=== PATIENT | male | born 1970 | race Caucasian/White ===

== ENCOUNTER 2017-05-20 07:39 | Emergency (ER) | payer BC, OTHER ==
[2017-05-20 07:45] VITALS: TEMP 36.9
[2017-05-20] MEDS ORDERED: MoRPHine SULFATE 4 MG/ML 1 ML CARP\\VIAL IV STA (07:59)
--- NOTE | 2017-05-20 08:05 | EMERGENCY ROOM VISIT NOTE ---
ED Visit Note First contact with patient: 07:51 CHIEF COMPLAINT: Leg injury HISTORY OF PRESENT ILLNESS: This is a 46-year-old male with past medical history significant for cerebral palsy who presents to the emergency department with complaining of left foot and lower leg pain, redness, swelling. Patient states that 2 days ago he was in his electric wheelchair trying to go through a door and his left ankle/foot was slammed against a brick wall. There is a small abrasion on the lateral ankle from the injury. He has noticed increased pain, bruising and swelling to the foot and ankle since the injury. He has not taken any medications for the pain. He denies any other injuries. He denies any fevers or chills, drainage from the abrasion, or any other injuries. Patient is wheelchair-bound. REVIEW OF SYSTEMS: A complete 6 point review of systems was reviewed with the patient with pertinent positives and negatives as per history of present illness. All else were negative. PMH: Cerebral palsy. Not on any medications. SOCIAL HISTORY: Patient lives at home. Wheelchair-bound. PHYSICAL EXAM: Vital Signs: Reviewed Nurse's notes. MENTAL STATUS: Alert and cooperative, minimally verbal which is his baseline per caregiver. Involuntary movements and spasms of extremities. The lower extremities are contracted and cachectic. The left lower calf lash ankle/foot noted to have ecchymosis to the lateral aspect with dependent ecchymosis of the ankle and foot. Slight abrasion to the lateral left calf appears well healed, no erythema, warmth, drainage noted. The skin is otherwise intact. There is no deformity or fracture crepitus. EMERGENCY DEPARTMENT COURSE: I examined the patient. Differential diagnosis includes contusion, abrasion, fracture, limbs cellulitis. Basic labs performed , no acute abnormalities noted. X-ray of the tibia/fibula and foot does not show any fractures. The patient was treated with IV the morphine and IV Toradol , with great improvement in his pain. Given the lack of fevers, leukocytosis, and no apparent warmth or erythema of the leg, I doubt cellulitis at this time and suspect this more likely a contusion/ecchymosis of the lower extremity. Cuate wrap was applied for comfort. Patient was instructed to follow up with his PCP, he verbalized understanding. Patient was discharged home in stable condition. Problem List Cerebral palsy Current/Historical Medications No Active Prescriptions or Reported Meds Allergies Coded Allergies: No Known Allergies (Unverified , 05/20/17) Vital Signs Date Time Temp Pulse Resp B/P (MAP) Pulse Ox O2 Delivery O2 Flow Rate FiO2 05/20/17 11:48 94 105/63 94 05/20/17 10:10 90 105/63 97 Room Air 05/20/17 07:45 36.9 90 20 110/72 96 Room Air Laboratory Results 05/20/17 08:10 Red Blood Count 4.57, Mean Corpuscular Volume 80.7, Mean Corpuscular Hemoglobin 26.9, Mean Corpuscular Hemoglobin Concent 33.3, Mean Platelet Volume 10.9, Neutrophils (%) (Auto) 80.8, Lymphocytes (%) (Auto) 11.1, Monocytes (%) (Auto) 7.3, Eosinophils (%) (Auto) 0.3, Basophils (%) (Auto) 0.3, Neutrophils # (Auto) 4.74, Lymphocytes # (Auto) 0.65, Monocytes # (Auto) 0.43, Eosinophils # (Auto) 0.02, Basophils # (Auto) 0.02 05/20/17 08:10 Test 05/20/17 08:10 White Blood Count 5.87 K/uL (4.8-10.8) Red Blood Count 4.57 M/uL (4.7-6.1) Hemoglobin 12.3 g/dL (14.0-18.0) Hematocrit 36.9 % (42-52) Mean Corpuscular Volume 80.7 fL (80-100) Mean Corpuscular Hemoglobin 26.9 pg (25-34) Mean Corpuscular Hemoglobin Concent 33.3 g/dl (32-36) Platelet Count 227 K/uL (130-400) Mean Platelet Volume 10.9 fL (7.4-10.4) Neutrophils (%) (Auto) 80.8 % Lymphocytes (%) (Auto) 11.1 % Monocytes (%) (Auto) 7.3 % Eosinophils (%) (Auto) 0.3 % Basophils (%) (Auto) 0.3 % Neutrophils # (Auto) 4.74 K/uL (1.4-6.5) Lymphocytes # (Auto) 0.65 K/uL (1.2-3.4) Monocytes # (Auto) 0.43 K/uL (0.11-0.59) Eosinophils # (Auto) 0.02 K/uL (0-0.5) Basophils # (Auto) 0.02 K/uL (0-0.2) RDW Standard Deviation 47.4 fL (36.4-46.3) RDW Coefficient of Variation 16.2 % (11.5-14.5) Immature Granulocyte % (Auto) 0.2 % Immature Granulocyte # (Auto) 0.01 K/uL (0.00-0.02) Anion Gap 9.0 mmol/L (3-11) Estimated GFR () 125.0 Estimated GFR (Non- 107.9 BUN/Creatinine Ratio 17.1 (10-20) Calcium Level 9.1 mg/dl (8.5-10.1) Medications Administered Medications (Trade) Dose Ordered Sig/Ina Route Start Time Stop Time Status Last Admin Dose Admin Morphine Sulfate (MoRPHine SULFATE INJ) 4 mg NOW STAT IV 05/20/17 07:59 05/20/17 08:06 DC 05/20/17 08:15 4 MG Ketorolac Tromethamine (Toradol Inj) 30 mg STK-MED ONCE .ROUTE 05/20/17 09:47 05/20/17 09:48 DC 05/20/17 09:47 15 MG Departure Information Impression Primary Impression: Contusion of lower extremity Dispostion Home / Self-Care Condition GOOD Prescriptions No Active Prescriptions or Reported Meds Referrals No Doctor, Assigned (PCP) Patient Instructions ED Contusion Lower Ext, [facility] Additional Instructions Ibuprofen 400 mg every 4-6 hours as needed for pain. Ice and elevation to the leg for the next 24 hours. Wear the Cuate wrap to the foot and leg for the next few days for comfort. Stay off the leg as much as possible and see your physician in 3-4 days if you are not improving. Please return to the emergency department for any worsening symptoms including increased pain, swelling, redness, streaking up the leg, fever/chills, or any other concerns. Problem Qualifiers Primary Impression: Contusion of lower extremity Encounter type: initial encounter Laterality: left Qualified Codes: S80.12XA - Contusion of left lower leg, initial encounter
[2017-05-20 08:35] LABS: BASO % 0.3 %; BASO ABS # 0.02 K/uL (0-0.2); COMPLETE YES; EOS % 0.3 %; HEMATOCRIT 36.9 % (42-52); IG% 0.2 %; LYMPH % 11.1 %; LYMPH ABS # 0.65 K/uL (1.2-3.4); MEAN CELL VOLUME 80.7 fL (80-100); MEAN CORPUSCULAR HEMOGLOBIN 26.9 pg (25-34); MEAN CORPUSCULAR HGB CONC 33.3 g/dl (32-36); MEAN PLATELET VOLUME 10.9 fL (7.4-10.4); MONO % 7.3 %; NEUT % 80.8 %; PLATELET COUNT 227 K/uL (130-400); RED BLOOD COUNT 4.57 M/uL (4.7-6.1); WHITE BLOOD COUNT 5.87 K/uL (4.8-10.8)
[2017-05-20 08:42] LABS: BLOOD UREA NITROGEN 13 mg/dl (7-18); BUN/CREATININE RATIO 17.1 (10-20); CALCIUM 9.1 mg/dl (8.5-10.1); CARBON DIOXIDE 24 mmol/L (21-32); CHLORIDE 104 mmol/L (98-107); CREATININE 0.76 mg/dl (0.60-1.40); GLUCOSE 97 mg/dl (70-99); POTASSIUM 4.3 mmol/L (3.5-5.1); SODIUM 137 mmol/L (136-145)
--- NOTE | 2017-05-20 08:56 | DIAGNOSTIC IMAGING REPORT ---
L FOOT 2 VIEWS CLINICAL HISTORY: 46 years-old Male presenting with BLACK/BLUE, SWOLLEN, RED LEFT FOOT, left foot injury, ran into wall with wheelchair. TECHNIQUE: Frontal and lateral views of the left foot were obtained. COMPARISON: None. FINDINGS: The left foot appears chronically deformed likely due to contraction. No acute fracture or malalignment. No radiographic evidence of soft tissue swelling. Small ossicle or chronic avulsion fracture noted inferior to the medial malleolus. IMPRESSION: No acute osseous injury of the left foot. Chronic contraction deformity. Electronically signed by: Huy Hanna M.D. 05/20/2017 8:55 AM Dictated Date/Time: 05/20/2017 8:54 AM
--- NOTE | 2017-05-20 08:57 | DIAGNOSTIC IMAGING REPORT ---
LEFT TIBIA AND FIBULA 2 VIEWS CLINICAL HISTORY: Left leg injury. FINDINGS: AP and lateral views of the left tibia and fibula are obtained. No prior studies are available for comparison at the time of dictation. The examination is degraded by suboptimal positioning. The skeletal structures are osteopenic. There is no radiographic evidence of left tibial or fibular fracture. The knee and ankle joints are grossly maintained. Mild pretibial soft tissue swelling is suggested. IMPRESSION: There is no radiographic evidence of left tibial or fibular fracture. Electronically signed by: Orlin Prasad M.D. 05/20/2017 8:56 AM Dictated Date/Time: 05/20/2017 8:53 AM
[2017-05-20] MEDS: KETOROLAC TROMETHAMINE 30 MG/ML VIAL ONE ×2 (09:47→09:49)
[2017-05-20] MEDS ORDERED: KETOROLAC TROMETHAMINE 15 MG/ML VIAL IV. ONE (10:00)
[2017-05-20 11:48] VITALS: BP 105/63; PULSE 94; O2SAT 94
== END 2017-05-20 11:50 | disposition home or self-care (01) ==
LOC: C.EDB 07:41 → C.EDA 11:50
DX: S80.12XA Contusion of left lower leg, initial encounter (principal); S90.512A Abrasion, left ankle, initial encounter; W22.09XA Striking against other stationary object, initial encounter; G80.9 Cerebral palsy, unspecified; Z99.3 Dependence on wheelchair

== ENCOUNTER 2017-06-12 10:55 | Emergency (ER) | payer OTHER ==
[~2017-06-12] VITALS: Ht 162.6 cm; Wt 50.0 kg
[2017-06-12 11:07] VITALS: TEMP 37.2; Ht 162.6 cm; Wt 50.0 kg
[2017-06-12] MEDS ORDERED: BACL10TA PO (11:36)
[2017-06-12] MEDS ORDERED: SODIUM CHLORIDE 0.9% 1000ML 1,000 ML IV STA ×2 (12:03→14:23)
[2017-06-12] MEDS ORDERED: ONDANSETRON INJ 2 MG/ML 2 ML VIAL IV STA (12:03)
[2017-06-12] MEDS ORDERED: MoRPHine SULFATE 4 MG/ML 1 ML CARP\\VIAL IV STA (12:03)
[2017-06-12] MEDS ORDERED: LORAZEPAM 2 MG/ML 1 ML VIAL IV STA (12:06)
--- NOTE | 2017-06-12 12:10 | EMERGENCY ROOM VISIT NOTE ---
History Report prepared by Hectoribe: Sri Bertrand Under the Supervision of: Dr. James Parkinson M.D. First contact with patient: 11:57 Chief Complaint: NAUSEA Stated Complaint: N, HOT, COUGH History of Present Illness The patient is a 46 year old male who presents to the Emergency Room with complaints of hot/cold flashes beginning today. Per patient's caregiver, the patient has been having nausea, vomiting, decreased appetite, headache and abdominal pain. He denies any recent falls or urinary symptoms. The patient has cerebral palsy . Per the patient's caregiver, the patient does not usually have spasms like he is having unless he is in pain or sick. 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 The patient is on Baclofen but denies missing or taking any extra dosages. Source of History: patient, caregiver Onset: this morning Position: other (generalized) Quality: other (hot/cold flashes) Associated Symptoms: + headache, + nausea, + vomiting, + abdominal pain, No urinary symptoms Review of Systems See HPI for pertinent positives & negatives. A total of 10 systems reviewed and were otherwise negative. Past Medical & Surgical Medical Problems: (1) Cerebral palsy Old medical records were reviewed. Nurse's notes were reviewed and I agree with. Family History FH: heart attack Social History Smoking Status: Never Smoker Drug Use: none Occupation Status: employed Current/Historical Medications Scheduled Baclofen (Lioresal), 5 MG PO BID Scheduled PRN Lorazepam (Ativan), 1 MG PO Q8 PRN for Muscle Spasms Allergies Coded Allergies: No Known Allergies (Unverified , 05/20/17) Physical Exam Vital Signs Date Time Temp Pulse Resp B/P (MAP) Pulse Ox O2 Delivery O2 Flow Rate FiO2 06/12/17 17:00 61 18 114/68 97 Room Air 06/12/17 15:00 64 20 112/71 96 Room Air 06/12/17 13:00 67 15 100/67 93 Room Air 06/12/17 12:37 78 06/12/17 11:07 37.2 73 20 151/82 98 Room Air Physical Exam General: Non-ill appearing middle-aged male writhing in bed. HEENT: Normal cephalic atraumatic. Pupils are equal round and reactive to light. Extraocular movements are intact. Oropharynx is pink with moist mucous membranes. No swelling of the mouth lips or tongue. Neck: Supple with a midline trachea. No meningeal signs or stiffness, no JVD or bruits. No Stridor. Chest: Clear to auscultation bilaterally. No wheezes or rhonchi. No increased work of breathing. Heart: regular rate and rhythm. Abdomen: Soft nontender, nondistended without rebound guarding or rigidity. Extremities: Spasms on extremities, difficult to exam writhing in bed. Spine/Back. Non tender to palpation. No CVA tenderness :no evidence of hernia or torsion Skin: Good turgor without rashes. Neurologic exam: Cranial nerves two through 12 are intact. Motor and sensation are intact and symmetrical throughout. Medical Decision & Procedures ER Provider Diagnostic Interpretation: Radiology results as stated below per my review and radiologist interpretation: CHEST ONE VIEW PORTABLE FINDINGS: The bones soft tissues and hemidiaphragms are normal. The cardiomediastinal silhouette is normal. The lungs are clear. The pulmonary vasculature is normal. IMPRESSION: Negative chest. The above report was generated using voice recognition software. It may contain grammatical, syntax or spelling errors. Electronically signed by: Cayden Lux M.D. CT ABD/PELVIS IV CONTRAST ONLY FINDINGS: Lower chest: The heart is normal in size and configuration, without pericardial effusion. The lung bases and pleural spaces are clear. There is a prominent hiatal hernia Liver: The contrast-enhanced liver is normal in size, contour, and attenuation. There is no intrahepatic biliary ductal dilatation. The hepatic veins and portal veins are patent. Gallbladder: Unremarkable. Spleen: Normal in size and attenuation. Pancreas: Unremarkable. Adrenal glands: Unremarkable. Kidneys: There is symmetric renal cortical enhancement. The kidneys are normal in size without hydronephrosis. There are suspected bilateral nonobstructing renal calculi. Bowel: There are no transition zones to indicate bowel obstruction. The examination is moderately compromised due to motion artifact. Bowel evaluation is limited due to the lack of orally administered contrast. There are no findings to indicate acute diverticulitis. The appendix is felt to be normal. Peritoneum: There is no intraperitoneal free air or abdominal ascites. Vasculature: The abdominal aorta is normal in course and caliber. Adenopathy: None. Pelvic viscera: There is mild prominence of the prostate and seminal vesicles. Skeletal structures: No destructive osseous lesions are seen. IMPRESSION: 1. Significantly limited study from a technical standpoint secondary to patient motion 2. Moderate hiatal hernia 3. No evidence of bowel obstruction. No evidence of free air 4. No evidence of acute appendicitis. No evidence of acute diverticulitis 5. Nonspecific prominence of the prostate and seminal vesicles 6. Probable nephrolithiasis. Electronically signed by: Raza Leblanc M.D. Laboratory Results 06/12/17 11:25 Red Blood Count 4.61, Mean Corpuscular Volume 81.3, Mean Corpuscular Hemoglobin 26.2, Mean Corpuscular Hemoglobin Concent 32.3, Mean Platelet Volume 10.5, Neutrophils (%) (Auto) 83.8, Lymphocytes (%) (Auto) 9.7, Monocytes (%) (Auto) 6.0, Eosinophils (%) (Auto) 0.1, Basophils (%) (Auto) 0.3, Neutrophils # (Auto) 6.30, Lymphocytes # (Auto) 0.73, Monocytes # (Auto) 0.45, Eosinophils # (Auto) 0.01, Basophils # (Auto) 0.02 06/12/17 11:25 Test 06/12/17 11:25 06/12/17 12:14 06/12/17 15:50 White Blood Count 7.52 K/uL (4.8-10.8) Red Blood Count 4.61 M/uL (4.7-6.1) Hemoglobin 12.1 g/dL (14.0-18.0) Hematocrit 37.5 % (42-52) Mean Corpuscular Volume 81.3 fL (80-100) Mean Corpuscular Hemoglobin 26.2 pg (25-34) Mean Corpuscular Hemoglobin Concent 32.3 g/dl (32-36) Platelet Count 300 K/uL (130-400) Mean Platelet Volume 10.5 fL (7.4-10.4) Neutrophils (%) (Auto) 83.8 % Lymphocytes (%) (Auto) 9.7 % Monocytes (%) (Auto) 6.0 % Eosinophils (%) (Auto) 0.1 % Basophils (%) (Auto) 0.3 % Neutrophils # (Auto) 6.30 K/uL (1.4-6.5) Lymphocytes # (Auto) 0.73 K/uL (1.2-3.4) Monocytes # (Auto) 0.45 K/uL (0.11-0.59) Eosinophils # (Auto) 0.01 K/uL (0-0.5) Basophils # (Auto) 0.02 K/uL (0-0.2) RDW Standard Deviation 48.9 fL (36.4-46.3) RDW Coefficient of Variation 16.4 % (11.5-14.5) Immature Granulocyte % (Auto) 0.1 % Immature Granulocyte # (Auto) 0.01 K/uL (0.00-0.02) Anion Gap 7.0 mmol/L (3-11) Est Creatinine Clear Calc Drug Dose 90.0 ml/min Estimated GFR () 128.6 Estimated GFR (Non- 111.0 BUN/Creatinine Ratio 13.3 (10-20) Calcium Level 8.6 mg/dl (8.5-10.1) Total Bilirubin 0.3 mg/dl (0.2-1) Direct Bilirubin < 0.1 mg/dl (0-0.2) Aspartate Amino Transf (AST/SGOT) 26 U/L (15-37) Alanine Aminotransferase (ALT/SGPT) 20 U/L (12-78) Alkaline Phosphatase 70 U/L (45-117) Total Protein 7.6 gm/dl (6.4-8.2) Albumin 3.7 gm/dl (3.4-5.0) Lipase 157 U/L (73-393) Bedside Troponin I < 0.030 ng/ml (0-0.045) Urine Color YELLOW Urine Appearance CLEAR (CLEAR) Urine pH >= 9.0 (4.5-7.5) Urine Specific [place] > 1.045 (1.000-1.030) Urine Protein NEG (NEG) Urine Glucose (UA) NEG (NEG) Urine Ketones NEG (NEG) Urine Occult Blood NEG (NEG) Urine Nitrite NEG (NEG) Urine Bilirubin NEG (NEG) Urine Urobilinogen NEG (NEG) Urine Leukocyte Esterase NEG (NEG) Urine WBC (Auto) 5-10 /hpf (0-5) Urine RBC (Auto) 0-4 /hpf (0-4) Urine Hyaline Casts (Auto) 1-5 /lpf (0-5) Urine Epithelial Cells (Auto) >30 /lpf (0-5) Urine Bacteria (Auto) NEG (NEG) Urine Renal Epithelial Cells /lpf (0-5) Urine Sperm (Auto) PRESENT (NOT PRESENT) Laboratory studies as stated above per my review. Medications Administered Medications (Trade) Dose Ordered Sig/Ina Route Start Time Stop Time Status Last Admin Dose Admin Ondansetron HCl (Zofran Inj) 4 mg NOW STAT IV 06/12/17 12:03 06/12/17 12:05 DC 06/12/17 12:16 4 MG Sodium Chloride 1,000 ml @ 999 mls/hr Q1H1M STAT IV 06/12/17 12:03 06/12/17 13:03 DC 06/12/17 12:03 999 MLS/HR Lorazepam (Ativan Inj) 1 mg NOW STAT IV 06/12/17 12:06 06/12/17 12:07 DC 06/12/17 12:16 1 MG Sodium Chloride 1,000 ml @ 999 mls/hr Q1H1M STAT IV 06/12/17 14:23 06/12/17 15:23 DC 06/12/17 14:23 999 MLS/HR ED Course 1200: Past medical records reviewed. The patient was evaluated in room C12B, and a complete history and physical examination were performed. 1203: Sodium Chloride 1000 ml @ 999 mls/hr IV, Zofran Inj 4 mg IV, Morphine Sulfate 4 mg IV. 1206: Lorazepam 1 mg IV. 1300: The patient is now resting comfortably and is no longer having spasms. 1315: Ioversol 100 ml IV. 1358: I reassessed the patient and he is feeling better. He denies any chest pain, shortness of breath, groin pain or numbness or weakness in his leg. He feels ready to go home. 1423:Sodium Chloride 1000 ml @ 999 mls/hr IV. 1613: Upon reevaluation, the patient is resting. I discussed the results and treatment plan with the patient. He verbalized agreement of the treatment plan. The patient was discharged home. Medical Decision Differential diagnoses include: :dehydration, infection, bowel obstruction, electrolyte metabolic abnormality. This patient comes in as described above. He is complaining of abdominal pain he seems of spasm in his extremities. He does have CP and his caregiver says that's what happens when he is in pain. His abdomen does not appear to be distended . It's hard to localize. given his underlying medical issues. He was given Ativan 1 mg IV after IV access was established as well as Zofran and was doing much better his abdomen remains benign. He has nothing to suggest hernia or testicular torsion. Multiple blood testing was obtained. He has no white count or fever to suggest infection. He has no acute electrolyte or metabolic abnormalities. His urinalysis does not suggest a UTI with a culture pending. He has nothing to suggest liver or gallbladder or pancreas disease. I did do a CAT scan with IV contrast. There are no acute abnormality seen on the CAT scan. The patient appears comfortable. The Ativan really seemed to help I don't know if this is some spasticity related to his underlying muscle/ CP. His caregiver says he does get like this when he feels bad. He is taking baclofen and says that he has been taking it. I will give him a short prescription for lorazepam that he can use, 1 mg every 8 hours as needed. He was warned that it could make him drowsy and do not take before drinking, driving, working be careful up and down. The patient was happy with the plan and will be discharged to home. [place] Drug Monitoring Program Search Results: patient reviewed within database, no issues identified Medication Reconcilliation Current Medication List: was personally reviewed by me Blood Pressure Screening Patient's blood pressure: Normal blood pressure Impression Primary Impression: Nausea Additional Impressions: Abdominal pain Muscle spasm Scribe Attestation The scribe's documentation has been prepared under my direction and personally reviewed by me in its entirety. I confirm that the note above accurately reflects all work, treatment, procedures, and medical decision making performed by me. Departure Information Dispostion Home / Self-Care Prescriptions Lorazepam (ATIVAN) 1 Mg Tab 1 MG PO Q8 Y for Muscle Spasms, #6 TAB Prov: James Parkinson M.D. 06/12/17 Referrals No Doctor, Assigned (PCP) Forms HOME CARE DOCUMENTATION FORM, IMPORTANT VISIT INFORMATION Patient Instructions My [facility] Additional Instructions Rest. Drink plenty of fluids. May use Ativan 1 mg every 8 hours if needed for spasm The very careful as Ativan may make you drowsy and do not take with any other medications that are sedating Do not take Ativan if you drive or work. Be very careful getting up and down Return if: Worsening of symptoms, increasing pain, fever or chills, any new problems or concerns. Follow-up with your doctor tomorrow for recheck Problem Qualifiers
--- NOTE | 2017-06-12 12:27 | DIAGNOSTIC IMAGING REPORT ---
CHEST ONE VIEW PORTABLE CLINICAL HISTORY: CHEST PAIN pain COMPARISON STUDY: No previous studies for comparison. FINDINGS: The bones soft tissues and hemidiaphragms are normal. The cardiomediastinal silhouette is normal. The lungs are clear. The pulmonary vasculature is normal. IMPRESSION: Negative chest. The above report was generated using voice recognition software. It may contain grammatical, syntax or spelling errors. Electronically signed by: Cayden Lux M.D. 06/12/2017 12:26 PM Dictated Date/Time: 06/12/2017 12:25 PM
[2017-06-12 12:29] LABS: BASO % 0.3 %; BASO ABS # 0.02 K/uL (0-0.2); COMPLETE YES; EOS % 0.1 %; HEMATOCRIT 37.5 % (42-52); IG% 0.1 %; LYMPH % 9.7 %; LYMPH ABS # 0.73 K/uL (1.2-3.4); MEAN CELL VOLUME 81.3 fL (80-100); MEAN CORPUSCULAR HEMOGLOBIN 26.2 pg (25-34); MEAN CORPUSCULAR HGB CONC 32.3 g/dl (32-36); MEAN PLATELET VOLUME 10.5 fL (7.4-10.4); NEUT % 83.8 %; PLATELET COUNT 300 K/uL (130-400); RED BLOOD COUNT 4.61 M/uL (4.7-6.1); WHITE BLOOD COUNT 7.52 K/uL (4.8-10.8)
[2017-06-12 12:35] LABS: CHLORIDE 103 mmol/L (98-107); POTASSIUM 4.3 mmol/L (3.5-5.1); SODIUM 141 mmol/L (136-145)
[2017-06-12 12:41] LABS: BLOOD UREA NITROGEN 9 mg/dl (7-18); BUN/CREATININE RATIO 13.3 (10-20); CALCIUM 8.6 mg/dl (8.5-10.1); CARBON DIOXIDE 31 mmol/L (21-32); CREATININE 0.71 mg/dl (0.60-1.40); GLUCOSE 90 mg/dl (70-99)
[2017-06-12 12:42] LABS: ALT/SGPT 20 U/L (12-78)
[2017-06-12 12:45] LABS: ALKALINE PHOSPHATASE 70 U/L (45-117); AST/SGOT 26 U/L (15-37)
[2017-06-12] MEDS ORDERED: OPTIRAY 320 IV PRN (13:15)
--- NOTE | 2017-06-12 13:36 | DIAGNOSTIC IMAGING REPORT ---
CT ABD/PELVIS IV CONTRAST ONLY CLINICAL HISTORY: Diffuse abdominal pain COMPARISON STUDY: None. TECHNIQUE: Following the IV administration of 93 mL of Optiray-320, CT scan of the abdomen and pelvis was performed from the lung bases to the proximal femurs. Images are reviewed in the axial, sagittal, and coronal planes. IV contrast was administered without complication. A dose lowering technique was utilized adhering to the principles of ALARA. CT DOSE: 413.43 mGy.cm FINDINGS: Lower chest: The heart is normal in size and configuration, without pericardial effusion. The lung bases and pleural spaces are clear. There is a prominent hiatal hernia Liver: The contrast-enhanced liver is normal in size, contour, and attenuation. There is no intrahepatic biliary ductal dilatation. The hepatic veins and portal veins are patent. Gallbladder: Unremarkable. Spleen: Normal in size and attenuation. Pancreas: Unremarkable. Adrenal glands: Unremarkable. Kidneys: There is symmetric renal cortical enhancement. The kidneys are normal in size without hydronephrosis. There are suspected bilateral nonobstructing renal calculi. Bowel: There are no transition zones to indicate bowel obstruction. The examination is moderately compromised due to motion artifact. Bowel evaluation is limited due to the lack of orally administered contrast. There are no findings to indicate acute diverticulitis. The appendix is felt to be normal. Peritoneum: There is no intraperitoneal free air or abdominal ascites. Vasculature: The abdominal aorta is normal in course and caliber. Adenopathy: None. Pelvic viscera: There is mild prominence of the prostate and seminal vesicles. Skeletal structures: No destructive osseous lesions are seen. IMPRESSION: 1. Significantly limited study from a technical standpoint secondary to patient motion 2. Moderate hiatal hernia 3. No evidence of bowel obstruction. No evidence of free air 4. No evidence of acute appendicitis. No evidence of acute diverticulitis 5. Nonspecific prominence of the prostate and seminal vesicles 6. Probable nephrolithiasis. Electronically signed by: Raza Leblanc M.D. 06/12/2017 1:35 PM Dictated Date/Time: 06/12/2017 1:30 PM
[2017-06-12] MEDS ORDERED: ATV/1 PO (16:02)
[2017-06-12 16:05] LABS: URINE APPEARANCE CLEAR (CLEAR); URINE BILIRUBIN NEG (NEG); URINE COLOR YELLOW; URINE EPITHELIAL CELL AUTO >30 /lpf (0-5); URINE NITRITE NEG (NEG); URINE PH >= 9.0 (4.5-7.5); URINE SPECIFIC GRAVITY > 1.045 (1.000-1.030); UROBILINOGEN NEG (NEG)
[2017-06-12 16:16] LABS: MANUAL MICROSCOPIC REQUIRED? NO; REVIEW REQ? YES
[2017-06-12 16:20] LABS: SULFASALICYLIC ACID NEG (NEG)
[2017-06-12 18:20] VITALS: BP 109/68; PULSE 93; O2SAT 97
== END 2017-06-12 18:50 | disposition home or self-care (01) ==
LOC: C.EDB 10:56 → C.EDC 18:50
DX: R11.0 Nausea (principal); R10.9 Unspecified abdominal pain; M62.838 Other muscle spasm; G80.9 Cerebral palsy, unspecified

== ENCOUNTER 2017-07-06 19:31 | Emergency (ER) | payer OTHER ==
[~2017-07-06] VITALS: Ht 149.9 cm; Wt 48.2 kg
[~2017-07-06 19:31] MED LIST: BACL10TA PO
[2017-07-06 19:44] VITALS: TEMP 37.5; Ht 149.9 cm; Wt 48.2 kg
[2017-07-06] MEDS ORDERED: BACLOFEN 10 MG TAB PO STA (19:46)
[2017-07-06 20:16] LABS: BASO % 0.5 %; BASO ABS # 0.04 K/uL (0-0.2); COMPLETE YES; EOS % 0.1 %; HEMATOCRIT 35.7 % (42-52); IG% 0.2 %; LYMPH % 11.9 %; LYMPH ABS # 0.98 K/uL (1.2-3.4); MEAN CELL VOLUME 80.4 fL (80-100); MEAN CORPUSCULAR HEMOGLOBIN 25.9 pg (25-34); MEAN CORPUSCULAR HGB CONC 32.2 g/dl (32-36); MEAN PLATELET VOLUME 9.8 fL (7.4-10.4); MONO % 7.3 %; PLATELET COUNT 224 K/uL (130-400); RED BLOOD COUNT 4.44 M/uL (4.7-6.1); WHITE BLOOD COUNT 8.22 K/uL (4.8-10.8)
[2017-07-06 20:48] LABS: BUN/CREATININE RATIO 16.9 (10-20); CALCIUM 8.2 mg/dl (8.5-10.1); CREATININE 0.7 mg/dl (0.60-1.40)
--- NOTE | 2017-07-06 20:49 | DIAGNOSTIC IMAGING REPORT ---
CT HEAD WITHOUT CONTRAST (CT) CLINICAL HISTORY: Seizure. Head trauma. COMPARISON STUDY: No previous studies for comparison. TECHNIQUE: Axial CT of the brain is performed from the vertex to the skull base. IV contrast was not administered for this examination. A dose lowering technique was utilized adhering to the principles of ALARA. CT DOSE: 1944.53 mGy.cm FINDINGS: No intra or extra-axial mass lesions are visualized. There is no CT evidence of acute cortical infarction. There is no evidence of midline shift. There is no acute hemorrhage. No calvarial fractures are visualized. There are subtle white matter hypodensities likely on a small vessel basis. There is no evidence of pathologic ventricular dilatation. There is a small sphenoid sinus air-fluid level. IMPRESSION: 1. No acute intracranial findings 2. Small sphenoid sinus air-fluid level. Electronically signed by: Raza Leblanc M.D. 07/06/2017 8:47 PM Dictated Date/Time: 07/06/2017 8:46 PM
--- NOTE | 2017-07-06 20:52 | DIAGNOSTIC IMAGING REPORT ---
CT OF THE CERVICAL SPINE CLINICAL HISTORY: Neck pain status post trauma SEIZURE COMPARISON STUDY: No previous studies for comparison. CT DOSE: TECHNIQUE: CT scan of the cervical spine was performed from the skull base to the thoracic inlet. Images are reviewed in the axial, sagittal, and coronal planes. IV contrast was not administered for this examination. A dose lowering technique was utilized adhering to the principles of ALARA. FINDINGS: The visualized portions of the lung apices reveal no evidence of pneumothorax. The prevertebral soft tissues are normal. No fractures or subluxations are visualized. There are advanced multilevel degenerative changes IMPRESSION: No evidence of acute fracture or traumatic subluxation. Electronically signed by: Raza Leblanc M.D. 07/06/2017 8:51 PM Dictated Date/Time: 07/06/2017 8:48 PM
[2017-07-06 20:53] LABS: POTASSIUM 4.1 mmol/L (3.5-5.1)
[2017-07-06 21:27] VITALS: BP 100/73; PULSE 102; O2SAT 94
--- NOTE | 2017-07-06 23:57 | EMERGENCY ROOM VISIT NOTE ---
History Report prepared by Maninder: Jammie Segura Under the Supervision of: Dr. Carrillo Wells M.D. First contact with patient: 19:35 Chief Complaint: SEIZURE Stated Complaint: SEIZURE History of Present Illness The patient is a 46 year old male who presents to the Emergency Room with complaints of worsening shaking starting today. The patient denies having a seizure ever in his life or having Parkinson's disease. He states that he has cerebral palsy and normally shakes, but not this much. He states that he takes Ativan to help with his shaking and denies taking it today. He notes that he fell today trying to get into his wheel chair. He denies a headache, neck pain, and back pain. He states that he did not hit his head when he fell. He notes he is having leg pain in both legs from moving them so much today. The patient denies a fever, chest pain, vomiting, and abdominal pain. Source of History: patient Onset: today Position: other (global) Quality: other (shaking) Timing: worsening Modifying Factors (Relieving): other (Ativan) Associated Symptoms: No fevers, No headache, No neck pain, No vomiting, No abdominal pain, No back pain Note: The patient complains of bilateral leg pain. Review of Systems See HPI for pertinent positives & negatives. A total of 10 systems reviewed and were otherwise negative. Past Medical & Surgical Medical Problems: (1) Cerebral palsy Family History FH: heart attack Social History Smoking Status: Never Smoker Drug Use: none Marital Status: single Housing Status: assisted living Occupation Status: employed Current/Historical Medications Unable to Obtain Active Prescriptions or Reported Meds Allergies Coded Allergies: No Known Allergies (Unverified , 05/20/17) Physical Exam Vital Signs Date Time Temp Pulse Resp B/P (MAP) Pulse Ox O2 Delivery O2 Flow Rate FiO2 07/06/17 21:27 102 20 100/73 94 07/06/17 19:44 37.5 101 20 126/71 97 Room Air Physical Exam Constitutional: Vital signs reviewed. Eyes: Pupils are equal round reactive to light. Conjunctiva are noninjected. ENT: Pharynx is clear without erythema or exudate. Mucous membranes are moist. Neck supple without meningeal signs. Respiratory: Clear to auscultation bilaterally. Breath sounds are equal bilaterally. Cardiovascular: Regular rate and rhythm. No rubs or gallops. GI: Soft, nondistended and nontender. Bowel sounds are present. Musculoskeletal: No peripheral edema. Contractures. Integumentary: No cyanosis. Neurological: The patient is awake and alert. Involuntary movements of the arms and legs. Psychiatric: Normal affect. Medical Decision & Procedures ER Provider Diagnostic Interpretation: Radiology results as stated below per my review and the radiologist's interpretation: CT HEAD WITHOUT CONTRAST (CT) CLINICAL HISTORY: Seizure. Head trauma. COMPARISON STUDY: No previous studies for comparison. TECHNIQUE: Axial CT of the brain is performed from the vertex to the skull base. IV contrast was not administered for this examination. A dose lowering technique was utilized adhering to the principles of ALARA. CT DOSE: 1944.53 mGy.cm FINDINGS: No intra or extra-axial mass lesions are visualized. There is no CT evidence of acute cortical infarction. There is no evidence of midline shift. There is no acute hemorrhage. No calvarial fractures are visualized. There are subtle white matter hypodensities likely on a small vessel basis. There is no evidence of pathologic ventricular dilatation. There is a small sphenoid sinus air-fluid level. IMPRESSION: 1. No acute intracranial findings 2. Small sphenoid sinus air-fluid level. Electronically signed by: Raza Leblanc M.D. 07/06/2017 8:47 PM Dictated Date/Time: 07/06/2017 8:[address] OF THE CERVICAL SPINE CLINICAL HISTORY: Neck pain status post trauma SEIZURE COMPARISON STUDY: No previous studies for comparison. CT DOSE: TECHNIQUE: CT scan of the cervical spine was performed from the skull base to the thoracic inlet. Images are reviewed in the axial, sagittal, and coronal planes. IV contrast was not administered for this examination. A dose lowering technique was utilized adhering to the principles of ALARA. FINDINGS: The visualized portions of the lung apices reveal no evidence of pneumothorax. The prevertebral soft tissues are normal. No fractures or subluxations are visualized. There are advanced multilevel degenerative changes IMPRESSION: No evidence of acute fracture or traumatic subluxation. Electronically signed by: Raza Leblanc M.D. 07/06/2017 8:51 PM Dictated Date/Time: 07/06/2017 8:48 PM Laboratory Results 07/06/17 19:55 Red Blood Count 4.44, Mean Corpuscular Volume 80.4, Mean Corpuscular Hemoglobin 25.9, Mean Corpuscular Hemoglobin Concent 32.2, Mean Platelet Volume 9.8, Neutrophils (%) (Auto) 80.0, Lymphocytes (%) (Auto) 11.9, Monocytes (%) (Auto) 7.3, Eosinophils (%) (Auto) 0.1, Basophils (%) (Auto) 0.5, Neutrophils # (Auto) 6.57, Lymphocytes # (Auto) 0.98, Monocytes # (Auto) 0.60, Eosinophils # (Auto) 0.01, Basophils # (Auto) 0.04 07/06/17 19:55 Test 07/06/17 19:55 07/06/17 20:55 White Blood Count 8.22 K/uL (4.8-10.8) Red Blood Count 4.44 M/uL (4.7-6.1) Hemoglobin 11.5 g/dL (14.0-18.0) Hematocrit 35.7 % (42-52) Mean Corpuscular Volume 80.4 fL (80-100) Mean Corpuscular Hemoglobin 25.9 pg (25-34) Mean Corpuscular Hemoglobin Concent 32.2 g/dl (32-36) Platelet Count 224 K/uL (130-400) Mean Platelet Volume 9.8 fL (7.4-10.4) Neutrophils (%) (Auto) 80.0 % Lymphocytes (%) (Auto) 11.9 % Monocytes (%) (Auto) 7.3 % Eosinophils (%) (Auto) 0.1 % Basophils (%) (Auto) 0.5 % Neutrophils # (Auto) 6.57 K/uL (1.4-6.5) Lymphocytes # (Auto) 0.98 K/uL (1.2-3.4) Monocytes # (Auto) 0.60 K/uL (0.11-0.59) Eosinophils # (Auto) 0.01 K/uL (0-0.5) Basophils # (Auto) 0.04 K/uL (0-0.2) RDW Standard Deviation 47.3 fL (36.4-46.3) RDW Coefficient of Variation 16.1 % (11.5-14.5) Immature Granulocyte % (Auto) 0.2 % Immature Granulocyte # (Auto) 0.02 K/uL (0.00-0.02) Anion Gap 11.0 mmol/L (3-11) Est Creatinine Clear Calc Drug Dose 87.1 ml/min Estimated GFR () 129.3 Estimated GFR (Non- 111.6 BUN/Creatinine Ratio 16.9 (10-20) Calcium Level 8.2 mg/dl (8.5-10.1) Ethyl Alcohol mg/dL 50.4 mg/dl (0-3) Laboratory results as reviewed by me. Medications Administered Medications (Trade) Dose Ordered Sig/Ina Route Start Time Stop Time Status Last Admin Dose Admin Baclofen (Lioresal Tab) 5 mg NOW STAT PO 07/06/17 19:46 07/06/17 19:48 DC 07/06/17 20:07 5 MG ECG Indication: other (nursing protocol) Rate (beats per minute): 101 Rhythm: sinus tachycardia Findings: no acute ischemic change, no ectopy ED Course 1936: The patient was evaluated in room B7. A complete history and physical exam was performed. 1945: Ordered Baclofen 5 mg PO. 1952: Nursing staff stated that they called the apartment complex that the patient lives at and he lives with 2 assistants. They state that no one at the complex called 911 there. 2010: Nursing staff stated that the patient told them he was drinking alcohol today. 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 They state that that is unusual for him and he asked her to do so. 2112: I reevaluated the patient and his two caregivers are there. After further discussion, the patient stated that he drank 3 beers today and did not take his Baclofen. His shaking has stopped at this point and he has not complaints. The patient will be discharged home with his caretakers. Medical Decision This is a 46-year-old male who presents with increased involuntary movements. He also fell today. Differential diagnosis includes intracranial hemorrhage, intracranial mass, cerebral palsy, partial simple seizures, metabolic derangement. I did perform a limited focused review of portions of the patient' s old chart on the electronic medical record. The patient was here for nausea June 12. He had a CT of his abdomen which showed no acute process. I did evaluate the patient as noted above. The patient is presenting with increased involuntary movements. He has a history of chronic involuntary movements. He is on baclofen and Ativan when necessary. He states he did not take his baclofen or his Ativan today and he admits to drinking alcohol. He did fall yesterday while trying to get into a chair. The patient was placed on a continuous surveillance system monitor. I did order and personally review the patient's 12-lead EKG as described above. I did order and review the patient's blood work as noted in the electronic medical record. I did order a CT of the cervical spine and head. I did review the images myself as well as the radiology report as described above. There is no evidence of acute injury. I did treat him with baclofen here. The patient was given Ativan prior to arrival and on reassessment the patient no longer has any significant involuntary movements. He did feel much better and was discharged with his caretakers. Medication Reconcilliation Current Medication List: was personally reviewed by me Blood Pressure Screening Patient's blood pressure: Normal blood pressure Blood pressure disposition: Did not require urgent referral Impression Primary Impression: Involuntary movements Additional Impressions: Cerebral palsy Anemia Scribe Attestation The scribe's documentation has been prepared under my direct and personally reviewed by me in its entirety. I confirm that the note above accurately reflects all work, treatment, procedures, and medical decision making performed by me. Departure Information Dispostion Home / Self-Care Prescriptions Unable to Obtain Active Prescriptions or Reported Meds Referrals No Doctor, Assigned (PCP) Forms HOME CARE DOCUMENTATION FORM, IMPORTANT VISIT INFORMATION Patient Instructions My [facility] Additional Instructions You have been examined and treated today on an emergency basis only. This is not a substitute for, or an effort to provide, complete comprehensive medical care. It is impossible to recognize and treat all injuries or illnesses in a single emergency department visit. It is therefore important that you follow up closely with your physician. Call as soon as possible for an appointment. Return for worsening symptoms or if you develop fever, vomiting, headache or any other concerning symptoms. Problem Qualifiers Additional Impressions: Cerebral palsy Cerebral palsy type: unspecified type Qualified Codes: G80.9 - Cerebral palsy, unspecified Anemia Anemia type: unspecified type Qualified Codes: D64.9 - Anemia, unspecified
== END 2017-07-06 21:28 | disposition home or self-care (01) ==
LOC: EDBD 19:31 → C.EDB 19:33
DX: R25.9 Unspecified abnormal involuntary movements (principal); G80.9 Cerebral palsy, unspecified; D64.9 Anemia, unspecified; M79.604 Pain in right leg; M79.605 Pain in left leg; Z82.49 Family history of ischemic heart disease and other diseases of the circulatory system

== ENCOUNTER 2017-07-16 09:50 | Emergency (ER) | payer OTHER ==
[2017-07-16 09:50] VITALS: TEMP 37.2
[2017-07-16] MEDS ORDERED: BACLOFEN 10 MG TAB PO STA (09:58)
[2017-07-16] MEDS ORDERED: LORAZEPAM 1 MG TAB SL STA (09:58)
[2017-07-16] MEDS ORDERED: ATV/1 PO (10:11)
[2017-07-16] MEDS ORDERED: LRS10 PO (10:12)
--- NOTE | 2017-07-16 10:33 | DIAGNOSTIC IMAGING REPORT ---
HEAD WITHOUT CONTRAST (CT) CLINICAL HISTORY: 46 years-old Male with fall hit left side of head. Acute left-sided head trauma status post fall TECHNIQUE: Multiple axial CT images of the head were obtained without contrast. A dose lowering technique was utilized adhering to the principles of ALARA. COMPARISON: Head CT 07/06/2017. FINDINGS: Exam is moderately motion degraded. No acute intracranial hemorrhage, midline shift, mass, large territorial ischemia or abnormal extra-axial collection. Subtle white matter hypodensities are again seen suggesting chronic microvascular ischemic changes. The calvarium is intact. The paranasal sinuses, mastoid air cells, and middle ear cavities are clear. IMPRESSION: Motion degraded study without acute intracranial abnormality identified. The above report was generated using voice recognition software. It may contain grammatical, syntax or spelling errors. Electronically signed by: Alvarez Santana M.D. 07/16/2017 10:32 AM Dictated Date/Time: 07/16/2017 10:29 AM
--- NOTE | 2017-07-16 10:42 | DIAGNOSTIC IMAGING REPORT ---
CERVICAL SPINE W/O CT DOSE: 2692.18 mGy.cm CLINICAL HISTORY: 46 years-old Male with fall hit left side of head . Acute left neck injury status post trauma COMPARISON: CT cervical spine 07/06/2017 TECHNIQUE: Multiple axial CT images of the cervical spine were obtained without contrast. A dose lowering technique was utilized adhering to the principles of ALARA. FINDINGS: The exam is moderately motion degraded. Severe intervertebral disc space narrowing with endplate spurring in seen at C3-C4, C4-C5, C5-C6 and C6-C7. Mild to moderate multilevel facet arthropathy. No acute cervical spine fracture or subluxation identified. Varying degrees of neuroforaminal stenosis are present. Lung apices are clear. Imaged soft tissues of the neck are unremarkable. IMPRESSION: 1. Moderately motion degraded exam without acute fracture or subluxation. 2. Multilevel advanced intervertebral disc space narrowing and endplate degenerative changes are again seen as above. The above report was generated using voice recognition software. It may contain grammatical, syntax or spelling errors. Electronically signed by: Alvarez Sanatna M.D. 07/16/2017 10:41 AM Dictated Date/Time: 07/16/2017 10:32 AM
[2017-07-16] MEDS ORDERED: DIPHTHERIA/TETANUS/PERTUSSIS 0.5 ML SYR/VIAL IM. ONE (11:00)
[2017-07-16 11:13] VITALS: BP 102/51; PULSE 107; O2SAT 94
--- NOTE | 2017-07-16 15:20 | EMERGENCY ROOM VISIT NOTE ---
History Report prepared by Hectoribgaurang: Cary Oconnor Under the Supervision of: Dr. Kritsopher Lance D.O. 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 The patient has a history of cerebral palsy. He typically takes Ativan and Baclofen. Last night he was drinking alcohol and did not take his medications because he was drinking. He typically does not take his medications if he is drinking alcohol. This morning the patient had an unwitnessed fall from his scooter. He was found by caretakers and EMS was called. The patient has a laceration to the back of his head and is currently complaining of head pain and pain around the laceration. He denies any other symptoms at this time. Pt denies change in vision, fevers, chest pain, shortness of breath, nausea, vomiting, diarrhea, and urinary symptoms. EMS reports that the patient has been acting normally. He did not take his medications this morning either. Source of History: patient, EMS Onset: 4 hours COMMUNICATIONS DEPARTMENT CHAIRPERSON Position: other (global) Timing: other (episode) Associated Symptoms: + headache, No fevers, No neck pain, No chest pain, No SOB, No nausea, No vomiting, No abdominal pain, No diarrhea, No urinary symptoms Note: Pt with laceration to back of head. Pt denies changes in vision. Review of Systems See HPI for pertinent positives & negatives. A total of 10 systems reviewed and were otherwise negative. Past Medical & Surgical Medical Problems: (1) Cerebral palsy Family History FH: heart attack Social History Smoking Status: Never Smoker Drug Use: none Marital Status: single Housing Status: assisted living Occupation Status: employed Current/Historical Medications Scheduled Baclofen (Baclofen), 5 MG PO BID Scheduled PRN Lorazepam (Ativan), 1 MG PO Q6H PRN for TREMORS AND CEREBRAL PALSY Allergies Coded Allergies: No Known Allergies (Unverified , 07/16/17) Physical Exam Vital Signs Date Time Temp Pulse Resp B/P (MAP) Pulse Ox O2 Delivery O2 Flow Rate FiO2 07/16/17 11:13 107 18 102/51 94 07/16/17 09:50 37.2 111 22 145/63 96 Room Air 07/16/17 09:50 37.2 111 22 145/63 96 Room Air Physical Exam GENERAL: Laying in bed with sporadic movements of the upper and lower extremities. Non-focal. No acute distress and non-toxic. HEAD: 2 cm laceration to the left occiput without venous oozing. EYE EXAM: normal conjunctiva, PERRL and EOM's grossly intact OROPHARYNX: no exudate, no erythema, lips, buccal mucosa, and tongue normal and mucous membranes are moist NOSE: No septal hematoma. NECK: supple, no nuchal rigidity, no adenopathy, non-tender CHEST: stable to compression anteriorly and posteriorly LUNGS: clear to auscultation. Normal chest wall mechanics HEART: no murmurs, S1 normal and S2 normal ABDOMEN: abdomen soft, non-tender, normo-active bowel sounds, no masses, no rebound or guarding. PELVIS: stable to compression anteriorly and posteriorly BACK: Back is symmetrical on inspection and there is no deformity, no midline tenderness, no CVA tenderness. UPPER EXTREMITIES: spontaneous movement, nonfocal without tenderness to palpation LOWER EXTREMITIES: spontaneous movement, nonfocal without tenderness to palpation NEURO EXAM: Alert, awake and following commands. Answers to yes or no questions. Sporadic movements of the upper and lower extremities. Non-focal. Medical Decision & Procedures ER Provider Diagnostic Interpretation: Radiology results as stated below per my review and the radiologist's interpretation: HEAD WITHOUT CONTRAST (CT) CLINICAL HISTORY: 46 years-old Male with fall hit left side of head. Acute left-sided head trauma status post fall TECHNIQUE: Multiple axial CT images of the head were obtained without contrast. A dose lowering technique was utilized adhering to the principles of ALARA. COMPARISON: Head CT 07/06/2017. FINDINGS: Exam is moderately motion degraded. No acute intracranial hemorrhage, midline shift, mass, large territorial ischemia or abnormal extra-axial collection. Subtle white matter hypodensities are again seen suggesting chronic microvascular ischemic changes. The calvarium is intact. The paranasal sinuses, mastoid air cells, and middle ear cavities are clear. IMPRESSION: Motion degraded study without acute intracranial abnormality identified. The above report was generated using voice recognition software. It may contain grammatical, syntax or spelling errors. Electronically signed by: Alvarez Santana M.D. 07/16/2017 10:32 AM Dictated Date/Time: 07/16/2017 10:29 AM CERVICAL SPINE W/O CT DOSE: 2692.18 mGy.cm CLINICAL HISTORY: 46 years-old Male with fall hit left side of head . Acute left neck injury status post trauma COMPARISON: CT cervical spine 07/06/2017 TECHNIQUE: Multiple axial CT images of the cervical spine were obtained without contrast. A dose lowering technique was utilized adhering to the principles of ALARA. FINDINGS: The exam is moderately motion degraded. Severe intervertebral disc space narrowing with endplate spurring in seen at C3-C4, C4-C5, C5-C6 and C6-C7. Mild to moderate multilevel facet arthropathy. No acute cervical spine fracture or subluxation identified. Varying degrees of neuroforaminal stenosis are present. Lung apices are clear. Imaged soft tissues of the neck are unremarkable. IMPRESSION: 1. Moderately motion degraded exam without acute fracture or subluxation. 2. Multilevel advanced intervertebral disc space narrowing and endplate degenerative changes are again seen as above. The above report was generated using voice recognition software. It may contain grammatical, syntax or spelling errors. Electronically signed by: Alvarez Santana M.D. 07/16/2017 10:41 AM Dictated Date/Time: 07/16/2017 10:32 AM Medications Administered Medications (Trade) Dose Ordered Sig/Ina Route Start Time Stop Time Status Last Admin Dose Admin Lorazepam (Ativan Tab) 1 mg NOW STAT SL 07/16/17 09:58 07/16/17 09:59 DC 07/16/17 10:10 1 MG Baclofen (Lioresal Tab) 5 mg NOW STAT PO 07/16/17 09:58 07/16/17 09:59 DC 07/16/17 10:09 5 MG Diphtheria/ Pertussis/Tetanus Vacc (Adacel Inj) 0.5 ml ONCE ONCE IM. 07/16/17 11:00 07/16/17 11:01 DC 07/16/17 11:07 0.5 ML Procedure 2cm laceration left occiput: Dermabond application: Verbal consent obtained after explanation of the risks and benefits of Dermabond versus traditional suturing technique. The patient/ parent chose Dermabond closure. The wound was cleaned with Betadine in the standard fashion. Wound explored for foreign bodies. The wound edges were approximated and Dermabond applied in the standard fashion. Excellent cosmetic appearance and hemostasis achieved. The patient tolerated the procedure well and there were no complications. ED Course ED COURSE: Vital signs were reviewed and showed tachycardic. The patients medical record was reviewed The above diagnostic studies were performed and reviewed. ED treatments and interventions as stated above. 0951: The patient was evaluated in room A12. A complete history and physical examination was performed. 0958: Ordered Ativan 1 mg SL, and Baclofen 5 mg PO. 1053: Upon reevaluation, the patient is resting comfortably. At this time I performed a laceration repair. Please see procedure note above for further details. I discussed my findings with the patient and his caretakers at the bedside. They understand and agree with the treatment plan. Based on the patient's age, coexisting illnesses, exam and lab findings the decision to treat as an outpatient was made. The patient remained stable while under my care. The patient appeared well at the time of discharge. 1100: Adacel 0.5 ml IM Medical Decision Differential diagnoses include major intracranial, cervical, spinal, thoracic, abdominal, pelvic and neurologic injury. Fracture, contusion, sprain, strain, laceration, abrasions included as well. Patient is a 46-year-old male with CP that was found down on the floor this morning. He is able to answer yes no questions. Through questioning he was apparently trying to get himself out of the wheelchair and fell. He did hit his head. Small laceration of 2 cm along the left occiput repaired with Dermabond. Tetanus was updated. Patient was at his baseline. Given home medications which included Ativan and baclofen. CT head and cervical spine were negative. No other complaints. Discharged in the care of his home health aides. Discussed with Pt concerning signs and symptoms to watch out for. Pt was instructed to follow up with their PCP and discussed with the patient their option to return to the ED at anytime for persistent or worsening symptoms. The appropriate anticipatory guidance and out-patient management, including indications for return to the emergency department, were explained at length to the patient and understood. Medication Reconcilliation Current Medication List: was personally reviewed by me Blood Pressure Screening Patient's blood pressure: Normal blood pressure Impression Primary Impression: Contusion of head Additional Impressions: Laceration Fall Scribe Attestation The scribe's documentation has been prepared under my direction and personally reviewed by me in its entirety. I confirm that the note above accurately reflects all work, treatment, procedures, and medical decision making performed by me. Departure Information Dispostion Home / Self-Care Referrals No Doctor, Assigned (PCP) Forms HOME CARE DOCUMENTATION FORM, IMPORTANT VISIT INFORMATION Patient Instructions ED Laceration All, My [facility] Additional Instructions Please follow up with your primary care doctor with in the next 24 hours. Any worsening of your symptoms, please return to the ED immediately. This includes any fevers greater than 100.4, redness around the laceration, discharge from the laceration, or any other concerning signs or symptoms from your standpoint. Tetanus was updated today. Please keep the laceration clean and dry and intact. Please do not soak it. Please do not wash for 24 hours. Problem Qualifiers Primary Impression: Contusion of head Encounter type: sequela Contusion of head detail: scalp Qualified Codes: S00.03XS - Contusion of scalp, sequela Additional Impressions: Fall Encounter type: initial encounter Qualified Codes: W19.XXXA - Unspecified fall, initial encounter
== END 2017-07-16 11:14 | disposition home or self-care (01) ==
LOC: EDBD 09:50 → C.EDA 09:51
DX: S01.91XA Laceration without foreign body of unspecified part of head, initial encounter (principal); V00.831A Fall from motorized mobility scooter, initial encounter; W22.8XXA Striking against or struck by other objects, initial encounter; G80.9 Cerebral palsy, unspecified; Z23 Encounter for immunization

== ENCOUNTER 2017-07-20 19:23 | Emergency (ER) | payer OTHER ==
[~2017-07-20] VITALS: Ht 160 cm; Wt 48.9 kg
[~2017-07-20 19:23] MED LIST changes: +ATV/1 PO; -BACL10TA PO; +LRS10 PO
[2017-07-20] MEDS ORDERED: GI COCKTAIL PO STA (19:43)
[2017-07-20] MEDS ORDERED: FAMOTIDINE 20 MG TAB PO ONE (19:45)
--- NOTE | 2017-07-20 20:02 | DIAGNOSTIC IMAGING REPORT ---
CHEST ONE VIEW PORTABLE HISTORY: 46 years-old Male CHEST PAIN acute atypical chest pain COMPARISON: Chest radiograph 06/12/2017 TECHNIQUE: Semierect AP view of the chest FINDINGS: Cardiomediastinal and hilar silhouettes are within normal limits. No pneumothorax, pleural effusion, focal airspace consolidation or overt pulmonary edema. Linear subsegmental retrocardiac opacities suggest atelectasis. Bones of the chest are grossly intact. IMPRESSION: Linear subsegmental retrocardiac opacities suggest atelectasis. Study is otherwise non acute. The above report was generated using voice recognition software. It may contain grammatical, syntax or spelling errors. Electronically signed by: Alvarez Santana M.D. 07/20/2017 8:01 PM Dictated Date/Time: 07/20/2017 8:00 PM
[2017-07-20 20:06] VITALS: TEMP 37; Ht 160 cm; Wt 48.9 kg
--- NOTE | 2017-07-20 20:09 | EMERGENCY ROOM VISIT NOTE ---
History Report prepared by Maninder: Jammie Segura Under the Supervision of: Dr. Scott Daily M.D. First contact with patient: 19:25 Stated Complaint: CHEST PAIN History of Present Illness The patient is a 46 year old white male with a past medical history of cerebral palsy who presents to the ED with a cc of an episode of chest pain beginning prior to arrival. The patient's nurse states that the patient has most likely been drinking all day. She reports that they were having a discussion about her company dropping him as a patient due to his behavior after consuming alcohol. She reports that the patient became very angry and started screaming suicidal statements at her. She states that he is very anxious about this switch. She reports out of nowhere he just stopped and had a blank stare on his face. The nurse reports that he said to call the hospital. She states that he said it radiated down his left arm and into his jaw. Positive shortness of breath. Negative history of seizures, history of blood clots, and any recent surgeries. Source of History: nursing staff Onset: prior to arrival Position: chest Quality: other (radiating) Timing: other (episode) Associated Symptoms: + SOB Note: The patient complains of the pain radiating into his left arm and jaw. Review of Systems See HPI for pertinent positives and negatives. A total of ten systems were reviewed and were otherwise negative. Past Medical & Surgical Medical Problems: (1) Cerebral palsy Family History FH: heart attack Social History Smoking Status: Never Smoker Drug Use: none Marital Status: single Housing Status: assisted living Occupation Status: employed Current/Historical Medications Scheduled PRN Lorazepam (Ativan), 1 MG PO Q6H PRN for TREMORS AND CEREBRAL PALSY Allergies Coded Allergies: No Known Allergies (Unverified , 07/16/17) Physical Exam Vital Signs Date Time Temp Pulse Resp B/P (MAP) Pulse Ox O2 Delivery O2 Flow Rate FiO2 07/20/17 21:15 72 106/59 96 Nasal Cannula 2.0 07/20/17 21:13 97 Nasal Cannula 2.0 07/20/17 20:06 37.0 92 123/79 93 Room Air 07/20/17 20:02 90 Room Air 07/20/17 19:35 90 07/20/17 19:32 90 Room Air 07/20/17 19:32 90 Room Air Physical Exam GENERAL: Awake, alert, well-appearing, NAD HENT: Normocephalic, atraumatic. EYES: Normal conjunctiva. Sclera non-icteric. NECK: Supple. No nuchal rigidity. FROM. RESPIRATORY: CTAB, no rhonchi, wheezing, crackles CARDIAC: RRR, no MRG ABDOMEN: Soft, NTND, BS+ MSK: No chest wall TTP, no LE edema, no calf pain or swelling. NEURO: GCS 15, CN 2-12 intact, moves all 4s on command, unsure if dysarthria given that the patient has CP. SKIN: No rash or jaundice noted. Medical Decision & Procedures ER Provider Diagnostic Interpretation: Radiology results as stated below per my review and radiologist interpretation: CHEST ONE VIEW PORTABLE HISTORY: 46 years-old Male CHEST PAIN acute atypical chest pain COMPARISON: Chest radiograph 06/12/2017 TECHNIQUE: Semierect AP view of the chest FINDINGS: Cardiomediastinal and hilar silhouettes are within normal limits. No pneumothorax, pleural effusion, focal airspace consolidation or overt pulmonary edema. Linear subsegmental retrocardiac opacities suggest atelectasis. Bones of the chest are grossly intact. IMPRESSION: Linear subsegmental retrocardiac opacities suggest atelectasis. Study is otherwise non acute. The above report was generated using voice recognition software. It may contain grammatical, syntax or spelling errors. Electronically signed by: Alvarez Santana M.D. 07/20/2017 8:01 PM Dictated Date/Time: 07/20/2017 8:00 PM Laboratory Results 07/20/17 19:56 Red Blood Count 4.52, Mean Corpuscular Volume 81.4, Mean Corpuscular Hemoglobin 25.4, Mean Corpuscular Hemoglobin Concent 31.3, Mean Platelet Volume 9.8, Neutrophils (%) (Auto) 64.4, Lymphocytes (%) (Auto) 24.6, Monocytes (%) (Auto) 8.8, Eosinophils (%) (Auto) 1.1, Basophils (%) (Auto) 0.9, Neutrophils # (Auto) 2.99, Lymphocytes # (Auto) 1.14, Monocytes # (Auto) 0.41, Eosinophils # (Auto) 0.05, Basophils # (Auto) 0.04 07/20/17 19:56 Test 07/20/17 19:50 07/20/17 19:56 Urine Opiates Screen NEG (NEG) Urine Methadone, Qualitative NEG (NEG) Urine Barbiturates NEG (NEG) Urine Phencyclidine (PCP) Level NEG (NEG) Ur Amphetamine/Methamphetamine NEG (NEG) MDMA (Ecstasy) Screen NEG (NEG) Urine Benzodiazepines Screen NEG (NEG) Urine Cocaine Metabolite NEG (NEG) Urine Marijuana (THC) NEG (NEG) White Blood Count 4.64 K/uL (4.8-10.8) Red Blood Count 4.52 M/uL (4.7-6.1) Hemoglobin 11.5 g/dL (14.0-18.0) Hematocrit 36.8 % (42-52) Mean Corpuscular Volume 81.4 fL (80-100) Mean Corpuscular Hemoglobin 25.4 pg (25-34) Mean Corpuscular Hemoglobin Concent 31.3 g/dl (32-36) Platelet Count 251 K/uL (130-400) Mean Platelet Volume 9.8 fL (7.4-10.4) Neutrophils (%) (Auto) 64.4 % Lymphocytes (%) (Auto) 24.6 % Monocytes (%) (Auto) 8.8 % Eosinophils (%) (Auto) 1.1 % Basophils (%) (Auto) 0.9 % Neutrophils # (Auto) 2.99 K/uL (1.4-6.5) Lymphocytes # (Auto) 1.14 K/uL (1.2-3.4) Monocytes # (Auto) 0.41 K/uL (0.11-0.59) Eosinophils # (Auto) 0.05 K/uL (0-0.5) Basophils # (Auto) 0.04 K/uL (0-0.2) RDW Standard Deviation 47.9 fL (36.4-46.3) RDW Coefficient of Variation 15.9 % (11.5-14.5) Immature Granulocyte % (Auto) 0.2 % Immature Granulocyte # (Auto) 0.01 K/uL (0.00-0.02) Prothrombin Time 10.4 SECONDS (9.0-12.0) Prothromb Time International Ratio 1.0 (0.9-1.1) Activated Partial Thromboplast Time 26.2 SECONDS (21.0-31.0) Partial Thromboplastin Ratio 1.0 Anion Gap 6.0 mmol/L (3-11) Est Creatinine Clear Calc Drug Dose 85.6 ml/min Estimated GFR () 127.1 Estimated GFR (Non- 109.7 BUN/Creatinine Ratio 9.0 (10-20) Calcium Level 7.7 mg/dl (8.5-10.1) Total Bilirubin 0.2 mg/dl (0.2-1) Direct Bilirubin < 0.1 mg/dl (0-0.2) Aspartate Amino Transf (AST/SGOT) 25 U/L (15-37) Alanine Aminotransferase (ALT/SGPT) 25 U/L (12-78) Alkaline Phosphatase 66 U/L (45-117) Troponin I < 0.015 ng/ml (0-0.045) Pro-B-Type Natriuretic Peptide 16 pg/ml (0-450) Total Protein 7.2 gm/dl (6.4-8.2) Albumin 3.4 gm/dl (3.4-5.0) Lipase 304 U/L (73-393) Salicylates Level < 1.7 mg/dl (2.8-20) Acetaminophen Level < 2 ug/ml (10-30) Ethyl Alcohol mg/dL 309.0 mg/dl (0-3) Laboratory results reviewed by me Medications Administered Medications (Trade) Dose Ordered Sig/Ina Route Start Time Stop Time Status Last Admin Dose Admin Famotidine (Pepcid Tab) 20 mg NOW ONCE PO 07/20/17 19:45 07/20/17 19:46 DC 07/20/17 20:23 20 MG Al Hydroxide/Mg Hydroxide (Maalox Susp) 30 ml STK-MED ONCE .ROUTE 07/20/17 20:21 07/20/17 20:22 DC 07/20/17 20:23 30 ML Lidocaine HCl (Viscous Lidocaine 2% Soln) 20 ml STK-MED ONCE .ROUTE 07/20/17 20:21 07/20/17 20:22 DC 07/20/17 20:23 20 ML Thiamine HCl (Vitamin B-1 Inj) 100 mg NOW STAT IV 07/20/17 21:11 07/20/17 21:14 DC 07/20/17 21:49 100 MG Folic Acid 1 mg/ Syringe 10 ml @ 5 mls/min ONE STAT IV 12/2/17 21:11 07/20/17 21:14 DC 07/20/17 21:49 5 MLS/MIN ECG Indication: chest pain Rate (beats per minute): 84 Rhythm: normal sinus Findings: other (lot of motion artifact, normal intervals, normal axis, no other STS or TWI) ED Course 1933: The patient was evaluated in room C7. A complete history and physical exam was performed. 2229: The patient was signed out to Dr. Walter at change of shift pending his alcohol level comes down so [address] can talk to the patient. Medical Decision The patient is a 46 year old white male with a past medical history of cerebral palsy who presents to the ED with a cc of an episode of chest pain beginning prior to arrival. Etiologies such as cardiac ischemia, aortic dissection, pulmonary embolism, pneumonia, pneumothorax, musculoskeletal, infections, pericarditis, myocarditis , esophageal rupture, gastrointestinal, as well as others were entertained. Patient was seen and evaluated the bedside. Patient is a 46-year-old with a known history of CP and apparently chronically drinks alcohol. Per the home health nurse she stated that the patient was complaining some chest pains. Patient states he was agitated and worked up talking about some social issues. Patient has had some issues with his home health care as he is being given a recent notice that he wanted to find new providers as the patient has consistently abused alcohol and still rise in his motorized scooter. They have asked him to abstain from alcohol and no longer continue this behavior because he has continued to do it they've given her notice. Patient was complaining of chest pains around that time. Patient states that he did drink wine today. Per the nurse provider he does routinely drink alcohol. Patient was seen recently for a fall where he had a negative CT of the brain. Patient has no focal deficits at this time. Patient does answer questions occasionally but does have a fair amount of difficulty with speaking but this is chronic. There may be a component of intoxication as well. Patient denies any lower extremity pain the patient is able to move his lower extremities. Patient does not have really any reproducible chest pain or any noted ecchymosis or crepitus to the chest. Patient did have blood work, EKG, troponin, chest x-ray completed. Upon leaving the room the nurse was concerned the patient had complained of suicidal ideation without specific plan. Given the patient is clinically intoxicated he will need to be reevaluated this is clinically sober. In the meantime the patient is to be medically clear for possible evaluation. Patient' s EKG although has a fair amount of motion artifact but does not show any acute ischemic changes. Patient's troponin is negative. Patient was given a GI cocktail and Pepcid. Given the patient's history chronic drinking the patient was given folic acid and thiamine. I did discuss the patient with case manager specialist stated the patient would likely be suitable for evaluation around 4 AM. Patient 's chest x-ray was clear. Patient was signed out to the evening attending pending reevaluation and clearance. Medication Reconcilliation Current Medication List: was personally reviewed by me Blood Pressure Screening Patient's blood pressure: Normal blood pressure Blood pressure disposition: Did not require urgent referral Impression Primary Impression: Intoxication Additional Impression: Chest pain Scribe Attestation The scribe's documentation has been prepared under my direction and personally reviewed by me in its entirety. I confirm that the note above accurately reflects all work, treatment, procedures, and medical decision making performed by me. Departure Information Dispostion Still a Patient Referrals No Doctor, Assigned (PCP) Problem Qualifiers Additional Impression: Chest pain Chest pain type: unspecified Qualified Codes: R07.9 - Chest pain, unspecified
[2017-07-20 20:15] LABS: BASO % 0.9 %; BASO ABS # 0.04 K/uL (0-0.2); COMPLETE YES; EOS % 1.1 %; HEMATOCRIT 36.8 % (42-52); IG% 0.2 %; LYMPH % 24.6 %; LYMPH ABS # 1.14 K/uL (1.2-3.4); MEAN CELL VOLUME 81.4 fL (80-100); MEAN CORPUSCULAR HEMOGLOBIN 25.4 pg (25-34); MEAN CORPUSCULAR HGB CONC 31.3 g/dl (32-36); MEAN PLATELET VOLUME 9.8 fL (7.4-10.4); MONO % 8.8 %; NEUT % 64.4 %; PLATELET COUNT 251 K/uL (130-400); RED BLOOD COUNT 4.52 M/uL (4.7-6.1); WHITE BLOOD COUNT 4.64 K/uL (4.8-10.8)
[2017-07-20 20:21] LABS: PROTHROMBIN TIME (PATIENT) 10.4 SECONDS (9.0-12.0)
[2017-07-20] MEDS ORDERED: ALUMINUM/MAGNESIUM SUSP 30 ML UDC ONE (20:21)
[2017-07-20] MEDS ORDERED: LIDOCAINE HCL 2% VISC SOLN 20 ML UDC ONE (20:21)
[2017-07-20 20:22] LABS: BENZODIAZEPINE, URINE NEG (NEG); COCAINE,URINE NEG (NEG); PHENCYCLIDINE, URINE NEG (NEG)
[2017-07-20 20:26] LABS: ALT/SGPT 25 U/L (12-78); AST/SGOT 25 U/L (15-37); BLOOD UREA NITROGEN 7 mg/dl (7-18); CALCIUM 7.7 mg/dl (8.5-10.1); CARBON DIOXIDE 27 mmol/L (21-32); CHLORIDE 109 mmol/L (98-107); CREATININE 0.73 mg/dl (0.60-1.40); GLUCOSE 101 mg/dl (70-99); POTASSIUM 3.6 mmol/L (3.5-5.1); SODIUM 142 mmol/L (136-145)
[2017-07-20 20:31] LABS: ALKALINE PHOSPHATASE 66 U/L (45-117)
[2017-07-20 20:38] LABS: ACETAMINOPHEN < 2 ug/ml (10-30)
[2017-07-20] MEDS ORDERED: THIAMINE HCL 100 MG/ML 2 ML VIAL IV STA (21:11)
[2017-07-20] MEDS ORDERED: FoLIC ACID INJ 1 MG in SYRINGE 9.8 ML IV STA (21:11)
[2017-07-20 21:13] VITALS: O2SAT 97
[2017-07-20] MEDS ORDERED: CALCIUM GLUCONATE 10% 10 ML VIAL IV STA (21:51)
[2017-07-20] MEDS ORDERED: SODIUM CHLORIDE 0.9% 1000ML 1,000 ML IV STA (22:21)
[2017-07-20] MEDS ORDERED: BACLOFEN 10 MG TAB PO STA (23:11)
--- NOTE | 2017-07-21 04:32 | EMERGENCY ROOM VISIT NOTE ---
ED Visit Note First contact with patient: 01:50 Patient was seen by me at 4:30 AM in conjunction with the crisis counselor. Patient is not currently suicidal or homicidal. Patient's current issue is that he has case management problems as he does not have any further care after July 24. Does have a social research assistant currently working with him. Our case management team has been involved and they will guide his care outpatient. Patient is stable from the crisis counselor standpoint and he does not state any suicidal ideations at 4:30 AM. Disposition is to home diagnosis is atypical chest pain, social work therapist issues Problem List Medical Problems: (1) Cerebral palsy Status: Chronic Current/Historical Medications Scheduled PRN Lorazepam (Ativan), 1 MG PO Q6H PRN for TREMORS AND CEREBRAL PALSY Allergies Coded Allergies: No Known Allergies (Unverified , 07/16/17) Vital Signs Date Time Temp Pulse Resp B/P (MAP) Pulse Ox O2 Delivery O2 Flow Rate FiO2 07/21/17 03:20 71 07/21/17 03:01 69 16 100/58 91 Room Air 07/21/17 02:17 76 16 93/61 92 Room Air 07/21/17 01:02 71 16 98/63 92 Room Air 07/21/17 00:03 73 18 113/74 94 Room Air 07/20/17 23:06 73 07/20/17 22:17 71 19 83/50 91 Nasal Cannula 2.0 07/20/17 21:15 72 106/59 96 Nasal Cannula 2.0 07/20/17 21:13 97 Nasal Cannula 2.0 07/20/17 20:06 37.0 92 123/79 93 Room Air 07/20/17 20:02 90 Room Air 07/20/17 19:35 90 07/20/17 19:32 90 Room Air 07/20/17 19:32 90 Room Air Laboratory Results 07/20/17 19:56 Red Blood Count 4.52, Mean Corpuscular Volume 81.4, Mean Corpuscular Hemoglobin 25.4, Mean Corpuscular Hemoglobin Concent 31.3, Mean Platelet Volume 9.8, Neutrophils (%) (Auto) 64.4, Lymphocytes (%) (Auto) 24.6, Monocytes (%) (Auto) 8.8, Eosinophils (%) (Auto) 1.1, Basophils (%) (Auto) 0.9, Neutrophils # (Auto) 2.99, Lymphocytes # (Auto) 1.14, Monocytes # (Auto) 0.41, Eosinophils # (Auto) 0.05, Basophils # (Auto) 0.04 07/20/17 19:56 Test 07/20/17 19:50 07/20/17 19:56 Urine Opiates Screen NEG (NEG) Urine Methadone, Qualitative NEG (NEG) Urine Barbiturates NEG (NEG) Urine Phencyclidine (PCP) Level NEG (NEG) Ur Amphetamine/Methamphetamine NEG (NEG) MDMA (Ecstasy) Screen NEG (NEG) Urine Benzodiazepines Screen NEG (NEG) Urine Cocaine Metabolite NEG (NEG) Urine Marijuana (THC) NEG (NEG) White Blood Count 4.64 K/uL (4.8-10.8) Red Blood Count 4.52 M/uL (4.7-6.1) Hemoglobin 11.5 g/dL (14.0-18.0) Hematocrit 36.8 % (42-52) Mean Corpuscular Volume 81.4 fL (80-100) Mean Corpuscular Hemoglobin 25.4 pg (25-34) Mean Corpuscular Hemoglobin Concent 31.3 g/dl (32-36) Platelet Count 251 K/uL (130-400) Mean Platelet Volume 9.8 fL (7.4-10.4) Neutrophils (%) (Auto) 64.4 % Lymphocytes (%) (Auto) 24.6 % Monocytes (%) (Auto) 8.8 % Eosinophils (%) (Auto) 1.1 % Basophils (%) (Auto) 0.9 % Neutrophils # (Auto) 2.99 K/uL (1.4-6.5) Lymphocytes # (Auto) 1.14 K/uL (1.2-3.4) Monocytes # (Auto) 0.41 K/uL (0.11-0.59) Eosinophils # (Auto) 0.05 K/uL (0-0.5) Basophils # (Auto) 0.04 K/uL (0-0.2) RDW Standard Deviation 47.9 fL (36.4-46.3) RDW Coefficient of Variation 15.9 % (11.5-14.5) Immature Granulocyte % (Auto) 0.2 % Immature Granulocyte # (Auto) 0.01 K/uL (0.00-0.02) Prothrombin Time 10.4 SECONDS (9.0-12.0) Prothromb Time International Ratio 1.0 (0.9-1.1) Activated Partial Thromboplast Time 26.2 SECONDS (21.0-31.0) Partial Thromboplastin Ratio 1.0 Anion Gap 6.0 mmol/L (3-11) Est Creatinine Clear Calc Drug Dose 85.6 ml/min Estimated GFR () 127.1 Estimated GFR (Non- 109.7 BUN/Creatinine Ratio 9.0 (10-20) Calcium Level 7.7 mg/dl (8.5-10.1) Total Bilirubin 0.2 mg/dl (0.2-1) Direct Bilirubin < 0.1 mg/dl (0-0.2) Aspartate Amino Transf (AST/SGOT) 25 U/L (15-37) Alanine Aminotransferase (ALT/SGPT) 25 U/L (12-78) Alkaline Phosphatase 66 U/L (45-117) Troponin I < 0.015 ng/ml (0-0.045) Pro-B-Type Natriuretic Peptide 16 pg/ml (0-450) Total Protein 7.2 gm/dl (6.4-8.2) Albumin 3.4 gm/dl (3.4-5.0) Lipase 304 U/L (73-393) Salicylates Level < 1.7 mg/dl (2.8-20) Acetaminophen Level < 2 ug/ml (10-30) Ethyl Alcohol mg/dL 309.0 mg/dl (0-3) Medications Administered Medications (Trade) Dose Ordered Sig/Ina Route Start Time Stop Time Status Last Admin Dose Admin Famotidine (Pepcid Tab) 20 mg NOW ONCE PO 07/20/17 19:45 07/20/17 19:46 DC 07/20/17 20:23 20 MG Al Hydroxide/Mg Hydroxide (Maalox Susp) 30 ml STK-MED ONCE .ROUTE 07/20/17 20:21 07/20/17 20:22 DC 07/20/17 20:23 30 ML Lidocaine HCl (Viscous Lidocaine 2% Soln) 20 ml STK-MED ONCE .ROUTE 07/20/17 20:21 07/20/17 20:22 DC 07/20/17 20:23 20 ML Thiamine HCl (Vitamin B-1 Inj) 100 mg NOW STAT IV 07/20/17 21:11 07/20/17 21:14 DC 07/20/17 21:49 100 MG Folic Acid 1 mg/ Syringe 10 ml @ 5 mls/min ONE STAT IV 07/20/17 21:11 07/20/17 21:14 DC 07/20/17 21:49 5 MLS/MIN Calcium Gluconate (Calcium Gluconate 10%) 2,000 mg NOW STAT IV 07/20/17 21:51 07/20/17 22:08 DC 07/20/17 22:23 2,000 MG Sodium Chloride 1,000 ml @ 999 mls/hr Q1H1M STAT IV 07/20/17 22:21 07/20/17 23:21 DC 07/20/17 22:21 999 MLS/HR Baclofen (Lioresal Tab) 10 mg ONE STAT PO 07/20/17 23:11 07/20/17 23:12 DC 07/21/17 00:33 10 MG Departure Information Impression Primary Impression: Intoxication Additional Impression: Chest pain Dispostion Still a Patient Referrals No Doctor, Assigned (PCP) Patient Instructions [facility] Problem Qualifiers
[2017-07-21] MEDS ORDERED: LORAZEPAM 1 MG TAB ONE (04:39)
[2017-07-21 10:25] VITALS: BP 104/72; PULSE 78; O2SAT 96
== END 2017-07-21 10:27 | disposition home or self-care (01) ==
LOC: EDBD 19:23 → C.EDC 19:24 → C.EDA 07-21 10:27
DX: F10.129 Alcohol abuse with intoxication, unspecified (principal); R07.89 Other chest pain; G80.9 Cerebral palsy, unspecified; Z82.49 Family history of ischemic heart disease and other diseases of the circulatory system

== ENCOUNTER 2017-07-29 12:19 | Emergency (ER) | payer OTHER ==
[~2017-07-29] VITALS: Ht 152.4 cm; Wt 48.0 kg
[~2017-07-29 12:19] MED LIST changes: -LRS10 PO
[2017-07-29 12:33] VITALS: Ht 152.4 cm; Wt 48.0 kg
[2017-07-29] MEDS ORDERED: OXYCODONE/ACETAMINOPHEN 5-325 TAB PO STA (12:46)
[2017-07-29] MEDS ORDERED: BACL10TA PO (12:49)
--- NOTE | 2017-07-29 12:56 | EMERGENCY ROOM VISIT NOTE ---
History Report prepared by Maninder: Michael Childers Under the Supervision of: Dr. Anatoliy Gray M.D. 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 He has a past medical history of cerebral palsy. The patient was in his electric wheelchair when he accidentally ran against a table, causing him this discomfort. He did not take any medications prior to arrival. He denies any abdominal pain. He is having abnormal movements of his body secondary to his pain. He never has had pain like this before that makes his move around like he is currently. Source of History: patient Onset: PROC[employer] ENGINE[employer]ING INTER[employer] Position: other (Left rib) Symptom Intensity: moderate Quality: sharp Timing: constant Associated Symptoms: No abdominal pain Note: The pain is causing him to move around abnormally. Review of Systems See HPI for pertinent positives and negatives. A total of ten systems were reviewed and were otherwise negative. Past Medical & Surgical Medical Problems: (1) Cerebral palsy Family History FH: heart attack Social History Smoking Status: Never Smoker Drug Use: none Marital Status: single Housing Status: assisted living Occupation Status: employed Current/Historical Medications Scheduled Baclofen (Lioresal), 5 MG PO BID Scheduled PRN Lorazepam (Ativan), 1 MG PO Q6-8H PRN for TREMORS AND CEREBRAL PALSY Allergies Coded Allergies: No Known Allergies (Unverified , 07/29/17) Physical Exam Vital Signs Date Time Temp Pulse Resp B/P (MAP) Pulse Ox O2 Delivery O2 Flow Rate FiO2 07/29/17 19:02 103 20 131/73 94 Room Air 07/29/17 16:36 88 18 111/73 97 07/29/17 14:16 96 20 127/72 95 Room Air 07/29/17 12:33 114 98 Room Air Physical Exam GENERAL: Awake, alert, uncomfortable-appearing, in no distress HENT: Normocephalic, atraumatic. Oropharynx unremarkable. EYES: Normal conjunctiva. Sclera non-icteric. NECK: Supple. No nuchal rigidity. FROM. No JVD. RESPIRATORY: Clear to auscultation. CARDIAC: Regular rate, normal rhythm. Extremities warm and well perfused. Pulses equal. ABDOMEN: Soft, non-distended. Tenderness to palpation of the LLQ. No rebound or guarding. No masses. RECTAL: Deferred. MUSCULOSKELETAL: Chest examination reveals no tenderness. The back is symmetrical on inspection without obvious abnormality. Tenderness to the left flank. No joint edema. No ecchymosis or contusion. LOWER EXTREMITIES: Calves are equal size bilaterally and non-tender. No edema. No discoloration. NEURO: Normal sensorium. No sensory or motor deficits noted. SKIN: No rash or jaundice noted. Medical Decision & Procedures ER Provider Diagnostic Interpretation: Radiology results as stated below per my review and radiologist interpretation: L RIBS UNILATERAL WITH PA CHEST CLINICAL HISTORY: Left-sided rib pain. COMPARISON STUDY: Chest radiograph July 20, 2017. FINDINGS: There is no pneumothorax or pleural effusion. Lungs are clear. Cardiomediastinal silhouette is stable. A hiatal hernia is again noted. No acute left rib fracture is identified. IMPRESSION: No pneumothorax. No acute left rib fracture identified. Electronically signed by: Darrick Hu M.D. 07/29/2017 1:48 PM Dictated Date/Time: 07/29/2017 1:43 PM Laboratory Results 07/29/17 13:45 Red Blood Count 4.45, Mean Corpuscular Volume 80.2, Mean Corpuscular Hemoglobin 25.8, Mean Corpuscular Hemoglobin Concent 32.2, Mean Platelet Volume 10.0, Neutrophils (%) (Auto) 86.6, Lymphocytes (%) (Auto) 6.9, Monocytes (%) (Auto) 5.8, Eosinophils (%) (Auto) 0.0, Basophils (%) (Auto) 0.6, Neutrophils # (Auto) 6.18, Lymphocytes # (Auto) 0.49, Monocytes # (Auto) 0.41, Eosinophils # (Auto) 0.00, Basophils # (Auto) 0.04 07/29/17 13:45 Test 07/29/17 13:45 White Blood Count 7.13 K/uL (4.8-10.8) Red Blood Count 4.45 M/uL (4.7-6.1) Hemoglobin 11.5 g/dL (14.0-18.0) Hematocrit 35.7 % (42-52) Mean Corpuscular Volume 80.2 fL (80-100) Mean Corpuscular Hemoglobin 25.8 pg (25-34) Mean Corpuscular Hemoglobin Concent 32.2 g/dl (32-36) Platelet Count 218 K/uL (130-400) Mean Platelet Volume 10.0 fL (7.4-10.4) Neutrophils (%) (Auto) 86.6 % Lymphocytes (%) (Auto) 6.9 % Monocytes (%) (Auto) 5.8 % Eosinophils (%) (Auto) 0.0 % Basophils (%) (Auto) 0.6 % Neutrophils # (Auto) 6.18 K/uL (1.4-6.5) Lymphocytes # (Auto) 0.49 K/uL (1.2-3.4) Monocytes # (Auto) 0.41 K/uL (0.11-0.59) Eosinophils # (Auto) 0.00 K/uL (0-0.5) Basophils # (Auto) 0.04 K/uL (0-0.2) RDW Standard Deviation 44.8 fL (36.4-46.3) RDW Coefficient of Variation 15.2 % (11.5-14.5) Immature Granulocyte % (Auto) 0.1 % Immature Granulocyte # (Auto) 0.01 K/uL (0.00-0.02) Anion Gap 8.0 mmol/L (3-11) Est Creatinine Clear Calc Drug Dose 84.3 ml/min Estimated GFR () 127.0 Estimated GFR (Non- 109.5 BUN/Creatinine Ratio 13.4 (10-20) Calcium Level 8.0 mg/dl (8.5-10.1) Total Bilirubin 0.4 mg/dl (0.2-1) Direct Bilirubin < 0.1 mg/dl (0-0.2) Aspartate Amino Transf (AST/SGOT) 27 U/L (15-37) Alanine Aminotransferase (ALT/SGPT) 22 U/L (12-78) Alkaline Phosphatase 62 U/L (45-117) Total Protein 7.5 gm/dl (6.4-8.2) Albumin 3.7 gm/dl (3.4-5.0) Lipase 181 U/L (73-393) Ethyl Alcohol mg/dL 87.3 mg/dl (0-3) Laboratory results reviewed by me Medications Administered Medications (Trade) Dose Ordered Sig/Ina Route Start Time Stop Time Status Last Admin Dose Admin Oxycodone/ Acetaminophen (Percocet 5-325mg Tab) 1 tab NOW STAT PO 07/29/17 12:46 07/29/17 12:48 DC 07/29/17 13:01 1 TAB Sodium Chloride 1,000 ml @ 999 mls/hr Q1H1M STAT IV 07/29/17 13:26 07/29/17 14:26 DC 07/29/17 14:18 999 MLS/HR ED Course 1238: The patient was evaluated in room C8. A complete history and physical exam was performed. 1540: I reevaluated the patient. Discussed results and discharge instructions: He verbalized understanding and agreement. The patient is ready for discharge. Medical Decision I reviewed the patient's past medical history, medications, and the nursing notes as described above. Differential diagnosis includes but is not limited to: fracture, splenic injury , retroperitoneal hematoma, or soft tissue injury. The patient is a 47-year-old gentleman with a past history of cerebral palsy and also frequent alcohol abuse presents to emergency department after running into a table while on his electric wheelchair complaining of left flank pain per hpi. Arrival patient is in mild distress moving all over the stretcher pain. Bedside ultrasound negative for free fluid around the spleen. Chest x- ray with left rib views negative for rib fractures. However, given the patient' s pain and difficult exam in the setting of his cerebral palsy, CT was initially ordered, however after patient was given Percocet and Ativan the patient improved significantly and was back to baseline. With the patient and his self pay representative were agreeable that they did not require further imaging at this time. She patient is refusing to have a straight catheterization for UA. Given the patient's improvement this can be deferred. Findings and plan for follow-up reviewed with patient. Patient agreeable and d/c'd per discharge instructions. Medication Reconcilliation Current Medication List: was personally reviewed by me Blood Pressure Screening Patient's blood pressure: Normal blood pressure Blood pressure disposition: Did not require urgent referral Impression Primary Impression: Muscle strain Scribe Attestation The scribe's documentation has been prepared under my direction and personally reviewed by me in its entirety. I confirm that the note above accurately reflects all work, treatment, procedures, and medical decision making performed by me. Departure Information Dispostion Home / Self-Care Referrals No Doctor, Assigned (PCP) Forms HOME CARE DOCUMENTATION FORM, IMPORTANT VISIT INFORMATION, WORK / SCHOOL INSTRUCTIONS Patient Instructions Bruises Contusions, ED Muscle Aching, My [facility] [employer] Additional Instructions Please follow up with your primary care physician in the next 1-3 days for re- evaluation. You likely have a muscle strain/contusion. Otherwise, your exam, lab results did not show signs of an emergent condition at this time. Acetaminophen for pain as needed. Return to the emergency department for worsening symptoms as described in the accompanying instructions.
[2017-07-29] MEDS ORDERED: SODIUM CHLORIDE 0.9% 1000ML 1,000 ML IV STA (13:26)
[2017-07-29] MEDS ORDERED: LORAZEPAM 2 MG/ML 1 ML VIAL IV STA (13:26)
[2017-07-29] MEDS ORDERED: OPTIRAY 320 IV PRN (13:30)
--- NOTE | 2017-07-29 13:49 | DIAGNOSTIC IMAGING REPORT ---
L RIBS UNILATERAL WITH PA CHEST CLINICAL HISTORY: Left-sided rib pain. COMPARISON STUDY: Chest radiograph July 20, 2017. FINDINGS: There is no pneumothorax or pleural effusion. Lungs are clear. Cardiomediastinal silhouette is stable. A hiatal hernia is again noted. No acute left rib fracture is identified. IMPRESSION: No pneumothorax. No acute left rib fracture identified. Electronically signed by: Darrick Hu M.D. 07/29/2017 1:48 PM Dictated Date/Time: 07/29/2017 1:43 PM
[2017-07-29 14:04] LABS: BASO % 0.6 %; BASO ABS # 0.04 K/uL (0-0.2); COMPLETE YES; HEMATOCRIT 35.7 % (42-52); IG% 0.1 %; LYMPH % 6.9 %; LYMPH ABS # 0.49 K/uL (1.2-3.4); MEAN CELL VOLUME 80.2 fL (80-100); MEAN CORPUSCULAR HEMOGLOBIN 25.8 pg (25-34); MEAN CORPUSCULAR HGB CONC 32.2 g/dl (32-36); MONO % 5.8 %; NEUT % 86.6 %; PLATELET COUNT 218 K/uL (130-400); RED BLOOD COUNT 4.45 M/uL (4.7-6.1); WHITE BLOOD COUNT 7.13 K/uL (4.8-10.8)
[2017-07-29 14:18] LABS: ALT/SGPT 22 U/L (12-78); BLOOD UREA NITROGEN 10 mg/dl (7-18); BUN/CREATININE RATIO 13.4 (10-20); CARBON DIOXIDE 26 mmol/L (21-32); CHLORIDE 106 mmol/L (98-107); CREATININE 0.72 mg/dl (0.60-1.40); GLUCOSE 119 mg/dl (70-99); POTASSIUM 3.8 mmol/L (3.5-5.1); SODIUM 140 mmol/L (136-145)
[2017-07-29 14:21] LABS: ALKALINE PHOSPHATASE 62 U/L (45-117); AST/SGOT 27 U/L (15-37)
[2017-07-29 19:02] VITALS: BP 131/73; PULSE 103; O2SAT 94
== END 2017-07-29 16:00 | disposition home or self-care (01) ==
LOC: EDBD 12:19 → C.EDC 12:20
DX: S23.41XA Sprain of ribs, initial encounter (principal); V00.812A Wheelchair (powered) colliding with stationary object, initial encounter; G80.9 Cerebral palsy, unspecified; Z82.49 Family history of ischemic heart disease and other diseases of the circulatory system

== ENCOUNTER 2017-08-02 16:02 | Inpatient (IN) | payer OTHER ==
[~2017-08-02] VITALS: Ht 152.4 cm; Wt 47.2 kg
[~2017-08-02 16:02] MED LIST changes: -ATV/1 PO; +BACL10TA PO
[2017-08-02] MEDS ORDERED: ACETAMINOPHEN 325 MG TAB PO STA (16:25)
--- NOTE | 2017-08-02 18:24 | EMERGENCY ROOM VISIT NOTE ---
History First contact with patient: 16:10 Chief Complaint: OTHER COMPLAINT Stated Complaint: CEREBRAL PALSY History of Present Illness The patient is a 47 year old male who presents to the Emergency Room for placement. The patient has cerebral palsy. He requires 24-hour care. One of his caregivers recently quit due to the patient's problem with alcohol. The patient was left alone from yesterday afternoon at 1500 until 1100 today. The patient is a styles of the [employer] and has a protective services case worker through the department of welfare. 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 The director of student care and advocacy at [employer] does not feel that the patient is safe at home and arranged for the patient to be sent here. The patient has no complaints at this time. He has had some left -sided rib pain following a fall for which she was evaluated here a few days ago. The patient admits to having one drink today. Review of Systems A complete 10 point review of systems was reviewed with the patient with pertinent positives and negatives as per history of present illness. All else were negative. 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 Vital signs stable. GENERAL: This is a 47-year-old male, in no acute distress, nondiaphoretic, well- developed well-nourished. SKIN: The skin was without rashes, erythema, edema, or bruising. HEAD: Normocephalic atraumatic. EARS: External auditory canals clear, tympanic membranes pearly barone without erythema or effusion bilaterally. EYES: Pupils equal round and reactive to light and accommodation. Extraocular movements intact. MOUTH: Mucous membranes moist. HEART: Regular rate and rhythm without murmurs gallops or rubs. LUNGS: Clear to auscultation bilaterally without wheezes, rales or rhonchi. ABDOMEN: Soft, nontender. MUSCULOSKELETAL: Occasional spasms/involuntary movements of all extremities. Bilateral lower extremities are contracted. NEURO: Patient's speech is slow and somewhat difficult to understand. Patient was alert and oriented to person place and time. Medical Decision & Procedures Laboratory Results 08/02/17 18:40 Red Blood Count 4.41, Mean Corpuscular Volume 79.6, Mean Corpuscular Hemoglobin 25.6, Mean Corpuscular Hemoglobin Concent 32.2, Mean Platelet Volume 9.8, Neutrophils (%) (Auto) 75.4, Lymphocytes (%) (Auto) 16.3, Monocytes (%) (Auto) 7.3, Eosinophils (%) (Auto) 0.7, Basophils (%) (Auto) 0.3, Neutrophils # (Auto) 4.33, Lymphocytes # (Auto) 0.94, Monocytes # (Auto) 0.42, Eosinophils # (Auto) 0.04, Basophils # (Auto) 0.02 08/02/17 18:47 Test 08/02/17 18:40 08/02/17 18:47 08/02/17 18:50 White Blood Count 5.75 K/uL (4.8-10.8) Red Blood Count 4.41 M/uL (4.7-6.1) Hemoglobin 11.3 g/dL (14.0-18.0) Hematocrit 35.1 % (42-52) Mean Corpuscular Volume 79.6 fL (80-100) Mean Corpuscular Hemoglobin 25.6 pg (25-34) Mean Corpuscular Hemoglobin Concent 32.2 g/dl (32-36) Platelet Count 171 K/uL (130-400) Mean Platelet Volume 9.8 fL (7.4-10.4) Neutrophils (%) (Auto) 75.4 % Lymphocytes (%) (Auto) 16.3 % Monocytes (%) (Auto) 7.3 % Eosinophils (%) (Auto) 0.7 % Basophils (%) (Auto) 0.3 % Neutrophils # (Auto) 4.33 K/uL (1.4-6.5) Lymphocytes # (Auto) 0.94 K/uL (1.2-3.4) Monocytes # (Auto) 0.42 K/uL (0.11-0.59) Eosinophils # (Auto) 0.04 K/uL (0-0.5) Basophils # (Auto) 0.02 K/uL (0-0.2) RDW Standard Deviation 44.9 fL (36.4-46.3) RDW Coefficient of Variation 15.4 % (11.5-14.5) Immature Granulocyte % (Auto) 0.0 % Immature Granulocyte # (Auto) 0.00 K/uL (0.00-0.02) Ethyl Alcohol mg/dL 176.1 mg/dl (0-3) Anion Gap 7.0 mmol/L (3-11) Estimated GFR () 130.0 Estimated GFR (Non- 112.1 BUN/Creatinine Ratio 14.2 (10-20) Calcium Level 7.9 mg/dl (8.5-10.1) Total Bilirubin 0.2 mg/dl (0.2-1) Aspartate Amino Transf (AST/SGOT) 31 U/L (15-37) Alanine Aminotransferase (ALT/SGPT) 25 U/L (12-78) Alkaline Phosphatase 71 U/L (45-117) Total Protein 6.8 gm/dl (6.4-8.2) Albumin 3.3 gm/dl (3.4-5.0) Globulin 3.5 gm/dl (2.5-4.0) Albumin/Globulin Ratio 0.9 (0.9-2) Urine Color YELLOW Urine Appearance CLEAR (CLEAR) Urine pH 6.0 (4.5-7.5) Urine Specific [place] 1.019 (1.000-1.030) Urine Protein TRACE (NEG) Urine Glucose (UA) NEG (NEG) Urine Ketones NEG (NEG) Urine Occult Blood NEG (NEG) Urine Nitrite NEG (NEG) Urine Bilirubin NEG (NEG) Urine Urobilinogen NEG (NEG) Urine Leukocyte Esterase NEG (NEG) Urine WBC (Auto) 5-10 /hpf (0-5) Urine RBC (Auto) 0-4 /hpf (0-4) Urine Hyaline Casts (Auto) 1-5 /lpf (0-5) Urine Epithelial Cells (Auto) 10-20 /lpf (0-5) Urine Bacteria (Auto) NEG (NEG) Medications Administered Medications (Trade) Dose Ordered Sig/Ina Route Start Time Stop Time Status Last Admin Dose Admin Acetaminophen (Tylenol Tab) 650 mg NOW STAT PO 08/02/17 16:25 08/02/17 16:26 DC 08/02/17 16:56 650 MG Medical Decision The patient was evaluated as above. He currently has no complaints. He was sent here due to a lack of caregiver. The patient requires 24-hour care and was left alone for 10 hours overnight. Case management made multiple calls on behalf of the patient. He does have a care starting 08/05/18 at 10:00 AM. They spoke with the [facility], the office of aging, and adult protective services to attempt to arrange placement for the patient this weekend. They were unfortunately unable to find placement for the patient. Recommendation was to admit the patient for observation this weekend until he has caregivers at home. Patient was given Tylenol for rib pain. He was given a meal tray. Basic labs were drawn. The [facility] through the weekend. Medication Reconcilliation Current Medication List: was personally reviewed by me Blood Pressure Screening Patient's blood pressure: Low blood pressure (patient's baseline) Impression Primary Impression: Unable to function independently Departure Information Dispostion Admitted as an inpatient Condition GOOD Referrals No Doctor, Assigned (PCP) Patient Instructions My [facility]
[2017-08-02 19:01] LABS: BASO % 0.3 %; BASO ABS # 0.02 K/uL (0-0.2); EOS % 0.7 %; EOS ABS # 0.04 K/uL (0-0.5); HEMATOCRIT 35.1 % (42-52); HEMOGLOBIN 11.3 g/dL (14.0-18.0); LYMPH % 16.3 %; LYMPH ABS # 0.94 K/uL (1.2-3.4); MEAN CELL VOLUME 79.6 fL (80-100); MEAN CORPUSCULAR HEMOGLOBIN 25.6 pg (25-34); MEAN CORPUSCULAR HGB CONC 32.2 g/dl (32-36); MEAN PLATELET VOLUME 9.8 fL (7.4-10.4); MONO % 7.3 %; MONO ABS # 0.42 K/uL (0.11-0.59); NEUT % 75.4 %; NEUT ABS # 4.33 K/uL (1.4-6.5); PLATELET COUNT 171 K/uL (130-400); RED CELL DISTRIBUTION WIDTH CV 15.4 % (11.5-14.5); RED CELL DISTRIBUTION WIDTH SD 44.9 fL (36.4-46.3); WHITE BLOOD COUNT 5.75 K/uL (4.8-10.8)
[2017-08-02 19:27] LABS: ALBUMIN 3.3 gm/dl (3.4-5.0); ALT/SGPT 25 U/L (12-78); BLOOD UREA NITROGEN 10 mg/dl (7-18); CALCIUM 7.9 mg/dl (8.5-10.1); CARBON DIOXIDE 27 mmol/L (21-32); CREATININE 0.68 mg/dl (0.60-1.40); GLUCOSE 97 mg/dl (70-99); POTASSIUM 3.5 mmol/L (3.5-5.1); SODIUM 140 mmol/L (136-145)
[2017-08-02 19:30] LABS: ALKALINE PHOSPHATASE 71 U/L (45-117); AST/SGOT 31 U/L (15-37); TOTAL PROTEIN 6.8 gm/dl (6.4-8.2)
--- NOTE | 2017-08-02 19:48 | History and Physical ---
History & Physical Date & Time of Service: Aug 02, 2017 at 19:39 Chief Complaint: Cerebral Palsy Primary Care Physician: No Doctor, Assigned History of Present Illness Source: patient, hospital records 66M with moderate to severe CP p/w failure to thrive. He requires 24hr care and the health care working assigned to the patient quit because of the patient' s alcoholism. He was left unattended for over 12 hours according to the HPI. Case management tried to acquire another health care worker to supervise the patient but nobody was available until 08/05/2017. Because of the patient's underlying CP he has severe difficulty communicating and most of the history is obtained from speaking to the admitting PA. Patient is oriented to person, place and time. Denies any complaints. States he drinks at least 3 beers per day, I was unable to understand when the last drink was however the patient did smell of alcohol. Patient states he ambulates with a wheelchair . Wheelchair was not in the room. PMHx: Recently seen here for a fall, X-rays of the ribs were negative, pt denies pain in the ribs. 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. I could not understand what the pt studies when he spoke to me. \Patient states he was born in [place] and recently moved to [place] for Grad School. Per admitting HPI the patient is a styles of the [employer] and has a corrections caseworker through the department of welfare. 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 Immunizations History of Influenza Vaccine: Unknown History of Tetanus Vaccine?: Unknown History of Pneumococcal: Unknown History of Hepatitis B Vaccine: Unknown Multi-Drug Resistant Organisms History of MDRO: No Allergies Coded Allergies: No Known Allergies (Unverified , 08/02/17) Home Medications Scheduled Baclofen (Lioresal), 5 MG PO BID Scheduled PRN Lorazepam (Ativan), 1 MG PO Q6-8H PRN for TREMORS AND CEREBRAL PALSY Review of Systems Constitutional: No fever, No chills Respiratory: No cough, No sputum, No wheezing, No shortness of breath, No dyspnea on exertion Cardiovascular: No chest pain Abdomen: No pain, No nausea, No vomiting, No diarrhea, No constipation Musculoskeletal: No joint pain, No muscle pain Psychiatric: + substance abuse (alcohol), No depression symptoms, No anxiety, No insomnia Endocrine: No fatigue Integumentary: No rash Physical Exam Vital Signs Date Time Temp Pulse Resp B/P (MAP) Pulse Ox O2 Delivery O2 Flow Rate FiO2 08/02/17 19:18 77 17 107/66 96 Room Air 08/02/17 18:10 80 18 90/61 94 Room Air 08/02/17 16:09 37.1 91 20 114/75 97 Room Air General Appearance: + thin, + pertinent finding (patient is contracted, poor vocolization, unable to extend legs, he can however move his head and arms to command. Patient does smell of alcohol. ) Eyes: PERRL, EOMI Respiratory/Chest: chest non-tender, lungs clear, normal breath sounds, no respiratory distress, no accessory muscle use Cardiovascular: regular rate, rhythm, no edema, no gallop, no JVD, no murmur, normal peripheral pulses Abdomen/GI: normal bowel sounds, non tender, soft, no organomegaly Genitourinary - Male: + pertinent finding (pt is wearing a Depends. ) Extremities/Musculoskelatal: + pertinent finding (can move UE to command, LE are contracted, not tremulous when arms are outstretched and eyes are closed. Does not have FROM of the head, gets 45 degrees ear to shoulder on Left and Right side. Can raise arms over head. ) Neurologic/Psych: alert, normal mood/affect, oriented x 3, + pertinent finding (patient speaks slowly, some words are unintelligible. ) Skin: + pertinent finding (bird tattoo on left chest. ) Diagnostics Laboratory Results Results Past 24 Hours Test 08/02/17 18:40 08/02/17 18:47 08/02/17 18:50 Range/Units White Blood Count 5.75 4.8-10.8 K/uL Red Blood Count 4.41 4.7-6.1 M/uL Hemoglobin 11.3 14.0-18.0 g/dL Hematocrit 35.1 42-52 % Mean Corpuscular Volume 79.6 80-100 fL Mean Corpuscular Hemoglobin 25.6 25-34 pg Mean Corpuscular Hemoglobin Concent 32.2 32-36 g/dl Platelet Count 171 130-400 K/uL Mean Platelet Volume 9.8 7.4-10.4 fL Neutrophils (%) (Auto) 75.4 % Lymphocytes (%) (Auto) 16.3 % Monocytes (%) (Auto) 7.3 % Eosinophils (%) (Auto) 0.7 % Basophils (%) (Auto) 0.3 % Neutrophils # (Auto) 4.33 1.4-6.5 K/uL Lymphocytes # (Auto) 0.94 1.2-3.4 K/uL Monocytes # (Auto) 0.42 0.11-0.59 K/uL Eosinophils # (Auto) 0.04 0-0.5 K/uL Basophils # (Auto) 0.02 0-0.2 K/uL RDW Standard Deviation 44.9 36.4-46.3 fL RDW Coefficient of Variation 15.4 11.5-14.5 % Immature Granulocyte % (Auto) 0.0 % Immature Granulocyte # (Auto) 0.00 0.00-0.02 K/uL Ethyl Alcohol mg/dL 176.1 0-3 mg/dl Sodium Level 140 136-145 mmol/L Potassium Level 3.5 3.5-5.1 mmol/L Chloride Level 105 98-107 mmol/L Carbon Dioxide Level 27 21-32 mmol/L Anion Gap 7.0 3-11 mmol/L Blood Urea Nitrogen 10 7-18 mg/dl Creatinine 0.68 0.60-1.40 mg/dl Estimated GFR () 130.0 Estimated GFR (Non- 112.1 BUN/Creatinine Ratio 14.2 10-20 Random Glucose 97 70-99 mg/dl Calcium Level 7.9 8.5-10.1 mg/dl Total Bilirubin 0.2 0.2-1 mg/dl Aspartate Amino Transf (AST/SGOT) 31 15-37 U/L Alanine Aminotransferase (ALT/SGPT) 25 12-78 U/L Alkaline Phosphatase 71 45-117 U/L Total Protein 6.8 6.4-8.2 gm/dl Albumin 3.3 3.4-5.0 gm/dl Globulin 3.5 2.5-4.0 gm/dl Albumin/Globulin Ratio 0.9 0.9-2 Urine Color YELLOW Urine Appearance CLEAR CLEAR Urine pH 6.0 4.5-7.5 Urine Specific [place] 1.019 1.000-1.030 Urine Protein TRACE NEG Urine Glucose (UA) NEG NEG Urine Ketones NEG NEG Urine Occult Blood NEG NEG Urine Nitrite NEG NEG Urine Bilirubin NEG NEG Urine Urobilinogen NEG NEG Urine Leukocyte Esterase NEG NEG Urine WBC (Auto) 5-10 0-5 /hpf Urine RBC (Auto) 0-4 0-4 /hpf Urine Hyaline Casts (Auto) 1-5 0-5 /lpf Urine Epithelial Cells (Auto) 10-20 0-5 /lpf Urine Bacteria (Auto) NEG NEG Impression Assessment and Plan 47M with CP here for failure to thrive (caregiver left due to pt's alcoholism) and placement. Failure to Thrive - Per patient he can tolerate PO as long as its soft. - Albumin 3.3 - Regular mechanical soft diet. Alcoholism >3 drinks per day per patient, Ethanol level was 176 (normal <3). Pt smells like alcohol. AST/ ALT are 31 and 25. No hepatomegaly on exam. Not tachycardic. No tremors. No signs of withdrawal at present. He has Ativan 1mg Q6 PRN for tremors for CP, will continue. Will also add on AWSS protocol for additional IV Ativan. Will also do seizure precautions. IV thiamine once daily. CP Patients baseline is contracted and not able to walk. Ativan PRN as above. 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 - Discharge planning eval ordered for [facility] [employer], patient will need placement. - Med Surg. DVT Proph: Hep SQ 5000 BID. FULL CODE Attending addendum: I have physically seen this patient, have supervised the medical residents activities, and agree with the H&P unless as otherwise noted. 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 Medical surgical admission Patient does require help with ADLs No active signs of infection Continue baclofen 5 mg by mouth twice a day Level of Care Med/Surg Advanced Directives Existing Advance Directive: No Existing Living Will: No Existing Power of Motor Vehicle Examiner: No Resuscitation Status FULL RESUSCITATION VTE Prophylaxis VTE Risk Assessment Done? Y/N: Yes Risk Level: Moderate Social Service Consult Receiving Home Health Resident Involvement: Resident Care Provided Care Provided: Adult Hospital Medicine
[2017-08-02] MEDS ORDERED: LORAZEPAM 2 MG/ML 1 ML VIAL IV PRN (20:00)
[2017-08-02] MEDS ORDERED: ONDANSETRON INJ 2 MG/ML 2 ML VIAL IV PRN (20:00)
[2017-08-02] MEDS ORDERED: ZOLPIDEM TARTRATE 5 MG TAB PO PRN (20:00)
[2017-08-02] MEDS ORDERED: POLYETHYLENE (MIRALAX) 17 GM PACK PO PRN (20:45)
[2017-08-02] MEDS ORDERED: THIAMINE HCL 100 MG TAB PO SCH (21:00)
[2017-08-02] MEDS ORDERED: IV FLUIDS COMPLETED PRN (21:00)
--- NOTE | 2017-08-02 21:00 | NUR ---
OBS/A: Patient arrived to room 461-2 with diagnosis Failure to Thrive. Patient is alert to person, place and time but is difficult to understand and has slow to speak r/t history of Cerebral Palsy. VS and assessment completed. See EMR. Patient is contracted and unable to complete or sign paperwork. Monitoring for alcohol withdrawal.
[2017-08-02] MEDS ORDERED: LORAZEPAM 1MG IV AT RISK PROTOCOL PHA IV PRN (21:30)
[2017-08-02] MEDS: BACLOFEN 10 MG TAB PO SCH (22:26)
[2017-08-02] MEDS: LORAZEPAM 1 MG TAB PO PRN (22:44)
[2017-08-02] MEDS: HEPARIN SOD 5000 UNIT/0.5 ML CARP SQ SCH (22:49)
[2017-08-02 23:33] VITALS: BP 96/67; PULSE 97; TEMP 36.8; O2SAT 95; Ht 152.4 cm; Wt 47.2 kg
--- NOTE | 2017-08-03 | NUR ---
OBS note: Patient resting. Repositioned frequently. Involuntary movements noted. No tremors, sweating or other outward symptoms of alcohol withdrawal noted. Bed alarm on for safety.
[2017-08-03 00:07] VITALS: BP 97/56; PULSE 103; TEMP 36.9; O2SAT 95
--- NOTE | 2017-08-03 04:00 | NUR ---
OBS note: Patient resting. Repositioned. No S&S of alcohol withdrawal. Bed Alarm on.
[2017-08-03] MEDS: LORAZEPAM 1 MG TAB PO PRN ×2 (06:27→20:50)
[2017-08-03 07:26] VITALS: BP 109/69; PULSE 78; TEMP 36.7; O2SAT 97
[2017-08-03 08:00] VITALS: O2SAT 97
--- NOTE | 2017-08-03 08:00 | NUR ---
OBS/A: Patient alert to person, restless. Communication difficult, garbled, slow speech. VSS. AWSS score 3. Patient dependent for all care. Awaiting hospitalist visit. Will continue to monitor patients overall status.
[2017-08-03] MEDS: BACLOFEN 10 MG TAB PO SCH ×2 (08:22→20:49)
[2017-08-03] MEDS: THIAMINE HCL 100 MG TAB PO SCH (08:22)
[2017-08-03] MEDS: HEPARIN SOD 5000 UNIT/0.5 ML CARP SQ SCH ×2 (08:49→20:51)
[2017-08-03] MEDS ORDERED: MULTI-VITAMIN INFUSION INJ 10 ML, THIAMINE HCL INJ 100 MG, FoLIC ACID INJ 1 MG in SODIU... IV ONE (11:00)
--- NOTE | 2017-08-03 12:00 | NUR ---
OBS/A: Patient less restless after MD ordered IV Ativan. Denies pain. VS remain stable. Banana bag now infusing at 100 ml/hr without difficulty. Will continue to monitor patients overall status.
--- NOTE | 2017-08-03 13:45 | Family Medicine Progress Note ---
Progress Note Date of Service Aug 03, 2017. Subjective Pt evaluation today including: conversation w/ patient, physical exam, chart review, lab review, review of studies Unable to obtain meaningful subjective/ ROS as the patient is agitated and not responding to questions Medications Medications Administered Medications (Trade) Dose Ordered Sig/Ina Route Start Time Stop Time Status Last Admin Dose Admin Acetaminophen (Tylenol Tab) 650 mg NOW STAT PO 08/02/17 16:25 08/02/17 16:26 DC 08/02/17 16:56 650 MG Heparin Sodium (Porcine) (Heparin Sq 5000 Unit/0.5ml) 5,000 unit Q12H SQ 08/02/17 21:00 09/01/17 20:59 08/03/17 08:49 5,000 UNIT Baclofen (Lioresal Tab) 5 mg BID PO 08/02/17 21:00 09/01/17 20:59 08/03/17 08:22 5 MG Lorazepam (Ativan Tab) 1 mg Q6H PRN PO 08/02/17 20:00 09/01/17 19:59 08/03/17 06:27 1 MG Thiamine HCl (Vitamin B-1 Tab) 100 mg DAILY PO 08/03/17 08:00 09/02/17 08:59 08/03/17 08:22 100 MG Thiamine HCl (Vitamin B-1 Tab) 100 mg TODAY@2100 PO 08/02/17 21:00 08/02/17 23:59 DC 08/02/17 22:26 100 MG Lorazepam 1 mg/ Syringe 1 ml @ 1 mls/min ONE PRN IV 08/02/17 21:30 08/03/17 10:32 DC 08/03/17 10:32 1 MLS/MIN Multivitamins 10 ml/Thiamine HCl 100 mg/Folic Acid 1 mg/Sodium Chloride 1,011.2 ml @ 100 mls/ hr Q10H7M ONCE IV 08/03/17 11:00 08/03/17 21:06 08/03/17 11:08 100 MLS/HR Objective Vital Signs Date Time Temp Pulse Resp B/P (MAP) Pulse Ox O2 Delivery O2 Flow Rate FiO2 08/03/17 08:00 97 Room Air 08/03/17 07:26 36.7 78 16 109/69 (82) 97 08/03/17 00:07 36.9 103 18 97/56 (70) 95 Room Air 08/02/17 23:33 36.8 97 18 96/67 95 08/02/17 20:47 77 18 91/51 93 Room Air 08/02/17 20:00 78 20 115/72 93 Room Air 08/02/17 19:18 77 17 107/66 96 Room Air 08/02/17 18:10 80 18 90/61 94 Room Air 08/02/17 16:09 37.1 91 20 114/75 97 Room Air Physical Exam General Appearance: + moderate distress, + pertinent finding (patient is contracted which is BL for the patient) Eyes: normal inspection ENT: normal ENT inspection Neck: supple Respiratory/Chest: normal breath sounds, no respiratory distress, no accessory muscle use Cardiovascular: no murmur, + tachycardia Abdomen: normal bowel sounds, non tender, soft Neurologic/Psychiatric: alert, + pertinent finding (unable to determine orientation however when asked if patient is agitated/ anxious he states yes) Skin: normal color, warm/dry, no rash Lymphatic: no adenopathy Laboratory Results Results Past 24 Hours Test 08/02/17 18:40 08/02/17 18:47 08/02/17 18:50 08/03/17 10:51 Range/Units White Blood Count 5.75 4.8-10.8 K/uL Red Blood Count 4.41 4.7-6.1 M/uL Hemoglobin 11.3 14.0-18.0 g/dL Hematocrit 35.1 42-52 % Mean Corpuscular Volume 79.6 80-100 fL Mean Corpuscular Hemoglobin 25.6 25-34 pg Mean Corpuscular Hemoglobin Concent 32.2 32-36 g/dl Platelet Count 171 130-400 K/uL Mean Platelet Volume 9.8 7.4-10.4 fL Neutrophils (%) (Auto) 75.4 % Lymphocytes (%) (Auto) 16.3 % Monocytes (%) (Auto) 7.3 % Eosinophils (%) (Auto) 0.7 % Basophils (%) (Auto) 0.3 % Neutrophils # (Auto) 4.33 1.4-6.5 K/uL Lymphocytes # (Auto) 0.94 1.2-3.4 K/uL Monocytes # (Auto) 0.42 0.11-0.59 K/uL Eosinophils # (Auto) 0.04 0-0.5 K/uL Basophils # (Auto) 0.02 0-0.2 K/uL RDW Standard Deviation 44.9 36.4-46.3 fL RDW Coefficient of Variation 15.4 11.5-14.5 % Immature Granulocyte % (Auto) 0.0 % Immature Granulocyte # (Auto) 0.00 0.00-0.02 K/uL Ethyl Alcohol mg/dL 176.1 0-3 mg/dl Sodium Level 140 136-145 mmol/L Potassium Level 3.5 3.5-5.1 mmol/L Chloride Level 105 98-107 mmol/L Carbon Dioxide Level 27 21-32 mmol/L Anion Gap 7.0 3-11 mmol/L Blood Urea Nitrogen 10 7-18 mg/dl Creatinine 0.68 0.60-1.40 mg/dl Estimated GFR () 130.0 Estimated GFR (Non- 112.1 BUN/Creatinine Ratio 14.2 10-20 Random Glucose 97 70-99 mg/dl Calcium Level 7.9 8.5-10.1 mg/dl Total Bilirubin 0.2 0.2-1 mg/dl Aspartate Amino Transf (AST/SGOT) 31 15-37 U/L Alanine Aminotransferase (ALT/SGPT) 25 12-78 U/L Alkaline Phosphatase 71 45-117 U/L Total Protein 6.8 6.4-8.2 gm/dl Albumin 3.3 3.4-5.0 gm/dl Globulin 3.5 2.5-4.0 gm/dl Albumin/Globulin Ratio 0.9 0.9-2 Urine Color YELLOW Urine Appearance CLEAR CLEAR Urine pH 6.0 4.5-7.5 Urine Specific [place] 1.019 1.000-1.030 Urine Protein TRACE NEG Urine Glucose (UA) NEG NEG Urine Ketones NEG NEG Urine Occult Blood NEG NEG Urine Nitrite NEG NEG Urine Bilirubin NEG NEG Urine Urobilinogen NEG NEG Urine Leukocyte Esterase NEG NEG Urine WBC (Auto) 5-10 0-5 /hpf Urine RBC (Auto) 0-4 0-4 /hpf Urine Hyaline Casts (Auto) 1-5 0-5 /lpf Urine Epithelial Cells (Auto) 10-20 0-5 /lpf Urine Bacteria (Auto) NEG NEG Iron Level 112 35-175 mcg/dl Total Iron Binding Capacity 529 250-450 mcg/dl Transferrin 338 200-360 mg/dl Transferrin % Saturation 24 20-50 % Ferritin 7.8 8.0-388.0 ng/ml Vitamin B12 Level 354 211-911 pg/mL Folate 9.27 >5.38 ng/mL Test 08/03/17 13:05 Range/Units Assessment and Plan 47M with cerebral palsy and wheelchair bound at BL that is presenting to us for alcohol withdrawal/ FTT secondary to loss of primary strategic buyer. Failure to Thrive secondary to loss of primary strategic buyer - Per patient he can tolerate PO as long as its soft. - Regular mechanical soft diet - Dietary consult to optimize diet Alcoholism/ Alcohol withdrawal Ativan 1mg Q6 PRN for tremors for Cerebral palsy cont'd Will also add on AWSS protocol for additional IV/PO Ativan. - Will administer banana bag - if patient requires additional medication for anxiety/ tremors can consider clonidine 0.1 mg Microcytic anemia secondary to iron def - folate, VIT B12 WNL - Ferritin levels low and TIBC elevated with a normal iron reflective of a mil iron deficiency - once patient has improved agitation can initiate oral iron replacement Cerebral palsy Patients baseline is contracted and not able to walk. Baclofen 5mg BID cont'd - discussed case with case mx and apparently new janitor caretaker will be available saturday DVT Proph: Hep SQ 5000 BID. FULL CODE Continued [facility] stay due to: home environment unsafe for pt Discharge planning: uncertain Reviewed: Pt Seen/Exam by Me History restless in bed. unable to have any conversation. Constitutional: denies: fever General Appearance: other (restless in bed) Respiratory: lungs clear, no respiratory distress Cardiovascular: regular rate, rhythm Neurologic/Psychiatric: alert Skin Characteristics: warm/dry Assessment/Plan Resident Physician Supervision Note: I independently interviewed and examined the patient and verified the crockett history and physical, reviewed labs and image studies, discussed the case with the resident Dr. Back and agree with the findings and care plan.
[2017-08-03 15:49] VITALS: BP 131/83; PULSE 100; TEMP 36.6; O2SAT 98
--- NOTE | 2017-08-03 16:00 | NUR ---
OBS: Patient repositioned in bed. A/Ox2. Breath sounds diminished. Vitamin bag infusing through left forearm site. Denies pain. Voiding in urinal with assistance. Assisted to bedside commode with 3 assist. Seizure pads intact to bed. Call villagomez is within reach. Hourly rounding. Will continue to monitor.
--- NOTE | 2017-08-03 16:53 | NUR ---
Consult received re: admitting Dx/Pt's hx of chewing/swallowing difficulties. Please refer to linked assessment Addendum: 08/03/17 at [address] Amended: Links added.
--- NOTE | 2017-08-03 20:00 | NUR ---
OBS note: Patient assessed. See EMR. Repositioned frequently. Seizure pads in place. Receiving Multivitamin infusion. Patient calls out to communicate needs. Frequent rounds maintained.
[2017-08-03] MEDS: ACETAMINOPHEN 325 MG TAB PO PRN (20:50)
[2017-08-03 23:38] VITALS: BP 91/67; PULSE 84; TEMP 36.8; O2SAT 99
--- NOTE | 2017-08-04 | NUR ---
OBS note: Patient resting at this time. Seizure pads in place to protect patient from involuntary movements. Frequent rounds maintained.
[2017-08-04 01:30] VITALS: BP 147/70; PULSE 66
--- NOTE | 2017-08-04 04:00 | NUR ---
OBS/ID note: Patient is able to answer person, place and time. Difficult for patient to get words out, needs prompting at times. Meds given crushed in applesauce due to tongue thrusting. SL intact to left wrist. Voids in urinal with assist. Medicated with prn po Ativan for involuntary movements. Seizure pads in place. Discharge plan to return home when new clothing manager available, likely Saturday.
[2017-08-04] MEDS: LORAZEPAM 1 MG TAB PO PRN ×2 (04:58→17:28)
--- NOTE | 2017-08-04 06:54 | Family Medicine Progress Note ---
Progress Note Date of Service Aug 04, 2017. Subjective Pt evaluation today including: conversation w/ patient, physical exam, chart review, lab review, review of studies Patient is unable provide appropriate ROS or subjective information secondary to agitation Medications Medications Administered Medications (Trade) Dose Ordered Sig/Ina Route Start Time Stop Time Status Last Admin Dose Admin Acetaminophen (Tylenol Tab) 650 mg NOW STAT PO 08/02/17 16:25 08/02/17 16:26 DC 08/02/17 16:56 650 MG Acetaminophen (Tylenol Tab) 650 mg Q4H PRN PO 08/02/17 20:00 09/01/17 19:59 08/03/17 20:50 650 MG Heparin Sodium (Porcine) (Heparin Sq 5000 Unit/0.5ml) 5,000 unit Q12H SQ 08/02/17 21:00 09/01/17 20:59 08/03/17 20:51 5,000 UNIT Baclofen (Lioresal Tab) 5 mg BID PO 08/02/17 21:00 09/01/17 20:59 08/03/17 20:49 5 MG Lorazepam (Ativan Tab) 1 mg Q6H PRN PO 08/02/17 20:00 09/01/17 19:59 08/04/17 04:58 1 MG Thiamine HCl (Vitamin B-1 Tab) 100 mg DAILY PO 08/03/17 08:00 09/02/17 08:59 08/03/17 08:22 100 MG Thiamine HCl (Vitamin B-1 Tab) 100 mg TODAY@2100 PO 08/02/17 21:00 08/02/17 23:59 DC 08/02/17 22:26 100 MG Lorazepam 1 mg/ Syringe 1 ml @ 1 mls/min ONE PRN IV 08/02/17 21:30 08/03/17 10:32 DC 08/03/17 10:32 1 MLS/MIN Multivitamins 10 ml/Thiamine HCl 100 mg/Folic Acid 1 mg/Sodium Chloride 1,011.2 ml @ 100 mls/ hr Q10H7M ONCE IV 08/03/17 11:00 08/03/17 21:06 DC 08/03/17 11:08 100 MLS/HR Objective Vital Signs Date Time Temp Pulse Resp B/P (MAP) Pulse Ox O2 Delivery O2 Flow Rate FiO2 08/04/17 01:30 () 08/04/17 00:00 Room Air 08/03/17 23:38 36.8 84 18 91/67 (75) 99 Room Air 08/03/17 20:00 Room Air 08/03/17 16:00 Room Air 08/03/17 15:49 36.6 100 18 131/83 (99) 98 08/03/17 08:00 97 Room Air 08/03/17 07:26 36.7 78 16 109/69 (82) 97 Physical Exam General Appearance: + moderate distress, + pertinent finding (contracted which is BL) Eyes: normal inspection ENT: normal ENT inspection Neck: supple Respiratory/Chest: normal breath sounds, no respiratory distress, no accessory muscle use Cardiovascular: regular rate, rhythm, no murmur Abdomen: normal bowel sounds, non tender, soft Extremities: non-tender, normal inspection, no pedal edema, no calf tenderness Neurologic/Psychiatric: alert Skin: normal color, warm/dry, no rash Lymphatic: no adenopathy Laboratory Results Results Past 24 Hours Test 08/03/17 10:51 08/03/17 13:05 08/04/17 04:44 Range/Units Iron Level 112 35-175 mcg/dl Total Iron Binding Capacity 529 250-450 mcg/dl Transferrin 338 200-360 mg/dl Transferrin % Saturation 24 20-50 % Ferritin 7.8 8.0-388.0 ng/ml Vitamin B12 Level 354 211-911 pg/mL Folate 9.27 >5.38 ng/mL Urine Opiates Screen NEG NEG Urine Methadone, Qualitative NEG NEG Urine Barbiturates NEG NEG Urine Phencyclidine (PCP) Level NEG NEG Ur Amphetamine/Methamphetamine NEG NEG MDMA (Ecstasy) Screen NEG NEG Urine Benzodiazepines Screen NEG NEG Urine Cocaine Metabolite NEG NEG Urine Marijuana (THC) POS NEG Assessment and Plan 47M with cerebral palsy and wheelchair bound at BL that is presenting to us for alcohol withdrawal/ FTT secondary to loss of primary coil tier. Failure to Thrive secondary to loss of primary coil tier - Per patient he can tolerate PO as long as its soft. - Regular mechanical soft diet - Dietary consult to optimize diet Agitation/ Anxiety - Ativan q6h PO prn and 0.5 mg IV prn for anxiety - add of Lexapro 10 mg daily Alcoholism/ Alcohol withdrawal Ativan 1mg Q6 PRN for tremors for Cerebral palsy cont'd On AWSS protocol for additional IV/PO Ativan. - Banana bag x 1 - if patient requires additional medication for anxiety/ tremors can consider clonidine 0.1 mg Microcytic anemia secondary to iron def - folate, VIT B12 WNL - Ferritin levels low and TIBC elevated with a normal iron reflective of iron deficiency - Ferrous sulfate 325 mg daily with Venofer 300 mg IV x 1 today Cerebral palsy Patients baseline is contracted and not able to walk. Baclofen 5mg BID cont'd - discussed case with case mx and apparently new career development coordinator will be available saturday DVT Proph: Hep SQ 5000 BID. full code Continued [facility] stay due to: ambulation difficulties, home environment unsafe for pt Discharge planning: uncertain Reviewed: Pt Seen/Exam by Me History per nursing - much calmer this morning unable to have verbal communication Constitutional: denies: fever General Appearance: other (calmer compared to yesterday) Respiratory: lungs clear, no respiratory distress Cardiovascular: regular rate, rhythm Gastrointestinal: normal bowel sounds, non tender, soft Neurologic/Psychiatric: alert Skin Characteristics: warm/dry Assessment/Plan Resident Physician Supervision Note: I independently interviewed and examined the patient and verified the crockett history and physical, reviewed labs and image studies, discussed the case with the resident Dr. Back and agree with the findings and care plan.
[2017-08-04 07:20] VITALS: BP 112/69; PULSE 67; TEMP 36.4; O2SAT 98
[2017-08-04 07:32] LABS: BASO % 0.5 %; BASO ABS # 0.03 K/uL (0-0.2); EOS % 1.2 %; EOS ABS # 0.07 K/uL (0-0.5); HEMATOCRIT 34.7 % (42-52); HEMOGLOBIN 10.8 g/dL (14.0-18.0); LYMPH % 13.8 %; LYMPH ABS # 0.79 K/uL (1.2-3.4); MEAN CELL VOLUME 80.9 fL (80-100); MEAN CORPUSCULAR HEMOGLOBIN 25.2 pg (25-34); MEAN CORPUSCULAR HGB CONC 31.1 g/dl (32-36); MEAN PLATELET VOLUME 9.8 fL (7.4-10.4); MONO % 12.8 %; MONO ABS # 0.73 K/uL (0.11-0.59); NEUT % 71.7 %; PLATELET COUNT 123 K/uL (130-400); RED CELL DISTRIBUTION WIDTH CV 15.3 % (11.5-14.5); RED CELL DISTRIBUTION WIDTH SD 44.8 fL (36.4-46.3); WHITE BLOOD COUNT 5.72 K/uL (4.8-10.8)
--- NOTE | 2017-08-04 08:00 | NUR ---
OBS/A: Patient alert to person and place, restless. Communication difficult, garbled, slow speech. VSS. Patient dependent for all care. Potassium 3.3 today. NSS with 40 meq KCL infusing at 125 without difficulty. Will continue to monitor patients overall status.
[2017-08-04 08:09] LABS: CREATININE 0.71 mg/dl (0.60-1.40); POTASSIUM 3.3 mmol/L (3.5-5.1)
[2017-08-04] MEDS ORDERED: POTASSIUM CHLORIDE INJ 40 MEQ in SODIUM CHLORIDE 0.9% 1000ML 1,000 ML IV SCH (08:30)
[2017-08-04] MEDS: BACLOFEN 10 MG TAB PO SCH ×2 (08:32→19:50)
[2017-08-04] MEDS: THIAMINE HCL 100 MG TAB PO SCH (08:32)
[2017-08-04] MEDS: FERROUS SULFATE 325 MG TAB PO SCH (08:33)
[2017-08-04] MEDS: HEPARIN SOD 5000 UNIT/0.5 ML CARP SQ SCH ×2 (08:58→21:29)
[2017-08-04] MEDS: LORAZEPAM INJ 1 MG in SYRINGE 0.5 ML IV PRN ×2 (08:59→21:25)
[2017-08-04 09:03] VITALS: O2SAT 98
[2017-08-04] MEDS ORDERED: IRON SUCROSE INJ 300 MG in SODIUM CHLORIDE 0.9% 100ML 100 ML IV SCH (10:15)
--- NOTE | 2017-08-04 10:25 | NUR ---
Case Management: Met with pt at bedside. No visitors present. Pt is able to answer questions but at times the response is mumbled. He is slow to respond. Pt presented to the ER after not having caregivers to assist him. He requires 24 hour care. He is to have caregivers in place by 1000 on Saturday. Pt states he uses a motorized scooter. I did not see his chair in the room. He reports the chair is at his home. Plan is for pt to discharge home on Saturday when caregivers are in place. Case Management to follow.
--- NOTE | 2017-08-04 12:00 | NUR ---
OBS/A: Patient resting quietly in bed, anxiety decreased with IV Ativan dose. No current complaints. VSS. NSS with 40 meq KCL infusing at 125 without difficulty. Will continue to monitor patients overall status.
[2017-08-04] MEDS: LORAZEPAM INJ 0.5 MG in SYRINGE 0.25 ML IV PRN (13:18)
[2017-08-04 16:00] VITALS: BP 100/70; PULSE 84; TEMP 37.1; O2SAT 96
[2017-08-04] MEDS ORDERED: IRON SUCROSE INJ 300 MG in SODIUM CHLORIDE 0.9% 250ML IV SCH (16:00)
--- NOTE | 2017-08-04 16:20 | NUR ---
OBS: Patient resting in bed at this time. Denies pain. NS+20k infusing through left forearm site @126ml/hr. Repositioned in bed with nursing aid. Voiding clear yellow in the urinal. Bed alarm on for safety. Will continue to monitor.
[2017-08-04] MEDS: MAGNESIUM HYDROXIDE SUSP 30 ML UDC PO PRN (19:50)
--- NOTE | 2017-08-04 20:00 | NUR ---
OBS note: Patient repositioned at this time. Requested something for heartburn. Assisted to use urinal. IV infusing at 125mls/hr. Seizure pads in place. Frequent rounds.
[2017-08-04 23:17] VITALS: BP 113/76; PULSE 69; TEMP 36.6; O2SAT 100
--- NOTE | 2017-08-05 | NUR ---
Obs note: Patient resting in bed. IVF complete. Given dose of IV Ativan at 2100. Will continue to monitor closely.
--- NOTE | 2017-08-05 04:00 | NUR ---
OBS/ID: Patient resting in bed. Ws incontinent of small amount of stool. Discharge plan to home with caregiver likely Saturday.
[2017-08-05] MEDS: LORAZEPAM INJ 0.5 MG in SYRINGE 0.25 ML IV PRN (06:45)
[2017-08-05 07:06] LABS: HEMATOCRIT 35.5 % (42-52); HEMOGLOBIN 10.9 g/dL (14.0-18.0); MEAN CELL VOLUME 80.9 fL (80-100); MEAN CORPUSCULAR HEMOGLOBIN 24.8 pg (25-34); MEAN CORPUSCULAR HGB CONC 30.7 g/dl (32-36); MEAN PLATELET VOLUME 9.8 fL (7.4-10.4); NUCLEATED RED BLOOD CELL ABS 0.02 K/uL (0-0); PLATELET COUNT 117 K/uL (130-400); RED CELL DISTRIBUTION WIDTH CV 14.9 % (11.5-14.5)
[2017-08-05] MEDS ORDERED: POTASSIUM CHLORIDE 20 MEQ TABCR PO ONE (07:45)
[2017-08-05] MEDS: BACLOFEN 10 MG TAB PO SCH ×2 (07:55→19:30)
[2017-08-05] MEDS: THIAMINE HCL 100 MG TAB PO SCH (07:56)
[2017-08-05] MEDS: ESCITALOPRAM OXALATE 10 MG TAB PO SCH (07:58)
[2017-08-05] MEDS: FERROUS SULFATE 325 MG TAB PO SCH (07:58)
[2017-08-05] MEDS: HEPARIN SOD 5000 UNIT/0.5 ML CARP SQ SCH ×2 (07:59→22:05)
--- NOTE | 2017-08-05 08:00 | NUR ---
Observation: Patient in bed vitals stable. sats wnl on ra. Patient able to communicate basic needs with pointing and nodding head. Unable to communicate speech garbled. x2 max assist. Dependent on feeding and care. No skin issues. Saline locked. Case management following. discharge uncertain at present
[2017-08-05 08:59] VITALS: BP 99/65; PULSE 72; TEMP 36.8; O2SAT 97
--- NOTE | 2017-08-05 09:54 | NUR ---
Case Management: Spoke with Dora Emery, pt. service rig operator (phone [phone] ext. [phone]). She states that she is working on setting up caregivers for pt. to safely return home. As previously noted, pt. will have caregivers in place today at 11am but only until 3pm. He requires 66.5 hours of care weekly and at this point only has 20 hours set up. Dora states "we are reaching out to all agencies to help staff additional hours". She also stated that this is going to be very difficult due to "Steven putting himself in this predicament". According to Dora, all consumers are required to have an individual back-up plan and she is going to reach out to him regarding his and his contacts. She states that he does not have any family but does have a large network of friends. She states that he lives in a first floor off-campus apartment. His power chair is at his apartment. She states that his unable to transfer due to his "weak limb strength." I advised her to keep us informed to get patient home as soon as possible. Addendum: 08/05/17 at 1118 by Liseth Carmichael SERV Called Dora to verify coverage hours. She states that 66.5 hours is correct and that they are "person centered" and "he wants to be on his own" so they cut back his hours at his request. He does have coverage for all meals as he needs assistance. She also states that Adult Protective Services received a complaint of neglect that they are looking into. She said they are also looking into how he is getting alcohol and who is providing and encouraging this. I advised her that they should look into respite care at a SNF as pt. does not need to be hospitalized for medical reasons. She agreed and states that she is looking at that as well as his caregivers.
--- NOTE | 2017-08-05 12:00 | NUR ---
Observation note: Patient resting in bed. Restless. Ativan to be given. Dr. Victoria in and saw patient. Aware of cognition and status. Patient x2 max assist with movement. Movements are spastic. Patient able to communicate basic needs. Poor po intake. Encouraging po intake. Malcolm from protective services called this am and I had not assessed patient yet. Asked to call back. I call and left message. Skin intact some scabbed areas. No open areas. Skin care provided. Max 2-3 assist to bedside commode. Patient unable to stand. W/C bound. Needs fed poor po intake encouraging. Case management saw patient today and spoke with patients nursing surgical services director. Needs to setup caregivers. Case management following. Discharge ongoing
[2017-08-05] MEDS ORDERED: LORAZEPAM 0.5 MG TAB PO PRN (13:00)
[2017-08-05] MEDS: LORAZEPAM INJ 1 MG in SYRINGE 0.5 ML IV PRN ×2 (13:26→19:30)
[2017-08-05 13:35] VITALS: BP 115/65; PULSE 77; TEMP 36.7
--- NOTE | 2017-08-05 13:51 | Family Medicine Progress Note ---
Progress Note Date of Service Aug 05, 2017. Subjective Pt evaluation today including: conversation w/ patient, physical exam, chart review, lab review, conversation w/ managed services sales consultant, review of inpatient medication list PO Intake: poor Patient appears mildly agitated at rest Is able to answer yes or no to questioning Is trying to communicate need but is unable to voice this Denies any pain, but did answer "yes" when Dr. Victoria asked him if he was anxious Constitutional: No fever, No chills, No sweats Respiratory: No cough, No shortness of breath Cardiovascular: No chest pain, No palpitations Abdomen: No pain, No nausea, No vomiting Male : No dysuria Psychiatric: + anxiety Medications Current Inpatient Medications Medications (Trade) Dose Ordered Sig/Ina Route Start Time Stop Time Status Last Admin Dose Admin Acetaminophen (Tylenol Tab) 650 mg Q4H PRN PO 08/02/17 20:00 09/01/17 19:59 08/03/17 20:50 650 MG Magnesium Hydroxide (Milk Of Magnesia Susp) 30 ml Q6H PRN PO 08/02/17 20:00 09/01/17 19:59 08/04/17 19:50 30 ML Polyethylene (Miralax Powder Packet) 17 gm DAILY PRN PO 08/02/17 20:45 09/01/17 20:44 Zolpidem Tartrate (Ambien Tab) 5 mg HSZ PRN PO 08/02/17 20:00 09/01/17 19:59 Ondansetron HCl (Zofran Inj) 4 mg Q6H PRN IV 08/02/17 20:00 09/01/17 19:59 Heparin Sodium (Porcine) (Heparin Sq 5000 Unit/0.5ml) 5,000 unit Q12H SQ 08/02/17 21:00 09/01/17 20:59 08/05/17 07:59 5,000 UNIT Zolpidem Tartrate (Ambien Tab) 5 mg HSZ PRN PO 08/02/17 20:00 09/01/17 19:59 Baclofen (Lioresal Tab) 5 mg BID PO 08/02/17 21:00 09/01/17 20:59 08/05/17 07:55 5 MG Lorazepam (Ativan Tab) 1 mg Q6H PRN PO 08/02/17 20:00 09/01/17 19:59 08/04/17 17:28 1 MG Thiamine HCl (Vitamin B-1 Tab) 100 mg DAILY PO 08/03/17 08:00 09/02/17 08:59 08/05/17 07:56 100 MG Lorazepam (Ativan Inj) 1 mg ONE PRN IV 08/02/17 20:00 Miscellaneous (Iv Fluids Completed) 1 ea PRN PRN N/A 08/02/17 21:00 08/02/18 20:59 Ferrous Sulfate (Feosol Tab) 325 mg QAM PO 08/04/17 08:00 09/03/17 07:59 08/05/17 07:58 325 MG Lorazepam 1 mg/ Syringe 1 ml @ 1 mls/min Q6H PRN IV 08/04/17 08:45 09/03/17 08:44 08/05/17 13:26 1 MLS/MIN Escitalopram Oxalate (Lexapro Tab) 10 mg QAM PO 08/05/17 08:00 09/04/17 07:59 08/05/17 07:58 10 MG Lorazepam (Ativan Tab) 0.5 mg Q4 PRN PO 08/05/17 13:00 09/04/17 12:59 UNV Objective Vital Signs Date Time Temp Pulse Resp B/P (MAP) Pulse Ox O2 Delivery O2 Flow Rate FiO2 08/05/17 13:35 36.7 77 18 115/65 (82) 08/05/17 08:59 36.8 72 18 99/65 (76) 97 Room Air 08/05/17 08:00 Room Air 08/05/17 00:00 Room Air 08/04/17 23:17 36.6 69 16 113/76 (88) 100 Room Air 08/04/17 20:00 Room Air 08/04/17 16:20 Room Air 08/04/17 16:00 37.1 84 18 100/70 (80) 96 Room Air Physical Exam General Appearance: WD/WN, + mild distress Eyes: PERRL Neck: supple, trachea midline Respiratory/Chest: lungs clear, no respiratory distress, no accessory muscle use Cardiovascular: regular rate, rhythm, no edema, no murmur Abdomen: normal bowel sounds, non tender, soft Extremities: no pedal edema, no calf tenderness, normal capillary refill, + pertinent finding (extremities contact in upper and lower. (this is baseline per previous notes)) Skin: normal color, no rash Laboratory Results Results Past 24 Hours Test 08/05/17 06:53 Range/Units White Blood Count 3.70 4.8-10.8 K/uL Red Blood Count 4.39 4.7-6.1 M/uL Hemoglobin 10.9 14.0-18.0 g/dL Hematocrit 35.5 42-52 % Mean Corpuscular Volume 80.9 80-100 fL Mean Corpuscular Hemoglobin 24.8 25-34 pg Mean Corpuscular Hemoglobin Concent 30.7 32-36 g/dl RDW Standard Deviation 44.0 36.4-46.3 fL RDW Coefficient of Variation 14.9 11.5-14.5 % Platelet Count 117 130-400 K/uL Mean Platelet Volume 9.8 7.4-10.4 fL Nucleated RBC Absolute Count (auto) 0.02 0-0 K/uL Nucleated Red Blood Cells % 0.7 % Assessment and Plan 47M with cerebral palsy and wheelchair bound at BL that is presenting to us for alcohol withdrawal/ FTT secondary to 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 We are still awaiting placement per caser. There is Dora Emery ( patient human services care specialist) who is currently working to try and find a caregiver or a SNF that can take the patient while he finds a caregiver. Failure to Thrive secondary to loss of primary concrete crusher loader operator - Per patient he can tolerate PO as long as its soft. - Regular mechanical soft diet - Dietary consult to optimize diet Agitation/ Anxiety - Switched ativan to 0.5 PO q4prn anxiety - add of Lexapro 10 mg daily Alcoholism/ Alcohol withdrawal - On AWSS protocol for additional IV/PO Ativan. - Banana bag x 1 - if patient requires additional medication for anxiety/ tremors can consider clonidine 0.1 mg Microcytic anemia secondary to iron def - folate, VIT B12 WNL - Ferritin levels low and TIBC elevated with a normal iron reflective of iron deficiency - Ferrous sulfate 325 mg daily Cerebral palsy - Patients baseline is contracted and not able to walk. - Baclofen 5mg BID cont'd DVT Proph: - Hep SQ 5000 BID. full code Resident Physician Supervision Note: I interviewed and examined the patient. Discussed with Dr. Yeison Sifuentes and agree with findings and plan as documented in the note. Any exceptions or clarifications are listed here: None this pt is with uncontrolled movements but does seem to understand and can answer questions with short answers. He cannot comment about possible substances found on tox screen on admission seems the need to control anxiety as could be cause of agitation vitals are stable going against this all be substance withdrawal car is regular lungs are clear pt is on back with knees hips and knees flexed will continue with supportive care, increase frequency of ativan, if needs more regularly consider a longer acting form, await social service help to determine a safe disposition Documented By: Carrillo Victoria Continued [facility] stay due to: home environment unsafe for pt Discharge planning: uncertain
[2017-08-05 15:25] VITALS: BP 106/73; PULSE 89; TEMP 36.9; O2SAT 95
--- NOTE | 2017-08-05 16:00 | NUR ---
Observation note: Pt in bed. Restless and rolling all over bed. Seizure precautions maintained. Speech garbled and difficult to understand. Bed alarm on bed.
[2017-08-05 19:27] VITALS: BP 119/79; PULSE 83; TEMP 37.3; O2SAT 98
--- NOTE | 2017-08-05 20:00 | NUR ---
Observation notes: Restless. Scored a 6 on the AWSS and given Ativan per order. Ate 25% of dinner. Spastic. Seizure precautions maintained.
[2017-08-05 23:46] VITALS: BP 97/74; PULSE 72; TEMP 36.9; O2SAT 98
--- NOTE | 2017-08-06 00:28 | NUR ---
ID/OBS Note: patient resting in bed. alert and oriented x4, garbled speech. no complaints of pain at this time. IV SL. lungs clear on RA, denies cough, shortness of breath or chest pain. positive bowel sounds, passing flatus, denies nausea/vomiting. tolerating regular pureed diet with assistance. pulses palpable, denies numbness/tingling. patient has constant spastic movements. patient 2 max assist to bedside. discharge uncertain at this time. call villagomez in reach. seizure precautions in place. bed alarm intact. will continue to monitor.
[2017-08-06 04:35] VITALS: BP 103/65; PULSE 86; TEMP 36.4; O2SAT 97
--- NOTE | 2017-08-06 04:36 | NUR ---
OBS Note: patient resting in bed. assessment unchanged. will continue to monitor.
[2017-08-06] MEDS: LORAZEPAM 1 MG TAB PO PRN ×2 (04:42→23:59)
--- NOTE | 2017-08-06 07:22 | Family Medicine Progress Note ---
Progress Note Date of Service Aug 06, 2017. Subjective Pt evaluation today including: conversation w/ patient, physical exam, chart review, lab review, conversation w/ loss control consultant Pain: none PO Intake: poor Patient spoke slowly but did say that he was feeling anxious this morning He said that he has a cat at home and that he would like someone to be made aware so that the cat can be given food The patient said that he would like to go home today Constitutional: No fever, No chills Respiratory: No cough, No shortness of breath Cardiovascular: No chest pain, No palpitations Abdomen: No pain, No nausea, No vomiting Male : No dysuria, No urinary frequency Psychiatric: + anxiety Medications Current Inpatient Medications Medications (Trade) Dose Ordered Sig/Ina Route Start Time Stop Time Status Last Admin Dose Admin Acetaminophen (Tylenol Tab) 650 mg Q4H PRN PO 08/02/17 20:00 09/01/17 19:59 08/03/17 20:50 650 MG Magnesium Hydroxide (Milk Of Magnesia Susp) 30 ml Q6H PRN PO 08/02/17 20:00 09/01/17 19:59 08/04/17 19:50 30 ML Polyethylene (Miralax Powder Packet) 17 gm DAILY PRN PO 08/02/17 20:45 09/01/17 20:44 Zolpidem Tartrate (Ambien Tab) 5 mg HSZ PRN PO 08/02/17 20:00 09/01/17 19:59 Ondansetron HCl (Zofran Inj) 4 mg Q6H PRN IV 08/02/17 20:00 09/01/17 19:59 Heparin Sodium (Porcine) (Heparin Sq 5000 Unit/0.5ml) 5,000 unit Q12H SQ 08/02/17 21:00 09/01/17 20:59 08/05/17 22:05 5,000 UNIT Zolpidem Tartrate (Ambien Tab) 5 mg HSZ PRN PO 08/02/17 20:00 09/01/17 19:59 Baclofen (Lioresal Tab) 5 mg BID PO 08/02/17 21:00 09/01/17 20:59 08/05/17 19:30 5 MG Lorazepam (Ativan Tab) 1 mg Q6H PRN PO 08/02/17 20:00 09/01/17 19:59 08/06/17 04:42 1 MG Thiamine HCl (Vitamin B-1 Tab) 100 mg DAILY PO 08/03/17 08:00 09/02/17 08:59 08/05/17 07:56 100 MG Lorazepam (Ativan Inj) 1 mg ONE PRN IV 08/02/17 20:00 Miscellaneous (Iv Fluids Completed) 1 ea PRN PRN N/A 08/02/17 21:00 08/02/18 20:59 Ferrous Sulfate (Feosol Tab) 325 mg QAM PO 08/04/17 08:00 09/03/17 07:59 08/05/17 07:58 325 MG Lorazepam 1 mg/ Syringe 1 ml @ 1 mls/min Q6H PRN IV 08/04/17 08:45 09/03/17 08:44 08/05/17 19:30 1 MLS/MIN Escitalopram Oxalate (Lexapro Tab) 10 mg QAM PO 08/05/17 08:00 09/04/17 07:59 08/05/17 07:58 10 MG Lorazepam (Ativan Tab) 0.5 mg Q4 PRN PO 08/05/17 13:00 09/04/17 12:59 Objective Vital Signs Date Time Temp Pulse Resp B/P (MAP) Pulse Ox O2 Delivery O2 Flow Rate FiO2 08/06/17 04:35 36.4 86 16 103/65 (78) 97 Room Air 08/05/17 23:46 36.9 72 20 97/74 (82) 98 Room Air 08/05/17 23:30 Room Air 08/05/17 19:27 37.3 83 18 119/79 (92) 98 Room Air 08/05/17 16:00 Room Air 08/05/17 15:25 36.9 89 18 106/73 (84) 95 Room Air 08/05/17 13:35 36.7 77 18 115/65 (82) 08/05/17 08:59 36.8 72 18 99/65 (76) 97 Room Air 08/05/17 08:00 Room Air Physical Exam General Appearance: + mild distress, + pertinent finding (patient with all 4 limb contracted) Neck: no adenopathy, no JVD, no carotid bruits Respiratory/Chest: lungs clear, no respiratory distress, no accessory muscle use Cardiovascular: regular rate, rhythm, no edema, no murmur Abdomen: normal bowel sounds, non tender, soft Extremities: no pedal edema, no calf tenderness, normal capillary refill Neurologic/Psychiatric: + pertinent finding (patient speaks slowly but one is able to understand him) Laboratory Results Results Past 24 Hours Test 08/05/17 20:10 08/06/17 04:44 Range/Units Bedside Glucose 103 70-99 mg/dl Assessment and Plan 47M with cerebral palsy and wheelchair bound at BL that is presenting to us for alcohol withdrawal/ FTT secondary to 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 We are still awaiting placement per case planner. There is Dora Emery ( patient acute care nurse) who is currently working to try and find a caregiver or a SNF that can take the patient while he finds a caregiver. Patient mentioned to me that he is anxious that nobody is looking after his cat. I told him that I would make someone aware of this. Failure to Thrive secondary to loss of primary phototypesetting equipment monitor - Per patient he can tolerate PO as long as its soft. - Regular mechanical soft diet - Dietary consult to optimize diet Agitation/ Anxiety - Ativan 0.5 PO q4prn anxiety - add of Lexapro 10 mg daily Alcoholism/ Alcohol withdrawal - On AWSS protocol for additional IV/PO Ativan. - Banana bag x 1 - if patient requires additional medication for anxiety/ tremors can consider clonidine 0.1 mg Microcytic anemia secondary to iron def - folate, VIT B12 WNL - Ferritin levels low and TIBC elevated with a normal iron reflective of iron deficiency - Ferrous sulfate 325 mg daily Cerebral palsy - Patients baseline is contracted and not able to walk. - Baclofen 5mg BID cont'd DVT Proph: - Hep SQ 5000 BID. full code Resident Physician Supervision Note: I interviewed and examined the patient. Discussed with Dr. Yeison Sifuentes and agree with findings and plan as documented in the note. Any exceptions or clarifications are listed here: None this pt continues with uncontrolled movements but does seem to understand and can answer questions with short answers. ativan seems the need to control anxiety and reduce his agitation vitals remain stable car is regular lungs are clear pt is able to sit in a chair will continue with supportive care, use po ativan, if needs continue to consider longer acting form, await social service help to determine a safe disposition, consider physiatry eval for physical needs and fitment of his equipment Documented By: Carrillo Victoria Continued [facility] stay due to: ambulation difficulties, home environment unsafe for pt Discharge planning: home
[2017-08-06 07:39] VITALS: BP 115/73; PULSE 81; TEMP 36.5; O2SAT 96
--- NOTE | 2017-08-06 08:00 | NUR ---
OBS: Patient alert and oriented x4, garbled speech. Full assessment done, see EMR. JUAN completed, will administered 1mg IV Ativan. Voided on BSC with two person assistance. Coughs while eating in bed, states that eats better when in his own wheelchair, will attempt to find somebody to bring in patient's wheelchair. VSS on RA. Call villagomez within reach, patient aware to ring for assistance. Will continue to monitor.
[2017-08-06] MEDS: LORAZEPAM INJ 1 MG in SYRINGE 0.5 ML IV PRN ×2 (08:50→13:02)
--- NOTE | 2017-08-06 09:25 | NUR ---
Case Management- Follow up call to pts caregiver services home Dora checking on status of caregivers, she reports she has still not been able to staff his hours but she continues to try and contact agencies to assist. It sounds as though the agencies she is working with for caregivers will actually have to hire worker specifically for his care, this could take quite some time. Asked Dora to start the process of getting a SNF stay paid for while they are working on getting care at home in place. Referrals sent to [facility], and [facility]. Protective service referral was made on 08/02- it was given to Alyssia, marking room supervisor on case is Neel Soriano [phone]. Message left for Neel requesting return call.
[2017-08-06 09:44] LABS: CALCIUM 8.2 mg/dl (8.5-10.1); CREATININE 0.7 mg/dl (0.60-1.40); POTASSIUM 3.9 mmol/L (3.5-5.1)
[2017-08-06] MEDS: FERROUS SULFATE 325 MG TAB PO SCH (09:47)
[2017-08-06] MEDS: ESCITALOPRAM OXALATE 10 MG TAB PO SCH (09:48)
[2017-08-06] MEDS: BACLOFEN 10 MG TAB PO SCH ×2 (09:48→20:06)
[2017-08-06] MEDS: THIAMINE HCL 100 MG TAB PO SCH (09:49)
[2017-08-06] MEDS: HEPARIN SOD 5000 UNIT/0.5 ML CARP SQ SCH ×2 (11:01→20:05)
--- NOTE | 2017-08-06 12:00 | NUR ---
OBS: Patient seen by case management. Working on finding somebody to bring in patient's wheelchair. Continuing to assess with JUAN and administering IV Ativan PRN. Seizure precautions in place. Will move to room with overhead lift to assist with transfers. Call villagomez within reach, patient aware to ring for assistance. Will continue to monitor.
--- NOTE | 2017-08-06 13:30 | NUR ---
A: Patient transferred to room 407 with all belongings. Report called to RENE Kimball. Prior to transfer patient asked this nurse to call father and let him know that he was here. Patient able to give this nurse father's number and this was passed on to case management.
[2017-08-06] MEDS ORDERED: LORAZEPAM 1 MG TAB PO PRN (14:00)
[2017-08-06 15:43] VITALS: BP 108/69; PULSE 87; TEMP 36; O2SAT 97
--- NOTE | 2017-08-06 16:11 | NUR ---
Case Management- Met with pt to review discharge plans, pt has CP and can be very slow and difficult to understand. Pt gave permission to contact Lindsey or An at his apartment complex ([phone]) he feels they can provide information and possibly assist with getting him his wheelchair and computer. Updated pt on plans for possible placement in SNF until arrangements for care can be made. He reports he has a person who is "ready to work" named Joseph I will follow up with his auto service instructor. Pt also requested we contact his father to notify him pt is here and safe, he did not want mention of ETOH use. Contacted Lindsey, general manager food, she assisted with the following information. 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 He attends classes independently in his scooter or uses [employer]. Up until very recently he has had caregivers through an adult waiver program but there has been difficulty with staffing. As far as she knows [place] has a caregiver who comes [facility] 11a- 3p and a caregiver named Guanaco comes [facility] 8a-12pm. He was to have a new girl start 08/02 but she declined the position. He had a friend Lorenzo from [place] who stayed with him for about 1 wk, left 08/01/17 due to prior commitments it was at that time residence life decided pt needed to be sent to [facility] due to lack of care. Per Lindsey pt is able to manage over hs, during the day he comes down and asks office staff for assistance, they do help pt very regularly but can not provide hands on care. Lindsey can assist with getting pts motorized wheelchair and computer, will need to discuss arrangements with director of case management in the am. Father Terrance lives in [place], he reports he is 74 yo and can not travel so he is not involved in pts care. Updated father on pt whereabouts and caregiver issues. He reports that pt lived in [place] for about 20 years, at one time he was and has a daughter who is in college they are not involved with pts care. Up until he came to grad school in fall of this year he had been living independently in an apartment in [facility]. Previously pt had arranged all his own caregivers and father does not feel there were as many issues. Terrance -([phone])
[2017-08-06] MEDS ORDERED: NURSING VERBAL MED ORDER ONE (17:45)
[2017-08-06] MEDS: RANITIDINE HCL 150 MG TAB PO SCH (18:29)
[2017-08-06] MEDS: ZOLPIDEM TARTRATE 5 MG TAB PO PRN (20:10)
--- NOTE | 2017-08-06 21:48 | NUR ---
The patient has demonstrated progress toward goals and readiness for discharge as demonstrated by: Pt is alert and oriented; VSS; Pt is dependent for all care; extremities contracted; Pt is spastic; OOB with lift and one on one care required for meals; pt takes pills crushed in applesauce; Pt rings tap call villagomez for assistance with voiding and is incontinent at times; Discharge plans uncertain at this time pt from home with home health however care has been inconsistent lately and MD/ social service technician unsure if this plan of care suitable at this time
[2017-08-06 23:58] VITALS: PULSE 130; TEMP 36.7; O2SAT 98
--- NOTE | 2017-08-07 | NUR ---
OBS: Pt A/Ox4, slow to respond and speech garbled at times. WC bound, +2 assist. VSS on room air. SL intact. Pt C/O not being able to sleep d/t anxiety and spasticity, prn Ativan administered. Denies any other needs at this time. Q1H rounding maintained. Call villagomez within reach. Bed alarm on, seizure precautions maintained. Will continue to monitor.
--- NOTE | 2017-08-07 04:00 | NUR ---
OBS: Assessment unchanged at this time. Pt resting in bed in NAD. Seizure precautions maintained, bed alarm on and call villagomez within reach. Will continue to monitor.
[2017-08-07] MEDS: LORAZEPAM 1 MG TAB PO PRN ×4 (06:02→19:28)
[2017-08-07 07:43] VITALS: BP 90/65; PULSE 65; TEMP 36.8; O2SAT 97
[2017-08-07] MEDS: ESCITALOPRAM OXALATE 10 MG TAB PO SCH (08:11)
[2017-08-07] MEDS: THIAMINE HCL 100 MG TAB PO SCH (08:11)
[2017-08-07] MEDS: BACLOFEN 10 MG TAB PO SCH ×3 (08:11→19:28)
[2017-08-07] MEDS: FERROUS SULFATE 325 MG TAB PO SCH ×2 (08:11→16:38)
[2017-08-07] MEDS: RANITIDINE HCL 150 MG TAB PO SCH ×2 (08:11→19:28)
--- NOTE | 2017-08-07 08:53 | NUR ---
Case Management- Spoke with Dora, Pool Hall Inspector at [facility] to [place] [facility] she has not had any progress on getting pt additional caregivers in the home. She feels that pt will need to be placed for a respite stay while they work on staffing. Pt mentioned a friend Joseph who is "ready to work", Dora is familiar with him and had instructed pt to have Joseph contact "[employer]" to begin the hiring process. Uncertain Joseph has made appropriate contacts. Message left for [facility] regarding referral. Spoke with Elisa Michelle she is looking at referral and will get back about determination. Referrals sent to [facility], [facility], [facility], [facility] and [facility] in [place].- Will await responses. Lindsey beverage manager is working on assisting to get pts wheelchair and computer. [facility] medics to transport later this afternoon. Addendum: 08/07/17 at 1515 by Kristy Patel SERV Met with pt and provided him with update. Chair and computer are in room. Checked in with Lindsey beverage manager she is watching pts cat and will water his plants. Reviewed current discharge options with pt, he really would like to return home but understands he needs caregivers in place first. Allyson Candelario [facility] will do a site visit tomorrow with pt. JENNIFER paperwork filled out with pt assistance. Yo, [facility] will be in tomorrow to begin "target" process. [facility] referral is still pending but would require insurance authorization.
[2017-08-07] MEDS: HEPARIN SOD 5000 UNIT/0.5 ML CARP SQ SCH ×2 (09:00→20:34)
--- NOTE | 2017-08-07 14:15 | Family Medicine Progress Note ---
Progress Note Date of Service Aug 07, 2017. Subjective Pt evaluation today including: conversation w/ patient, physical exam, chart review, conversation w/ senior science consultant, review of inpatient medication list Pain: none Voiding: no voiding problems Patient says that he wants to go home today He says that he usually drinks 2-3 beers a night and is able to get them by himself with his motorized wheelchair Constitutional: No fever, No chills Respiratory: No cough, No sputum, No shortness of breath Cardiovascular: No chest pain Abdomen: No pain, No nausea, No vomiting, No diarrhea Male : No dysuria, No urinary frequency, No incontinence Medications Current Inpatient Medications Medications (Trade) Dose Ordered Sig/Ina Route Start Time Stop Time Status Last Admin Dose Admin Acetaminophen (Tylenol Tab) 650 mg Q4H PRN PO 08/02/17 20:00 09/01/17 19:59 08/03/17 20:50 650 MG Magnesium Hydroxide (Milk Of Magnesia Susp) 30 ml Q6H PRN PO 08/02/17 20:00 09/01/17 19:59 08/04/17 19:50 30 ML Polyethylene (Miralax Powder Packet) 17 gm DAILY PRN PO 08/02/17 20:45 09/01/17 20:44 Zolpidem Tartrate (Ambien Tab) 5 mg HSZ PRN PO 08/02/17 20:00 09/01/17 19:59 08/06/17 20:10 5 MG Ondansetron HCl (Zofran Inj) 4 mg Q6H PRN IV 08/02/17 20:00 09/01/17 19:59 Heparin Sodium (Porcine) (Heparin Sq 5000 Unit/0.5ml) 5,000 unit Q12H SQ 08/02/17 21:00 09/01/17 20:59 08/05/17 22:05 5,000 UNIT Zolpidem Tartrate (Ambien Tab) 5 mg HSZ PRN PO 08/02/17 20:00 09/01/17 19:59 Thiamine HCl (Vitamin B-1 Tab) 100 mg DAILY PO 08/03/17 08:00 09/02/17 08:59 08/07/17 08:11 100 MG Miscellaneous (Iv Fluids Completed) 1 ea PRN PRN N/A 08/02/17 21:00 08/02/18 20:59 Ferrous Sulfate (Feosol Tab) 325 mg QAM PO 08/04/17 08:00 09/03/17 07:59 08/07/17 08:11 325 MG Escitalopram Oxalate (Lexapro Tab) 10 mg QAM PO 08/05/17 08:00 09/04/17 07:59 08/07/17 08:11 10 MG Ranitidine HCl (zANTac TAB) 150 mg BID PO 08/06/17 18:00 09/05/17 17:59 08/07/17 08:11 150 MG Baclofen (Lioresal Tab) 5 mg TID PO 08/07/17 14:00 09/01/17 20:59 UNV Ferrous Sulfate (Feosol Tab) 325 mg BIDM PO 08/07/17 17:00 09/06/17 16:59 UNV Cyanocobalamin (Vitamin B-12 Tab) 1,000 mcg QAM PO 08/08/17 08:00 09/07/17 07:59 UNV Lorazepam (Ativan Tab) 1 mg Q4 PRN PO 08/07/17 14:00 09/06/17 13:59 UNV Objective Vital Signs Date Time Temp Pulse Resp B/P (MAP) Pulse Ox O2 Delivery O2 Flow Rate FiO2 08/07/17 08:30 Room Air 08/07/17 07:43 36.8 65 16 90/65 (73) 97 Room Air 08/07/17 00:00 Room Air 08/06/17 23:58 36.7 130 22 98 Room Air 08/06/17 20:00 Room Air 08/06/17 16:00 Room Air 08/06/17 15:43 36.0 87 18 108/69 (82) 97 Physical Exam Notes: General Appearance: + mild distress, + pertinent finding (patient with all 4 limb contracted) Neck: no adenopathy, no JVD, no carotid bruits Respiratory/Chest: lungs clear, no respiratory distress, no accessory muscle use Cardiovascular: regular rate, rhythm, no edema, no murmur Abdomen: normal bowel sounds, non tender, soft Extremities: no pedal edema, no calf tenderness, normal capillary refill Neurologic/Psychiatric: + pertinent finding (patient speaks slowly but one is able to understand him) Assessment and Plan 47M with cerebral palsy and wheelchair bound at BL that is presenting to us secondary to loss of primary hair boiler. We are still awaiting placement per employment evaluator/case manager. There is Dora Emery ( patient mall plant caretaker) who is currently working to try and find a caregiver which she has not been able to find yet. She said that patient should organize going to a SNF while awaiting the placement of a caregiver. I was made aware that patient is likely to be a target and will need clearance before going to a SNF. He is having his computer and wheelchair brought into the hospital today Failure to Thrive secondary to loss of primary hair boiler - Per patient he can tolerate PO as long as its soft. - Regular mechanical soft diet - Dietary consult to optimize diet Agitation/ Anxiety - Ativan 1mg q4 - add of Lexapro 10 mg daily Microcytic anemia secondary to iron def - folate, VIT B12 WNL - Ferritin levels low and TIBC elevated with a normal iron reflective of iron deficiency - Ferrous sulfate 325 mg bid - Supplement B12 with 1000mcg OD Cerebral palsy - Patients baseline is contracted and not able to walk. - Baclofen 5mg increased to TID DVT Proph: - Hep SQ 5000 BID. Dispo - patient a target therefore have ordered PT/OT and Psych consult to get clearance full code Resident Physician Supervision Note: I was present with PGY2 Dr. Yeison Sifuentes during the history and exam. I discussed the case with the resident and agree with the findings and plan as documented in the note. Any exceptions or clarifications are listed here: none. Despite focused questions patient had difficult time answering them. He did report he himself buys his beer by going to the store in his wheelchair. VSS no fever gen - severe flailing of all limbs; severe contractures of both legs heart - RRR lungs - CTA b/l abd - soft, ?tenderness epigastric area? ext - no edema neuro - contractures A/P: 1. failure to thrive 2. cerebral palsy 3. paraplegic status 4. ??cognitive dysfunction --- but apparently patient attends graduate school at [employer]?? 5. iron def anemia 6. alcohol abuse add B12 supplementation add Iron supplementation increase baclofen TID due to severe spasticity dispo planning Documented By: Enrique Baron MD Continued [facility] stay due to: ambulation difficulties Discharge planning: long term facility
[2017-08-07 15:27] VITALS: BP 114/64; PULSE 82; TEMP 36.5; O2SAT 93
[2017-08-07 16:00] VITALS: O2SAT 93
[2017-08-07] MEDS ORDERED: NURSING VERBAL MED ORDER ONE (20:30)
[2017-08-07] MEDS ORDERED: ALUMINUM/MAGNESIUM SUSP 30 ML UDC PO ONE (20:45)
[2017-08-07] MEDS: ZOLPIDEM TARTRATE 5 MG TAB PO PRN (20:50)
--- NOTE | 2017-08-07 21:48 | NUR ---
A/ID: Pt admitted d/t failure to thrive, alert and orientedx4, slow to respond, use board to communicate at times, denies pain or SOB, SL at L FA, diet well tolerated, Pt is a fed, Lungs are clear at RA, +BS, soft non tender, non distended abdomen, 2 assist with mechanical lift to motorized wheelchair,void in the urinal/BSC on seizure precaution, VSS, needs attended, CM following, PT/OT and Psych consulted.D/C date uncertain at this time. Will continue monitoring.
[2017-08-07 23:31] VITALS: BP 97/62; PULSE 62; TEMP 36.8; O2SAT 98
[2017-08-08] MEDS: LORAZEPAM 1 MG TAB PO PRN ×4 (01:01→19:20)
[2017-08-08 07:04] VITALS: BP 99/65; PULSE 85; TEMP 36.7; O2SAT 96
[2017-08-08 07:30] VITALS: O2SAT 96
[2017-08-08] MEDS: THIAMINE HCL 100 MG TAB PO SCH (08:42)
[2017-08-08] MEDS: RANITIDINE HCL 150 MG TAB PO SCH ×2 (08:42→19:20)
[2017-08-08] MEDS: FERROUS SULFATE 325 MG TAB PO SCH ×2 (08:42→16:34)
[2017-08-08] MEDS: BACLOFEN 10 MG TAB PO SCH ×3 (08:43→19:19)
[2017-08-08] MEDS: CYANOCOBALAMIN 500 MCG TAB (VIT B-12) PO SCH (08:43)
[2017-08-08] MEDS: ESCITALOPRAM OXALATE 10 MG TAB PO SCH (08:43)
[2017-08-08] MEDS: HEPARIN SOD 5000 UNIT/0.5 ML CARP SQ SCH ×2 (08:43→20:20)
--- NOTE | 2017-08-08 10:03 | NUR ---
Case Management- Message left for pts critical care transport nurse Ramila requesting return call. Yo or colleague is to make a visit this afternoon to complete PASRR paperwork in case he needs to go to a snf at discharge. Awaiting PT/OT evals and determination from [facility]. Addendum: 08/08/17 at 1509 by Kristy Patel SERV Spoke with DERICK Delaney they will not be able to come in until tomorrow to begin the PASRR process. [facility] Protective services/Alyssia in to see pt. Second message left for critical care transport nurse Dora, she has not returned earlier message. Previously Dora reported their offices are closed on 08/09 through 08/12. Addendum: 08/08/17 at 1615 by Kristy Patel SERV Met with pt he gave permission to speak with his ex Duc Bahena [phone], attempted to reach her message left.
--- NOTE | 2017-08-08 14:55 | NUR ---
Pt seen for followup, refer to linked note for full assessment and recommendations. Addendum: 08/08/17 at [address] Amended: Links added.
[2017-08-08 15:09] VITALS: BP 98/62; PULSE 86; TEMP 36.7; O2SAT 94
--- NOTE | 2017-08-08 15:27 | Family Medicine Progress Note ---
Progress Note Date of Service Aug 08, 2017. 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 Constitutional: No fever, No chills, No sweats Respiratory: No cough, No shortness of breath Cardiovascular: No chest pain, No edema Abdomen: + constipation, No pain, No nausea, No vomiting, No diarrhea Male : No dysuria, No urinary frequency Medications Current Inpatient Medications Medications (Trade) Dose Ordered Sig/Ina Route Start Time Stop Time Status Last Admin Dose Admin Acetaminophen (Tylenol Tab) 650 mg Q4H PRN PO 08/02/17 20:00 09/01/17 19:59 08/03/17 20:50 650 MG Magnesium Hydroxide (Milk Of Magnesia Susp) 30 ml Q6H PRN PO 08/02/17 20:00 09/01/17 19:59 08/04/17 19:50 30 ML Polyethylene (Miralax Powder Packet) 17 gm DAILY PRN PO 08/02/17 20:45 09/01/17 20:44 Zolpidem Tartrate (Ambien Tab) 5 mg HSZ PRN PO 08/02/17 20:00 09/01/17 19:59 08/07/17 20:50 5 MG Ondansetron HCl (Zofran Inj) 4 mg Q6H PRN IV 08/02/17 20:00 09/01/17 19:59 Heparin Sodium (Porcine) (Heparin Sq 5000 Unit/0.5ml) 5,000 unit Q12H SQ 08/02/17 21:00 09/01/17 20:59 08/05/17 22:05 5,000 UNIT Zolpidem Tartrate (Ambien Tab) 5 mg HSZ PRN PO 08/02/17 20:00 09/01/17 19:59 Thiamine HCl (Vitamin B-1 Tab) 100 mg DAILY PO 08/03/17 08:00 09/02/17 08:59 08/08/17 08:42 100 MG Miscellaneous (Iv Fluids Completed) 1 ea PRN PRN N/A 08/02/17 21:00 08/02/18 20:59 Escitalopram Oxalate (Lexapro Tab) 10 mg QAM PO 08/05/17 08:00 09/04/17 07:59 08/08/17 08:43 10 MG Ranitidine HCl (zANTac TAB) 150 mg BID PO 08/06/17 18:00 09/05/17 17:59 08/08/17 08:42 150 MG Baclofen (Lioresal Tab) 5 mg TID PO 08/07/17 14:00 09/01/17 20:59 08/08/17 14:26 5 MG Ferrous Sulfate (Feosol Tab) 325 mg BIDM PO 08/07/17 17:00 09/06/17 16:59 08/08/17 08:42 325 MG Cyanocobalamin (Vitamin B-12 Tab) 1,000 mcg QAM PO 08/08/17 08:00 09/07/17 07:59 08/08/17 08:43 1,000 MCG Lorazepam (Ativan Tab) 1 mg Q4 PRN PO 08/07/17 14:00 09/06/17 13:59 08/08/17 14:26 1 MG Objective Vital Signs Date Time Temp Pulse Resp B/P (MAP) Pulse Ox O2 Delivery O2 Flow Rate FiO2 08/08/17 15:09 36.7 86 18 98/62 (74) 94 Room Air 08/08/17 07:30 96 Room Air 08/08/17 07:04 36.7 85 20 99/65 (76) 96 Room Air 08/08/17 00:00 Room Air 08/07/17 23:31 36.8 62 20 97/62 (74) 98 Room Air 08/07/17 16:00 93 Room Air 08/07/17 15:27 36.5 82 18 114/64 (81) 93 Room Air Physical Exam Notes: General Appearance: + mild distress, + pertinent finding (patient with all 4 limb contracted, sitting in wheelchair in front of computer and is able to type out things on his computer) Neck: no adenopathy, no JVD, no carotid bruits Respiratory/Chest: lungs clear, no respiratory distress, no accessory muscle use Cardiovascular: regular rate, rhythm, no edema, no murmur Abdomen: normal bowel sounds, non tender but rigid Extremities: no pedal edema, no calf tenderness, normal capillary refill Neurologic/Psychiatric: + pertinent finding (patient speaks slowly but one is able to understand him) Assessment and Plan 47M with cerebral palsy and wheelchair bound at BL that is presenting to us secondary to loss of primary medical research scientist. Case management have been working tirelessly to try and set the patient up with care outside the hospital. They have been making referrals to SNF's for placement while the patients career orientation teacher finds a primary medical research scientist. According to case management the patients ex and daughter are currently trying to set up a medical research scientist so that the patient does not need to go to a SNF. The patients daughter is coming to the hospital this afternoon to have a group discussion. Failure to Thrive secondary to loss of primary medical research scientist - Per patient he can tolerate PO as long as its soft. - Regular mechanical soft diet - Dietary consult to optimize diet Agitation/ Anxiety - Ativan 1mg q4 - add of Lexapro 10 mg daily Microcytic anemia secondary to iron def - folate, VIT B12 WNL - Ferritin levels low and TIBC elevated with a normal iron reflective of iron deficiency - Ferrous sulfate 325 mg bid - Supplement B12 with 1000mcg OD Cerebral palsy - Patients baseline is contracted and not able to walk. - Baclofen 5mg increased to TID Constipation - patient has not had a bowel movement in 4 days - will give dulcolax suppository and then can take colace daily DVT Proph: - Hep SQ 5000 BID. Dispo - patient a target therefore have ordered PT/OT full code Resident Physician Supervision Note: I was present with PGY2 Dr. Yeison Sifuentes during the history and exam. I discussed the case with the resident and agree with the findings and plan as documented in the note. Any exceptions or clarifications are listed here: none. Adult protective services was present during my visit today. Patient was at his computer and typing, claiming one of the home health companies did not care for him properly. He denied drinking as much alcohol as the home health company reported. No new complaints. VSS no fever gen - NAD heart - RRR lungs - CTA b/l abd - soft, NT ext - no edema neuro - contractures A/P: 1. failure to thrive 2. cerebral palsy 3. paraplegic status 4. severe contractures 5. iron def anemia 6. alcohol abuse 7. complex social issues & disposition issues 8. constipation baclofen increased to TID dosing on 08/07/17- will not adjust today good candidate for baclofen pump down the line appreciate social work assistance in #7 above guaic his stool once he has bowel movement will give dulcolax suppos today due to constipation Documented By: Enrique Baron MD Continued [facility] stay due to: home environment unsafe for pt Discharge planning: uncertain
[2017-08-08] MEDS ORDERED: BISACODYL 10 MG SUPP PR STA (15:29)
[2017-08-08 16:00] VITALS: O2SAT 94
[2017-08-08] MEDS: ACETAMINOPHEN 325 MG TAB PO PRN (16:42)
[2017-08-08 19:00] VITALS: O2SAT 94
--- NOTE | 2017-08-08 21:50 | NUR ---
A: Pt admitted d/t failure to thrive, alert and oriented, hx of cerebral palsy, ativan given for muscle spasm,slow to respond, use letter board to pointer to communicate, SL at FA, Lungs are clear and diminished at RA, +BS, soft , non tender, non distended abdomen, on pureed diet well tolerated, pt is a fed,used mechanical lift to transfer with 2 assist, void in the urinal, at times at BSC, +PP, No edema noted, VSS, frequent checks, Needs attended, CM following. D/c date uncertain at this time, Will continue monitoring.
[2017-08-08] MEDS: ZOLPIDEM TARTRATE 5 MG TAB PO PRN (22:48)
[2017-08-09 00:02] VITALS: BP 117/62; PULSE 64; TEMP 36.7; O2SAT 98
[2017-08-09] MEDS: LORAZEPAM 1 MG TAB PO PRN ×3 (01:00→16:34)
[2017-08-09 07:34] VITALS: BP 100/62; PULSE 63; TEMP 36.7; O2SAT 94
[2017-08-09] MEDS: FERROUS SULFATE 325 MG TAB PO SCH ×2 (08:35→16:34)
[2017-08-09] MEDS: DOCUSATE SODIUM 100 MG CAP PO SCH ×2 (08:35→20:12)
[2017-08-09] MEDS: ESCITALOPRAM OXALATE 10 MG TAB PO SCH (08:36)
[2017-08-09] MEDS: THIAMINE HCL 100 MG TAB PO SCH (08:36)
[2017-08-09] MEDS: RANITIDINE HCL 150 MG TAB PO SCH ×2 (08:36→18:29)
[2017-08-09] MEDS: BACLOFEN 10 MG TAB PO SCH ×3 (08:36→20:12)
[2017-08-09] MEDS: CYANOCOBALAMIN 500 MCG TAB (VIT B-12) PO SCH (08:36)
[2017-08-09] MEDS: HEPARIN SOD 5000 UNIT/0.5 ML CARP SQ SCH ×2 (08:42→20:19)
--- NOTE | 2017-08-09 11:17 | NUR ---
Case Management- Per Elisa Candelario they would be able to accept pt after the holiday. Maria A, [facility] on Aging in to hospital to complete PASRR with pt. Pts ex Duc Bahena is in the process of working with "[employer]" to arrange private pay services, apparently pts father is willing to pay for the services. Duc is coming to meet with a liaison from the agency around 1200 today. She has also spoken with pts friend Enrique and he reports he has started the process being hired by one of the agencies. Duc- (c) [phone]
--- NOTE | 2017-08-09 11:43 | Family Medicine Progress Note ---
Progress Note Date of Service Aug 09, 2017. Subjective Pt evaluation today including: conversation w/ patient Doing about the same today. Denies any pain. No new concerns. Awaiting eventual discharge dispo from case mx. Ex- came to visit patient today, explained that pt had previously been admitted multiple times to [facility]. Additional Comments: Unable to obtain ROS due to patients lack of ability to communicate w/out his chair keyboard (he is currently in bed) Medications Current Inpatient Medications Medications (Trade) Dose Ordered Sig/Ina Route Start Time Stop Time Status Last Admin Dose Admin Acetaminophen (Tylenol Tab) 650 mg Q4H PRN PO 08/02/17 20:00 09/01/17 19:59 08/08/17 16:42 650 MG Magnesium Hydroxide (Milk Of Magnesia Susp) 30 ml Q6H PRN PO 08/02/17 20:00 09/01/17 19:59 08/04/17 19:50 30 ML Polyethylene (Miralax Powder Packet) 17 gm DAILY PRN PO 08/02/17 20:45 09/01/17 20:44 Zolpidem Tartrate (Ambien Tab) 5 mg HSZ PRN PO 08/02/17 20:00 09/01/17 19:59 08/08/17 22:48 5 MG Ondansetron HCl (Zofran Inj) 4 mg Q6H PRN IV 08/02/17 20:00 09/01/17 19:59 Heparin Sodium (Porcine) (Heparin Sq 5000 Unit/0.5ml) 5,000 unit Q12H SQ 08/02/17 21:00 09/01/17 20:59 08/05/17 22:05 5,000 UNIT Zolpidem Tartrate (Ambien Tab) 5 mg HSZ PRN PO 08/02/17 20:00 09/01/17 19:59 Thiamine HCl (Vitamin B-1 Tab) 100 mg DAILY PO 08/03/17 08:00 09/02/17 08:59 08/09/17 08:36 100 MG Miscellaneous (Iv Fluids Completed) 1 ea PRN PRN N/A 08/02/17 21:00 08/02/18 20:59 Escitalopram Oxalate (Lexapro Tab) 10 mg QAM PO 08/05/17 08:00 09/04/17 07:59 08/09/17 08:36 10 MG Ranitidine HCl (zANTac TAB) 150 mg BID PO 08/06/17 18:00 09/05/17 17:59 08/09/17 08:36 150 MG Baclofen (Lioresal Tab) 5 mg TID PO 08/07/17 14:00 09/01/17 20:59 08/09/17 08:36 5 MG Ferrous Sulfate (Feosol Tab) 325 mg BIDM PO 08/07/17 17:00 09/06/17 16:59 08/09/17 08:35 325 MG Cyanocobalamin (Vitamin B-12 Tab) 1,000 mcg QAM PO 08/08/17 08:00 09/07/17 07:59 08/09/17 08:36 1,000 MCG Lorazepam (Ativan Tab) 1 mg Q4 PRN PO 08/07/17 14:00 09/06/17 13:59 08/09/17 08:36 1 MG Docusate Sodium (coLACE CAP) 100 mg BID PO 08/09/17 08:00 09/08/17 07:59 08/09/17 08:35 100 MG Objective Vital Signs Date Time Temp Pulse Resp B/P (MAP) Pulse Ox O2 Delivery O2 Flow Rate FiO2 08/09/17 10:42 Room Air 08/09/17 07:34 36.7 63 18 100/62 (75) 94 Room Air 08/09/17 00:02 36.7 64 18 117/62 (80) 98 Room Air 08/09/17 00:00 Room Air 08/08/17 19:00 94 Room Air 08/08/17 16:00 94 Room Air 08/08/17 15:09 36.7 86 18 98/62 (74) 94 Room Air Assessment and Plan 47 yo wheelchair-bound male with cerebral palsy who is admitted for failure to thrive. Medically stable for discharge, but no destination for him to go to with appropriate care at this time. Failure to Thrive secondary to loss of primary occupational health rn - Regular mechanical soft diet - Dietary consult to optimize diet Chronic alcohol misuse - Ativan PRN Agitation/ Anxiety - Ativan 1mg q4 - Added Lexapro 10 mg daily a few days ago Microcytic anemia secondary to iron deficiency anemia - Ferrous sulfate 325 mg bid - Supplement B12 with 1000mcg OD Cerebral palsy - Patients baseline is contracted and not able to walk. - Baclofen 5mg increased to TID Constipation - Received suppository yesterday, resolved issue - Colace daily DVT Proph: - Hep SQ 5000 BID. Dispo - Awaiting determination of discharge destination Resident Physician Supervision Note: I was present with PGY3 Dr. Marychuy Brown during the history and exam. I discussed the case with the resident and agree with the findings and plan as documented in the note. Any exceptions or clarifications are listed here: none. During my visit the pt's ex- was present as well as a representative government relations from a local homehealth/caregiver agency. Ex- confirmed he has long h/o alcohol abuse. She mentioned he has had multiple admits to [facility] for etoh- related issues. She confirms she wants him placed back at his apartment in [place] if at all possible. VSS no fever gen - NAD, sitting in his power wheelchair heart - RRR lungs - CTA b/l abd - soft, NT ext - no edema neuro - contractures; flailing of all limbs during the visit A/P: 1. failure to thrive 2. cerebral palsy 3. paraplegic status 4. severe contractures 5. iron def anemia 6. alcohol abuse 7. complex social issues & disposition issues baclofen increased to TID dosing on 08/07/17- consider increasing to 10mg TID this weekend good candidate for baclofen pump down the line appreciate social work assistance in #7 above I had a lengthy discussion w/ Kristy from case management re: Mr. 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
--- NOTE | 2017-08-09 15:06 | NUR ---
Case Management- Met with Steven, ex Duc and public service representative from private duty caregiver agency to discuss options. After discussion it seems that pts father is willing to pay for caregivers but he really can't afford this and it would not be sustainable for > 1-2 weeks. Pt reports [employer] is his regular caregiver and he could begin work again over the weekend, Steven says he comes daily in the am, this differs from the information high risk case manager had from pts coordinator. Message left on the emergency mailbox at [employer] ([phone]) to see if they are able to contact Guanaco to resume hours. No return call thus far. Steven reports his friend Enrique is able to cover evening hours - private pay. 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 If caregivers are able to be arranged he could return to his apartment - would need to notify Jaxon Schultz Medical Care Administrator on Duty at [facility], may call . [facility] is able to accept pt once [facility] paperwork is returned from the [facility]. Can update [employer] at [facility] [phone]. Addendum: 08/09/17 at 1542 by Kristy Patel SERV Return call from Paige at [employer] she reports that pts caregiver Guanaco is not available this weekend, since pt was in the hospital he went home to [place] for the holidays. Paige also reports they have been working very hard to get pts hours staffed but that Steven has not been easy to work with. Paige states they had agencies that were available to staff pts hours but he did not respond to their emails stating he could not be bothered with this over finals. Will have to follow up with Ramila at [facility] on Saturday. Attempted to call ex and update but no answer and vm full.
[2017-08-09 16:00] VITALS: O2SAT 94
[2017-08-09] MEDS: DIAZEPAM 5MG TAB PO PRN (20:12)
--- NOTE | 2017-08-09 21:26 | NUR ---
A/ID: Pt admitted d/t failure to thrive, alert and orientedx4, slow to respond, with muscle spasticity-ativan and Valium PRN given, use letter board to communicate and his computer, denies pain or SOB, SL at L FA, diet well tolerated, Pt is a fed, Lungs are diminished at RA, +BS, soft non tender, non distended abdomen, +BM today, 2 assist with mechanical lift to motorized wheelchair,void in the urinal/BSC on seizure precaution, VSS, needs attended, CM following, PT/OT and Psych consulted.D/C date uncertain at this time. Will continue monitoring.
[2017-08-09] MEDS: ZOLPIDEM TARTRATE 5 MG TAB PO PRN (22:32)
[2017-08-09 23:39] VITALS: BP 98/60; PULSE 65; TEMP 36.7; O2SAT 97
[2017-08-10] MEDS: LORAZEPAM 1 MG TAB PO PRN ×2 (03:18→17:47)
--- NOTE | 2017-08-10 07:10 | NUR ---
Bladder scanned patient for >182 @ 0600 Addendum: 08/10/17 at 0711 by Shukri CHONG Amended: Links added.
[2017-08-10 07:27] VITALS: BP 98/56; PULSE 79; TEMP 36.4; O2SAT 98
[2017-08-10 07:55] LABS: HEMATOCRIT 36.6 % (42-52); HEMOGLOBIN 11.4 g/dL (14.0-18.0); MEAN CELL VOLUME 82.4 fL (80-100); MEAN CORPUSCULAR HEMOGLOBIN 25.7 pg (25-34); MEAN CORPUSCULAR HGB CONC 31.1 g/dl (32-36); MEAN PLATELET VOLUME 10.3 fL (7.4-10.4); PLATELET COUNT 141 K/uL (130-400); RED CELL DISTRIBUTION WIDTH CV 16.8 % (11.5-14.5); RED CELL DISTRIBUTION WIDTH SD 46.8 fL (36.4-46.3); WHITE BLOOD COUNT 3.51 K/uL (4.8-10.8)
[2017-08-10 08:00] VITALS: O2SAT 98
[2017-08-10] MEDS: FERROUS SULFATE 325 MG TAB PO SCH ×2 (08:21→17:47)
[2017-08-10] MEDS: DOCUSATE SODIUM 100 MG CAP PO SCH ×2 (08:21→20:57)
[2017-08-10] MEDS: BACLOFEN 10 MG TAB PO SCH ×3 (08:22→20:57)
[2017-08-10] MEDS: ESCITALOPRAM OXALATE 10 MG TAB PO SCH (08:22)
[2017-08-10] MEDS: THIAMINE HCL 100 MG TAB PO SCH (08:23)
[2017-08-10] MEDS: RANITIDINE HCL 150 MG TAB PO SCH ×2 (08:23→20:57)
[2017-08-10] MEDS: CYANOCOBALAMIN 500 MCG TAB (VIT B-12) PO SCH (08:23)
[2017-08-10] MEDS: HEPARIN SOD 5000 UNIT/0.5 ML CARP SQ SCH ×2 (08:24→20:55)
[2017-08-10 08:29] LABS: CALCIUM 8.5 mg/dl (8.5-10.1); CREATININE 0.83 mg/dl (0.60-1.40)
[2017-08-10] MEDS: DIAZEPAM 5MG TAB PO PRN ×2 (08:38→20:30)
--- NOTE | 2017-08-10 11:26 | Family Medicine Progress Note ---
Progress Note Date of Service Aug 10, 2017. Subjective Pt evaluation today including: conversation w/ patient, physical exam, chart review, lab review The patient was seen and examined at bedside. No acute overnight events. Patient was seen typing on his computer. He was answering questions with the assistance of his computer. Pt states that he would like some assistance with shaving. Patient is resting comfortably in bed. Eating and urinating well. Pt requires nursing care for changing sheets and feeding. Plan of care was described to the patient and all questions were answered. Constitutional: No fever, No chills, No sweats ENT: No hearing loss Respiratory: No cough, No sputum, No wheezing, No shortness of breath, No dyspnea on exertion Cardiovascular: No chest pain Abdomen: No pain, No nausea, No vomiting, No diarrhea, No constipation Musculoskeletal: No joint pain Neurologic: No memory loss Psychiatric: No depression symptoms Skin: No rash Objective Physical Exam General Appearance: WD/WN, no apparent distress Eyes: PERRL, EOMI ENT: normal ENT inspection Neck: supple Respiratory/Chest: chest non-tender, lungs clear, normal breath sounds, no respiratory distress, no accessory muscle use Cardiovascular: regular rate, rhythm, no edema, no murmur Abdomen: normal bowel sounds, non tender, soft Extremities: + pertinent finding (patient cannot move upper or lower extremities well to command, the extremities do move spontaneously ) Neurologic/Psychiatric: alert, normal mood/affect, oriented x 3, + pertinent finding (patient is able to communicate via computer, he uses a stick on a hat to press buttons. ) Assessment and Plan 47M with cerebral palsy who is admitted for failure to thrive. Medically stable for discharge, but no destination for him to go to with appropriate care at this time. Patient is at his clinical baseline. Failure to Thrive secondary to loss of primary new order clerk - Regular mechanical soft diet - Dietary consult to optimize diet Chronic alcohol misuse - This was confirmed by the ex- who spoke in person with Dr. Baron. - Ativan PRN Agitation/ Anxiety - Ativan 1mg q4 - Added Lexapro 10 mg daily a few days ago Microcytic anemia secondary to iron deficiency anemia - Ferrous sulfate 325 mg bid - Supplement B12 with 1000mcg OD Cerebral palsy - Patients baseline is contracted and not able to walk. - Baclofen 5mg increased to TID, consider increasing to 10mg TID, good candidate for Baclofen pump. Constipation - Received suppository yesterday, resolved issue - Colace daily DVT Proph: - Hep SQ 5000 BID. Dispo - Per Dr. 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 Cayden Ramirez during the history and exam. I discussed the case with the resident and agree with the findings and plan as documented in the note. Any exceptions or clarifications are listed here: none. c/o mild dyspepsia, telling me via his computer he has reflux and takes prilosec at home he also c/o left chest wall pain from a prior incident where his wheelchair ran into a table records reviewed - had negative rib films about 10 days ago at [facility] no fever gen - NAD, sitting in his power wheelchair heart - RRR chest - mild lower chest wall tenderness on left lungs - CTA b/l abd - soft, NT ext - no edema neuro - contractures; flailing of all limbs during the visit A/P: 1. failure to thrive 2. cerebral palsy 3. paraplegic status 4. severe contractures 5. iron def anemia - due to upper GI issues/gastritis? other? add PPI 6. alcohol abuse 7. complex social issues & disposition issues 8. chest wall contusion - recent negative rib series - lidoderm patches baclofen increased to TID dosing on 08/07/17- consider increasing to 10mg TID good candidate for baclofen pump down the line appreciate social work assistance in #7 above likely he will be hospitalized thru Saturday of this coming week until safe discharge/disposition plan is in place Documented By: Enrique Baron MD Resident Involvement: Resident Care Provided Care Provided: Adult Hospital Medicine
[2017-08-10 15:03] VITALS: BP 106/59; PULSE 77; TEMP 36.4; O2SAT 100
[2017-08-10] MEDS ORDERED: PANTOprazole SOD 40 MG TAB PO ONE (16:45)
[2017-08-10] MEDS: LIDODERM (LIDOCAINE) PATCH 5% TD SCH (17:49)
[2017-08-11 02:21] VITALS: BP 91/64; PULSE 54; TEMP 36.4; O2SAT 97
[2017-08-11 07:43] VITALS: BP 91/52; PULSE 78; TEMP 36.6; O2SAT 93
[2017-08-11] MEDS: DIAZEPAM 5MG TAB PO PRN ×2 (08:35→20:38)
[2017-08-11] MEDS: ESCITALOPRAM OXALATE 10 MG TAB PO SCH (08:35)
[2017-08-11] MEDS: RANITIDINE HCL 150 MG TAB PO SCH ×2 (08:36→20:40)
[2017-08-11] MEDS: FERROUS SULFATE 325 MG TAB PO SCH ×2 (08:36→16:25)
[2017-08-11] MEDS: THIAMINE HCL 100 MG TAB PO SCH (08:36)
[2017-08-11] MEDS: CYANOCOBALAMIN 500 MCG TAB (VIT B-12) PO SCH (08:36)
[2017-08-11] MEDS: BACLOFEN 10 MG TAB PO SCH ×3 (08:36→20:40)
[2017-08-11] MEDS: DOCUSATE SODIUM 100 MG CAP PO SCH ×2 (08:36→20:40)
[2017-08-11] MEDS: PANTOprazole SOD 40 MG TAB PO SCH (08:36)
[2017-08-11] MEDS: LIDODERM (LIDOCAINE) PATCH 5% TD SCH (08:48)
[2017-08-11] MEDS: HEPARIN SOD 5000 UNIT/0.5 ML CARP SQ SCH ×2 (08:48→20:44)
--- NOTE | 2017-08-11 12:55 | Family Medicine Progress Note ---
Progress Note Date of Service Aug 11, 2017. Subjective Pt evaluation today including: conversation w/ patient, physical exam, chart review, lab review The patient was seen and examined at bedside. No acute overnight events. Appears at his clinical baseline. Is able to verbalize responses. Plan of care was described to the patient and all questions were answered. Constitutional: No fever, No chills, No sweats ENT: No hearing loss Respiratory: No cough, No sputum, No wheezing, No shortness of breath, No dyspnea on exertion Cardiovascular: No chest pain Abdomen: No pain, No nausea, No vomiting, No diarrhea, No constipation Musculoskeletal: No joint pain Neurologic: No memory loss Psychiatric: No depression symptoms Skin: No rash Objective Physical Exam Notes: General Appearance: WD/WN, no apparent distress, unchanged from previous day. Eyes: PERRL, EOMI ENT: normal ENT inspection Neck: supple Respiratory/Chest: chest non-tender, lungs clear, normal breath sounds, no respiratory distress, no accessory muscle use Cardiovascular: regular rate, rhythm, no edema, no murmur Abdomen: normal bowel sounds, non tender, soft Extremities: + pertinent finding (patient cannot move upper or lower extremities well to command, the extremities do move spontaneously via spasms) Neurologic/Psychiatric: alert, normal mood/affect, oriented x 3, + pertinent finding (patient is able to communicate via computer, he uses a stick on a hat to press buttons. ) Assessment and Plan 47M with cerebral palsy who is admitted for failure to thrive. Medically stable for discharge, but no destination for him to go to with appropriate care at this time. Patient is at his clinical baseline. 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 Awaiting Placement. Cerebral palsy Patients baseline is contracted and not able to walk. Increase to Baclofen 7.5mg BID from 5mg TID. c/w Valium 5mg BID PRN for muscle spasms. Good candidate for Baclofen pump. Chronic alcohol misuse This was confirmed by the ex- who spoke in person with Dr. Baron. Ativan PRN Q6H (last dose 08/10/2017 at 5pm) Thiamine and B12 PO daily. Agitation/ Anxiety Ativan PRN as above. c/w Lexapro 10 mg daily a few days ago Rib Pain Ran into a table on his wheelchair, seen in the ED. Lidoderm Patch Microcytic anemia secondary to iron deficiency anemia B12 and Folate WNL. TIBC is increased. c/w Ferrous sulfate 325 mg bid c/w B12 with 1000mcg OD Follow up [facility]. Constipation Received suppository yesterday, resolved issue. Colace daily GERD start PPI (on at home) and Ranitidine DVT Proph: Hep SQ [address] 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 Cayden Ramirez during the history and exam. I discussed the case with the resident and agree with the findings and plan as documented in the note. Any exceptions or clarifications are listed here: none. Pt tells me that he contacted a Deloris Arteaga who previously did home health for him and she has agreed to provide home health services/care for him he also tells me he will receive a large check this coming Saturday that would pay for her services he denied any abd pain today or rib pain VSS no fever gen - NAD, sitting in his power wheelchair at the computer heart - RRR lungs - CTA b/l abd - soft, NT ext - no edema neuro - contractures; flailing of all limbs/spasticity seems improved today A/P: 1. failure to thrive 2. cerebral palsy 3. paraplegic status 4. severe contractures/spasticity 5. iron def anemia - due to upper GI issues/gastritis? 6. alcohol abuse 7. complex social issues & disposition issues 8. chest wall contusion - recent negative rib series agree w/ increase in baclofen to 7.5 TID for #[address] Ramirez to speak with case management about the possible services Mr. Parrish has arranged with Ms. Arteaga however, I do believe the safest option is for him to remain hospitalized until after [place] to ensure home health services are firmly in place Documented By: Enrique Baron MD Resident Involvement: Resident Care Provided Care Provided: Adult Hospital Medicine
--- NOTE | 2017-08-11 14:04 | NUR ---
Pt seen for followup, refer to linked note for full assessment and recommendations. Addendum: 08/11/17 at [address] Amended: Links added.
--- NOTE | 2017-08-11 15:59 | NUR ---
case management note. received a call from Dr. Ramirez stating pt had indicated that he had a caregiver arranged and would like to be D/C today. He states caregivers name is Rosenda Arteaga and her contact number is [phone]. attempted to contact Rosenda but no answer and voicemail box had a generic message. left a message to return call, no pt information provided. per previous nurse case management note, pts usual caregiver is out of town for the holidays and CM is to follow up with Ramila at pts usual agency regarding caregiver arrangements. pt requires 24 hour caregivers and this is currently not available. Dr. Ramirez aware. case management to follow.
[2017-08-11 16:27] VITALS: TEMP 36.4; O2SAT 93
[2017-08-11] MEDS: LORAZEPAM 1 MG TAB PO PRN (16:30)
--- NOTE | 2017-08-11 22:00 | NUR ---
ID: Patient admitted with Failure to Thrive. AAO x4. Slow to speak. Communicates well with his own computer. Spends day in motorized. wheelchair. Denies pain. Requires assist with all ADLs. Case management following for discharge plan. Ideally to home with 24 hour caregivers. Date of discharge uncertain.
[2017-08-12] MEDS: LORAZEPAM 1 MG TAB PO PRN (00:02)
[2017-08-12 00:52] VITALS: BP 90/47; PULSE 69; TEMP 36.4; O2SAT 94
[2017-08-12 07:32] VITALS: BP 93/51; PULSE 84; TEMP 36.6; O2SAT 91
[2017-08-12] MEDS: DOCUSATE SODIUM 100 MG CAP PO SCH ×2 (08:50→21:44)
[2017-08-12] MEDS: FERROUS SULFATE 325 MG TAB PO SCH ×2 (08:51→17:18)
[2017-08-12] MEDS: ESCITALOPRAM OXALATE 10 MG TAB PO SCH (08:51)
[2017-08-12] MEDS: PANTOprazole SOD 40 MG TAB PO SCH (08:51)
[2017-08-12] MEDS: CYANOCOBALAMIN 500 MCG TAB (VIT B-12) PO SCH (08:51)
[2017-08-12] MEDS: THIAMINE HCL 100 MG TAB PO SCH (08:51)
[2017-08-12] MEDS: BACLOFEN 10 MG TAB PO SCH ×3 (08:51→21:42)
[2017-08-12] MEDS: RANITIDINE HCL 150 MG TAB PO SCH ×2 (08:51→21:44)
[2017-08-12] MEDS: LIDODERM (LIDOCAINE) PATCH 5% TD SCH (08:52)
[2017-08-12] MEDS: HEPARIN SOD 5000 UNIT/0.5 ML CARP SQ SCH ×2 (08:52→21:49)
[2017-08-12] MEDS: DIAZEPAM 5MG TAB PO PRN ×2 (09:19→21:42)
[2017-08-12] MEDS: MAGNESIUM HYDROXIDE SUSP 30 ML UDC PO PRN (13:31)
--- NOTE | 2017-08-12 13:32 | Family Medicine Progress Note ---
Progress Note Date of Service Aug 12, 2017. Subjective Pt evaluation today including: conversation w/ patient, conversation w/ family , physical exam, chart review, lab review, review of studies, review of inpatient medication list Pain: difficult to assess Voiding: no voiding problems Additional Comments: difficult to assess due to challenges to communication Medications Current Inpatient Medications Medications (Trade) Dose Ordered Sig/Ina Route Start Time Stop Time Status Last Admin Dose Admin Acetaminophen (Tylenol Tab) 650 mg Q4H PRN PO 08/02/17 20:00 09/01/17 19:59 08/08/17 16:42 650 MG Magnesium Hydroxide (Milk Of Magnesia Susp) 30 ml Q6H PRN PO 08/02/17 20:00 09/01/17 19:59 08/04/17 19:50 30 ML Polyethylene (Miralax Powder Packet) 17 gm DAILY PRN PO 08/02/17 20:45 09/01/17 20:44 Zolpidem Tartrate (Ambien Tab) 5 mg HSZ PRN PO 08/02/17 20:00 09/01/17 19:59 08/09/17 22:32 5 MG Ondansetron HCl (Zofran Inj) 4 mg Q6H PRN IV 08/02/17 20:00 09/01/17 19:59 Heparin Sodium (Porcine) (Heparin Sq 5000 Unit/0.5ml) 5,000 unit Q12H SQ 08/02/17 21:00 09/01/17 20:59 08/11/17 20:44 5,000 UNIT Zolpidem Tartrate (Ambien Tab) 5 mg HSZ PRN PO 08/02/17 20:00 09/01/17 19:59 Thiamine HCl (Vitamin B-1 Tab) 100 mg DAILY PO 08/03/17 08:00 09/02/17 08:59 08/12/17 08:51 100 MG Miscellaneous (Iv Fluids Completed) 1 ea PRN PRN N/A 08/02/17 21:00 08/02/18 20:59 Escitalopram Oxalate (Lexapro Tab) 10 mg QAM PO 08/05/17 08:00 09/04/17 07:59 08/12/17 08:51 10 MG Ranitidine HCl (zANTac TAB) 150 mg BID PO 08/06/17 18:00 09/05/17 17:59 08/12/17 08:51 150 MG Ferrous Sulfate (Feosol Tab) 325 mg BIDM PO 08/07/17 17:00 09/06/17 16:59 08/12/17 08:51 325 MG Cyanocobalamin (Vitamin B-12 Tab) 1,000 mcg QAM PO 08/08/17 08:00 09/07/17 07:59 08/12/17 08:51 1,000 MCG Lorazepam (Ativan Tab) 1 mg Q4 PRN PO 08/07/17 14:00 09/06/17 13:59 08/12/17 00:02 1 MG Docusate Sodium (coLACE CAP) 100 mg BID PO 08/09/17 08:00 09/08/17 07:59 08/12/17 08:50 100 MG Diazepam (Valium Tab) 5 mg BID PRN PO 08/09/17 17:30 09/08/17 17:29 08/12/17 09:19 5 MG Pantoprazole Sodium (Protonix Tab) 40 mg QAM PO 08/11/17 08:00 08/14/17 07:59 08/12/17 08:51 40 MG Lidocaine (Lidoderm Patch 5%) 2 patch QAM TD 08/10/17 17:00 09/09/17 16:59 08/12/17 08:52 2 PATCH Miscellaneous (Remove Lidoderm Patch) 1 ea HS N/A 08/10/17 23:00 09/09/17 22:59 08/11/17 21:30 1 EA Baclofen (Lioresal Tab) 7.5 mg TID PO 08/11/17 14:00 09/01/17 20:59 08/12/17 08:51 7.5 MG Objective Vital Signs Date Time Temp Pulse Resp B/P (MAP) Pulse Ox O2 Delivery O2 Flow Rate FiO2 08/12/17 09:00 Room Air 08/12/17 07:32 36.6 84 18 93/51 (65) 91 Room Air 08/12/17 00:52 36.4 69 18 90/47 (61) 94 08/12/17 00:00 Room Air 08/11/17 20:00 Room Air 08/11/17 17:00 Room Air 08/11/17 16:27 36.4 18 93 Room Air Physical Exam Notes: General Appearance: WD/WN, no apparent distress, Eyes: PERRL, EOMI ENT: normal ENT inspection Neck: supple Respiratory/Chest: chest non-tender, lungs clear, normal breath sounds, no respiratory distress Cardiovascular: regular rate, rhythm, no edema, no murmur Abdomen: normal bowel sounds, non tender, soft Extremities: multiple contractures, UE/ LE Neurologic/Psychiatric: alert, normal mood/affect, + pertinent finding Laboratory Results Current Inpatient Medications Medications (Trade) Dose Ordered Sig/Ina Route Start Time Stop Time Status Last Admin Dose Admin Acetaminophen (Tylenol Tab) 650 mg Q4H PRN PO 08/02/17 20:00 09/01/17 19:59 08/08/17 16:42 650 MG Magnesium Hydroxide (Milk Of Magnesia Susp) 30 ml Q6H PRN PO 08/02/17 20:00 09/01/17 19:59 08/04/17 19:50 30 ML Polyethylene (Miralax Powder Packet) 17 gm DAILY PRN PO 08/02/17 20:45 09/01/17 20:44 Zolpidem Tartrate (Ambien Tab) 5 mg HSZ PRN PO 08/02/17 20:00 09/01/17 19:59 08/09/17 22:32 5 MG Ondansetron HCl (Zofran Inj) 4 mg Q6H PRN IV 08/02/17 20:00 09/01/17 19:59 Heparin Sodium (Porcine) (Heparin Sq 5000 Unit/0.5ml) 5,000 unit Q12H SQ 08/02/17 21:00 09/01/17 20:59 08/11/17 20:44 5,000 UNIT Zolpidem Tartrate (Ambien Tab) 5 mg HSZ PRN PO 08/02/17 20:00 09/01/17 19:59 Thiamine HCl (Vitamin B-1 Tab) 100 mg DAILY PO 08/03/17 08:00 09/02/17 08:59 08/12/17 08:51 100 MG Miscellaneous (Iv Fluids Completed) 1 ea PRN PRN N/A 08/02/17 21:00 08/02/18 20:59 Escitalopram Oxalate (Lexapro Tab) 10 mg QAM PO 08/05/17 08:00 09/04/17 07:59 08/12/17 08:51 10 MG Ranitidine HCl (zANTac TAB) 150 mg BID PO 08/06/17 18:00 09/05/17 17:59 08/12/17 08:51 150 MG Ferrous Sulfate (Feosol Tab) 325 mg BIDM PO 08/07/17 17:00 09/06/17 16:59 08/12/17 08:51 325 MG Cyanocobalamin (Vitamin B-12 Tab) 1,000 mcg QAM PO 08/08/17 08:00 09/07/17 07:59 08/12/17 08:51 1,000 MCG Lorazepam (Ativan Tab) 1 mg Q4 PRN PO 08/07/17 14:00 09/06/17 13:59 08/12/17 00:02 1 MG Docusate Sodium (coLACE CAP) 100 mg BID PO 08/09/17 08:00 09/08/17 07:59 08/12/17 08:50 100 MG Diazepam (Valium Tab) 5 mg BID PRN PO 08/09/17 17:30 09/08/17 17:29 08/12/17 09:19 5 MG Pantoprazole Sodium (Protonix Tab) 40 mg QAM PO 08/11/17 08:00 08/14/17 07:59 08/12/17 08:51 40 MG Lidocaine (Lidoderm Patch 5%) 2 patch QAM TD 08/10/17 17:00 09/09/17 16:59 08/12/17 08:52 2 PATCH Miscellaneous (Remove Lidoderm Patch) 1 ea HS N/A 08/10/17 23:00 09/09/17 22:59 08/11/17 21:30 1 EA Baclofen (Lioresal Tab) 7.5 mg TID PO 08/11/17 14:00 09/01/17 20:59 08/12/17 08:51 7.5 MG Assessment and Plan 47 yo M w/ cerebral palsy admitted for failure to thrive s/p loss of 24 hr caregiver Cerebral palsy stable, at baseline Continue Baclofen 7.5mg BID continue Valium 5mg BID PRN for muscle spasms. Pain Management consult considered for possibility of using baclofen pump Chronic alcohol misuse Ativan PRN Q6H Thiamine and B12 PO daily. Agitation/ Anxiety Ativan PRN as above. c/w Lexapro 10 mg daily Rib Pain secondary to injury prior to arrival Lidoderm Patch Microcytic anemia secondary to iron deficiency anemia B12 and Folate WNL. TIBC is increased. c/w Ferrous sulfate 325 mg bid c/w B12 with 1000mcg OD Constipation Continue Colace daily suppository if needed GERD Continue PPI, Ranitidine DVT Proph: Hep SQ 5000 BID. Resident Physician Supervision Note: I was present with PGY2 Dr. Holden Butler during the history and exam. I discussed the case with the resident and agree with the findings and plan as documented in the note. Any exceptions or clarifications are listed here: none. Pt c/o constipation during the visit He took milk of mag without any effect today He otherwise is feeling well VSS no fever gen - NAD, sitting in his power wheelchair at the computer like yesterday heart - RRR lungs - CTA b/l abd - soft, NT ext - no edema neuro - contractures; his spastic movements seem much better than earlier this week A/P: 1. failure to thrive likely due to alcohol abuse 2. cerebral palsy 3. paraplegic status 4. severe contractures/spasticity 5. iron def anemia - due to upper GI issues/gastritis? 6. alcohol abuse 7. complex social issues & disposition issues 8. chest wall contusion - recent negative rib series 9. constipation add scheduled miralax for constipation cont PPI for GERD and possible gastritis hemoccult his stool when able cont Fe supplementation for Fe def anemia; needs outpatient GI w/u for this cont baclofen 7.5m TID; could consider titrating to 10mg TID over the next few days consider pain management referral after d/c for consideration of baclofen pump social work tomorrow will continue with trying to secure a safe discharge plan ( he lives in grad student apartments on the [facility] but needs caregivers 7 days/week) see my prior notes re: this issue Documented By: Enrique Baron MD Continued [facility] stay due to: home environment unsafe for pt Discharge planning: uncertain Resident Tracking Resident Involvement: Resident Care Provided Care Provided: Adult Hospital Medicine
[2017-08-12 15:31] VITALS: BP 130/72; PULSE 97; TEMP 36.7; O2SAT 97
[2017-08-12 16:07] VITALS: BP 94/57; PULSE 59; TEMP 36.7; O2SAT 95
--- NOTE | 2017-08-12 22:08 | NUR ---
ID: Patient admitted with failure to thrive. Pt is A/Ox4. Breath sounds clear on room air. Denies pain. Tolerating a regular diet well. Patient's daughter fed patient tonight. Pills given whole in pudding. Out of bed with lift and two person assist to the wheelchair. Patient communicates well with computer. No IV site at this time. Voiding concentrated yellow into urinal. D/C uncertain at this time. Hourly rounding maintained. Will continue to monitor.
[2017-08-13 00:15] VITALS: BP 108/81; PULSE 48; TEMP 36.5; O2SAT 99
[2017-08-13] MEDS: LORAZEPAM 1 MG TAB PO PRN ×3 (03:06→23:20)
[2017-08-13 07:26] VITALS: BP 82/50; PULSE 59; TEMP 36.2; O2SAT 99
[2017-08-13] MEDS: DOCUSATE SODIUM 100 MG CAP PO SCH ×2 (08:07→20:49)
[2017-08-13] MEDS: CYANOCOBALAMIN 500 MCG TAB (VIT B-12) PO SCH (08:07)
[2017-08-13] MEDS: RANITIDINE HCL 150 MG TAB PO SCH ×2 (08:07→20:48)
[2017-08-13] MEDS: BACLOFEN 10 MG TAB PO SCH ×3 (08:07→20:48)
[2017-08-13] MEDS: THIAMINE HCL 100 MG TAB PO SCH (08:07)
[2017-08-13] MEDS: FERROUS SULFATE 325 MG TAB PO SCH ×2 (08:07→16:40)
[2017-08-13] MEDS: ESCITALOPRAM OXALATE 10 MG TAB PO SCH (08:07)
[2017-08-13] MEDS: PANTOprazole SOD 40 MG TAB PO SCH (08:08)
[2017-08-13] MEDS: LIDODERM (LIDOCAINE) PATCH 5% TD SCH (08:08)
[2017-08-13] MEDS: POLYETHYLENE (MIRALAX) 17 GM PACK PO SCH (08:14)
[2017-08-13] MEDS: DIAZEPAM 5MG TAB PO PRN ×2 (08:14→20:48)
[2017-08-13] MEDS: HEPARIN SOD 5000 UNIT/0.5 ML CARP SQ SCH ×2 (08:14→20:46)
[2017-08-13 08:28] LABS: BASO % 0.8 %; BASO ABS # 0.03 K/uL (0-0.2); EOS % 1.7 %; EOS ABS # 0.06 K/uL (0-0.5); HEMOGLOBIN 11.9 g/dL (14.0-18.0); IG# 0.01 K/uL (0.00-0.02); LYMPH % 22.5 %; MEAN CELL VOLUME 83.5 fL (80-100); MEAN CORPUSCULAR HEMOGLOBIN 26.2 pg (25-34); MEAN CORPUSCULAR HGB CONC 31.3 g/dl (32-36); MEAN PLATELET VOLUME 10.6 fL (7.4-10.4); MONO % 11.3 %; NEUT % 63.4 %; NEUT ABS # 2.25 K/uL (1.4-6.5); PLATELET COUNT 164 K/uL (130-400); RED CELL DISTRIBUTION WIDTH SD 52.5 fL (36.4-46.3); WHITE BLOOD COUNT 3.55 K/uL (4.8-10.8)
[2017-08-13] MEDS ORDERED: hydrOXYzine HCL 25 MG TAB PO PRN (10:15)
--- NOTE | 2017-08-13 10:24 | Family Medicine Progress Note ---
Progress Note Date of Service Aug 13, 2017. Subjective Pt evaluation today including: conversation w/ patient, physical exam, chart review, lab review, review of studies, review of inpatient medication list Pain: denies PO Intake: adequate Voiding: no voiding problems Patient communicated via keyboard. He denies any complaints. NO acute events overnight. Constitutional: No fever, No chills Respiratory: No cough, No shortness of breath Cardiovascular: No chest pain, No palpitations Abdomen: No pain, No constipation Neurologic: + problem reported (cererbal palsy) Medications Current Inpatient Medications Medications (Trade) Dose Ordered Sig/Ina Route Start Time Stop Time Status Last Admin Dose Admin Acetaminophen (Tylenol Tab) 650 mg Q4H PRN PO 08/02/17 20:00 09/01/17 19:59 08/08/17 16:42 650 MG Magnesium Hydroxide (Milk Of Magnesia Susp) 30 ml Q6H PRN PO 08/02/17 20:00 09/01/17 19:59 08/12/17 13:31 30 ML Ondansetron HCl (Zofran Inj) 4 mg Q6H PRN IV 08/02/17 20:00 09/01/17 19:59 Heparin Sodium (Porcine) (Heparin Sq 5000 Unit/0.5ml) 5,000 unit Q12H SQ 08/02/17 21:00 09/01/17 20:59 08/11/17 20:44 5,000 UNIT Thiamine HCl (Vitamin B-1 Tab) 100 mg DAILY PO 08/03/17 08:00 09/02/17 08:59 08/13/17 08:07 100 MG Miscellaneous (Iv Fluids Completed) 1 ea PRN PRN N/A 08/02/17 21:00 08/02/18 20:59 Escitalopram Oxalate (Lexapro Tab) 10 mg QAM PO 08/05/17 08:00 09/04/17 07:59 08/13/17 08:07 10 MG Ranitidine HCl (zANTac TAB) 150 mg BID PO 08/06/17 18:00 09/05/17 17:59 08/13/17 08:07 150 MG Ferrous Sulfate (Feosol Tab) 325 mg BIDM PO 08/07/17 17:00 09/06/17 16:59 08/13/17 08:07 325 MG Cyanocobalamin (Vitamin B-12 Tab) 1,000 mcg QAM PO 08/08/17 08:00 09/07/17 07:59 08/13/17 08:07 1,000 MCG Lorazepam (Ativan Tab) 1 mg Q4 PRN PO 08/07/17 14:00 09/06/17 13:59 08/13/17 03:06 1 MG Docusate Sodium (coLACE CAP) 100 mg BID PO 08/09/17 08:00 09/08/17 07:59 08/13/17 08:07 100 MG Diazepam (Valium Tab) 5 mg BID PRN PO 08/09/17 17:30 09/08/17 17:29 08/13/17 08:14 5 MG Pantoprazole Sodium (Protonix Tab) 40 mg QAM PO 08/11/17 08:00 08/14/17 07:59 08/13/17 08:08 40 MG Lidocaine (Lidoderm Patch 5%) 2 patch QAM TD 08/10/17 17:00 09/09/17 16:59 08/13/17 08:08 2 PATCH Miscellaneous (Remove Lidoderm Patch) 1 ea HS N/A 08/10/17 23:00 09/09/17 22:59 08/12/17 21:44 1 EA Baclofen (Lioresal Tab) 7.5 mg TID PO 08/11/17 14:00 09/01/17 20:59 08/13/17 08:07 7.5 MG Polyethylene (Miralax Powder Packet) 17 gm DAILY PO 08/13/17 08:00 09/01/17 20:44 08/13/17 08:14 17 GM Hydroxyzine HCl (Vistaril Tab) 25 mg HS PRN PO 08/13/17 10:15 09/12/17 10:14 UNV Objective Vital Signs Date Time Temp Pulse Resp B/P (MAP) Pulse Ox O2 Delivery O2 Flow Rate FiO2 08/13/17 09:00 Room Air 08/13/17 07:26 36.2 59 20 82/50 (61) 99 Room Air 08/13/17 00:15 36.5 48 18 108/81 (90) 99 Room Air 08/13/17 00:00 Room Air 08/12/17 16:10 Room Air 08/12/17 16:07 36.7 59 18 94/57 (69) 95 Room Air Physical Exam Notes: General Appearance: WD/WN, no apparent distress, Eyes: PERRL, EOMI ENT: normal ENT inspection Neck: supple Respiratory/Chest: chest non-tender, lungs clear, normal breath sounds, no respiratory distress Cardiovascular: regular rate, rhythm, no edema, no murmur Abdomen: normal bowel sounds, non tender, soft Extremities: multiple contractures, UE/ LE Neurologic/Psychiatric: alert, normal mood/affect, Laboratory Results Results Past 24 Hours Test 08/13/17 08:14 Range/Units White Blood Count 3.55 4.8-10.8 K/uL Red Blood Count 4.55 4.7-6.1 M/uL Hemoglobin 11.9 14.0-18.0 g/dL Hematocrit 38.0 42-52 % Mean Corpuscular Volume 83.5 80-100 fL Mean Corpuscular Hemoglobin 26.2 25-34 pg Mean Corpuscular Hemoglobin Concent 31.3 32-36 g/dl Platelet Count 164 130-400 K/uL Mean Platelet Volume 10.6 7.4-10.4 fL Neutrophils (%) (Auto) 63.4 % Lymphocytes (%) (Auto) 22.5 % Monocytes (%) (Auto) 11.3 % Eosinophils (%) (Auto) 1.7 % Basophils (%) (Auto) 0.8 % Neutrophils # (Auto) 2.25 1.4-6.5 K/uL Lymphocytes # (Auto) 0.80 1.2-3.4 K/uL Monocytes # (Auto) 0.40 0.11-0.59 K/uL Eosinophils # (Auto) 0.06 0-0.5 K/uL Basophils # (Auto) 0.03 0-0.2 K/uL RDW Standard Deviation 52.5 36.4-46.3 fL RDW Coefficient of Variation 18.0 11.5-14.5 % Immature Granulocyte % (Auto) 0.3 % Immature Granulocyte # (Auto) 0.01 0.00-0.02 K/uL Assessment and Plan 47 yo M w/ cerebral palsy, alcoholism admitted for failure to thrive, s/p loss of 24 hr caregiver Cerebral palsy stable, at baseline Continue Baclofen 7.5mg BID continue Valium 5mg BID PRN for muscle spasms. Pain Management consult considered for possibility of using baclofen pump Chronic alcohol misuse likely major contributor to Failure to thrive Ativan PRN Q6H Thiamine and B12 PO daily. Agitation/ Anxiety Ativan PRN as above. c/w Lexapro 10 mg daily Rib Pain secondary to injury prior to arrival Lidoderm Patch Microcytic anemia secondary to iron deficiency anemia B12 and Folate WNL. TIBC is increased. c/w Ferrous sulfate 325 mg bid c/w B12 with 1000mcg OD Constipation Continue Colace daily suppository if needed GERD Continue PPI, Ranitidine DVT Proph: Hep SQ 5000 BID. Insomnia D/C'd Ambien Start Vistaril Disposition: awaiting hiring of patient's potential caregivers may need to go to [facility] for this process following TARGET process per Case Management Resident Physician Supervision Note: I interviewed and examined the patient. Discussed with Dr. Butler and agree with findings and plan as documented in the note. Any exceptions or clarifications are listed here: None Documented By: Kristopher Wesley feeling ok wants to go home. wants to set up caregivers. unfortunately apparently target process was necessary due to his circumstances. vitals noted nad pleasant breathing unlabored no pallor or icterus unsafe home situation resulting in failure to thrive complicated by EtOH abuse -stable now, but unable to return home at this time wtihout good caregiver situation - see social worker masters notes, now a dispo issue far more than a medical issue. Continued [facility] stay due to: home environment unsafe for pt Discharge planning: uncertain Resident Tracking Resident Involvement: Resident Care Provided Care Provided: Adult Hospital Medicine
--- NOTE | 2017-08-13 12:48 | NUR ---
As per nursing, patient has people that are willing to provide care for him. He wants to be discharged. Talked with Ramila, his disabilities services officer, about this. The prospective caregivers must contact the caregiver agencies ([employer] or [employer]) for employment. These agencies will screen the individuals for employment. If they are suitable, they will be hired. This is a process according to Ramila and she will then set up services for the patient. She has been working on the patient's situation for over a month. She plans to contact agencies again to see if she can increase hours. Asked about patient private paying for the caregivers. She said that the patient cannot afford it that's why he is has [employer]. 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 She is aware that we have started the target process and that she supports patient going to a SNF until caregivers can be arranged. She will continue to work on in home services so that the patient has a safe environment when he is at home. She has talked with Trevon Hamilton about the patient's situation, as well. Will follow for discharge planning.
[2017-08-13 15:42] VITALS: PULSE 98; TEMP 36.8; O2SAT 92
--- NOTE | 2017-08-13 21:52 | NUR ---
ID: Patient admitted with failure to thrive. Pt is A/Ox4. Breath sounds clear on room air. Denies pain. Tolerating a regular diet well. Pills given whole in pudding. Out of bed with lift and two person assist to the wheelchair. Patient communicates well with own computer. No IV site at this time. Voiding concentrated yellow into urinal. D/C uncertain at this time. Hourly rounding maintained. Will continue to monitor.
[2017-08-13 23:17] VITALS: BP 102/67; PULSE 51; TEMP 36.4; O2SAT 99
[2017-08-14 07:36] VITALS: BP 96/55; PULSE 57; TEMP 36.4; O2SAT 99
[2017-08-14] MEDS: HEPARIN SOD 5000 UNIT/0.5 ML CARP SQ SCH ×2 (09:00→20:30)
[2017-08-14] MEDS: CYANOCOBALAMIN 500 MCG TAB (VIT B-12) PO SCH (09:04)
[2017-08-14] MEDS: DOCUSATE SODIUM 100 MG CAP PO SCH ×2 (09:04→20:29)
[2017-08-14] MEDS: BACLOFEN 10 MG TAB PO SCH ×3 (09:04→20:29)
[2017-08-14] MEDS: FERROUS SULFATE 325 MG TAB PO SCH ×2 (09:04→17:28)
[2017-08-14] MEDS: ESCITALOPRAM OXALATE 10 MG TAB PO SCH (09:04)
[2017-08-14] MEDS: POLYETHYLENE (MIRALAX) 17 GM PACK PO SCH (09:04)
[2017-08-14] MEDS: RANITIDINE HCL 150 MG TAB PO SCH ×2 (09:05→20:29)
[2017-08-14] MEDS: THIAMINE HCL 100 MG TAB PO SCH (09:09)
[2017-08-14] MEDS: LIDODERM (LIDOCAINE) PATCH 5% TD SCH (09:09)
[2017-08-14] MEDS: DIAZEPAM 5MG TAB PO PRN ×2 (09:23→20:29)
--- NOTE | 2017-08-14 11:57 | Family Medicine Progress Note ---
Progress Note Date of Service Aug 14, 2017. Subjective Pt evaluation today including: conversation w/ patient, conversation w/ family , physical exam, chart review, lab review, review of studies, review of inpatient medication list Pain: denies PO Intake: adequate Voiding: no voiding problems Additional Comments: Constitutional: No fever, No chills Respiratory: No cough, No shortness of breath Cardiovascular: No chest pain, No palpitations Abdomen: No pain, No constipation Neurologic: + problem reported (cererbal palsy) Medications Current Inpatient Medications Medications (Trade) Dose Ordered Sig/Ina Route Start Time Stop Time Status Last Admin Dose Admin Acetaminophen (Tylenol Tab) 650 mg Q4H PRN PO 08/02/17 20:00 09/01/17 19:59 08/08/17 16:42 650 MG Magnesium Hydroxide (Milk Of Magnesia Susp) 30 ml Q6H PRN PO 08/02/17 20:00 09/01/17 19:59 08/12/17 13:31 30 ML Ondansetron HCl (Zofran Inj) 4 mg Q6H PRN IV 08/02/17 20:00 09/01/17 19:59 Heparin Sodium (Porcine) (Heparin Sq 5000 Unit/0.5ml) 5,000 unit Q12H SQ 08/02/17 21:00 09/01/17 20:59 08/11/17 20:44 5,000 UNIT Thiamine HCl (Vitamin B-1 Tab) 100 mg DAILY PO 08/03/17 08:00 09/02/17 08:59 08/14/17 09:09 100 MG Miscellaneous (Iv Fluids Completed) 1 ea PRN PRN N/A 08/02/17 21:00 08/02/18 20:59 Escitalopram Oxalate (Lexapro Tab) 10 mg QAM PO 08/05/17 08:00 09/04/17 07:59 08/14/17 09:04 10 MG Ranitidine HCl (zANTac TAB) 150 mg BID PO 08/06/17 18:00 09/05/17 17:59 08/14/17 09:05 150 MG Ferrous Sulfate (Feosol Tab) 325 mg BIDM PO 08/07/17 17:00 09/06/17 16:59 08/14/17 09:04 325 MG Cyanocobalamin (Vitamin B-12 Tab) 1,000 mcg QAM PO 08/08/17 08:00 09/07/17 07:59 08/14/17 09:04 1,000 MCG Lorazepam (Ativan Tab) 1 mg Q4 PRN PO 08/07/17 14:00 09/06/17 13:59 08/13/17 23:20 1 MG Docusate Sodium (coLACE CAP) 100 mg BID PO 08/09/17 08:00 09/08/17 07:59 08/14/17 09:04 100 MG Diazepam (Valium Tab) 5 mg BID PRN PO 08/09/17 17:30 09/08/17 17:29 08/14/17 09:23 5 MG Lidocaine (Lidoderm Patch 5%) 2 patch QAM TD 08/10/17 17:00 09/09/17 16:59 08/14/17 09:09 2 PATCH Miscellaneous (Remove Lidoderm Patch) 1 ea HS N/A 08/10/17 23:00 09/09/17 22:59 08/13/17 20:46 1 EA Baclofen (Lioresal Tab) 7.5 mg TID PO 08/11/17 14:00 09/01/17 20:59 08/14/17 09:04 7.5 MG Polyethylene (Miralax Powder Packet) 17 gm DAILY PO 08/13/17 08:00 09/01/17 20:44 08/14/17 09:04 17 GM Hydroxyzine HCl (Vistaril Tab) 25 mg HS PRN PO 08/13/17 10:15 09/12/17 10:14 Objective Vital Signs Date Time Temp Pulse Resp B/P (MAP) Pulse Ox O2 Delivery O2 Flow Rate FiO2 08/14/17 08:50 Room Air 08/14/17 07:36 36.4 57 18 96/55 (69) 99 Room Air 08/14/17 00:30 Room Air 08/13/17 23:17 36.4 51 20 102/67 (79) 99 Room Air 08/13/17 16:20 Room Air 08/13/17 15:42 36.8 98 20 92 Room Air Physical Exam Notes: General Appearance: WD/WN, no apparent distress Eyes: PERRL, EOMI Respiratory/Chest: no respiratory distress Extremities: multiple contractures, UE/ LE Neurologic/Psychiatric: alert, normal mood/affect Assessment and Plan 47 yo M w/ cerebral palsy, alcoholism admitted for failure to thrive, s/p loss of 24 hr caregiver Cerebral palsy stable, at baseline Continue Baclofen 7.5mg BID continue Valium 5mg BID PRN for muscle spasms. Pain Management consult considered for possibility of using baclofen pump Failure to thrive due to combination of lack of constant caregiver, chronic alcoholism awaiting confirmation of a selected caregiver hiring by agency F/u with Case management Chronic alcohol misuse likely major contributor to Failure to thrive Ativan PRN Q6H Thiamine and B12 PO daily. Agitation/ Anxiety Ativan PRN as above. c/w Lexapro 10 mg daily Rib Pain secondary to injury prior to arrival Lidoderm Patch Microcytic anemia secondary to iron deficiency anemia B12 and Folate WNL. TIBC is increased. c/w Ferrous sulfate 325 mg bid c/w B12 with 1000mcg OD Constipation Continue Colace daily suppository if needed GERD Continue PPI, Ranitidine DVT Proph: Hep SQ 5000 BID. Insomnia D/C'd Ambien Start Vistaril Disposition: awaiting hiring of patient's potential caregivers will likely need to go to [facility] for this process following TARGET process per Case Management Resident Physician Supervision Note: I interviewed and examined the patient. Discussed with Dr. Prado and agree with findings and plan as documented in the note. Any exceptions or clarifications are listed here: None Documented By: Kristopher Wesley wants to go home, explained that it's out of my/dr prado's control. he notes he'll contact [facility]. encouraged him to do so vitals noted nad breathing unlabored failure to thrive - improved. needs safe dispo. as above, as per case management Continued [facility] stay due to: home environment unsafe for pt Discharge planning: uncertain Resident Tracking Resident Involvement: Resident Care Provided Care Provided: Adult Hospital Medicine
[2017-08-14 15:27] VITALS: BP 110/71; PULSE 58; TEMP 36.8; O2SAT 96
--- NOTE | 2017-08-14 21:05 | NUR ---
ID: Patient admitted with failure to thrive. Pt is A/Ox4. Breath sounds clear on room air. Denies pain. Tolerating a regular diet well. Pills given whole in pudding. Maalox given for indigestion this shift. Out of bed with lift and two person assist to the wheelchair and bedside commode. Patient communicates well with own computer. No IV site at this time. Voiding concentrated yellow into urinal. D/C uncertain at this time. Case management following. Hourly rounding maintained. Will continue to monitor.
[2017-08-14] MEDS: ALUMINUM/MAGNESIUM SUSP 30 ML UDC PO PRN (21:15)
[2017-08-14 23:37] VITALS: BP 110/70; PULSE 48; TEMP 36.3; O2SAT 98
[2017-08-15] MEDS: LORAZEPAM 1 MG TAB PO PRN ×2 (00:12→18:25)
[2017-08-15 07:33] VITALS: BP 112/68; PULSE 48; TEMP 36.4; O2SAT 98
[2017-08-15] MEDS: HEPARIN SOD 5000 UNIT/0.5 ML CARP SQ SCH ×2 (07:46→21:00)
[2017-08-15 08:00] VITALS: O2SAT 98
[2017-08-15] MEDS: BACLOFEN 10 MG TAB PO SCH ×3 (08:06→21:23)
[2017-08-15] MEDS: ESCITALOPRAM OXALATE 10 MG TAB PO SCH (08:06)
[2017-08-15] MEDS: DIAZEPAM 5MG TAB PO PRN ×2 (08:06→21:34)
[2017-08-15] MEDS: FERROUS SULFATE 325 MG TAB PO SCH ×2 (08:06→17:00)
[2017-08-15] MEDS: DOCUSATE SODIUM 100 MG CAP PO SCH ×2 (08:06→21:23)
[2017-08-15] MEDS: THIAMINE HCL 100 MG TAB PO SCH (08:06)
[2017-08-15] MEDS: CYANOCOBALAMIN 500 MCG TAB (VIT B-12) PO SCH (08:07)
[2017-08-15] MEDS: LIDODERM (LIDOCAINE) PATCH 5% TD SCH (08:07)
[2017-08-15] MEDS: POLYETHYLENE (MIRALAX) 17 GM PACK PO SCH (08:07)
[2017-08-15] MEDS: RANITIDINE HCL 150 MG TAB PO SCH ×2 (08:07→21:25)
--- NOTE | 2017-08-15 15:16 | NUR ---
Pt seen for followup, refer to linked note for full assessment and recommendations. Addendum: 08/15/17 at [address] Amended: Links added.
--- NOTE | 2017-08-15 15:33 | NUR ---
Message from the [facility]. They want updated notes on the patient. Updated notes faxed to the [facility]. Message from the [facility]. They cannot take the patient. Plan to talk with the [facility].
[2017-08-15 15:45] VITALS: BP 98/62; PULSE 62; TEMP 36.5; O2SAT 97
[2017-08-15 16:00] VITALS: O2SAT 97
--- NOTE | 2017-08-15 16:17 | Family Medicine Progress Note ---
Progress Note Date of Service Aug 15, 2017. Subjective Pt evaluation today including: conversation w/ patient, physical exam, chart review, lab review, review of studies, review of inpatient medication list Pain: denies PO Intake: adequate Voiding: no voiding problems NO acute events. Patient reports he has identified caregivers to be hired by agency Additional Comments: Constitutional: No fever, No chills Respiratory: No cough, No shortness of breath Cardiovascular: No chest pain, No palpitations Abdomen: No pain, No constipation Neurologic: + problem reported (cererbal palsy) Medications Current Inpatient Medications Medications (Trade) Dose Ordered Sig/Ina Route Start Time Stop Time Status Last Admin Dose Admin Acetaminophen (Tylenol Tab) 650 mg Q4H PRN PO 08/02/17 20:00 09/01/17 19:59 08/08/17 16:42 650 MG Magnesium Hydroxide (Milk Of Magnesia Susp) 30 ml Q6H PRN PO 08/02/17 20:00 09/01/17 19:59 08/12/17 13:31 30 ML Ondansetron HCl (Zofran Inj) 4 mg Q6H PRN IV 08/02/17 20:00 09/01/17 19:59 Heparin Sodium (Porcine) (Heparin Sq 5000 Unit/0.5ml) 5,000 unit Q12H SQ 08/02/17 21:00 09/01/17 20:59 08/11/17 20:44 5,000 UNIT Thiamine HCl (Vitamin B-1 Tab) 100 mg DAILY PO 08/03/17 08:00 09/02/17 08:59 08/15/17 08:06 100 MG Miscellaneous (Iv Fluids Completed) 1 ea PRN PRN N/A 08/02/17 21:00 08/02/18 20:59 Escitalopram Oxalate (Lexapro Tab) 10 mg QAM PO 08/05/17 08:00 09/04/17 07:59 08/15/17 08:06 10 MG Ranitidine HCl (zANTac TAB) 150 mg BID PO 08/06/17 18:00 09/05/17 17:59 08/15/17 08:07 150 MG Ferrous Sulfate (Feosol Tab) 325 mg BIDM PO 08/07/17 17:00 09/06/17 16:59 08/15/17 08:06 325 MG Cyanocobalamin (Vitamin B-12 Tab) 1,000 mcg QAM PO 08/08/17 08:00 09/07/17 07:59 08/15/17 08:07 1,000 MCG Lorazepam (Ativan Tab) 1 mg Q4 PRN PO 08/07/17 14:00 09/06/17 13:59 08/15/17 00:12 1 MG Docusate Sodium (coLACE CAP) 100 mg BID PO 08/09/17 08:00 09/08/17 07:59 08/15/17 08:06 100 MG Diazepam (Valium Tab) 5 mg BID PRN PO 08/09/17 17:30 09/08/17 17:29 08/15/17 08:06 5 MG Lidocaine (Lidoderm Patch 5%) 2 patch QAM TD 08/10/17 17:00 09/09/17 16:59 08/15/17 08:07 2 PATCH Miscellaneous (Remove Lidoderm Patch) 1 ea HS N/A 08/10/17 23:00 09/09/17 22:59 08/14/17 20:30 1 EA Baclofen (Lioresal Tab) 7.5 mg TID PO 08/11/17 14:00 09/01/17 20:59 08/15/17 13:42 7.5 MG Polyethylene (Miralax Powder Packet) 17 gm DAILY PO 08/13/17 08:00 09/01/17 20:44 08/15/17 08:07 17 GM Hydroxyzine HCl (Vistaril Tab) 25 mg HS PRN PO 08/13/17 10:15 09/12/17 10:14 Al Hydroxide/Mg Hydroxide (Maalox Susp) 15 ml Q6H PRN PO 08/14/17 20:40 09/13/17 20:39 08/14/17 21:15 15 ML Objective Vital Signs Date Time Temp Pulse Resp B/P (MAP) Pulse Ox O2 Delivery O2 Flow Rate FiO2 08/15/17 15:45 36.5 62 16 98/62 (74) 97 Room Air 08/15/17 08:00 98 Room Air 08/15/17 07:33 36.4 48 20 112/68 (83) 98 08/15/17 00:20 Room Air 08/14/17 23:37 36.3 48 20 110/70 (83) 98 Room Air 08/14/17 16:20 Room Air Physical Exam Notes: General Appearance: WD/WN, no apparent distress Eyes: PERRL, EOMI Respiratory/Chest: no respiratory distress Extremities: multiple contractures, bilateral UE/ LE Neurologic/Psychiatric: alert, normal mood/affect Assessment and Plan 47 yo M w/ cerebral palsy, alcoholism admitted for failure to thrive, s/p loss of 24 hr caregiver Cerebral palsy stable, at baseline Continue Baclofen 7.5mg BID continue Valium 5mg BID PRN for muscle spasms. Pain Management consult considered for possibility of using baclofen pump Failure to thrive due to combination of lack of constant caregiver, chronic alcoholism awaiting confirmation of a selected caregiver hiring by agency F/u with Case management Chronic alcohol misuse likely major contributor to Failure to thrive Ativan PRN Q6H Thiamine and B12 PO daily. Agitation/ Anxiety Ativan PRN as above. c/w Lexapro 10 mg daily Rib Pain secondary to injury prior to arrival Lidoderm Patch Microcytic anemia secondary to iron deficiency anemia B12 and Folate WNL. TIBC is increased. c/w Ferrous sulfate 325 mg bid c/w B12 with 1000mcg OD Constipation Continue Colace daily suppository if needed GERD Continue PPI, Ranitidine DVT Proph: Hep SQ 5000 BID. Insomnia D/C'd Ambien Continue Vistaril Disposition: awaiting hiring of patient's potential caregivers will likely need to go to [facility] for this process following TARGET process per Case Management Resident Physician Supervision Note: I interviewed and examined the patient. Discussed with Dr. Butler and agree with findings and plan as documented in the note. Any exceptions or clarifications are listed here: None Documented By: Kristopher Wesley feeling ok. informed me that his person from [place] told him he'd be here tomorrow vitals noted nad breathing unlabored no pallor or icterus failure to thrive - improving. awaiting safe dispo Continued [facility] stay due to: home environment unsafe for pt Discharge planning: uncertain Resident Tracking Resident Involvement: Resident Care Provided Care Provided: Adult Hospital Medicine
[2017-08-15] MEDS: ALUMINUM/MAGNESIUM SUSP 30 ML UDC PO PRN (17:49)
--- NOTE | 2017-08-15 19:16 | NUR ---
ID: Patient admitted with failure to thrive. Alert and oriented x4. No IV site. Maalox for indigestion. PRN Ativan and Valium for spasms. Tolerating regular diet- requires assist with feeding. Voiding in urinal and can be incontinent. Case management involved with discharge planning. Anticipated discharge uncertain at present time.
[2017-08-16] VITALS (8 sets, daily range): BP systolic 86–105; BP diastolic 43–65; PULSE 56–66; TEMP 36.5–36.7; O2SAT 95–99
[2017-08-16] MEDS: LORAZEPAM 1 MG TAB PO PRN ×2 (00:21→21:12)
--- NOTE | 2017-08-16 07:04 | Family Medicine Progress Note ---
Progress Note Date of Service Aug 16, 2017. Subjective Pt evaluation today including: conversation w/ patient Pain: 0/10 PO Intake: WNL Voiding: no voiding problems Patient is getting ready for his meeting with the complex case manager at 10 am He did have his at home commode brought in which he believes is safer - nasal congestion noted today - unable to complete a complete ROS as the patient is nonverbal Objective Vital Signs Date Time Temp Pulse Resp B/P (MAP) Pulse Ox O2 Delivery O2 Flow Rate FiO2 08/16/17 08:00 97 Room Air 08/16/17 07:38 36.7 66 20 91/56 (68) 97 Room Air 08/16/17 00:47 36.6 57 18 105/65 (78) 97 Room Air 08/16/17 00:00 97 Room Air 08/15/17 16:00 97 Room Air 08/15/17 15:45 36.5 62 16 98/62 (74) 97 Room Air Physical Exam General Appearance: no apparent distress, + pertinent finding (sitting in wheelchair) Eyes: normal inspection ENT: normal ENT inspection, + pertinent finding (bilat nasal turbinate swelling ) Neck: supple Respiratory/Chest: normal breath sounds, no respiratory distress, no accessory muscle use, + pertinent finding (occasional transmitted breath sounds from congestion) Cardiovascular: regular rate, rhythm Abdomen: normal bowel sounds, non tender, soft Extremities: normal inspection Neurologic/Psychiatric: alert Skin: normal color, warm/dry, no rash Assessment and Plan This is a 47 yo f with severe cerebral palsy who is currently in the hospital as patient does not have a human factors engineer available to help with his ADL and it is unsafe to be d/c home. Cerebral palsy/ Contractures/ Unable to complete ADL - currently the patient is at his BL - Patient's Baclofen was increased to 7.5 mg bid which seems to have improved his tremors/ contractures - We continue the patient's Valium for muscle spasms at 5 mg bid prn - we have been in contact with social media content specialist frequently to discuss the patient 's disposition and patient is currently in the target process and Tony has been contacted, plan for a outside dealer sales representative to visit with him today - realistically patient is unable to go home on his own as he is unable to complete ADL and based on social media content specialist he is also unable to pay for private caregiver so he is waiting also for the career and guidance counselor he had requested to be hired by an agency Chronic alcohol abuse - patient is not currently actively withdrawing - there is Ativan alcohol withdrawal protocol available - Thiamine 100 mg daily and B12 1000 mcg daily Rhinorrhea - Flonase BID added - no indication for abx at this time Anxiety Lexapro 10 mg daily was added on admission to help with improved control of the patient's anxiety, for now will continue and patient may benefit with continued use in outpatient setting Rib Pain- much improved secondary to injury prior to arrival Lidoderm Patch- continue while in house however can d/c once patient is discharged Microcytic anemia secondary to iron deficiency anemia B12 and Folate WNL. TIBC is increased. c/w Ferrous sulfate 325 mg bid, patient did received 300 mg Venofer on initial diagnosis in house - recommendation is to recheck CBC with iron studies in 3 months c/w B12 with 1000mcg OD Constipation- chronic - bowel regimen of Colace bid and Miralax 1 cap daily suppository if needed GERD - patient was placed on Ranitidine 150 gm bid - using Maalox prn DVT Proph: Hep SQ 5000 BID.( has been refusing since Aug 06, 2017; discussed importance of this medication however continues to refuse and will d/c) will additionally add SCD Disposition: - placement pending follow up with [facility] Resident Physician Supervision Note: I interviewed and examined the patient. Discussed with Dr. Back and agree with findings and plan as documented in the note. Any exceptions or clarifications are listed here: None Documented By: Kristopher Wesley awaiting meeting with administrators - supposed to be at 10a today - he wrote a lot preemptively in anticipation of this meeting. polo noted nad breathing unlabored no pallor or icterus failure to thrive - due to previous home situation - has resolved w appropriate care in hospital. awaiting safe dispo. in the hands of his administrative team from the state. Continued [facility] stay due to: home environment unsafe for pt Discharge planning: uncertain
[2017-08-16] MEDS ORDERED: GLYCERIN ADULT SUPP 12 EA SUPP PR PRN (07:15)
[2017-08-16] MEDS: BACLOFEN 10 MG TAB PO SCH ×3 (07:38→21:09)
[2017-08-16] MEDS: CYANOCOBALAMIN 500 MCG TAB (VIT B-12) PO SCH (07:38)
[2017-08-16] MEDS: DIAZEPAM 5MG TAB PO PRN (07:38)
[2017-08-16] MEDS: LIDODERM (LIDOCAINE) PATCH 5% TD SCH (07:38)
[2017-08-16] MEDS: THIAMINE HCL 100 MG TAB PO SCH (07:38)
[2017-08-16] MEDS: DOCUSATE SODIUM 100 MG CAP PO SCH ×2 (07:39→21:09)
[2017-08-16] MEDS: FERROUS SULFATE 325 MG TAB PO SCH ×2 (07:39→17:00)
[2017-08-16] MEDS: RANITIDINE HCL 150 MG TAB PO SCH ×2 (07:39→21:10)
[2017-08-16] MEDS: ESCITALOPRAM OXALATE 10 MG TAB PO SCH (07:39)
[2017-08-16] MEDS: POLYETHYLENE (MIRALAX) 17 GM PACK PO SCH (07:39)
--- NOTE | 2017-08-16 16:38 | NUR ---
Talked with Kodak at the [facility] today. Asked why they cannot take the patient. She said that decision was made by administration. Asked her to have them reconsider the patient. Message from Kodak later. They will reconsider and call on Saturday. Message from his acute care physical therapist, Ramila. She and her electric motor repairing supervisor met with patient today to discuss plans for arranging caregivers. She asked me to call her. Message left for Ramila. Asked her to call me. Reminded her that I was not informed of the meeting by her and could have talked with her after the meeting.' Talked with [place] Asad about patient yesterday. Updated information sent. Talked with [facility] today. No beds available. Contact was made with the Office of Aging. No information from the state. Will follow for discharge planning.
--- NOTE | 2017-08-16 19:19 | NUR ---
ID: Patient admitted with failure to thrive. Alert and oriented x4- communicates with computer and letter board. No IV Site. Tolerating regular diet- requires feed. No c/o pain. PRN Ativan and Valium for spasms. Case management involved with discharge planning. Plans uncertain at present time.
[2017-08-16] MEDS: FLUTICASONE PROPIONATE NA SPR 16 GM BTL SCH (21:12)
[2017-08-17] MEDS: LORAZEPAM 1 MG TAB PO PRN ×2 (01:35→22:28)
[2017-08-17 08:18] VITALS: BP 96/59; PULSE 51; TEMP 36.5; O2SAT 98
[2017-08-17] MEDS: ESCITALOPRAM OXALATE 10 MG TAB PO SCH (09:00)
[2017-08-17] MEDS: FERROUS SULFATE 325 MG TAB PO SCH ×2 (09:00→16:34)
[2017-08-17] MEDS: FLUTICASONE PROPIONATE NA SPR 16 GM BTL SCH ×2 (09:00→19:32)
[2017-08-17] MEDS: DOCUSATE SODIUM 100 MG CAP PO SCH ×2 (09:00→19:32)
[2017-08-17] MEDS: BACLOFEN 10 MG TAB PO SCH ×3 (09:00→19:32)
[2017-08-17] MEDS: RANITIDINE HCL 150 MG TAB PO SCH ×2 (09:00→19:32)
[2017-08-17] MEDS: CYANOCOBALAMIN 500 MCG TAB (VIT B-12) PO SCH (09:01)
[2017-08-17] MEDS: LIDODERM (LIDOCAINE) PATCH 5% TD SCH (09:02)
[2017-08-17] MEDS: THIAMINE HCL 100 MG TAB PO SCH (09:02)
[2017-08-17] MEDS: POLYETHYLENE (MIRALAX) 17 GM PACK PO SCH (09:02)
[2017-08-17] MEDS: ALUMINUM/MAGNESIUM SUSP 30 ML UDC PO PRN (14:47)
[2017-08-17 15:52] VITALS: BP 99/64; PULSE 58; TEMP 36.7; O2SAT 97
--- NOTE | 2017-08-17 16:27 | Progress Note ---
Subjective Date of Service: Aug 17, 2017. Subjective Pt evaluation today including: conversation w/ patient, physical exam, chart review, review of inpatient medication list notes that people from [facility] told him they believe he will have approved caregivers by saturday asks me if i can write a letter that says he's OK so that his "dad & daughter can relax" -- wrote HIPPA adherent letter that simply states that while he has been under our care for a while, it's really been due to ensuring a safe home situation, not a dangerous or unstable medical situation. 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 Problem List Medical Problems: (1) Abdominal pain Status: Acute (2) Contusion of head Status: Acute (3) Contusion of lower extremity Status: Acute (4) Laceration Status: Acute (5) Muscle spasm Status: Acute (6) Muscle strain Status: Acute (7) Nausea Status: Acute (8) Non-cardiac chest pain Status: Acute (9) Unable to function independently Status: Acute Review of Systems all other ROS otherwise negative except for as above Objective Vital Signs Date Time Temp Pulse Resp B/P (MAP) Pulse Ox O2 Delivery O2 Flow Rate FiO2 08/17/17 16:00 Room Air 08/17/17 15:52 36.7 58 18 99/64 (76) 97 Room Air 08/17/17 09:00 Room Air 08/17/17 08:18 36.5 51 16 96/59 (71) 98 Room Air 08/17/17 00:00 Room Air 08/16/17 23:13 36.5 56 18 96/59 (71) 95 Room Air 08/16/17 16:25 102/52 (69) Physical Exam General Appearance: no apparent distress ENT: hearing grossly normal Neck: trachea midline Neurologic/Psychiatric: search engine optimization strategist II-XII nml as tested Skin: normal color Assessment and Plan failure to thrive -due to unsafe/unreliable caregiver situation -anticipate resolution of this in near future - delayed due to state level involvement EtOH intake -seems to probably not have EtOH abuse disorder - relates to me he doesn't drink daily, 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 would want outpt f/u in this regard. LFTs were normal at admission CP -baclofen increased, seems to be doing OK otherwise stable for discharge awaiting state approved caregivers. Continued [facility] stay due to: home environment unsafe for pt Discharge planning: uncertain
--- NOTE | 2017-08-17 18:56 | NUR ---
ID: Pt admitted for failure to thrive. Communicates through communication board or computer. Garbled speech. Denies any pain or signs of distress. Utilizes power wheelchair. Case management follows for discharge planning. Uncertain at this time. Will continue to monitor.
[2017-08-17] MEDS: DIAZEPAM 5MG TAB PO PRN (19:37)
[2017-08-18] MEDS: LORAZEPAM 1 MG TAB PO PRN (01:57)
[2017-08-18] MEDS: FLUTICASONE PROPIONATE NA SPR 16 GM BTL SCH ×2 (08:00→19:40)
[2017-08-18 08:18] VITALS: BP 96/60; PULSE 58; TEMP 36.4; O2SAT 98
[2017-08-18] MEDS: BACLOFEN 10 MG TAB PO SCH ×3 (09:01→19:41)
[2017-08-18] MEDS: ESCITALOPRAM OXALATE 10 MG TAB PO SCH (09:02)
[2017-08-18] MEDS: FERROUS SULFATE 325 MG TAB PO SCH ×2 (09:02→17:00)
[2017-08-18] MEDS: CYANOCOBALAMIN 500 MCG TAB (VIT B-12) PO SCH (09:02)
[2017-08-18] MEDS: RANITIDINE HCL 150 MG TAB PO SCH ×2 (09:02→19:41)
[2017-08-18] MEDS: POLYETHYLENE (MIRALAX) 17 GM PACK PO SCH ×2 (09:02→09:17)
[2017-08-18] MEDS: DOCUSATE SODIUM 100 MG CAP PO SCH ×2 (09:02→19:41)
[2017-08-18] MEDS: THIAMINE HCL 100 MG TAB PO SCH (09:02)
[2017-08-18] MEDS: LIDODERM (LIDOCAINE) PATCH 5% TD SCH (09:03)
[2017-08-18] MEDS: DIAZEPAM 5MG TAB PO PRN (09:17)
[2017-08-18] MEDS: ALUMINUM/MAGNESIUM SUSP 30 ML UDC PO PRN (10:39)
--- NOTE | 2017-08-18 14:04 | Family Medicine Progress Note ---
Progress Note Date of Service Aug 18, 2017. Subjective Pt evaluation today including: conversation w/ patient, physical exam, chart review, lab review Spasms are better controlled. Denied any pain He wants to know if Marinol would help with the spasms. 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 Constitutional: No fever, No chills ENT: No hearing loss Respiratory: No cough Cardiovascular: No chest pain Breast: No breast lump Abdomen: No pain, No nausea Musculoskeletal: No joint pain Male : No dysuria Neurologic: + paralysis, No memory loss Psychiatric: No depression symptoms Heme: No abnormal bleeding/bruising Endo: No fatigue Medications Current Inpatient Medications Medications (Trade) Dose Ordered Sig/Ina Route Start Time Stop Time Status Last Admin Dose Admin Acetaminophen (Tylenol Tab) 650 mg Q4H PRN PO 08/02/17 20:00 09/01/17 19:59 08/08/17 16:42 650 MG Magnesium Hydroxide (Milk Of Magnesia Susp) 30 ml Q6H PRN PO 08/02/17 20:00 09/01/17 19:59 08/12/17 13:31 30 ML Ondansetron HCl (Zofran Inj) 4 mg Q6H PRN IV 08/02/17 20:00 09/01/17 19:59 Thiamine HCl (Vitamin B-1 Tab) 100 mg DAILY PO 08/03/17 08:00 09/02/17 08:59 08/18/17 09:02 100 MG Miscellaneous (Iv Fluids Completed) 1 ea PRN PRN N/A 08/02/17 21:00 08/02/18 20:59 Escitalopram Oxalate (Lexapro Tab) 10 mg QAM PO 08/05/17 08:00 09/04/17 07:59 08/18/17 09:02 10 MG Ranitidine HCl (zANTac TAB) 150 mg BID PO 08/06/17 18:00 09/05/17 17:59 08/18/17 09:02 150 MG Ferrous Sulfate (Feosol Tab) 325 mg BIDM PO 08/07/17 17:00 09/06/17 16:59 08/18/17 09:02 325 MG Cyanocobalamin (Vitamin B-12 Tab) 1,000 mcg QAM PO 08/08/17 08:00 09/07/17 07:59 08/18/17 09:02 1,000 MCG Lorazepam (Ativan Tab) 1 mg Q4 PRN PO 08/07/17 14:00 09/06/17 13:59 08/18/17 01:57 1 MG Docusate Sodium (coLACE CAP) 100 mg BID PO 08/09/17 08:00 09/08/17 07:59 08/18/17 09:02 100 MG Diazepam (Valium Tab) 5 mg BID PRN PO 08/09/17 17:30 09/08/17 17:29 08/18/17 09:17 5 MG Lidocaine (Lidoderm Patch 5%) 2 patch QAM TD 08/10/17 17:00 09/09/17 16:59 08/18/17 09:03 2 PATCH Miscellaneous (Remove Lidoderm Patch) 1 ea HS N/A 08/10/17 23:00 09/09/17 22:59 08/17/17 19:32 1 EA Baclofen (Lioresal Tab) 7.5 mg TID PO 08/11/17 14:00 09/01/17 20:59 08/18/17 09:01 7.5 MG Polyethylene (Miralax Powder Packet) 17 gm DAILY PO 08/13/17 08:00 09/01/17 20:44 08/17/17 09:02 17 GM Hydroxyzine HCl (Vistaril Tab) 25 mg HS PRN PO 08/13/17 10:15 09/12/17 10:14 Al Hydroxide/Mg Hydroxide (Maalox Susp) 15 ml Q6H PRN PO 08/14/17 20:40 09/13/17 20:39 08/18/17 10:39 15 ML Glycerin (Glycerin Adult Supp) 1 ea Q48H PRN VT 08/16/17 07:15 09/15/17 07:14 Fluticasone Propionate (Flonase Nasal [place]) 2 sprays BID NA 08/16/17 20:00 09/15/17 19:59 08/17/17 19:32 2 SPRAYS Objective Vital Signs Date Time Temp Pulse Resp B/P (MAP) Pulse Ox O2 Delivery O2 Flow Rate FiO2 08/18/17 09:00 Room Air 08/18/17 08:18 36.4 58 18 96/60 (72) 98 Room Air 08/18/17 00:00 Room Air 08/17/17 16:00 Room Air 08/17/17 15:52 36.7 58 18 99/64 (76) 97 Room Air Physical Exam General Appearance: WD/WN, no apparent distress Neck: supple Respiratory/Chest: lungs clear, normal breath sounds, no respiratory distress Cardiovascular: regular rate, rhythm Abdomen: soft Extremities: + pertinent finding (contractures bilaterally) Neurologic/Psychiatric: alert, oriented x 3 Assessment and Plan This is a 47 yo M with severe cerebral palsy who is currently in the hospital as patient does not have a client account representative available to help with his ADL and it is unsafe to be d/c home. Cerebral palsy/ Contractures/ Unable to complete ADL -Currently at baseline - Continue baclofen at 7.5 mg twice a day for contractures - Continue Valium 5 mg twice a day for muscle spasms - The patient is awaiting placement as he is unable to go home on his own and complete ADL Chronic alcohol abuse States that he drinks alcohol occasionally -Alcohol Withdrawal protocol - Thiamine 100 mg daily and B12 1000 mcg daily Anxiety Continue Lexapro which was added during this admission Rib Pain secondary to injury prior to arrival Lidoderm Patch- continue while in house however can d/c once patient is discharged Microcytic anemia secondary to iron deficiency anemia B12 and Folate WNL. TIBC is increased. c/w Ferrous sulfate 325 mg bid, patient did received 300 mg Venofer on initial diagnosis in house - recommendation is to recheck CBC with iron studies in 3 months c/w B12 with 1000mcg OD Constipation- chronic - bowel regimen of Colace bid and Miralax 1 cap daily suppository if needed GERD - patient was placed on Ranitidine 150 gm bid - using Maalox prn DVT Proph: Hep SQ 5000 BID.( has been refusing since Aug 06, 2017; discussed importance of this medication however continues to refuse and will d/c) will additionally add SCD Disposition: Awaiting state approved caregivers I agree with resident assessment and plan and have seen and examined pt myself Resting comfortably in bed VSS Pt wanting to try marinol for tremors No concerns at this time Baclofen helping with spasms Awaiting caregivers to be setup prior to DC Resident Tracking Resident Involvement: Resident Care Provided Care Provided: Adult Hospital Medicine
[2017-08-18 15:12] VITALS: BP 96/55; PULSE 56; TEMP 36.7; O2SAT 96
--- NOTE | 2017-08-18 19:11 | NUR ---
ID: Pt admitted for failure to thrive. Awaiting discharge plans possibly this week. Case management following. Communicates via communication board/computer. Assessment unchanged. Will continue to monitor.
[2017-08-19] MEDS: DIAZEPAM 5MG TAB PO PRN ×2 (00:05→17:51)
[2017-08-19 00:20] VITALS: BP 82/46; PULSE 66; TEMP 36.5; O2SAT 92
[2017-08-19 07:21] VITALS: BP 89/51; PULSE 78; TEMP 36.7; O2SAT 98
[2017-08-19] MEDS: FERROUS SULFATE 325 MG TAB PO SCH ×2 (09:39→17:48)
[2017-08-19] MEDS: ESCITALOPRAM OXALATE 10 MG TAB PO SCH (09:39)
[2017-08-19] MEDS: DOCUSATE SODIUM 100 MG CAP PO SCH ×2 (09:39→20:23)
[2017-08-19] MEDS: BACLOFEN 10 MG TAB PO SCH ×3 (09:39→20:23)
[2017-08-19] MEDS: FLUTICASONE PROPIONATE NA SPR 16 GM BTL SCH ×2 (09:39→20:22)
[2017-08-19] MEDS: RANITIDINE HCL 150 MG TAB PO SCH ×2 (09:40→20:23)
[2017-08-19] MEDS: POLYETHYLENE (MIRALAX) 17 GM PACK PO SCH (09:40)
[2017-08-19] MEDS: CYANOCOBALAMIN 500 MCG TAB (VIT B-12) PO SCH (09:40)
[2017-08-19] MEDS: THIAMINE HCL 100 MG TAB PO SCH (09:40)
[2017-08-19] MEDS: LORAZEPAM 1 MG TAB PO PRN ×3 (09:41→22:39)
[2017-08-19] MEDS: LIDODERM (LIDOCAINE) PATCH 5% TD SCH (09:42)
--- NOTE | 2017-08-19 13:02 | Progress Note ---
Subjective Date of Service: Aug 19, 2017. Subjective Pt evaluation today including: conversation w/ patient, physical exam, chart review, lab review, review of studies, review of inpatient medication list Pt resting in his wheelchair States spasms improved No concerns at this time Problem List Medical Problems: (1) Abdominal pain Status: Acute (2) Contusion of head Status: Acute (3) Contusion of lower extremity Status: Acute (4) Laceration Status: Acute (5) Muscle spasm Status: Acute (6) Muscle strain Status: Acute (7) Nausea Status: Acute (8) Non-cardiac chest pain Status: Acute (9) Unable to function independently Status: Acute Review of Systems Constitutional: No fever, No chills, No sweats, No weight loss ENT: No hearing loss, No unusual epistaxis, No nasal symptoms, No sore throat Respiratory: No cough, No sputum, No wheezing, No dyspnea on exertion Cardiac: No chest pain, No orthopnea, No PND, No edema Abdomen: No pain, No nausea, No vomiting, No diarrhea Musculoskeletal: No joint pain, No muscle pain, No swelling, No calf pain Male : No dysuria, No urinary frequency, No incontinence, No slowing stream Neurologic: No memory loss, No paralysis, No weakness, No numbness/tingling Psychiatric: No depression symptoms, No anhedonism, No anxiety, No insomnia Endo: No fatigue, No excessive thirst Skin: No rash, No itch Objective Vital Signs Date Time Temp Pulse Resp B/P (MAP) Pulse Ox O2 Delivery O2 Flow Rate FiO2 08/19/17 10:23 Room Air 08/19/17 07:21 36.7 78 20 89/51 (64) 98 08/19/17 00:20 36.5 66 20 82/46 (58) 92 Room Air 08/18/17 23:30 Room Air 08/18/17 16:00 Room Air 08/18/17 15:12 36.7 56 20 96/55 (69) 96 Room Air Physical Exam General Appearance: WD/WN, no apparent distress Eyes: normal inspection, PERRL, EOMI, sclerae normal Neck: supple, no adenopathy, thyroid normal, no JVD Respiratory/Chest: chest non-tender, lungs clear, no respiratory distress, + decreased breath sounds Cardiovascular: regular rate, rhythm, no edema, no gallop, no JVD Abdomen: normal bowel sounds, non tender, soft, no organomegaly Extremities: normal range of motion, non-tender, normal inspection, no pedal edema Neurologic/Psychiatric: no motor/sensory deficits, alert, normal mood/affect, oriented x 3 Skin: normal color, warm/dry, no rash Lymphatic: no adenopathy Assessment and Plan This is a 47 yo M with severe cerebral palsy who is currently in the hospital as patient does not have a senior warehouse clerk available to help with his ADL and it is unsafe to be d/c home. Cerebral palsy/ Contractures/ Unable to complete ADL - Currently at baseline - Continue baclofen at 7.5 mg twice a day for contractures - Continue Valium 5 mg twice a day for muscle spasms - The patient is awaiting placement as he is unable to go home on his own and complete ADL Chronic alcohol abuse, no sign of withdrawal - States that he drinks alcohol occasionally - Alcohol Withdrawal protocol, ativan and valium prn - Thiamine 100 mg daily and B12 1000 mcg daily Anxiety - Continue Lexapro which was added during this admission Rib Pain secondary to injury prior to arrival - Lidoderm Patch- continue while in house however can d/c once patient is discharged Microcytic anemia secondary to iron deficiency anemia - B12 and Folate WNL.TIBC is increased. C/w Ferrous sulfate 325 mg bid, patient did received 300 mg Venofer on initial diagnosis in house - Recommendation is to recheck CBC with iron studies in 3 months - C/w B12 with 1000mcg OD Constipation- chronic - Bowel regimen of Colace bid and Miralax 1 cap daily, suppository if needed GERD - Patient was placed on Ranitidine 150 gm bid - Using Maalox prn DVT Proph: - Hep SQ 5000 BID.( has been refusing since Aug 06, 2017; discussed importance of this medication however continues to refuse and will d/c) will additionally add SCD Disposition: - Awaiting state approved caregivers Continued [facility] stay due to: home environment unsafe for pt Discharge planning: uncertain
[2017-08-19 16:09] VITALS: BP 100/76; PULSE 62; TEMP 36.4; O2SAT 94
--- NOTE | 2017-08-19 18:26 | NUR ---
ID notes: Alert and oriented. Dependent with all ADLs. Communicates either via computer board or communication board. manager financial services is involved with discharge planning to a SNF.
[2017-08-19] MEDS: ALUMINUM/MAGNESIUM SUSP 30 ML UDC PO PRN (20:26)
[2017-08-19 23:11] VITALS: BP 104/69; PULSE 55; TEMP 36.5; O2SAT 97
[2017-08-20] VITALS: O2SAT 97
[2017-08-20] MEDS ORDERED: LORAZEPAM 0.5 MG TAB PO STA (01:13)
[2017-08-20] MEDS ORDERED: LORAZEPAM 0.5 MG TAB ONE (01:18)
[2017-08-20 07:28] VITALS: BP 89/61; PULSE 58; TEMP 36.5; O2SAT 100
[2017-08-20] MEDS: POLYETHYLENE (MIRALAX) 17 GM PACK PO SCH (08:00)
[2017-08-20] MEDS: FLUTICASONE PROPIONATE NA SPR 16 GM BTL SCH ×2 (08:15→20:00)
[2017-08-20] MEDS: DOCUSATE SODIUM 100 MG CAP PO SCH ×2 (08:15→20:45)
[2017-08-20] MEDS: FERROUS SULFATE 325 MG TAB PO SCH ×2 (08:15→17:00)
[2017-08-20] MEDS: ESCITALOPRAM OXALATE 10 MG TAB PO SCH (08:16)
[2017-08-20] MEDS: CYANOCOBALAMIN 500 MCG TAB (VIT B-12) PO SCH (08:16)
[2017-08-20] MEDS: BACLOFEN 10 MG TAB PO SCH ×3 (08:16→20:46)
[2017-08-20] MEDS: RANITIDINE HCL 150 MG TAB PO SCH ×2 (08:16→20:45)
[2017-08-20] MEDS: THIAMINE HCL 100 MG TAB PO SCH (08:16)
[2017-08-20] MEDS: LORAZEPAM 1 MG TAB PO PRN (08:17)
[2017-08-20] MEDS: LIDODERM (LIDOCAINE) PATCH 5% TD SCH (08:17)
--- NOTE | 2017-08-20 10:19 | NUR ---
A: Pt. AAOx4. VSS on room air. Pt. sitting in wheelchair.
--- NOTE | 2017-08-20 11:58 | NUR ---
[facility]: I met w/ pt regarding a local PCP. Pt informs me that he is a pt of Dr. Sabillon at [facility] and that is who/where he wants to follow up after discharge. Addendum: 08/21/17 at 1053 by Kaye WOOD I arrange a follow up appt for pt on SaturdayAugust 27 at 2:40 pm. Addendum: 08/21/17 at 1056 by Kaye Palencia SERV This info was added to the DC instructions.
--- NOTE | 2017-08-20 13:17 | Progress Note ---
Subjective Date of Service: Aug 20, 2017. Subjective Pt evaluation today including: conversation w/ patient, physical exam, chart review, lab review, review of studies, review of inpatient medication list Resting comfortably No concerns per pt or staff No distress noted Spasms better controlled Problem List Medical Problems: (1) Abdominal pain Status: Acute (2) Contusion of head Status: Acute (3) Contusion of lower extremity Status: Acute (4) Laceration Status: Acute (5) Muscle spasm Status: Acute (6) Muscle strain Status: Acute (7) Nausea Status: Acute (8) Non-cardiac chest pain Status: Acute (9) Unable to function independently Status: Acute Review of Systems Constitutional: No fever, No chills, No sweats, No weakness Eyes: No worsening of vision, No eye pain, No redness, No discharge Respiratory: No cough, No sputum, No wheezing, No shortness of breath Cardiac: No chest pain, No orthopnea, No PND, No edema Abdomen: No pain, No nausea, No vomiting, No diarrhea, No constipation Musculoskeletal: No joint pain, No muscle pain, No swelling, No calf pain Male : No dysuria, No urinary frequency, No incontinence, No slowing stream Neurologic: No memory loss, No paralysis, No weakness, No numbness/tingling Psychiatric: No depression symptoms, No anhedonism, No anxiety, No insomnia Endo: No fatigue, No excessive thirst Skin: No rash, No itch Objective Vital Signs Date Time Temp Pulse Resp B/P (MAP) Pulse Ox O2 Delivery O2 Flow Rate FiO2 08/20/17 08:30 Room Air 08/20/17 07:28 36.5 58 20 89/61 (70) 100 Room Air 08/20/17 00:00 97 Room Air 08/19/17 23:11 36.5 55 18 104/69 (81) 97 Room Air 08/19/17 16:09 36.4 62 18 100/76 (84) 94 08/19/17 16:00 Room Air Physical Exam General Appearance: WD/WN, no apparent distress Eyes: normal inspection, PERRL, EOMI, sclerae normal Neck: supple, no adenopathy, thyroid normal, no JVD Respiratory/Chest: chest non-tender, lungs clear, normal breath sounds, no respiratory distress Cardiovascular: regular rate, rhythm, no edema, no gallop, no JVD Abdomen: normal bowel sounds, non tender, soft, no organomegaly Extremities: normal range of motion, non-tender, normal inspection, no pedal edema Neurologic/Psychiatric: alert, normal mood/affect, oriented x 3, + pertinent finding (contractures and spasms) Assessment and Plan This is a 47 yo M with severe cerebral palsy who is currently in the hospital as patient does not have a residential advisor available to help with his ADL and it is unsafe to be d/c home. Cerebral palsy/ Contractures/ Unable to complete ADL - Currently at baseline - Continue baclofen at 7.5 mg twice a day for contractures, better controlled - Continue Valium 5 mg twice a day for muscle spasms - The patient is awaiting placement as he is unable to go home on his own and complete ADL Chronic alcohol abuse, no sign of withdrawal - States that he drinks alcohol occasionally - Alcohol Withdrawal protocol, ativan and valium prn - Thiamine 100 mg daily and B12 1000 mcg daily Anxiety - Continue Lexapro which was added during this admission Rib Pain secondary to injury prior to arrival - Lidoderm Patch- continue while in house however can d/c once patient is discharged Microcytic anemia secondary to iron deficiency anemia - B12 and Folate WNL.TIBC is increased. C/w Ferrous sulfate 325 mg bid, patient did received 300 mg Venofer on initial diagnosis in house - Recommendation is to recheck CBC with iron studies in 3 months - C/w B12 with 1000mcg OD Constipation- chronic - Bowel regimen of Colace bid and Miralax 1 cap daily, suppository if needed GERD - Patient was placed on Ranitidine 150 gm bid - Using Maalox prn DVT Proph: - Hep SQ 5000 BID.( has been refusing since Aug 06, 2017; discussed importance of this medication however continues to refuse and will d/c) will additionally add SCD Disposition: - Awaiting state approved caregivers Continued [facility] stay due to: home environment unsafe for pt Discharge planning: uncertain
[2017-08-20] MEDS: ALUMINUM/MAGNESIUM SUSP 30 ML UDC PO PRN (15:35)
[2017-08-20 16:10] VITALS: BP 98/57; PULSE 62; TEMP 36.8; O2SAT 96
--- NOTE | 2017-08-20 16:43 | NUR ---
Message left for Dora, Assistant [employer] Public Defender, [facility]. Asked for an update from her Saturday meeting with the patient and her sterile supervisor. Call from Dora. She talked with the patient on Saturday about informal supports. Patient gave her 3 names: Rosenda, Lorenzo, and Enrique. She talked with these people. They are available to care for the patient. They are not working for a care provider agency at this time but will be paid thru Dora. She said that Lorenzo is coming from [place] on a bus. She is not sure when he is coming here. She asked me to talk with the patient. If she can coordinate with Lorenzo and Rosenda, the patient can be discharged on Saturday to his apartment. Talked with the patient about when Lorenzo is coming to [facility]. He is arriving tomorrow. Message left for Dora at the [facility] about the above. Talked with Dora again. She talked with Lorenzo. He arrives around 1700 tomorrow. She will have Rosenda come here around Noon. She will follow patient to his apartment and start care. Asked Dora about contacting [facility]. She will send an Email to Jovana at [facility]. Told her that I will also leave a message for Jovana. Plan discharge to patient's apartment tomorrow. Will arrange van transport.
--- NOTE | 2017-08-20 19:17 | NUR ---
ID: Patient alert and oriented times four. Patient denies any chest pain or shortness of breath. patient is dependant feed. he is a lift for transfer. Patient is resting with call villagomez in reach.
[2017-08-20] MEDS: DIAZEPAM 5MG TAB PO PRN (20:46)
[2017-08-21 00:04] VITALS: BP 99/67; PULSE 53; TEMP 36.6; O2SAT 97
[2017-08-21] MEDS: LORAZEPAM 1 MG TAB PO PRN ×2 (00:46→09:22)
[2017-08-21 07:23] VITALS: PULSE 51; TEMP 36.3; O2SAT 99
[2017-08-21] MEDS: FERROUS SULFATE 325 MG TAB PO SCH (09:20)
[2017-08-21] MEDS: DOCUSATE SODIUM 100 MG CAP PO SCH (09:20)
[2017-08-21] MEDS: ESCITALOPRAM OXALATE 10 MG TAB PO SCH (09:20)
[2017-08-21] MEDS: RANITIDINE HCL 150 MG TAB PO SCH (09:21)
[2017-08-21] MEDS: BACLOFEN 10 MG TAB PO SCH ×2 (09:21→14:00)
[2017-08-21] MEDS: CYANOCOBALAMIN 500 MCG TAB (VIT B-12) PO SCH (09:21)
[2017-08-21] MEDS: THIAMINE HCL 100 MG TAB PO SCH (09:21)
[2017-08-21] MEDS: LIDODERM (LIDOCAINE) PATCH 5% TD SCH (09:22)
[2017-08-21] MEDS: FLUTICASONE PROPIONATE NA SPR 16 GM BTL SCH (09:23)
[2017-08-21] MEDS: POLYETHYLENE (MIRALAX) 17 GM PACK PO SCH (09:23)
[2017-08-21 11:28] VITALS: BP 99/67; PULSE 51; TEMP 36.3; O2SAT 99
[2017-08-21] MEDS ORDERED: VLM5 PO (12:35)
[2017-08-21] MEDS ORDERED: THIA100T27 PO (12:35)
[2017-08-21] MEDS ORDERED: LXP10 PO (12:35)
[2017-08-21] MEDS ORDERED: ZNT150 PO (12:35)
[2017-08-21] MEDS ORDERED: VTMB12 PO (12:35)
[2017-08-21] MEDS ORDERED: CLC100 PO (12:35)
[2017-08-21] MEDS ORDERED: LRS10 PO (12:35)
--- NOTE | 2017-08-21 12:43 | Discharge Instructions ---
Discharge Instructions Date of Service Aug 21, 2017. Admission Reason for Admission: Failure To Thrive Discharge Discharge Diagnosis / Problem: Failure to thrive Discharge Goals Goal(s): Decrease discomfort, Improve function, Increase independence, Improve disease control, Learn about illness, Diagnostic testing, Therapeutic intervention, Prevent Disease Progression Activity Recommendations Activity Limitations: resume your previous activity Exercise/Sports Limitations: as tolerated . Instructions / Follow-Up Instructions / Follow-Up Patient to be discharged home woth caregivers Please note changes in medications Baclofen 7.5 mg by mouth three times a day B1 and B12 vitamins once daily Valium 5 mg tablet by mouth twice a day as needed for spasms Colace 100 mg tablet twice a day Lexapro 10 mg tablet once daily Will need to follow up with assigned PCP in 1-2 weeks Current Hospital Diet Patient's current hospital diet: Regular Diet Discharge Diet Recommended Diet: Regular Diet Pending Studies Studies pending at discharge: no Medical Emergencies . Who to Call and When: Medical Emergencies: If at any time you feel your situation is an emergency, please call 911 immediately. . Non-Emergent Contact Non-Emergency issues call your: Primary Care Provider Call Non-Emergent contact if: you have a fever, your pain is worsening . . "Provider Documentation" section prepared by Puneet Duncan. . VTE Core Measure Inpt VTE Proph given/why not?: Treatment not indicated
--- NOTE | 2017-08-21 14:30 | NUR ---
Talked with Ramila today. Rosenda will arrive at 1430 because she has a doctor's appointment. She will provide care today. Lorenzo is scheduled to arrive at 1700. Asked Admissions to schedule a wheelchair van for this afternoon. CLL to transport at 1530. Talked with Jovana from [facility]. She said that patient can't be discharged back to his apartment due to access issues. Called Ramila at [facility] about Jovana's response. She will call here. Talked with Ramila. Patient can be discharged today. She talked with Jovana at [facility]. Talked with patient. He asked about the van taking him to the bank. Explained that the van will take him to his apartment. He can make arrangements with his caregiver to go to the bank. Plan discharge to home today.
--- NOTE | 2017-08-21 16:09 | Discharge Summary ---
Discharge Summary Date of Service Aug 21, 2017. Discharge Summary Admission Date: Aug 07, 2017 at 13:50 Discharge Date: Aug 21, 2017 Discharge Disposition: Home Principal Diagnosis: Failure to thrive Immunizations: Have You Had Influenza Vaccine: Unknown History of Tetanus Vaccine?: Unknown History of Pneumococcal: Unknown History of Hepatitis B Vaccine: Unknown Medication Reconciliation New Medications: Baclofen (Baclofen) 10 Mg Tab 7.5 MG PO TID, #90 TAB Cyanocobalamin (Vitamin B-12) 500 Mcg Tab 1000 MCG PO QAM, #30 TAB Diazepam (Diazepam) 5 Mg Tab 5 MG PO BID PRN for muscle spasm, #30 TAB Docusate Sodium (Docusate Sodium) 100 Mg Cap 100 MG PO BID, #60 CAP Escitalopram Oxalate (Escitalopram Oxalate) 10 Mg Tab 10 MG PO QAM, #30 TAB Ranitidine HCl (Ranitidine HCl) 150 Mg Tab 150 MG PO BID, #60 TAB Thiamine HCl (Vitamin B-1) 100 Mg Tab 100 MG PO DAILY, #30 TAB Continued Medications: Lorazepam (Ativan) 1 Mg Tab 1 MG PO Q6-8H PRN for TREMORS AND CEREBRAL PALSY Discontinued Medications: Baclofen (Lioresal) 10 Mg Tab 5 MG PO BID Discharge Exam Review of Systems: Constitutional: No fever, No chills, No sweats, No weight loss, No weakness ENT: No hearing loss, No unusual epistaxis, No nasal symptoms, No sore throat, No tinnitus Respiratory: No cough, No sputum, No wheezing, No shortness of breath, No dyspnea on exertion Cardiovascular: No chest pain, No orthopnea, No PND, No edema Abdomen: No pain, No nausea, No vomiting, No diarrhea Musculoskeletal: No joint pain, No muscle pain, No swelling, No calf pain Genitourinary - Male: No hematuria, No dysuria, No urinary frequency, No urinary urgency Neurologic: + problem reported (spasms and contractures noted), No memory loss, No paralysis, No weakness, No numbness/tingling Psychiatric: No depression symptoms, No anhedonism, No anxiety, No insomnia Endocrine: No fatigue, No excessive thirst Integumentary: No rash, No itch Physical Exam: General Appearance: WD/WN, no apparent distress Eyes: normal inspection, PERRL, EOMI, sclerae normal Neck: supple, no adenopathy, thyroid normal, no JVD Respiratory/Chest: chest non-tender, lungs clear, normal breath sounds, no respiratory distress Cardiovascular: regular rate, rhythm, no edema, no gallop, no JVD Abdomen / GI: normal bowel sounds, non tender, soft, no organomegaly Extremities: normal inspection, no calf tenderness, normal capillary refill , no pedal edema Neurologic/Psychiatric: alert, normal mood/affect, normal reflexes, oriented x 3 Skin: normal color, warm/dry, no rash Lymphatic: no adenopathy Hospital Course This is a 47 yo M with severe cerebral palsy who is currently in the hospital as patient does not have a robotic maintenance technician available to help with his ADL and it is unsafe to be d/c home. Cerebral palsy/ Contractures/ Unable to complete ADL - Currently at baseline - Continue baclofen at 7.5 mg twice a day for contractures, better controlled - Continue Valium 5 mg twice a day for muscle spasms - The patient is awaiting placement as he is unable to go home on his own and complete ADL Chronic alcohol abuse, no sign of withdrawal - States that he drinks alcohol occasionally - Alcohol Withdrawal protocol, ativan and valium prn - Thiamine 100 mg daily and B12 1000 mcg daily Anxiety - Continue Lexapro which was added during this admission Rib Pain secondary to injury prior to arrival - Lidoderm Patch- continue while in house however can d/c once patient is discharged Microcytic anemia secondary to iron deficiency anemia - B12 and Folate WNL.TIBC is increased. C/w Ferrous sulfate 325 mg bid, patient did received 300 mg Venofer on initial diagnosis in house - Recommendation is to recheck CBC with iron studies in 3 months - C/w B12 with 1000mcg OD Constipation- chronic - Bowel regimen of Colace bid and Miralax 1 cap daily, suppository if needed GERD - Patient was placed on Ranitidine 150 gm bid - Using Maalox prn DVT Proph: - Hep SQ 5000 BID.( has been refusing since Aug 06, 2017; discussed importance of this medication however continues to refuse and will d/c) will additionally add SCD Disposition: - Awaiting state approved caregivers, [place] home 08/21 Total Time Spent: Greater than 30 minutes This includes examination of the patient, discharge planning, medication reconciliation, and communication with other providers. Discharge Instructions Please refer to the electronic Patient Visit Report (Discharge Instructions) for additional information.
--- NOTE | 2017-08-21 16:16 | NUR ---
Call from Ramila at [facility]. [facility] said that patient can't be discharged until the caregivers get crockett cards for entry to his apartment. [facility] asked if the hospital recommended 24 hour care. And if we had access to a long-term? Told her that we support her recommendations for care givers since she is the expert. Patient does not have medical problems that require round the clock medical attention. He needs help with feeding and his caregivers can provide this. He does not need caregivers over night. Told her that we do not have access to long-term placements. Those services are handled thru [facility] because of funding streams. [employer], [employer], and [employer] are part of that system. Talked with patient and Rosenda, caregiver, about [facility] wanting patient to remain in the hospital. Patient has a crockett card and Rosenda can let Lorenzo into the apartment. Talked with the Director of Case Management about [facility]'s last minute change. Patient is medically stable and cleared for discharge. He has caregivers arranged by his early childhood services coordinator so he can be discharged. Patient for discharge to his apartment today. Talked with Ramila at the [facility] about our decision. She agrees with plan. Patient has a right to return to his apartment. If [facility] has issues, they can discuss them with the patient.
[2017-09-13] MEDS ORDERED: ATV/1 PO (10:11)
[2017-09-13] MEDS ORDERED: DIAZ-165 PO (15:53)
[2017-09-13] MEDS ORDERED: ESCI10TA17 PO (15:53)
[2017-09-13] MEDS ORDERED: THIA100T10 PO (15:53)
[2017-09-13] MEDS ORDERED: CYAN10005 PO (15:53)
[2017-09-13] MEDS ORDERED: DOCU100C31 PO (15:53)
[2017-09-13] MEDS ORDERED: BACL10TA PO (15:53)
[2017-09-13] MEDS ORDERED: RANI150T85 PO (15:53)
== END 2017-08-21 16:33 | disposition home or self-care (01) | DRG 641 ==
LOC: EDBD 16:02 → C.EDB 16:04 → C.MS4W 19:51 → ENRESERV 20:01 → C.4E 08-06 13:13 → OBSVTOIN 08-07 13:50
PROVIDERS: ADMIT Hospitalist; ATTEND Hospitalist
DX: R62.7 Adult failure to thrive (principal); G82.20 Paraplegia, unspecified; G80.9 Cerebral palsy, unspecified; M62.40 Contracture of muscle, unspecified site; M62.838 Other muscle spasm; F10.10 Alcohol abuse, uncomplicated; Y90.9 Presence of alcohol in blood, level not specified; F41.9 Anxiety disorder, unspecified; S20.219A Contusion of unspecified front wall of thorax, initial encounter; D50.9 Iron deficiency anemia, unspecified; K59.09 Other constipation; K21.9 Gastro-esophageal reflux disease without esophagitis; Z51.81 Encounter for therapeutic drug level monitoring; Z79.899 Other long term (current) drug therapy; Z73.89 Other problems related to life management difficulty; Z59.8 Other problems related to housing and economic circumstances; Z99.3 Dependence on wheelchair; Z82.49 Family history of ischemic heart disease and other diseases of the circulatory system; W19.XXXA Unspecified fall, initial encounter

== ENCOUNTER 2017-08-27 18:16 | Emergency (ER) | payer OTHER ==
[~2017-08-27] VITALS: Ht 157.5 cm; Wt 47.0 kg
[~2017-08-27 18:16] MED LIST changes: +ATV/1 PO; -BACL10TA PO; +CLC100 PO; +LRS10 PO; +LXP10 PO; +THM100 PO; +VLM5 PO; +VTMB12 PO; +ZNT150 PO
[2017-08-27 18:34] VITALS: TEMP 36.7; Ht 157.5 cm; Wt 47.0 kg
[2017-08-27] MEDS ORDERED: LORAZEPAM 2 MG/ML 1 ML VIAL IV STA (18:39)
--- NOTE | 2017-08-27 18:44 | EMERGENCY ROOM VISIT NOTE ---
History Report prepared by Maninder: Slime Clarke Under the Supervision of: Dr. James Parkinson M.D. First contact with patient: 18:28 Stated Complaint: ETOH History of Present Illness The patient is a 47 year old male who presents to the Emergency Room with complaints of constant alcohol intoxication beginning tonight. The patient states that he has a history of cerebral palsy and he ran out of his medication a few days ago. He reports that he has been drinking since he ran out of medication. The patient lives alone and has caregivers. Tonight the caregivers noted that he was drinking and brought him into the ED. The patient states that he drank 4-6 beers tonight and an unknown amount of liquor. He complains of back pain and shakiness. He notes that he has been feeling more stressed out lately and feels like he is not getting enough help and would like to be in a mcfp. The patient reports that he normally takes Ativan and Baclofen. He denies any recent falls and fevers. 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 He denies any falls. Review of Systems See HPI for pertinent positives & negatives. A total of 10 systems reviewed and were otherwise negative. Past Medical & Surgical Medical Problems: (1) Cerebral palsy (2) Failure to thrive Old medical records were reviewed. Nurse's notes were reviewed and I agree with. 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 Current/Historical Medications Scheduled Baclofen (Baclofen), 7.5 MG PO TID Cyanocobalamin (Vitamin B-12), 1,000 MCG PO QAM Docusate Sodium (Docusate Sodium), 100 MG PO BID Escitalopram Oxalate (Escitalopram Oxalate), 10 MG PO QAM Ranitidine HCl (Ranitidine HCl), 150 MG PO BID Thiamine HCl (Vitamin B-1), 100 MG PO DAILY Scheduled PRN Diazepam (Diazepam), 5 MG PO BID PRN for muscle spasm Lorazepam (Ativan), 1 MG PO Q6-8H PRN for TREMORS AND CEREBRAL PALSY Allergies Coded Allergies: No Known Allergies (Unverified , 08/02/17) Physical Exam Vital Signs Date Time Temp Pulse Resp B/P (MAP) Pulse Ox O2 Delivery O2 Flow Rate FiO2 08/28/17 00:05 65 17 97 Room Air 08/28/17 00:01 87/59 08/27/17 23:35 64 15 96 Room Air 08/27/17 23:30 68 16 96 Room Air 08/27/17 23:14 85 08/27/17 23:01 93/60 08/27/17 23:00 70 17 95 08/27/17 22:14 93 106/75 94 Room Air 08/27/17 20:58 73 94/58 94 Room Air 08/27/17 19:50 81 08/27/17 19:39 85 24 109/73 95 Room Air 08/27/17 18:34 36.7 87 20 125/73 94 Room Air Physical Exam General: Chronically-ill appearing middle aged male with chronic baseline CP with contractures. Answers questions appropriately but somewhat difficult to understand. HEENT: Normal cephalic atraumatic. Pupils are equal round and reactive to light. Extraocular movements are intact. Oropharynx is pink with moist mucous membranes. No swelling of the mouth lips or tongue. Neck: Supple with a midline trachea. No meningeal signs or stiffness, no JVD or bruits. No Stridor. Chest: Clear to auscultation bilaterally. No wheezes or rhonchi. No increased work of breathing. Heart: regular rate and rhythm. Abdomen: Soft nontender, nondistended without rebound guarding or rigidity. Extremities: No cyanosis clubbing or edema. No calf tenderness or assymetry. Contractures and muscle spasms. Spine/Back. Non tender to palpation. No CVA tenderness Skin: Good turgor without rashes. Neurologic exam: Cranial nerves two through 12 are intact. Motor and sensation are intact and symmetrical throughout. Medical Decision & Procedures Laboratory Results 08/27/17 19:11 Red Blood Count 5.21, Mean Corpuscular Volume 83.1, Mean Corpuscular Hemoglobin 27.6, Mean Corpuscular Hemoglobin Concent 33.3, Mean Platelet Volume 9.8, Neutrophils (%) (Auto) 74.5, Lymphocytes (%) (Auto) 19.5, Monocytes (%) (Auto) 4.8, Eosinophils (%) (Auto) 0.5, Basophils (%) (Auto) 0.5, Neutrophils # (Auto) 3.13, Lymphocytes # (Auto) 0.82, Monocytes # (Auto) 0.20, Eosinophils # (Auto) 0.02, Basophils # (Auto) 0.02 08/27/17 19:11 Test 08/27/17 19:11 White Blood Count 4.20 K/uL (4.8-10.8) Red Blood Count 5.21 M/uL (4.7-6.1) Hemoglobin 14.4 g/dL (14.0-18.0) Hematocrit 43.3 % (42-52) Mean Corpuscular Volume 83.1 fL (80-100) Mean Corpuscular Hemoglobin 27.6 pg (25-34) Mean Corpuscular Hemoglobin Concent 33.3 g/dl (32-36) Platelet Count 261 K/uL (130-400) Mean Platelet Volume 9.8 fL (7.4-10.4) Neutrophils (%) (Auto) 74.5 % Lymphocytes (%) (Auto) 19.5 % Monocytes (%) (Auto) 4.8 % Eosinophils (%) (Auto) 0.5 % Basophils (%) (Auto) 0.5 % Neutrophils # (Auto) 3.13 K/uL (1.4-6.5) Lymphocytes # (Auto) 0.82 K/uL (1.2-3.4) Monocytes # (Auto) 0.20 K/uL (0.11-0.59) Eosinophils # (Auto) 0.02 K/uL (0-0.5) Basophils # (Auto) 0.02 K/uL (0-0.2) RDW Standard Deviation 58.4 fL (36.4-46.3) RDW Coefficient of Variation 19.3 % (11.5-14.5) Immature Granulocyte % (Auto) 0.2 % Immature Granulocyte # (Auto) 0.01 K/uL (0.00-0.02) Anion Gap 7.0 mmol/L (3-11) Est Creatinine Clear Calc Drug Dose 87.4 ml/min Estimated GFR () 130.0 Estimated GFR (Non- 112.1 BUN/Creatinine Ratio 11.4 (10-20) Calcium Level 8.0 mg/dl (8.5-10.1) Total Bilirubin 0.2 mg/dl (0.2-1) Direct Bilirubin < 0.1 mg/dl (0-0.2) Aspartate Amino Transf (AST/SGOT) 24 U/L (15-37) Alanine Aminotransferase (ALT/SGPT) 28 U/L (12-78) Alkaline Phosphatase 64 U/L (45-117) Total Protein 7.4 gm/dl (6.4-8.2) Albumin 3.7 gm/dl (3.4-5.0) Lipase 203 U/L (73-393) Ethyl Alcohol mg/dL 255.1 mg/dl (0-3) Laboratory studies as stated above per my review. Medications Administered Medications (Trade) Dose Ordered Sig/Ina Route Start Time Stop Time Status Last Admin Dose Admin Multivitamins 10 ml/Thiamine HCl 100 mg/Folic Acid 1 mg/Sodium Chloride 1,011.2 ml @ 150 mls/ hr Q6H45M ONCE IV 08/27/17 18:45 08/28/17 01:29 DC 08/27/17 19:33 150 MLS/HR Lorazepam (Ativan Inj) 1 mg NOW STAT IV 08/27/17 18:39 08/27/17 18:42 DC 08/27/17 19:33 1 MG ED Course 1827: Past medical records reviewed. The patient was evaluated in room A12, and a complete history and physical examination were performed. 183: Ativan Inj 1mg IV. 1845: Multivitamins 10ml/Thiamine HCl 100mg/Folic Acid 1mg/Sodium Chloride 1011.2ml @ 150mls/hr IV. 8: I reevaluated the patient and he is doing better. 0230: The patient was signed out to Dr. Sánchez at change of shift. Medical Decision Differentials include, but are not limited to; alcohol intoxication, infection, depression, electrolyte or metabolic abnormality. This patient comes in as described above. He was placed in room A12. He is here for treatment and evaluation of alcohol intoxication. He apparently also ran out of his medications. He was just discharged from hospital about a week ago after having failure to thrive. He tells me he needs to be placed in a mcfp. IV access established was given Ativan 1 mg IV to prevent withdrawal and he was given a rally pack/banana bag IV as well. Multiple blood testing was obtained. His blood alcohol was 255. He has no other significant electrolyte or metabolic abnormalities. he apparently does have a appointment tomorrow with his care team to talk about potential placement and ongoing care. He is sobering up and does feel up to going home. I had her case management team talked to him at length. He'll be discharged when his care team can come get him from the ER. Medication Reconcilliation Current Medication List: was personally reviewed by me Blood Pressure Screening Patient's blood pressure: Normal blood pressure Blood pressure disposition: Did not require urgent referral Impression Primary Impression: Alcohol intoxication Additional Impression: Back pain Scribe Attestation The scribe's documentation has been prepared under my direction and personally reviewed by me in its entirety. I confirm that the note above accurately reflects all work, treatment, procedures, and medical decision making performed by me. Departure Information Dispostion Still a Patient Referrals [facility] (PCP) Additional Instructions Rest. Do not drink anymore alcohol. Keep your appointment with your meeting with your team tomorrow Return if worsening of symptoms, any new problems or concerns Problem Qualifiers
[2017-08-27] MEDS ORDERED: MULTI-VITAMIN INFUSION INJ 10 ML, THIAMINE HCL INJ 100 MG, FoLIC ACID INJ 1 MG in SODIU... IV ONE (18:45)
[2017-08-27 19:29] LABS: BASO % 0.5 %; BASO ABS # 0.02 K/uL (0-0.2); EOS % 0.5 %; EOS ABS # 0.02 K/uL (0-0.5); HEMATOCRIT 43.3 % (42-52); HEMOGLOBIN 14.4 g/dL (14.0-18.0); IG# 0.01 K/uL (0.00-0.02); LYMPH % 19.5 %; LYMPH ABS # 0.82 K/uL (1.2-3.4); MEAN CELL VOLUME 83.1 fL (80-100); MEAN CORPUSCULAR HEMOGLOBIN 27.6 pg (25-34); MEAN CORPUSCULAR HGB CONC 33.3 g/dl (32-36); MEAN PLATELET VOLUME 9.8 fL (7.4-10.4); MONO % 4.8 %; NEUT % 74.5 %; NEUT ABS # 3.13 K/uL (1.4-6.5); PLATELET COUNT 261 K/uL (130-400); RED CELL DISTRIBUTION WIDTH CV 19.3 % (11.5-14.5); RED CELL DISTRIBUTION WIDTH SD 58.4 fL (36.4-46.3)
[2017-08-27 19:47] LABS: ALBUMIN 3.7 gm/dl (3.4-5.0); ALT/SGPT 28 U/L (12-78); BLOOD UREA NITROGEN 8 mg/dl (7-18); CARBON DIOXIDE 27 mmol/L (21-32); CREATININE 0.68 mg/dl (0.60-1.40); GLUCOSE 100 mg/dl (70-99); LIPASE 203 U/L (73-393); POTASSIUM 3.7 mmol/L (3.5-5.1); SODIUM 142 mmol/L (136-145)
[2017-08-27 19:50] LABS: ALKALINE PHOSPHATASE 64 U/L (45-117); AST/SGOT 24 U/L (15-37); TOTAL PROTEIN 7.4 gm/dl (6.4-8.2)
[2017-08-28] MEDS ORDERED: DIAZEPAM 5MG TAB PO STA (07:11)
[2017-08-28] MEDS ORDERED: BACLOFEN 10 MG TAB PO STA (07:11)
[2017-08-28] MEDS ORDERED: ESCITALOPRAM OXALATE 10 MG TAB PO STA (07:11)
[2017-08-28] MEDS ORDERED: LORAZEPAM 1 MG TAB SL STA (07:11)
[2017-08-28] MEDS ORDERED: RANITIDINE HCL 150 MG TAB PO STA (07:11)
--- NOTE | 2017-08-28 07:36 | EMERGENCY ROOM VISIT NOTE ---
ED Visit Note This case was signed out to me at change of shift awaiting transport. The patient was unable to obtain transport home until around 8 AM in the morning. His caretakers are willing to pick him up at that time. The case will be signed out to Dr. Hernandez at change of shift.
--- NOTE | 2017-08-28 08:02 | EMERGENCY ROOM VISIT NOTE ---
ED Visit Note Pt signed out to me at change of shift. H&P verified by me. This morning the patient is having spasticity problems. I believe that these are his baseline issues. I will note that the patient has not had his normal medications and I believe that this is the problem. For this reason he was given his baclofen as well as Ativan. He is being picked up by his caregivers at 8 AM.
[2017-08-28 10:32] VITALS: BP 132/82; PULSE 88; O2SAT 95
== END 2017-08-28 10:33 | disposition home or self-care (01) ==
LOC: EDBD 18:16 → C.EDA 18:17
DX: F10.129 Alcohol abuse with intoxication, unspecified (principal); M54.9 Dorsalgia, unspecified; G80.9 Cerebral palsy, unspecified; Z82.49 Family history of ischemic heart disease and other diseases of the circulatory system

== ENCOUNTER 2017-08-29 17:05 | Emergency (ER) | payer OTHER ==
[~2017-08-29] VITALS: Ht 160 cm; Wt 48.5 kg
[2017-08-29 17:32] VITALS: TEMP 36.9; Ht 160 cm; Wt 48.5 kg
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
[2017-08-29 18:31] LABS: CALCIUM 8.2 mg/dl (8.5-10.1); CREATININE 0.56 mg/dl (0.60-1.40); POTASSIUM 3.3 mmol/L (3.5-5.1)
[2017-08-29] MEDS ORDERED: RANITIDINE HCL 150 MG TAB PO SCH (21:00)
[2017-08-29] MEDS ORDERED: DIAZEPAM 5MG TAB PO PRN (21:00)
[2017-08-29] MEDS ORDERED: DOCUSATE SODIUM 100 MG CAP PO SCH (21:00)
[2017-08-29] MEDS ORDERED: LORAZEPAM 1 MG TAB SL PRN (21:00)
[2017-08-29] MEDS ORDERED: BACLOFEN 10 MG TAB PO SCH (21:00)
[2017-08-30] MEDS ORDERED: CYANOCOBALAMIN 100 MCG TAB (VIT B-12) PO SCH (09:00)
[2017-08-30] MEDS ORDERED: ESCITALOPRAM OXALATE 10 MG TAB PO SCH (09:00)
[2017-08-30] MEDS ORDERED: THIAMINE HCL 100 MG TAB PO SCH (09:00)
[2017-08-30 09:36] VITALS: BP 121/62; PULSE 79; O2SAT 95
== END 2017-08-30 09:25 | disposition home or self-care (01) ==
LOC: EDBD 17:05 → C.EDA 17:06
DX: F10.129 Alcohol abuse with intoxication, unspecified (principal); Y90.7 Blood alcohol level of 200-239 mg/100 ml; G80.9 Cerebral palsy, unspecified

== ENCOUNTER 2017-09-06 13:26 | Emergency (ER) | payer OTHER ==
[2017-09-06] MEDS ORDERED: SODIUM CHLORIDE 0.9% 1000ML 1,000 ML IV STA (13:36)
[2017-09-06] MEDS ORDERED: ONDANSETRON INJ 2 MG/ML 2 ML VIAL IV STA (13:36)
[2017-09-06 13:38] VITALS: TEMP 36.8
--- NOTE | 2017-09-06 13:43 | EMERGENCY ROOM VISIT NOTE ---
History Report prepared by Maninder: Vijay Henson Under the Supervision of: Dr. Sridhar Ayon D.O. First contact with patient: 13:30 Chief Complaint: ABDOMINAL PAIN Stated Complaint: ABDOMINAL PAIN History of Present Illness The patient is a 47 year old male who presents to the Emergency Room with complaints of abdominal pain. The patient has a history of chronic alcohol abuse. He is been seen in our facility recently for alcohol intoxication. He states that he does drink alcohol and has been drinking since 11 o'clock this morning. He was seen by home health who realized he was intoxicated and sent him to the emergency department. He offered a complaint of abdominal pain but denies any abdominal pain at this time. He denies having any nausea vomiting or diarrhea. He's had no fevers. He denies having any chest pain or trouble breathing. He continues to complain that he has no help this weekend and I assume that that means he does not have home health visits this weekend and is very concerned about his safety. The patient has recently been seen and evaluated by social service agency director and is currently scheduled to be evaluated for inpatient treatment at a personal skilled nursing. The patient has had no falls. He denies any trauma. He denies having any headache. Source of History: patient Onset: this morning Position: abdomen Symptom Intensity: minimal Timing: resolved Associated Symptoms: No fevers, No headache, No chest pain, No SOB, No nausea, No vomiting, No diarrhea Review of Systems See HPI for pertinent positives & negatives. A total of 10 systems reviewed and were otherwise negative. Past Medical & Surgical Medical Problems: (1) Cerebral palsy (2) Failure to thrive Family History FH: heart attack Social History Smoking Status: Unknown if Ever Smoked Alcohol Use: heavy Drug Use: none Marital Status: single Housing Status: lives alone Occupation Status: disabled Current/Historical Medications Scheduled Baclofen (Lioresal), 7.5 MG PO TID Cyanocobalamin (Vitamin B-12), 1,000 MCG PO QAM Docusate Sodium (Docusate Sodium), 100 MG PO BID Escitalopram (Lexapro), 10 MG PO QAM Ranitidine (Zantac), 150 MG PO BID Thiamine Hcl (Vitamin B-1), 100 MG PO DAILY Scheduled PRN Diazepam (Valium), 5 MG PO BID PRN for Muscle Spasms Lorazepam (Ativan), 1 MG PO Q6-8H PRN for TREMORS AND CEREBRAL PALSY Allergies Coded Allergies: No Known Allergies (Unverified , 08/02/17) Physical Exam Vital Signs Date Time Temp Pulse Resp B/P (MAP) Pulse Ox O2 Delivery O2 Flow Rate FiO2 09/06/17 22:09 87 18 110/67 96 Room Air 09/06/17 21:00 95 18 110/72 95 Room Air 09/06/17 20:00 94 18 108/75 95 Room Air 09/06/17 18:27 97 20 116/71 94 Room Air 09/06/17 17:43 83 09/06/17 15:29 90 18 101/75 95 Room Air 09/06/17 13:46 96 Room Air 09/06/17 13:43 90 09/06/17 13:38 36.8 95 20 114/67 95 Room Air Physical Exam GENERAL: Patient is awake and alert. He is not anxious. He does not appear to be in pain. EYES: The conjunctivae are clear. The pupils are round and reactive. EARS, NOSE, MOUTH AND THROAT: The nose is without any evidence of any deformity. Mucous members are moist. There is a cold sore noted on the left upper lip. Membranes are moist tongue is midline NECK: The neck is nontender and supple. RESPIRATORY: Normal respiratory effort is noted there is no evidence of wheezing rhonchi or rales CARDIOVASCULAR: Regular rate and rhythm noted there no murmurs rubs or gallops normal S1 normal S2 GASTROINTESTINAL: The abdomen is soft. Bowel sounds are present in all quadrants. Abdomen is nontender MUSCULOSKELETAL/EXTREMITIES: There is no evidence of gross deformity full range of motion is noted in the hips and shoulders SKIN: There is no obvious evidence of any rash. There are no petechiae, pallor or cyanosis noted. NEUROLOGIC: Patient is awake and oriented times 3. He moves all extremities symmetrically. Medical Decision & Procedures ER Provider Diagnostic Interpretation: Radiology results as stated below per my review and radiologist interpretation: CHEST ONE VIEW PORTABLE CLINICAL HISTORY: Overdose COMPARISON STUDY: July 2017 FINDINGS: The heart is normal in size. There is no failure. There is no focal pulmonary consolidation. There is a lower left paraspinal opacity which is felt to be secondary to a hiatal hernia.[ There are no pleural effusions. IMPRESSION: No active disease in the chest. Electronically signed by: Raza Leblanc M.D. 09/06/2017 2:50 PM Dictated Date/Time: 09/06/2017 2:49 PM Laboratory Results 09/06/17 13:46 Red Blood Count 5.61, Mean Corpuscular Volume 83.6, Mean Corpuscular Hemoglobin 27.5, Mean Corpuscular Hemoglobin Concent 32.8, Mean Platelet Volume 9.3, Neutrophils (%) (Auto) 68.3, Lymphocytes (%) (Auto) 25.2, Monocytes (%) (Auto) 5.7, Eosinophils (%) (Auto) 0.2, Basophils (%) (Auto) 0.4, Neutrophils # (Auto) 3.49, Lymphocytes # (Auto) 1.29, Monocytes # (Auto) 0.29, Eosinophils # (Auto) 0.01, Basophils # (Auto) 0.02 09/06/17 13:46 Test 09/06/17 13:46 09/06/17 13:56 09/06/17 14:12 White Blood Count 5.11 K/uL (4.8-10.8) Red Blood Count 5.61 M/uL (4.7-6.1) Hemoglobin 15.4 g/dL (14.0-18.0) Hematocrit 46.9 % (42-52) Mean Corpuscular Volume 83.6 fL (80-100) Mean Corpuscular Hemoglobin 27.5 pg (25-34) Mean Corpuscular Hemoglobin Concent 32.8 g/dl (32-36) Platelet Count 141 K/uL (130-400) Mean Platelet Volume 9.3 fL (7.4-10.4) Neutrophils (%) (Auto) 68.3 % Lymphocytes (%) (Auto) 25.2 % Monocytes (%) (Auto) 5.7 % Eosinophils (%) (Auto) 0.2 % Basophils (%) (Auto) 0.4 % Neutrophils # (Auto) 3.49 K/uL (1.4-6.5) Lymphocytes # (Auto) 1.29 K/uL (1.2-3.4) Monocytes # (Auto) 0.29 K/uL (0.11-0.59) Eosinophils # (Auto) 0.01 K/uL (0-0.5) Basophils # (Auto) 0.02 K/uL (0-0.2) RDW Standard Deviation 58.8 fL (36.4-46.3) RDW Coefficient of Variation 19.4 % (11.5-14.5) Immature Granulocyte % (Auto) 0.2 % Immature Granulocyte # (Auto) 0.01 K/uL (0.00-0.02) Prothrombin Time 10.1 SECONDS (9.0-12.0) Prothromb Time International Ratio 1.0 (0.9-1.1) Activated Partial Thromboplast Time 25.4 SECONDS (21.0-31.0) Partial Thromboplastin Ratio 1.0 Anion Gap 7.0 mmol/L (3-11) Estimated GFR () 126.2 Estimated GFR (Non- 108.9 BUN/Creatinine Ratio 11.1 (10-20) Osmolality 393 mOsm/kg (280-300) Calcium Level 7.9 mg/dl (8.5-10.1) Total Bilirubin 0.3 mg/dl (0.2-1) Direct Bilirubin < 0.1 mg/dl (0-0.2) Aspartate Amino Transf (AST/SGOT) 20 U/L (15-37) Alanine Aminotransferase (ALT/SGPT) 22 U/L (12-78) Alkaline Phosphatase 73 U/L (45-117) Total Creatine Kinase 139 U/L (39-308) Total Protein 7.7 gm/dl (6.4-8.2) Albumin 3.6 gm/dl (3.4-5.0) Lipase 266 U/L (73-393) Salicylates Level < 1.7 mg/dl (2.8-20) Acetaminophen Level < 2 ug/ml (10-30) Ethyl Alcohol mg/dL 340.0 mg/dl (0-3) Bedside Glucose 91 mg/dl (70-99) Laboratory results per my review. Medications Administered Medications (Trade) Dose Ordered Sig/Ina Route Start Time Stop Time Status Last Admin Dose Admin Sodium Chloride 1,000 ml @ 999 mls/hr Q1H1M STAT IV 09/06/17 13:36 09/06/17 14:36 DC 09/06/17 14:06 999 MLS/HR Ondansetron HCl (Zofran Inj) 4 mg NOW STAT IV 09/06/17 13:36 09/06/17 13:39 DC 09/06/17 14:06 4 MG Baclofen (Lioresal Tab) 7.5 mg TID PO 09/06/17 21:00 09/07/17 02:16 DC 09/06/17 21:09 7.5 MG Diazepam (Valium Tab) 5 mg BID PRN PO 09/06/17 20:45 09/07/17 02:16 DC 09/06/17 21:09 5 MG Docusate Sodium (coLACE CAP) 100 mg BID PO 09/06/17 21:00 09/07/17 02:16 DC 09/06/17 21:09 100 MG Ranitidine HCl (zANTac TAB) 150 mg BID PO 09/06/17 21:00 09/07/17 02:16 DC 09/06/17 21:09 150 MG ED Course 1330: The patient was evaluated in room C12. A complete history and physical examination were performed. 1336: Zofran 4mg IV, NSS 1,000 ml @ 1000 mls/hr IV 1834: I reevaluated the patient, and he was still not making any sense 2010: The patient is unable to safely be discharged, so case management has set everything up for the patient to be discharged in the morning. 2139: The piano case maker was able to get the patient home, and the patient will be discharged home. Medical Decision Prior records/ancillary studies reviewed. Triage Nursing notes reviewed. Additional history obtained from the prehospital personnel. The patient's history was concerning for altered mental status and a possible alcohol overdose. Differential diagnosis: Etiologies such as alcohol intoxication, toxicologic, infection, hypoglycemia, electrolyte abnormalities, cardiac sources, intracerebral event, neurologic, as well as others were entertained. The patient is a 47-year-old male who presented to the emergency department for an evaluation of abdominal pain. The patient was seen recently our facility multiple times with alcohol intoxication. The patient does not have a physical exam consistent with an acute surgical abdomen at this time. I discussed patient 's laboratory radiographic studies with him. He was reevaluated multiple times. He continued to improve and was less clinically intoxicated on follow-up reevaluation. The patient was finally reevaluated one last time. He was arranged for discharge by the emergency department piano case maker. He was encouraged to continue all medications as prescribed and avoid any further alcoholic beverages. He was encouraged to return to the emergency department immediately if symptoms change worsen or the need arises. I also recommended that he follow- up with his primary care physician. Patient's measured serum osmolality was 393. Calculated is 372-390 Medication Reconcilliation Current Medication List: was personally reviewed by me Blood Pressure Screening Patient's blood pressure: Normal blood pressure Impression Primary Impression: Alcohol intoxication Additional Impression: Abdominal pain Scribe Attestation The scribe's documentation has been prepared under my direction and personally reviewed by me in its entirety. I confirm that the note above accurately reflects all work, treatment, procedures, and medical decision making performed by me. Departure Information Dispostion Home / Self-Care Referrals No Doctor, Assigned (PCP) Forms Call Back Authorization, HOME CARE DOCUMENTATION FORM, IMPORTANT VISIT INFORMATION Patient Instructions Abdominal Pain, ED Alcohol Intoxication, My [facility] Additional Instructions Continue all medications as prescribed. Avoid any further alcoholic beverages. Drink plenty clear liquids. Call your doctor to schedule follow-up appointment. Problem Qualifiers Primary Impression: Alcohol intoxication Complication of substance-induced condition: uncomplicated Qualified Codes: F10.920 - Alcohol use, unspecified with intoxication, uncomplicated Additional Impression: Abdominal pain Abdominal location: generalized Qualified Codes: R10.84 - Generalized abdominal pain
[2017-09-06 13:46] VITALS: O2SAT 96
[2017-09-06 14:09] LABS: BASO % 0.4 %; BASO ABS # 0.02 K/uL (0-0.2); EOS % 0.2 %; EOS ABS # 0.01 K/uL (0-0.5); HEMATOCRIT 46.9 % (42-52); HEMOGLOBIN 15.4 g/dL (14.0-18.0); IG# 0.01 K/uL (0.00-0.02); LYMPH % 25.2 %; LYMPH ABS # 1.29 K/uL (1.2-3.4); MEAN CELL VOLUME 83.6 fL (80-100); MEAN CORPUSCULAR HEMOGLOBIN 27.5 pg (25-34); MEAN CORPUSCULAR HGB CONC 32.8 g/dl (32-36); MEAN PLATELET VOLUME 9.3 fL (7.4-10.4); MONO % 5.7 %; MONO ABS # 0.29 K/uL (0.11-0.59); NEUT % 68.3 %; NEUT ABS # 3.49 K/uL (1.4-6.5); PLATELET COUNT 141 K/uL (130-400); RED CELL DISTRIBUTION WIDTH CV 19.4 % (11.5-14.5); RED CELL DISTRIBUTION WIDTH SD 58.8 fL (36.4-46.3); WHITE BLOOD COUNT 5.11 K/uL (4.8-10.8)
[2017-09-06 14:15] LABS: PTT PATIENT 25.4 SECONDS (21.0-31.0)
[2017-09-06 14:36] LABS: BLOOD UREA NITROGEN 8 mg/dl (7-18); CREATININE 0.73 mg/dl (0.60-1.40); GLUCOSE 99 mg/dl (70-99)
[2017-09-06 14:37] LABS: ALBUMIN 3.6 gm/dl (3.4-5.0); ALT/SGPT 22 U/L (12-78); AST/SGOT 20 U/L (15-37); CALCIUM 7.9 mg/dl (8.5-10.1); CARBON DIOXIDE 29 mmol/L (21-32); LIPASE 266 U/L (73-393); POTASSIUM 3.8 mmol/L (3.5-5.1); SODIUM 145 mmol/L (136-145)
[2017-09-06 14:39] LABS: ALKALINE PHOSPHATASE 73 U/L (45-117); TOTAL PROTEIN 7.7 gm/dl (6.4-8.2)
--- NOTE | 2017-09-06 14:51 | DIAGNOSTIC IMAGING REPORT ---
CHEST ONE VIEW PORTABLE CLINICAL HISTORY: Overdose COMPARISON STUDY: July 2017 FINDINGS: The heart is normal in size. There is no failure. There is no focal pulmonary consolidation. There is a lower left paraspinal opacity which is felt to be secondary to a hiatal hernia.[ There are no pleural effusions. IMPRESSION: No active disease in the chest. Electronically signed by: Raza Leblanc M.D. 09/06/2017 2:50 PM Dictated Date/Time: 09/06/2017 2:49 PM
[2017-09-06] MEDS ORDERED: DIAZ-165 PO (15:53)
[2017-09-06] MEDS ORDERED: THIA100T11 PO (15:53)
[2017-09-06] MEDS ORDERED: ZNTT/150 PO (15:53)
[2017-09-06] MEDS ORDERED: BACL10TA PO (15:53)
[2017-09-06] MEDS ORDERED: ESCI10TA17 PO (15:53)
[2017-09-06] MEDS ORDERED: CYAN10005 PO (15:53)
[2017-09-06] MEDS ORDERED: DOCU100C31 PO (15:53)
[2017-09-06] MEDS ORDERED: DIAZEPAM 5MG TAB PO PRN (20:45)
[2017-09-06] MEDS ORDERED: LORAZEPAM 1 MG TAB PO PRN (20:45)
[2017-09-06] MEDS ORDERED: RANITIDINE HCL 150 MG TAB PO SCH (21:00)
[2017-09-06] MEDS ORDERED: BACLOFEN 10 MG TAB PO SCH (21:00)
[2017-09-06] MEDS ORDERED: DOCUSATE SODIUM 100 MG CAP PO SCH (21:00)
[2017-09-06 22:09] VITALS: BP 110/67; PULSE 87; O2SAT 96
[2017-09-07] MEDS ORDERED: THIAMINE HCL 100 MG TAB PO SCH (09:00)
[2017-09-07] MEDS ORDERED: ESCITALOPRAM OXALATE 10 MG TAB PO SCH (09:00)
[2017-09-07] MEDS ORDERED: CYANOCOBALAMIN 500 MCG TAB (VIT B-12) PO SCH (09:00)
[2017-09-07] MEDS ORDERED: CYANOCOBALAMIN 100 MCG TAB (VIT B-12) PO SCH (09:00)
== END 2017-09-06 22:29 | disposition home or self-care (01) ==
LOC: EDBD 13:26 → C.EDC 13:27
DX: F10.920 Alcohol use, unspecified with intoxication, uncomplicated (principal); R10.84 Generalized abdominal pain; G80.9 Cerebral palsy, unspecified

== ENCOUNTER 2017-09-13 19:30 | Emergency (ER) | payer OTHER ==
[~2017-09-13] VITALS: Ht 157.5 cm; Wt 46.2 kg
[~2017-09-13 19:30] MED LIST changes: +BACL10TA PO; -CLC100 PO; +CYAN10005 PO; +DIAZ-165 PO; +DOCU100C31 PO; +ESCI10TA17 PO; -LRS10 PO; -LXP10 PO; +THIA100T11 PO; -THM100 PO; -VLM5 PO; -VTMB12 PO; -ZNT150 PO; +ZNTT/150 PO
[2017-09-13 19:40] VITALS: Ht 157.5 cm; Wt 46.2 kg
[2017-09-13] MEDS ORDERED: MULTI-VITAMIN INFUSION INJ 10 ML, THIAMINE HCL INJ 100 MG, FoLIC ACID INJ 1 MG in SODIU... IV ONE (19:45)
[2017-09-13 20:15] LABS: BASO % 0.2 %; BASO ABS # 0.01 K/uL (0-0.2); EOS % 0.2 %; EOS ABS # 0.01 K/uL (0-0.5); HEMATOCRIT 42.8 % (42-52); HEMOGLOBIN 14.5 g/dL (14.0-18.0); IG# 0.02 K/uL (0.00-0.02); LYMPH % 16.2 %; LYMPH ABS # 1.06 K/uL (1.2-3.4); MEAN CELL VOLUME 81.8 fL (80-100); MEAN CORPUSCULAR HEMOGLOBIN 27.7 pg (25-34); MEAN CORPUSCULAR HGB CONC 33.9 g/dl (32-36); MEAN PLATELET VOLUME 9.7 fL (7.4-10.4); MONO % 5.5 %; MONO ABS # 0.36 K/uL (0.11-0.59); NEUT % 77.6 %; NEUT ABS # 5.09 K/uL (1.4-6.5); PLATELET COUNT 101 K/uL (130-400); RED CELL DISTRIBUTION WIDTH CV 18.5 % (11.5-14.5); RED CELL DISTRIBUTION WIDTH SD 55.1 fL (36.4-46.3); WHITE BLOOD COUNT 6.55 K/uL (4.8-10.8)
--- NOTE | 2017-09-13 20:34 | DIAGNOSTIC IMAGING REPORT ---
CHEST ONE VIEW PORTABLE HISTORY: Overdose. Assess for pneumonia. COMPARISON: Chest 09/06/2017. FINDINGS: The lungs are clear. The heart is normal in size. No pleural effusions. No pneumothorax. Retrocardiac lobular density remains unchanged. This favors a hiatus hernia. IMPRESSION: No significant change compared to the prior study. No acute process. Electronically signed by: Isaiah Wilkes M.D. 09/13/2017 8:33 PM Dictated Date/Time: 09/13/2017 8:32 PM
[2017-09-13 20:35] LABS: ALBUMIN 3.3 gm/dl (3.4-5.0); ALT/SGPT 26 U/L (12-78); BLOOD UREA NITROGEN 8 mg/dl (7-18); CARBON DIOXIDE 26 mmol/L (21-32); CREATININE 0.67 mg/dl (0.60-1.40); GLUCOSE 133 mg/dl (70-99); LIPASE 193 U/L (73-393); POTASSIUM 3.5 mmol/L (3.5-5.1); SODIUM 137 mmol/L (136-145)
[2017-09-13 20:40] LABS: ALKALINE PHOSPHATASE 82 U/L (45-117); AST/SGOT 37 U/L (15-37); TOTAL PROTEIN 6.8 gm/dl (6.4-8.2)
[2017-09-13 20:54] LABS: INFLUENZA B ANTIGEN Neg for Influ B (NEG)
[2017-09-13 21:20] VITALS: BP 110/71; PULSE 105; TEMP 37.1; O2SAT 98
--- NOTE | 2017-09-13 23:35 | EMERGENCY ROOM VISIT NOTE ---
History Report prepared by Maninder: Nathalie Morin Under the Supervision of: Dr. Carrillo Wells M.D. First contact with patient: 19:34 Stated Complaint: FLU LIKE SX History of Present Illness The patient is a 47 year old male who presents to the Emergency Room with complaints of persistent flu symptoms starting yesterday. The patient presents to the ED by EMS. He lives at home with a caregiver. He initially called EMS because he was complaining of chest pain and abdominal pain. He is now just complaining of cough and phlegm. He has had body aches. He had a temperature of 99. He reports that he has been vomiting, but the caregiver states that he has just been coughing up and spitting out phlegm. He has not had any diarrhea. Throughout the week, the caregiver has noticed the patient has been shaking more than normal. He had 3 20 oz cans of beer today which is normal for him. He has a history of cerebral palsy. The history is limited due to the patient's alcohol intoxication. Source of History: patient, caregiver History Limited By: intoxication Onset: yesterday Position: other (global) Quality: other (flu symptoms) Timing: other (persistent) Associated Symptoms: + cough, No diarrhea Note: Pt reports phlegm, body aches. Review of Systems Limited secondary to patient's alcohol intoxication. Past Medical & Surgical Medical Problems: (1) Cerebral palsy (2) Failure to thrive Family History FH: heart attack Social History Smoking Status: Never Smoker Alcohol Use: heavy Drug Use: none Marital Status: single Housing Status: lives alone Occupation Status: disabled Current/Historical Medications Scheduled Baclofen (Lioresal), 7.5 MG PO TID Cyanocobalamin (Vitamin B-12), 1,000 MCG PO QAM Docusate Sodium (Docusate Sodium), 100 MG PO BID Escitalopram (Lexapro), 10 MG PO QAM Ranitidine (Zantac), 150 MG PO BID Thiamine Hcl (Vitamin B-1), 100 MG PO DAILY Scheduled PRN Diazepam (Valium), 5 MG PO BID PRN for Muscle Spasm Lorazepam (Ativan), 1 MG PO Q6-8H PRN for Tremors and Cerebral Palsy Allergies Coded Allergies: No Known Allergies (Unverified , 08/02/17) Physical Exam Vital Signs Date Time Temp Pulse Resp B/P (MAP) Pulse Ox O2 Delivery O2 Flow Rate FiO2 09/13/17 21:20 37.1 105 18 110/71 98 Room Air 09/13/17 20:00 94 09/13/17 19:40 37.0 102 18 99/53 96 Room Air Physical Exam Limited due to alcohol intoxication. Constitutional: Vital signs reviewed. Eyes: Pupils are equal round reactive to light. Conjunctiva are noninjected. ENT: Mucous membranes are moist. Respiratory: Clear to auscultation bilaterally. Breath sounds are equal bilaterally. Cardiovascular: Regular rate and rhythm. No rubs or gallops. GI: Soft, nondistended and nontender. Bowel sounds are present. Musculoskeletal: No peripheral edema. No lower extremity tenderness. Integumentary: No cyanosis. Neurological: The patient is awake and alert. Psychiatric: Unable to assess. Medical Decision & Procedures ER Provider Diagnostic Interpretation: X-ray results as stated below per interpretation by me and the radiologist: CHEST ONE VIEW PORTABLE HISTORY: Overdose. Assess for pneumonia. COMPARISON: Chest 09/06/2017. FINDINGS: The lungs are clear. The heart is normal in size. No pleural effusions. No pneumothorax. Retrocardiac lobular density remains unchanged. This favors a hiatus hernia. IMPRESSION: No significant change compared to the prior study. No acute process. Electronically signed by: Isaiah Wilkes M.D. 09/13/2017 8:33 PM Dictated Date/Time: 09/13/2017 8:32 PM Laboratory Results 09/13/17 20:02 Red Blood Count 5.23, Mean Corpuscular Volume 81.8, Mean Corpuscular Hemoglobin 27.7, Mean Corpuscular Hemoglobin Concent 33.9, Mean Platelet Volume 9.7, Neutrophils (%) (Auto) 77.6, Lymphocytes (%) (Auto) 16.2, Monocytes (%) (Auto) 5.5, Eosinophils (%) (Auto) 0.2, Basophils (%) (Auto) 0.2, Neutrophils # (Auto) 5.09, Lymphocytes # (Auto) 1.06, Monocytes # (Auto) 0.36, Eosinophils # (Auto) 0.01, Basophils # (Auto) 0.01 09/13/17 20:02 Test 09/13/17 20:02 09/13/17 20:07 White Blood Count 6.55 K/uL (4.8-10.8) Red Blood Count 5.23 M/uL (4.7-6.1) Hemoglobin 14.5 g/dL (14.0-18.0) Hematocrit 42.8 % (42-52) Mean Corpuscular Volume 81.8 fL (80-100) Mean Corpuscular Hemoglobin 27.7 pg (25-34) Mean Corpuscular Hemoglobin Concent 33.9 g/dl (32-36) Platelet Count 101 K/uL (130-400) Mean Platelet Volume 9.7 fL (7.4-10.4) Neutrophils (%) (Auto) 77.6 % Lymphocytes (%) (Auto) 16.2 % Monocytes (%) (Auto) 5.5 % Eosinophils (%) (Auto) 0.2 % Basophils (%) (Auto) 0.2 % Neutrophils # (Auto) 5.09 K/uL (1.4-6.5) Lymphocytes # (Auto) 1.06 K/uL (1.2-3.4) Monocytes # (Auto) 0.36 K/uL (0.11-0.59) Eosinophils # (Auto) 0.01 K/uL (0-0.5) Basophils # (Auto) 0.01 K/uL (0-0.2) RDW Standard Deviation 55.1 fL (36.4-46.3) RDW Coefficient of Variation 18.5 % (11.5-14.5) Immature Granulocyte % (Auto) 0.3 % Immature Granulocyte # (Auto) 0.02 K/uL (0.00-0.02) Anion Gap 8.0 mmol/L (3-11) Est Creatinine Clear Calc Drug Dose 87.2 ml/min Estimated GFR () 130.8 Estimated GFR (Non- 112.8 BUN/Creatinine Ratio 11.9 (10-20) Calcium Level 8.0 mg/dl (8.5-10.1) Total Bilirubin 0.4 mg/dl (0.2-1) Direct Bilirubin < 0.1 mg/dl (0-0.2) Aspartate Amino Transf (AST/SGOT) 37 U/L (15-37) Alanine Aminotransferase (ALT/SGPT) 26 U/L (12-78) Alkaline Phosphatase 82 U/L (45-117) Troponin I < 0.015 ng/ml (0-0.045) Total Protein 6.8 gm/dl (6.4-8.2) Albumin 3.3 gm/dl (3.4-5.0) Lipase 193 U/L (73-393) Ethyl Alcohol mg/dL 235.6 mg/dl (0-3) Influenza Type A Antigen Neg for Influ A (NEG) Influenza Type B Antigen Neg for Influ B (NEG) Laboratory results as reviewed by me. Medications Administered Medications (Trade) Dose Ordered Sig/Ina Route Start Time Stop Time Status Last Admin Dose Admin Multivitamins 10 ml/Thiamine HCl 100 mg/Folic Acid 1 mg/Sodium Chloride 1,011.2 ml @ 500 mls/ hr Q2H2M ONCE IV 09/13/17 19:45 09/13/17 21:46 DC 09/13/17 20:22 500 MLS/HR ECG Indication: chest pain Rate (beats per minute): 89 Rhythm: sinus rhythm Findings: no ectopy, other (significant motion artifact limiting interpretation ) Change: Patient's electrocardiogram per my interpretation. ED Course 1935: The patient was evaluated in room B8. A complete history and physical exam was performed. 1944: Multivitamins 10 ml/Thiamine HCl 100 mg/Folic Acid 1 mg/Sodium Chloride 1011.2 ml @ 500 mls/hr IV. 2055: Upon reevaluation, the patient is doing well. I discussed tonight's findings with him. He verbalized agreement of the treatment plan. He was discharged home. Medical Decision This is a 47-year-old male who presents with flulike symptoms. Differential diagnosis includes influenza, alcohol intoxication, dehydration, metabolic derangement, pneumonia, bronchitis. I did perform a limited focused review of portions of the patient's old chart on the electronic medical record. The patient has been here 3 times this month for alcohol intoxication. I did evaluate the patient as noted above. IV access was established. The patient was placed on a continuous cardiac sonographer. I did treat the patient with a banana bag IV. I did order and personally review the patient's 12-lead EKG and chest x-ray as described above. I did order and review the patient's blood work as noted in the electronic medical record. Serum alcohol is 235. Rapid flu is negative. I did discuss the test results with the patient and his caregiver. He was discharged home and will follow with his doctor. Medication Reconcilliation Current Medication List: was personally reviewed by me Blood Pressure Screening Patient's blood pressure: Low blood pressure Impression Primary Impression: Influenza-like symptoms Additional Impression: Alcohol intoxication Scribe Attestation The scribe's documentation has been prepared under my direct and personally reviewed by me in its entirety. I confirm that the note above accurately reflects all work, treatment, procedures, and medical decision making performed by me. Departure Information Dispostion Home / Self-Care Referrals [facility] HOME CARE DOCUMENTATION FORM, IMPORTANT VISIT INFORMATION Patient Instructions ED Alcohol Intoxication, My [facility] Additional Instructions You have been examined and treated today on an emergency basis only. This is not a substitute for, or an effort to provide, complete comprehensive medical care. It is impossible to recognize and treat all injuries or illnesses in a single emergency department visit. It is therefore important that you follow up closely with your physician. Call as soon as possible for an appointment. Return for worsening symptoms or if you develop fever over 101, difficulty breathing or any other concerning symptoms. Problem Qualifiers Additional Impression: Alcohol intoxication Complication of substance-induced condition: uncomplicated Qualified Codes: F10.920 - Alcohol use, unspecified with intoxication, uncomplicated
== END 2017-09-13 22:38 | disposition home or self-care (01) ==
LOC: EDBD 19:30 → C.EDB 19:31
DX: R05 Cough (principal); F10.920 Alcohol use, unspecified with intoxication, uncomplicated; Y90.7 Blood alcohol level of 200-239 mg/100 ml; G80.9 Cerebral palsy, unspecified; Z82.49 Family history of ischemic heart disease and other diseases of the circulatory system

== ENCOUNTER 2017-09-27 00:47 | Emergency (ER) | payer OTHER ==
[~2017-09-27] VITALS: Ht 152.4 cm; Wt 48.0 kg
[2017-09-27 00:56] VITALS: TEMP 36.7; Ht 152.4 cm; Wt 48.0 kg
[2017-09-27 01:38] VITALS: O2SAT 92
[2017-09-27 02:01] LABS: CALCIUM 7.6 mg/dl (8.5-10.1); CREATININE 0.79 mg/dl (0.60-1.40); POTASSIUM 3.7 mmol/L (3.5-5.1)
--- NOTE | 2017-09-27 06:32 | EMERGENCY ROOM VISIT NOTE ---
History First contact with patient: 01:08 Chief Complaint: ALCOHOL OVERDOSE Stated Complaint: ALCOHOL OVERDOSE Nursing Triage Summary: PT was at apt with caregiver, PT was drinking. Neighbors called about noise complaint, when PD arrived PT was noted to be intoxicated,PT requested being sent to ED for evaluation. PT has been here multiple times to ETOH overdose. PT upon arrival has no vomiting, PT is AAO X 3, HX of CP. PT is wheelchair bound. History of Present Illness The patient is a 47 year old male who presents to the Emergency Room via EMS for evaluation of possible alcohol overdose. The patient was at his apartment with his caregiver and admits to drinking beer. The patient's neighbors called police about a noise complaint. Upon arrival the patient appeared to be intoxicated and was sent here for evaluation. The patient drinks frequently. He denies any complaints at this time. Review of Systems A complete 10 point review of systems was reviewed with the patient with pertinent positives and negatives as per history of present illness. All else were negative. Past Medical/Surgical History Medical Problems: (1) Cerebral palsy (2) Failure to thrive Family History FH: heart attack Social History Smoking Status: Never Smoker Alcohol Use: heavy Drug Use: none Marital Status: single Housing Status: lives alone Occupation Status: disabled Current/Historical Medications Scheduled Baclofen (Lioresal), 7.5 MG PO TID Cyanocobalamin (Vitamin B-12), 1,000 MCG PO QAM Docusate Sodium (Docusate Sodium), 100 MG PO BID Escitalopram (Lexapro), 10 MG PO QAM Ranitidine (Zantac), 150 MG PO BID Thiamine Hcl (Vitamin B-1), 100 MG PO DAILY Scheduled PRN Diazepam (Valium), 5 MG PO BID PRN for Muscle Spasm Lorazepam (Ativan), 1 MG PO Q6-8H PRN for Tremors and Cerebral Palsy Physical Exam Vital Signs Date Time Temp Pulse Resp B/P (MAP) Pulse Ox O2 Delivery O2 Flow Rate FiO2 09/27/17 09:01 111 20 119/67 97 09/27/17 07:23 112 20 122/77 96 Room Air 09/27/17 06:00 103 20 132/88 95 Room Air 09/27/17 05:10 87 17 93 09/27/17 05:00 116/74 09/27/17 04:51 100 09/27/17 04:30 108/68 09/27/17 04:10 91 18 09/27/17 04:00 113/64 09/27/17 03:30 109/66 09/27/17 03:10 105 18 93 09/27/17 03:00 93 20 116/78 93 Room Air 09/27/17 01:38 92 Room Air 09/27/17 01:05 95 Room Air 09/27/17 01:00 101 09/27/17 00:56 36.7 109 18 121/111 94 Room Air Physical Exam VITALS: Vitals are noted on the nurse's note and reviewed by myself. Vital signs stable. GENERAL: This is a 47-year-old male, in no acute distress. HEAD: Normocephalic atraumatic. EARS: External auditory canals clear, tympanic membranes pearly barone without erythema or effusion bilaterally. EYES: Pupils equal round and reactive to light and accommodation. Extraocular movements intact. MOUTH: Mucous membranes moist. NECK: Supple without nuchal rigidity. Cervical spine is nontender. HEART: Regular rate and rhythm without murmurs gallops or rubs. LUNGS: Clear to auscultation bilaterally without wheezes, rales or rhonchi. MUSCULOSKELETAL: Multiple muscular contractures. NEURO: Patient was alert and oriented to person place and time. Medical Decision & Procedures Laboratory Results 09/27/17 01:34 Test 09/27/17 01:34 Anion Gap 6.0 mmol/L (3-11) Est Creatinine Clear Calc Drug Dose 76.8 ml/min Estimated GFR () 122.2 Estimated GFR (Non- 105.4 BUN/Creatinine Ratio 7.3 (10-20) Calcium Level 7.6 mg/dl (8.5-10.1) Ethyl Alcohol mg/dL 203.0 mg/dl (0-3) Medical Decision Differential diagnosis includes alcohol intoxication, drug use, infection, hypoglycemia, head trauma, among others. The patient is a 47-year-old male with PMHx of cerebral palsy who presents today for evaluation of probable alcohol intoxication. Labs revealed an alcohol of 203. Kidney function was found to be within normal limits. Labs were otherwise unremarkable. There is no evidence of head trauma or infection on exam. The patient was placed on the relays draftsperson and placed in the prone position. 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 The patient was advised not to drink anymore alcohol today and to follow-up with [facility] services for any further concerns. Medication Reconcilliation Current Medication List: was personally reviewed by me Blood Pressure Screening Patient's blood pressure: Normal blood pressure Impression Primary Impression: Alcohol intoxication Departure Information Dispostion Home / Self-Care Condition GOOD Referrals [facility] (PCP) Patient Instructions My [facility] Additional Instructions You were evaluated in emergency department for intoxication. This is a sign of Alcohol Abuse and should not be taken lightly. You had a blood alcohol level that was significantly elevated. Over the next 24 hours keep well hydrated and eat light meals. Don't drink any more alcohol. This is important. Please discuss this visit with your Primary Care Provider, [facility] and/or your loved ones. Unless an exceptional circumstance, the Hospital DOES NOT contact anyone during your visit, nor is your Protected Medical Information released to anyone without your approval/request. This means we do not contact your Parents, the Police, [facility], etc. However, you will likely receive a bill from the Hospital and/or your Insurance company, which will usually be sent to the Primary Policy [place] (often one's Parents) If your incident was on campus, or if the Police were involved, they will often contact the University to make them aware of what happened. Often this will result in you being required to take Alcohol Education classes (ie BASICS class) . Please see information given to you at discharge regarding contact for this. If the Police were involved you will likely be cited for public intoxication. Please contact either [facility] Police or the [place] Police for further information. Call 911 or return to Emergency Department if you develop: Passing out, difficulty breathing, many episodes of vomiting, blood in vomit or stool, abdominal pain, fevers, or other severe symptoms. We are always here to help if you feel you need further evaluation or treatment.
[2017-09-27 09:01] VITALS: BP 119/67; PULSE 111; O2SAT 97
== END 2017-09-27 09:02 | disposition home or self-care (01) ==
LOC: EDBD 00:47 → C.EDB 00:49
DX: F10.99 Alcohol use, unspecified with unspecified alcohol-induced disorder (principal); Y90.7 Blood alcohol level of 200-239 mg/100 ml; G80.9 Cerebral palsy, unspecified; Z82.49 Family history of ischemic heart disease and other diseases of the circulatory system

== ENCOUNTER 2017-09-28 08:45 | Inpatient (IN) | payer OTHER ==
[~2017-09-28] VITALS: Ht 152.4 cm; Wt 49.4 kg
[~2017-09-28 08:45] MED LIST changes: +RANI150T85 PO; -ZNTT/150 PO
[2017-09-28] MEDS ORDERED: SODIUM CHLORIDE 0.9% 1000ML 1,000 ML IV STA (08:55)
[2017-09-28] MEDS ORDERED: LORAZEPAM 2 MG/ML 1 ML VIAL ONE ×2 (08:55→16:22)
[2017-09-28] MEDS ORDERED: LORAZEPAM 2 MG/ML 1 ML VIAL IV STA ×3 (08:55→12:02)
[2017-09-28] MEDS ORDERED: MULTI-VITAMIN INFUSION INJ 10 ML, THIAMINE HCL INJ 100 MG, FoLIC ACID INJ 1 MG in SODIU... IV ONE (09:00)
--- NOTE | 2017-09-28 09:12 | EMERGENCY ROOM VISIT NOTE ---
History Report prepared by Maninder: Galilea Naranjo Under the Supervision of: Dr. Fela Laurent M.D. First contact with patient: 08:53 Stated Complaint: ETOH History of Present Illness The patient is a 47 year old male who presents to the Emergency Room with complaints of persistent trauma after being found on the laying face down on the ground yelling for help by police officers prior to arrival. The patient not very responsive but denied anyone hurting him. He was seen in the Emergency Department one day ago for alcohol use, nursing noting he had spastic movements c/w dx of CP, but did not have any of the bruises or abrasions that he presents with today. EMS concluded that the patient was most likely on the ground for about 5 hours. HPI is limited due to patient being minimally verbal and anxious. Source of History: patient History Limited By: other (unresponsive) Onset: prior to arrival Position: other (global) Quality: other (trauma) Timing: other (persistent) Review of Systems See HPI for pertinent positives & negatives. A total of 10 systems reviewed and were otherwise negative. Past Medical & Surgical Medical Problems: (1) Cerebral palsy (2) Failure to thrive Family History FH: heart attack Social History Smoking Status: Never Smoker Alcohol Use: heavy Drug Use: none Marital Status: single Housing Status: lives alone Occupation Status: disabled Current/Historical Medications Scheduled Baclofen (Lioresal), 7.5 MG PO TID Cyanocobalamin (Vitamin B-12), 1,000 MCG PO QAM Docusate Sodium (Docusate Sodium), 100 MG PO BID Escitalopram (Lexapro), 10 MG PO QAM Ranitidine (Zantac), 150 MG PO BID Thiamine Hcl (Vitamin B-1), 100 MG PO DAILY Scheduled PRN Diazepam (Valium), 5 MG PO BID PRN for Muscle Spasm Lorazepam (Ativan), 1 MG PO Q6-8H PRN for Tremors and Cerebral Palsy Allergies Coded Allergies: No Known Allergies (Unverified , 08/02/17) Physical Exam Vital Signs Date Time Temp Pulse Resp B/P (MAP) Pulse Ox O2 Delivery O2 Flow Rate FiO2 09/28/17 14:16 95 09/28/17 14:00 108 20 123/73 98 09/28/17 13:30 110 22 127/89 93 09/28/17 13:20 114 22 143/92 96 Room Air 09/28/17 13:19 143/92 09/28/17 11:28 113 20 123/82 96 Room Air 09/28/17 11:01 37.6 112 18 129/92 96 Room Air 09/28/17 09:19 125/75 09/28/17 09:00 38.9 140 20 148/125 95 Room Air 09/28/17 08:57 144 Physical Exam Vital signs reviewed. Tachycardic General: Chronically ill appearing male, in some discomfort, anxious. Noted to be febrile and hypertensive. HEENT: Abrasions across top of left forehead. No scleral icterus, PERRLA, neck supple. Atraumatic. Dry mucous membranes Cardiovascular: Regular rate and rhythm, no extra sounds. Pulmonary: Tachycardic. Clear to auscultation bilaterally, normal work of breathing. Abdomen: Abrasions across abdomen. Soft, nontender, nondistended, positive bowel sounds. Musculoskeletal: Significant superficial trauma without evidence of deformity or specific swelling, no peripheral edema. Patient has chronic contractures of the upper and lower extremities Extremities: Multiple contractions of upper and lower extremities with spastic movements. Neurologic: Patient awake alert and minimally verbal, contractures to the upper and lower extremities with rhythmic muscular contractions consistent with CP. Patient is able to nod yes or no to questions seemingly reliably. Skin: Bilateral periorbital ecchymosis. Abrasions and lacerations across upper and lower extremities. Medical Decision & Procedures ER Provider Diagnostic Interpretation: Radiology results as stated below per my review and radiologist interpretation: ABD/PELVIS IV CONTRAST ONLY CLINICAL HISTORY: 47 years-old Male presenting with trauma, found down, EtOH, history of cerebral palsy. TECHNIQUE: Multidetector CT of the abdomen and pelvis was performed after the administration of intravenous contrast. IV contrast: 94 mL of Optiray 320. A dose lowering technique was used consistent with the principles of ALARA (as low as reasonably achievable). COMPARISON: 06/12/2017. CT DOSE (mGy.cm): The estimated cumulative dose is 3494.31 inclusive of multiple additional CT scans. FINDINGS: Mustanger topogram: Cachexia. Lung bases: Minimal basilar opacities, likely atelectasis. Normal heart size. No pericardial or pleural effusion. Liver: Normal morphology. Density consistent with hepatic steatosis. No focal lesion. Patent hepatic vasculature. Biliary: No intrahepatic or extrahepatic biliary ductal dilatation. Normal gallbladder. Pancreas: Normal. Spleen: Normal. Adrenal glands: Normal. Kidneys and ureters: Normal renal parenchyma. Excretion of contrast from the bilateral kidneys. This limits evaluation for nephrolithiasis. No hydronephrosis. The distal ureters are poorly visualized secondary to motion artifact. Bladder: Decompressed with a Hernandez catheter.. Pelvic organs: Prostate enlargement likely secondary to benign prostatic hyperplasia. Bowel: Moderate stool burden in the rectum. Degraded evaluation of the bowel secondary to motion artifact. No bowel obstruction. Large hiatal hernia. Peritoneal cavity: No free fluid or intraperitoneal gas. Lymph nodes: No enlarged lymph nodes in the abdomen or pelvis. Vasculature: Aorta and IVC patent and normal in caliber. Abdominal wall: Possibly of abdominal wall fat suggesting cachexia. Musculoskeletal: No gross abnormality allowing for extensive motion related artifact. IMPRESSION: 1. No acute intra-abdominal injury allowing for motion artifact and rotation of image quality, which limits diagnostic since activity of the exam. 2. Hepatic steatosis. 3. Cachexia. Electronically signed by: Huy Hanna M.D. 09/28/2017 10:39 AM Dictated Date/Time: 09/28/2017 10:33 AM CERVICAL SPINE W/O CLINICAL HISTORY: 47 years-old Male presenting with trauma, found down. TECHNIQUE: Multidetector CT of the cervical spine was performed without the use of intravenous contrast. IV contrast: None. A dose lowering technique was used consistent with the principles of ALARA (as low as reasonably achievable). COMPARISON: 07/16/2017. CT DOSE (mGy.cm): The estimated cumulative dose is 3494.31 mGy.cm. FINDINGS: Mustanger topogram: Unremarkable. Normal cervical lordosis. Vertebral bodies demonstrate mild height loss at C2-C5 likely secondary to degenerative change. Intervertebral disc height loss noted at nearly every level with disc osteophyte complexes. Osteophytosis and endplate changes also evident as on prior exam. No acute fracture or subluxation. Only minimal posterior bony spurring noted. No significant osseous spinal canal narrowing. Positional related rotatory subluxation of C1 on C2. Osseous neural foraminal narrowing noted at C3-4 and C4-5. Skull base intact. IMPRESSION: 1. No acute osseous injury. 2. Multilevel degenerative changes as on prior exam. (CHEST) THORAX WITH CLINICAL HISTORY: 47 years-old Male presenting with trauma, found down by police, EtOH, history of cerebral palsy. TECHNIQUE: Multidetector CT imaging of the chest was performed without the use of intravenous contrast. IV contrast: 94 mL of Optiray 320. A dose lowering technique was used consistent with the principles of ALARA (as low as reasonably achievable). COMPARISON: Chest x-ray performed earlier the same day. CT DOSE (mGy.cm): The estimated cumulative dose is 3494.31 inclusive of multiple additional CT scans. FINDINGS: Mustanger topogram: Cachexia. Motion artifact grades image quality limiting diagnostic sensitivity the exam. On soft tissue windows, bilateral gynecomastia. Normal thyroid. No axillary, supraclavicular, hilar, or mediastinal lymphadenopathy. Normal aorta. Normal heart size. No pericardial or pleural effusion. Large hiatal hernia. Hepatic steatosis. On lung windows, minimal dependent changes likely atelectasis. No other focal nodule or infiltrate. Airways patent. On bone windows, normal osseous structures. IMPRESSION: 1. No acute intrathoracic injury. 2. Minimal atelectasis. 3. Hepatic steatosis. 4. Large hilar hernia. Electronically signed by: Huy Hanna M.D. 09/28/2017 10:51 AM Dictated Date/Time: 09/28/2017 10:47 AM. CHEST ONE VIEW PORTABLE CLINICAL HISTORY: 47 years-old Male presenting with trauma. TECHNIQUE: Portable supine AP view of the chest was obtained. COMPARISON: 09/13/2017. FINDINGS: Cardiomediastinal silhouette normal. Pulmonary vascular prominence likely related to supine positioning. Lungs and pleural spaces clear. Osseous structures normal. Hiatal hernia present. IMPRESSION: 1. No acute cardiopulmonary disease. Electronically signed by: Huy Hanna M.D. 09/28/2017 9:45 AM Dictated Date/Time: 09/28/2017 9:43 AM HEAD WITHOUT CONTRAST (CT) CLINICAL HISTORY: 47 years-old Male presenting with trauma, found down, EtOH. TECHNIQUE: Multidetector CT imaging of the head was performed without the use of intravenous contrast. IV contrast: None. A dose lowering technique was used consistent with the principles of ALARA (as low as reasonably achievable). COMPARISON: 07/16/2017. CT DOSE (mGy.cm): The estimated cumulative dose is 3494.31 inclusive of multiple additional CT scans. FINDINGS: Mustanger topogram: Unremarkable. Ventricles and sulci normal in size. Subtle hypodensity in the anterior left thalamus and posterior limb of the left internal capsule as well as the left subinsular region (series 2 image 18). No mass effect or midline shift. No hemorrhage or acute territorial infarct. No extra-axial fluid collection. Paranasal sinuses and mastoid air cells clear. Calvarium intact. IMPRESSION: 1. Subtle hypodensity suggested in the left thalamus and left subinsular region. These raise concern for focal infarcts. Further evaluation with noncontrast MR brain recommended. No hemorrhage or evidence of contusion. The report will be called/faxed according to standard departmental protocol. Electronically signed by: Huy Hanna M.D. 09/28/2017 10:27 AM Dictated Date/Time: 09/28/2017 10:23 AM Laboratory Results Test 09/28/17 00:00 09/28/17 08:30 09/28/17 09:02 09/28/17 09:05 Urine Color DK YELLOW Urine Appearance CLOUDY (CLEAR) Urine pH 5.5 (4.5-7.5) Urine Specific [place] 1.024 (1.000-1.030) Urine Protein 2+ (NEG) Urine Glucose (UA) NEG (NEG) Urine Ketones TRACE (NEG) Urine Occult Blood 3+ (NEG) Urine Nitrite POS (NEG) Urine Bilirubin NEG (NEG) Urine Urobilinogen NEG (NEG) Urine Leukocyte Esterase NEG (NEG) Urine WBC (Auto) 5-10 /hpf (0-5) Urine RBC (Auto) 0-4 /hpf (0-4) Urine Hyaline Casts (Auto) 5-10 /lpf (0-5) Urine Epithelial Cells (Auto) 20-30 /lpf (0-5) Urine Bacteria (Auto) 2+ (NEG) Urine Opiates Screen NEG (NEG) Urine Methadone, Qualitative NEG (NEG) Urine Barbiturates NEG (NEG) Urine Phencyclidine (PCP) Level NEG (NEG) Ur Amphetamine/Methamphetamine NEG (NEG) MDMA (Ecstasy) Screen NEG (NEG) Urine Benzodiazepines Screen NEG (NEG) Urine Cocaine Metabolite NEG (NEG) Urine Marijuana (THC) POS (NEG) Salicylates Level < 1.7 mg/dl (2.8-20) Acetaminophen Level < 2 ug/ml (10-30) Immature Granulocyte % (Auto) 0.4 % White Blood Count 19.25 K/uL (4.8-10.8) Red Blood Count 5.34 M/uL (4.7-6.1) Hemoglobin 15.1 g/dL (14.0-18.0) Hematocrit 45.5 % (42-52) Mean Corpuscular Volume 85.2 fL (80-100) Mean Corpuscular Hemoglobin 28.3 pg (25-34) Mean Corpuscular Hemoglobin Concent 33.2 g/dl (32-36) Platelet Count 172 K/uL (130-400) Mean Platelet Volume 9.7 fL (7.4-10.4) Neutrophils (%) (Auto) 85.7 % Lymphocytes (%) (Auto) 3.7 % Monocytes (%) (Auto) 10.1 % Eosinophils (%) (Auto) 0.0 % Basophils (%) (Auto) 0.1 % Neutrophils # (Auto) 16.50 K/uL (1.4-6.5) Lymphocytes # (Auto) 0.71 K/uL (1.2-3.4) Monocytes # (Auto) 1.95 K/uL (0.11-0.59) Eosinophils # (Auto) 0.00 K/uL (0-0.5) Basophils # (Auto) 0.01 K/uL (0-0.2) Immature Granulocyte # (Auto) 0.08 K/uL (0.00-0.02) Total Bilirubin 0.9 mg/dl (0.2-1) Direct Bilirubin 0.2 mg/dl (0-0.2) Aspartate Amino Transf (AST/SGOT) 243 U/L (15-37) Alanine Aminotransferase (ALT/SGPT) 94 U/L (12-78) Alkaline Phosphatase 92 U/L (45-117) Creatine Kinase MB 42.9 ng/ml (0.5-3.6) Creatine Kinase MB Ratio 1.0 (0-3.0) Total Protein 7.2 gm/dl (6.4-8.2) Albumin 3.4 gm/dl (3.4-5.0) Bedside Lactic Acid Venous 5.67 mmol/L (0.90-1.70) Test 09/28/17 09:09 09/28/17 09:13 09/28/17 09:22 Bedside Hemoglobin 15.0 g/dl (14.0-18.0) Bedside Hematocrit 44 % (42-52) Bedside Sodium 147 mEq/L (135-144) Bedside Potassium 4.4 mEq/L (3.3-5.0) Bedside Chloride 106 mEq/L (101-112) Bedside Total CO2 28 mEq/l (24-31) Bedside Blood Urea Nitrogen 16 mg/dl (7-18) Bedside Creatinine 0.9 mg/dl (0.6-1.3) Bedside Glucose (other) 128 mg/dl (70-99) Bedside Ionized Calcium (Carmen) 1.06 mmol/l (1.12-1.32) Bedside Troponin I 0.050 ng/ml (0-0.045) Ethyl Alcohol mg/dL < 3.0 mg/dl (0-3) Laboratory results per my review. Medications Administered Medications (Trade) Dose Ordered Sig/Ina Route Start Time Stop Time Status Last Admin Dose Admin Multivitamins 10 ml/Thiamine HCl 100 mg/Folic Acid 1 mg/Sodium Chloride 1,011.2 ml @ 300 mls/ hr Q3H23M ONCE IV 09/28/17 09:00 09/28/17 12:22 DC 09/28/17 09:21 300 MLS/HR Sodium Chloride 1,000 ml @ 999 mls/hr Q1H1M STAT IV 09/28/17 08:55 09/28/17 09:55 DC 09/28/17 09:21 999 MLS/HR Lorazepam (Ativan Inj) 2 mg NOW STAT IV 09/28/17 08:55 09/28/17 09:01 DC 09/28/17 09:21 2 MG Acetaminophen 650 mg/Empty Bag 65 ml @ 260 mls/hr NOW STAT IV 09/28/17 10:04 09/28/17 10:18 DC 09/28/17 11:19 260 MLS/HR Piperacillin Sod/ Tazobactam Sod (Zosyn Iv) 4.5 gm NOW STAT IV 09/28/17 10:04 09/28/17 10:07 DC 09/28/17 11:05 4.5 GM Vancomycin HCl 1300 mg/Sodium Chloride 276 ml @ 125 mls/hr NOW STAT IV 09/28/17 10:04 09/28/17 12:16 DC 09/28/17 11:19 125 MLS/HR Lorazepam (Ativan Inj) 1 mg NOW STAT IV 09/28/17 10:18 09/28/17 10:19 DC 09/28/17 11:05 1 MG Lorazepam (Ativan Inj) 1 mg NOW STAT IV 09/28/17 12:02 09/28/17 12:03 DC 09/28/17 12:13 1 MG ECG Indication: altered mental status Rate (beats per minute): 113 Rhythm: sinus tachycardia Findings: no acute ischemic change, no ectopy, other (QTC is 471) Change: Patients electrocardiogram as interpreted by me. ED Course 0854: Past medical records reviewed. The patient was evaluated in room B8. A complete history and physical examination was performed. 0855: Ordered Lorazepam 2mg IV and Sodium Chloride 1000ml @ 999 mls/hr IV. 0900: Ordered Multivitamins 10ml/Thiamine HCL 100mg/ Folic Acid 1mg/ Sodium Chloride 1011.2ml @ 300 mls/hr IV. 1004: Ordered Vancomycin HCL 1300 mg/Sodium Chloride 276ml @ 125 mls/hr IV, Zosyn IV 4.5gm IV, and Acetaminophen 650mg/Empty Bag 65ml @ 260 mls/hr IV. 1018: Ordered Ativan Inj 1mg IV. 1157: The patient's temperature went down without Tylenol. 1202: Ordered Ativan Inj 1mg IV. 1312: I reviewed the patient's case with Dr. Melgar, Radiology. We discussed the patient's MRI results. 1315: Dr. Jagjit Al, [facility] was notified. He will evaluate the patient for further management. Medical Decision Differential diagnosis: Etiologies such as metabolic, infection, hypoglycemia, electrolyte abnormalities , cardiac sources, intracerebral event, toxicologic, neurologic, as well as others were entertained. This patient was evaluated and appeared to be critically ill. The events preceding his presentation are somewhat unclear. Patient does have a significant alcohol dependency per prior records. I suspect given the information from EMS and police on scene, the patient either fell out of his wheelchair or seized and fell out of his wheelchair. The guesstimation is that he was on the floor for approximately 5 hours. He is noted to be febrile, tachycardic with significant superficial trauma to the head trunk and extremities. I suspect he was on his abdomen attempting to move but with his significant physical disabilities this became a life-threatening situation. The patient's temperature did improve without any Tylenol administration. He was hydrated with a banana bag and normal saline solution, Hernandez catheter was placed. CT scan of the head is concerning for a thalamic infarct. There is no evidence of acute intracranial blood. Patient is found have a mildly elevated troponin, he is in rhabdomyolysis. He does have a white blood cell count of 19, 000. He was given multiple doses of IV Ativan for withdrawal symptoms, relaxation. An attempt at an MRI was made however fairly unsuccessful due to motion artifact. The patient was given IV antibiotics due to the fever and unknown circumstances with the elevated white blood cell count however I do feel that this is likely metabolic. He was medicated with IV Zosyn and vancomycin. The patient's case was referred to the hospitalist service for further evaluation and management. Medication Reconcilliation Current Medication List: was personally reviewed by me Blood Pressure Screening Patient's blood pressure: Normal blood pressure Blood pressure disposition: Did not require urgent referral Consults Time Called: 1315 Consulting Physician: Dr. Al Returned Call: 1315 Dr. Jagjit Al, [facility] was notified. He will evaluate the patient for further management. Additional Consults: Time Called: 1312 Consulted Physician: Dr. Melgar, Radiology Returned Call: 1312 Additional Comments: I reviewed the patient's case with Dr. Melgar, Radiology. We discussed the patient's MRI results. Impression Primary Impression: Alcohol withdrawal Additional Impressions: Fall from wheelchair Rhabdomyolysis Fever Multiple contusions Thalamic infarction Critical Care I have personally spent greater than 45 minutes of critical care time in the direct management of this patient. This includes bedside care, interpretation of diagnostic studies, and testing, discussion with consultants, patient, and family members, and other required patient management activities. This 45 minutes is in excess of all separately billable procedures. Scribe Attestation The scribe's documentation has been prepared under my direction and personally reviewed by me in its entirety. I confirm that the note above accurately reflects all work, treatment, procedures, and medical decision making performed by me. Departure Information Dispostion Being Evaluated By Hospitalist Referrals [facility] (PCP) Forms HOME CARE DOCUMENTATION FORM, IMPORTANT VISIT INFORMATION Problem Qualifiers
[2017-09-28 09:22] LABS: ISTAT CREATININE 0.9 mg/dl (0.6-1.3); ISTAT IONIZED CALCIUM 1.06 mmol/l (1.12-1.32); ISTAT POTASSIUM 4.4 mEq/L (3.3-5.0)
[2017-09-28 09:23] LABS: BASO % 0.1 %; BASO ABS # 0.01 K/uL (0-0.2); HEMATOCRIT 45.5 % (42-52); HEMOGLOBIN 15.1 g/dL (14.0-18.0); IG# 0.08 K/uL (0.00-0.02); LYMPH % 3.7 %; LYMPH ABS # 0.71 K/uL (1.2-3.4); MEAN CELL VOLUME 85.2 fL (80-100); MEAN CORPUSCULAR HEMOGLOBIN 28.3 pg (25-34); MEAN CORPUSCULAR HGB CONC 33.2 g/dl (32-36); MEAN PLATELET VOLUME 9.7 fL (7.4-10.4); MONO % 10.1 %; MONO ABS # 1.95 K/uL (0.11-0.59); NEUT % 85.7 %; PLATELET COUNT 172 K/uL (130-400); RED CELL DISTRIBUTION WIDTH CV 19.2 % (11.5-14.5); WHITE BLOOD COUNT 19.25 K/uL (4.8-10.8)
--- NOTE | 2017-09-28 09:46 | DIAGNOSTIC IMAGING REPORT ---
CHEST ONE VIEW PORTABLE CLINICAL HISTORY: 47 years-old Male presenting with trauma. TECHNIQUE: Portable supine AP view of the chest was obtained. COMPARISON: 09/13/2017. FINDINGS: Cardiomediastinal silhouette normal. Pulmonary vascular prominence likely related to supine positioning. Lungs and pleural spaces clear. Osseous structures normal. Hiatal hernia present. IMPRESSION: 1. No acute cardiopulmonary disease. Electronically signed by: Huy Hanna M.D. 09/28/2017 9:45 AM Dictated Date/Time: 09/28/2017 9:43 AM
[2017-09-28 09:47] LABS: ALBUMIN 3.4 gm/dl (3.4-5.0); ALT/SGPT 94 U/L (12-78); BLOOD UREA NITROGEN 16 mg/dl (7-18); CALCIUM 8.4 mg/dl (8.5-10.1); CARBON DIOXIDE 27 mmol/L (21-32); CREATININE 1.15 mg/dl (0.60-1.40); GLUCOSE 127 mg/dl (70-99); POTASSIUM 4.2 mmol/L (3.5-5.1); SODIUM 146 mmol/L (136-145)
[2017-09-28 10:02] LABS: ALKALINE PHOSPHATASE 92 U/L (45-117); AST/SGOT 243 U/L (15-37); CKMB 42.9 ng/ml (0.5-3.6); TOTAL PROTEIN 7.2 gm/dl (6.4-8.2)
[2017-09-28] MEDS ORDERED: ACETAMINOPHEN IV 650 MG in EMPTY BAG 0 ML IV STA (10:04)
[2017-09-28] MEDS ORDERED: PIPERACILLIN/TAZOBACTAM 4.5 GM/100ML D5W IV STA (10:04)
[2017-09-28] MEDS ORDERED: VANCOMYCIN INJ 1,300 MG in SODIUM CHLORIDE 0.9% 250ML 250 ML IV STA (10:04)
[2017-09-28] MEDS ORDERED: VANCOMYCIN CONSULT ACTIVE PRN (10:15)
--- NOTE | 2017-09-28 10:28 | DIAGNOSTIC IMAGING REPORT ---
HEAD WITHOUT CONTRAST (CT) CLINICAL HISTORY: 47 years-old Male presenting with trauma, found down, EtOH. TECHNIQUE: Multidetector CT imaging of the head was performed without the use of intravenous contrast. IV contrast: None. A dose lowering technique was used consistent with the principles of ALARA (as low as reasonably achievable). COMPARISON: 07/16/2017. CT DOSE (mGy.cm): The estimated cumulative dose is 3494.31 inclusive of multiple additional CT scans. 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 Ventricles and sulci normal in size. Subtle hypodensity in the anterior left thalamus and posterior limb of the left internal capsule as well as the left subinsular region (series 2 image 18). No mass effect or midline shift. No hemorrhage or acute territorial infarct. No extra-axial fluid collection. Paranasal sinuses and mastoid air cells clear. Calvarium intact. IMPRESSION: 1. Subtle hypodensity suggested in the left thalamus and left subinsular region. These raise concern for focal infarcts. Further evaluation with noncontrast MR brain recommended. No hemorrhage or evidence of contusion. The report will be called/faxed according to standard departmental protocol. Electronically signed by: Huy Hanna M.D. 09/28/2017 10:27 AM Dictated Date/Time: 09/28/2017 10:23 AM
--- NOTE | 2017-09-28 10:31 | DIAGNOSTIC IMAGING REPORT ---
CERVICAL SPINE W/O CLINICAL HISTORY: 47 years-old Male presenting with trauma, found down. TECHNIQUE: Multidetector CT of the cervical spine was performed without the use of intravenous contrast. IV contrast: None. A dose lowering technique was used consistent with the principles of ALARA (as low as reasonably achievable). COMPARISON: 07/16/2017. CT DOSE (mGy.cm): The estimated cumulative dose is 3494.31 mGy.cm. 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 Normal cervical lordosis. Vertebral bodies demonstrate mild height loss at C2-C5 likely secondary to degenerative change. Intervertebral disc height loss noted at nearly every level with disc osteophyte complexes. Osteophytosis and endplate changes also evident as on prior exam. No acute fracture or subluxation. Only minimal posterior bony spurring noted. No significant osseous spinal canal narrowing. Positional related rotatory subluxation of C1 on C2. Osseous neural foraminal narrowing noted at C3-4 and C4-5. Skull base intact. IMPRESSION: 1. No acute osseous injury. 2. Multilevel degenerative changes as on prior exam. Electronically signed by: Huy Hanna M.D. 09/28/2017 10:30 AM Dictated Date/Time: 09/28/2017 10:27 AM
--- NOTE | 2017-09-28 10:40 | DIAGNOSTIC IMAGING REPORT ---
ABD/PELVIS IV CONTRAST ONLY CLINICAL HISTORY: 47 years-old Male presenting with trauma, found down, EtOH, history of cerebral palsy. TECHNIQUE: Multidetector CT of the abdomen and pelvis was performed after the administration of intravenous contrast. IV contrast: 94 mL of Optiray 320. A dose lowering technique was used consistent with the principles of ALARA (as low as reasonably achievable). COMPARISON: 06/12/2017. CT DOSE (mGy.cm): The estimated cumulative dose is 3494.31 inclusive of multiple additional CT scans. FINDINGS: Pot Filler topogram: Cachexia. Lung bases: Minimal basilar opacities, likely atelectasis. Normal heart size. No pericardial or pleural effusion. Liver: Normal morphology. Density consistent with hepatic steatosis. No focal lesion. Patent hepatic vasculature. Biliary: No intrahepatic or extrahepatic biliary ductal dilatation. Normal gallbladder. Pancreas: Normal. Spleen: Normal. Adrenal glands: Normal. Kidneys and ureters: Normal renal parenchyma. Excretion of contrast from the bilateral kidneys. This limits evaluation for nephrolithiasis. No hydronephrosis. The distal ureters are poorly visualized secondary to motion artifact. Bladder: Decompressed with a Hernandez catheter.. Pelvic organs: Prostate enlargement likely secondary to benign prostatic hyperplasia. Bowel: Moderate stool burden in the rectum. Degraded evaluation of the bowel secondary to motion artifact. No bowel obstruction. Large hiatal hernia. Peritoneal cavity: No free fluid or intraperitoneal gas. Lymph nodes: No enlarged lymph nodes in the abdomen or pelvis. Vasculature: Aorta and IVC patent and normal in caliber. Abdominal wall: Possibly of abdominal wall fat suggesting cachexia. Musculoskeletal: No gross abnormality allowing for extensive motion related artifact. IMPRESSION: 1. No acute intra-abdominal injury allowing for motion artifact and rotation of image quality, which limits diagnostic since activity of the exam. 2. Hepatic steatosis. 3. Cachexia. Electronically signed by: Huy Hanna M.D. 09/28/2017 10:39 AM Dictated Date/Time: 09/28/2017 10:33 AM
--- NOTE | 2017-09-28 10:52 | DIAGNOSTIC IMAGING REPORT ---
(CHEST) THORAX WITH CLINICAL HISTORY: 47 years-old Male presenting with trauma, found down by police, EtOH, history of cerebral palsy. TECHNIQUE: Multidetector CT imaging of the chest was performed without the use of intravenous contrast. IV contrast: 94 mL of Optiray 320. A dose lowering technique was used consistent with the principles of ALARA (as low as reasonably achievable). COMPARISON: Chest x-ray performed earlier the same day. CT DOSE (mGy.cm): The estimated cumulative dose is 3494.31 inclusive of multiple additional CT scans. 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 Motion artifact grades image quality limiting diagnostic sensitivity the exam. On soft tissue windows, bilateral gynecomastia. Normal thyroid. No axillary, supraclavicular, hilar, or mediastinal lymphadenopathy. Normal aorta. Normal heart size. No pericardial or pleural effusion. Large hiatal hernia. Hepatic steatosis. On lung windows, minimal dependent changes likely atelectasis. No other focal nodule or infiltrate. Airways patent. On bone windows, normal osseous structures. IMPRESSION: 1. No acute intrathoracic injury. 2. Minimal atelectasis. 3. Hepatic steatosis. 4. Large hilar hernia. Electronically signed by: Huy Hanna M.D. 09/28/2017 10:51 AM Dictated Date/Time: 09/28/2017 10:47 AM
--- NOTE | 2017-09-28 13:38 | DIAGNOSTIC IMAGING REPORT ---
BRAIN WITHOUT CONTRAST CLINICAL HISTORY: 47 years-old Male presenting with L thalamic bleed. TECHNIQUE: Multisequence, multiplanar MR imaging of the brain was performed without the use of intravenous contrast. IV contrast: None. COMPARISON: CT head performed earlier the same day. FINDINGS: Examination limited by motion artifact. This negatively affects diagnostic sensitivity the exam. Ventricles and sulci normal in size. Brain parenchyma grossly normal. No mass effect or midline shift. No restricted diffusion to suggest acute ischemia. No gross evidence of hemorrhage. No extra-axial fluid collection. Bone marrow signal intensity within the calvarium within normal limits. IMPRESSION: 1. No acute ischemia or gross evidence of acute intracranial pathology. The abnormality seen on CT may be artifactual or represent developing lacunar infarcts. No hemorrhage evident on CT or MR. Electronically signed by: Huy Hanna M.D. 09/28/2017 1:36 PM Dictated Date/Time: 09/28/2017 1:32 PM
[2017-09-28] MEDS ORDERED: POLYETHYLENE (MIRALAX) 17 GM PACK PO PRN (14:30)
[2017-09-28] MEDS ORDERED: ONDANSETRON INJ 2 MG/ML 2 ML VIAL IV PRN (14:30)
[2017-09-28] MEDS ORDERED: ALUMINUM/MAGNESIUM/SIMETH (MAALOX MAX) 30 ML UDC PO PRN (14:30)
[2017-09-28] MEDS ORDERED: SODIUM CHLORIDE 0.9% 1000ML 1,000 ML IV SCH (14:30)
[2017-09-28] MEDS ORDERED: MAGNESIUM HYDROXIDE SUSP 30 ML UDC PO PRN (14:30)
[2017-09-28] MEDS ORDERED: ACETAMINOPHEN 325 MG TAB PO PRN (14:30)
[2017-09-28] MEDS ORDERED: DIAZEPAM 5MG TAB PO PRN (14:30)
[2017-09-28] MEDS: DIAZEPAM 5MG TAB PO SCH ×2 (14:45→20:54)
--- NOTE | 2017-09-28 14:52 | History and Physical ---
History & Physical Date & Time of Service: Sep 28, 2017 at 14:45 Chief Complaint: ETOH Primary Care Physician: Services,[facility] History of Present Illness Source: patient 47 y/o M Hx severe cerebral palsy, cachexia and alcoholism. The pt has a administrator health care facility from 7a-11p daily. He mobilizes with a scooter normally. The pt apparently fell out of his scooter and remained on the floor of his apt for several hours yelling for help. He was eventually found face down on the floor by the police after someone - a good protestant no doubt - alerted them. It is estimated that he was on the floor for a total of 6-7 hours. The pt has difficulty vocalizing and is unable to meaningfully contribute to the HPI. He has multiple bruises and excoriations which may have resulted from contact with the floor. Initial labs are consistent with acute rhabdomyolysis. A complete skeletal survey did not support any acute fractures or significant trauma. A UA is (+). Past Medical/Surgical History 1) Cerebral palsy - care-dependent 2) Alcoholism Family History FH: heart attack Social History Long-standing history of ETOH abuse, MArijuana use. Does not smoke cigarettes. Pt is care-dependent but does not have a administrator health care facility from 11p-7a Smoking Status: Never Smoker Drug Use: none Marital Status: single Occupational Status: disabled Immunizations History of Influenza Vaccine: Unknown History of Tetanus Vaccine?: Unknown History of Pneumococcal: Unknown History of Hepatitis B Vaccine: Unknown Multi-Drug Resistant Organisms History of MDRO: No Allergies Coded Allergies: No Known Allergies (Unverified , 08/02/17) Home Medications Scheduled Baclofen (Lioresal), 7.5 MG PO TID Cyanocobalamin (Vitamin B-12), 1,000 MCG PO QAM Docusate Sodium (Docusate Sodium), 100 MG PO BID Escitalopram (Lexapro), 10 MG PO QAM Ranitidine (Zantac), 150 MG PO BID Thiamine Hcl (Vitamin B-1), 100 MG PO DAILY Scheduled PRN Diazepam (Valium), 5 MG PO BID PRN for Muscle Spasm Lorazepam (Ativan), 1 MG PO Q6-8H PRN for Tremors and Cerebral Palsy Review of Systems Cannot obtain ROS at present as pt is not verbalizing Physical Exam Vital Signs Date Time Temp Pulse Resp B/P (MAP) Pulse Ox O2 Delivery O2 Flow Rate FiO2 09/28/17 13:20 114 22 143/92 96 Room Air 09/28/17 11:28 113 20 123/82 96 Room Air 09/28/17 11:01 37.6 112 18 129/92 96 Room Air 09/28/17 09:19 125/75 09/28/17 09:00 38.9 140 20 148/125 95 Room Air 09/28/17 08:57 144 General Appearance: + thin, + pertinent finding (Very thin, disheveled young male - cotractures are present - he ppears slightly ) Head: normocephalic, + pertinent finding (periorbital bruising) Eyes: normal inspection ENT: + pertinent finding (dry mucosal membranes with no exudate) Neck: supple, no JVD Respiratory/Chest: chest non-tender, lungs clear, + pertinent finding (Poor resp effort - large air noises limit exam) Cardiovascular: regular rate, rhythm, no edema, no gallop Abdomen/GI: normal bowel sounds, non tender, soft Back: normal inspection Extremities/Musculoskelatal: + pertinent finding (Multiple excoriation, contractures in all extrems) Neurologic/Psych: + pertinent finding (Poor motor function at baseline - no unilateral or acute changes - he cannot verbalize wel but comprehends and can shake his head) Skin: + pertinent finding (there is periorbital bruising - erythema is present over the hip/legs and lower abdomen without overt cellulitis. He ) Diagnostics Laboratory Results Results Past 24 Hours Test 09/28/17 00:00 09/28/17 08:30 09/28/17 09:02 09/28/17 09:05 Range/Units Urine Color DK YELLOW Urine Appearance CLOUDY CLEAR Urine pH 5.5 4.5-7.5 Urine Specific [place] 1.024 1.000-1.030 Urine Protein 2+ NEG Urine Glucose (UA) NEG NEG Urine Ketones TRACE NEG Urine Occult Blood 3+ NEG Urine Nitrite POS NEG Urine Bilirubin NEG NEG Urine Urobilinogen NEG NEG Urine Leukocyte Esterase NEG NEG Urine WBC (Auto) 5-10 0-5 /hpf Urine RBC (Auto) 0-4 0-4 /hpf Urine Hyaline Casts (Auto) 5-10 0-5 /lpf Urine Epithelial Cells (Auto) 20-30 0-5 /lpf Urine Bacteria (Auto) 2+ NEG Urine Opiates Screen NEG NEG Urine Methadone, Qualitative NEG NEG Urine Barbiturates NEG NEG Urine Phencyclidine (PCP) Level NEG NEG Ur Amphetamine/Methamphetamine NEG NEG MDMA (Ecstasy) Screen NEG NEG Urine Benzodiazepines Screen NEG NEG Urine Cocaine Metabolite NEG NEG Urine Marijuana (THC) POS NEG Salicylates Level < 1.7 2.8-20 mg/dl Acetaminophen Level < 2 10-30 ug/ml White Blood Count 19.25 4.8-10.8 K/uL Red Blood Count 5.34 4.7-6.1 M/uL Hemoglobin 15.1 14.0-18.0 g/dL Hematocrit 45.5 42-52 % Mean Corpuscular Volume 85.2 80-100 fL Mean Corpuscular Hemoglobin 28.3 25-34 pg Mean Corpuscular Hemoglobin Concent 33.2 32-36 g/dl Platelet Count 172 130-400 K/uL Mean Platelet Volume 9.7 7.4-10.4 fL Neutrophils (%) (Auto) 85.7 % Lymphocytes (%) (Auto) 3.7 % Monocytes (%) (Auto) 10.1 % Eosinophils (%) (Auto) 0.0 % Basophils (%) (Auto) 0.1 % Neutrophils # (Auto) 16.50 1.4-6.5 K/uL Lymphocytes # (Auto) 0.71 1.2-3.4 K/uL Monocytes # (Auto) 1.95 0.11-0.59 K/uL Eosinophils # (Auto) 0.00 0-0.5 K/uL Basophils # (Auto) 0.01 0-0.2 K/uL RDW Standard Deviation 60.0 36.4-46.3 fL RDW Coefficient of Variation 19.2 11.5-14.5 % Immature Granulocyte % (Auto) 0.4 % Immature Granulocyte # (Auto) 0.08 0.00-0.02 K/uL Sodium Level 146 136-145 mmol/L Potassium Level 4.2 3.5-5.1 mmol/L Chloride Level 108 98-107 mmol/L Carbon Dioxide Level 27 21-32 mmol/L Anion Gap 11.0 3-11 mmol/L Blood Urea Nitrogen 16 7-18 mg/dl Creatinine 1.15 0.60-1.40 mg/dl Estimated GFR () 86.1 Estimated GFR (Non- 74.3 BUN/Creatinine Ratio 13.5 10-20 Random Glucose 127 70-99 mg/dl Calcium Level 8.4 8.5-10.1 mg/dl Magnesium Level 1.9 1.8-2.4 mg/dl Total Bilirubin 0.9 0.2-1 mg/dl Direct Bilirubin 0.2 0-0.2 mg/dl Aspartate Amino Transf (AST/SGOT) 243 15-37 U/L Alanine Aminotransferase (ALT/SGPT) 94 12-78 U/L Alkaline Phosphatase 92 45-117 U/L Total Creatine Kinase 4255 39-308 U/L Creatine Kinase MB 42.9 0.5-3.6 ng/ml Creatine Kinase MB Ratio 1.0 0-3.0 Total Protein 7.2 6.4-8.2 gm/dl Albumin 3.4 3.4-5.0 gm/dl Bedside Lactic Acid Venous 5.67 0.90-1.70 mmol/L Test 09/28/17 09:09 09/28/17 09:13 09/28/17 09:22 Range/Units Bedside Hemoglobin 15.0 14.0-18.0 g/dl Bedside Hematocrit 44 42-52 % Bedside Sodium 147 135-144 mEq/L Bedside Potassium 4.4 3.3-5.0 mEq/L Bedside Chloride 106 101-112 mEq/L Bedside Total CO2 28 24-31 mEq/l Anion Gap 18.0 16-25 mmol/L Bedside Blood Urea Nitrogen 16 7-18 mg/dl Bedside Creatinine 0.9 0.6-1.3 mg/dl Bedside Glucose (other) 128 70-99 mg/dl Bedside Ionized Calcium (Carmen) 1.06 1.12-1.32 mmol/l Bedside Troponin I 0.050 0-0.045 ng/ml Ethyl Alcohol mg/dL < 3.0 0-3 mg/dl Microbiology Results 09/28/17 Urine Culture, Received Pending Diagnostic Radiology CT chest/abd/pelvis negative for acute fractures or evidence of significant trauma. CT head was suspicious for lacunar infarcts - this was not confirmed on MRI Impression Assessment and Plan 47 y/o M Hx severe cerebral palsy, cachexia and alcoholism. The pt has a administrator health care facility from 7a-11p daily. He mobilizes with a scooter normally. The pt apparently fell out of his scooter and remained on the floor of his apt for several hours yelling for help. He was eventually found face down on the floor by the police after someone - a good protestant no doubt - alerted them. It is estimated that he was on the floor for a total of 6-7 hours. The pt has difficulty vocalizing and is unable to meaningfully contribute to the HPI. He has multiple bruises and excoriations which may have resulted from contact with the floor. Initial labs are consistent with acute rhabdomyolysis. A complete skeletal survey did not support any acute fractures or significant trauma. A UA is (+). 1) Rhabdomyolysis - Aggressive IVF, monitor CK and electrolytes. 2) ETOH - withdrawal is expected per previous records - placed on PRN Ativan and scheduled TID Valium which he normally takes BID PRN. Daily Thiamine and Folate provided. 3) UTI - placed on Ceftriaxone pending cultures. 4) CP - cachexia - this is a long-standing issue - would consider arranging for 24 hour care prior to DC. 5) Multiple wounds appear superficial - should be monitored considering his lack of mobility however. Full code - SCDs due to fall/trauma risk Total time for this admit including review of labs, meds, imaging - discussion with pt and ER attending - 40 min Level of Care Telemetry Resuscitation Status FULL RESUSCITATION VTE Prophylaxis VTE Risk Assessment Done? Y/N: Yes Risk Level: Moderate Given or contraindicated: SCD's
[2017-09-28] MEDS: HYDROmorphone INJ 0.5 MG/0.5 ML SYR IV PRN ×2 (17:21→22:38)
[2017-09-28 18:28] VITALS: BP 133/87; PULSE 105; TEMP 37.3; O2SAT 89
[2017-09-28] MEDS: D5W AND NSS 1,000 ML IV SCH (19:49)
[2017-09-28 20:00] VITALS: O2SAT 89
[2017-09-28] MEDS: BACLOFEN 10 MG TAB PO SCH (20:54)
[2017-09-28] MEDS: RANITIDINE HCL 150 MG TAB PO SCH (20:54)
[2017-09-28] MEDS: DOCUSATE SODIUM 100 MG CAP PO SCH (21:00)
[2017-09-28] MEDS: CEFTRIAXONE SOD INJ 1 GM in DEXTROSE 5% ADD-VANTAGE 50ML 50 ML IV SCH (21:51)
[2017-09-28 22:47] LABS: BLOOD UREA NITROGEN 14 mg/dl (7-18); CALCIUM 7.3 mg/dl (8.5-10.1); CARBON DIOXIDE 26 mmol/L (21-32); CREATININE 0.78 mg/dl (0.60-1.40); GLUCOSE 117 mg/dl (70-99); PHOSPHORUS 2.9 mg/dl (2.5-4.9); POTASSIUM 3.4 mmol/L (3.5-5.1); SODIUM 146 mmol/L (136-145)
[2017-09-28 23:03] VITALS: BP 119/77; PULSE 103; TEMP 37.1; O2SAT 94
[2017-09-29] VITALS (8 sets, daily range): BP systolic 107–125; BP diastolic 68–92; PULSE 81–102; TEMP 36.7–37.2; O2SAT 92–98; Ht 152.4 cm; Wt 49.4 kg
[2017-09-29] MEDS: LORAZEPAM 2 MG/ML 1 ML VIAL IV PRN ×3 (01:32→13:11)
[2017-09-29] MEDS: D5W AND NSS 1,000 ML IV SCH ×3 (01:49→11:25)
[2017-09-29 02:37] LABS: HEMATOCRIT 36.8 % (42-52); HEMOGLOBIN 11.7 g/dL (14.0-18.0); MEAN CELL VOLUME 86.2 fL (80-100); MEAN CORPUSCULAR HEMOGLOBIN 27.4 pg (25-34); MEAN CORPUSCULAR HGB CONC 31.8 g/dl (32-36); MEAN PLATELET VOLUME 9.6 fL (7.4-10.4); PLATELET COUNT 110 K/uL (130-400); RED CELL DISTRIBUTION WIDTH CV 19.6 % (11.5-14.5); RED CELL DISTRIBUTION WIDTH SD 61.7 fL (36.4-46.3); WHITE BLOOD COUNT 6.18 K/uL (4.8-10.8)
[2017-09-29 02:54] LABS: BLOOD UREA NITROGEN 12 mg/dl (7-18); CALCIUM 7.1 mg/dl (8.5-10.1); CARBON DIOXIDE 25 mmol/L (21-32); GLUCOSE 101 mg/dl (70-99); POTASSIUM 3.4 mmol/L (3.5-5.1); SODIUM 145 mmol/L (136-145)
[2017-09-29] MEDS: HYDROmorphone INJ 0.5 MG/0.5 ML SYR IV PRN ×2 (06:29→16:19)
[2017-09-29] MEDS: CYANOCOBALAMIN 500 MCG TAB (VIT B-12) PO SCH (09:00)
[2017-09-29] MEDS ORDERED: THIAMINE HCL 100 MG TAB PO SCH (09:00)
[2017-09-29] MEDS: RANITIDINE HCL 150 MG TAB PO SCH ×2 (09:00→21:07)
[2017-09-29] MEDS: DOCUSATE SODIUM 100 MG CAP PO SCH ×2 (09:00→21:07)
[2017-09-29] MEDS: DIAZEPAM 5MG TAB PO SCH ×3 (10:15→21:06)
[2017-09-29] MEDS: FoLIC ACID INJ 1 MG in SYRINGE 9.8 ML IV SCH (10:16)
[2017-09-29] MEDS: OXYCODONE/ACETAMINOPHEN 5-325 TAB PO PRN (10:16)
[2017-09-29] MEDS: THIAMINE HCL INJ 100 MG in SYRINGE 9 ML IV SCH (10:17)
[2017-09-29] MEDS: BACLOFEN 10 MG TAB PO SCH ×3 (10:18→21:06)
[2017-09-29] MEDS: ESCITALOPRAM OXALATE 10 MG TAB PO SCH (10:18)
--- NOTE | 2017-09-29 16:17 | Progress Note ---
Subjective Date of Service: Sep 29, 2017. Subjective Pt evaluation today including: conversation w/ patient, physical exam, lab review, review of inpatient medication list Pain: mild pain due to bruises, brush oscar PO Intake: sips Voiding: mejia catheter in place patient admitted with rhabdomyolysis history is poor because he cannot really communicate has cerebral palsy, in wheelchair, communicates through laptop that is not at the hospital has a social media manager spoke with the patient's contact, a friend, who is in [place] he said he could not bring in the laptop today asked the friend about patient's drinking, he said he did not know if he drinks every day on prior admission he was drinking 3 drinks a day patient can try to answer yes or no questions but answers are not always clear does not appear to be in pain keeps asking for something to drink nurse attempted to give him water earlier and he started choking so now we are waiting for speech evaluation Problem List Medical Problems: (1) Abdominal pain Status: Acute (2) Abdominal pain Status: Acute (3) Alcohol intoxication Status: Acute (4) Alcohol intoxication Status: Acute (5) Alcohol withdrawal Status: Acute (6) Alcoholic intoxication Status: Acute (7) Back pain Status: Acute (8) Contusion of head Status: Acute (9) Contusion of lower extremity Status: Acute (10) Fall from wheelchair Status: Acute (11) Fever Status: Acute (12) Laceration Status: Acute (13) Multiple contusions Status: Acute (14) Muscle spasm Status: Acute (15) Muscle strain Status: Acute (16) Nausea Status: Acute (17) Non-cardiac chest pain Status: Acute (18) Rhabdomyolysis Status: Acute (19) Thalamic infarction Status: Acute (20) Unable to function independently Status: Acute Review of Systems could not review in detail due to inability to speak Medications Current Inpatient Medications Medications (Trade) Dose Ordered Sig/Ina Route Start Time Stop Time Status Last Admin Dose Admin Baclofen (Lioresal Tab) 7.5 mg TID PO 09/28/17 21:00 10/28/17 20:59 09/29/17 10:18 7.5 MG Cyanocobalamin (Vitamin B-12 Tab) 1,000 mcg QAM PO 09/29/17 09:00 10/29/17 08:59 Docusate Sodium (coLACE CAP) 100 mg BID PO 09/28/17 21:00 10/28/17 20:59 Escitalopram Oxalate (Lexapro Tab) 10 mg QAM PO 09/29/17 09:00 10/29/17 08:59 09/29/17 10:18 10 MG Ranitidine HCl (zANTac TAB) 150 mg BID PO 09/28/17 21:00 10/28/17 20:59 09/28/17 20:54 150 MG Lorazepam (Ativan Inj) 1 mg Q4H PRN IV 09/28/17 14:30 10/28/17 14:29 09/29/17 13:11 1 MG Acetaminophen (Tylenol Tab) 650 mg Q4H PRN PO 09/28/17 14:30 10/28/17 14:29 Al Hydrox/Mg Hydrox/Simethicone (Maalox Max Susp) 15 ml Q4H PRN PO 09/28/17 14:30 10/28/17 14:29 Magnesium Hydroxide (Milk Of Magnesia Susp) 30 ml Q12H PRN PO 09/28/17 14:30 10/28/17 14:29 Ondansetron HCl (Zofran Inj) 4 mg Q6H PRN IV 09/28/17 14:30 10/28/17 14:29 Polyethylene (Miralax Powder Packet) 17 gm DAILY PRN PO 09/28/17 14:30 10/28/17 14:29 Diazepam (Valium Tab) 5 mg TID PO 09/28/17 14:45 10/28/17 14:29 09/29/17 10:15 5 MG Ceftriaxone Sodium 1 gm/ Dextrose 50 ml @ 100 mls/hr Q24H IV 09/28/17 22:00 10/08/17 21:59 09/28/17 21:51 100 MLS/HR Hydromorphone HCl (Dilaudid Inj) 0.5 mg Q6H PRN IV 09/28/17 16:45 10/12/17 16:44 09/29/17 06:29 0.5 MG Oxycodone/ Acetaminophen (Percocet 5-325mg Tab) 1 tab Q4H PRN PO 09/28/17 16:45 10/12/17 16:44 09/29/17 10:16 1 TAB Thiamine HCl 100 mg/Syringe 10 ml @ 2 mls/min QAM IV 09/29/17 09:00 10/29/17 08:59 09/29/17 10:17 2 MLS/MIN Folic Acid 1 mg/ Syringe 10 ml @ 5 mls/min QAM IV 09/29/17 09:00 10/29/17 08:59 09/29/17 10:16 5 MLS/MIN Sodium Chloride 1,000 ml @ 100 mls/hr Q10H IV 09/29/17 12:45 10/29/17 12:44 Objective Vital Signs Date Time Temp Pulse Resp B/P (MAP) Pulse Ox O2 Delivery O2 Flow Rate FiO2 09/29/17 15:33 36.8 81 20 116/68 (84) 93 Room Air 09/29/17 12:00 Room Air 2.0 Nasal Cannula 09/29/17 11:04 37.2 88 18 111/74 (86) 95 09/29/17 08:00 Room Air 2.0 Nasal Cannula 09/29/17 07:13 36.9 102 18 125/72 (89) 93 09/29/17 04:00 98 Nasal Cannula 2.0 09/29/17 03:50 36.8 95 19 107/92 (97) 98 Nasal Cannula 09/29/17 00:00 94 Room Air 09/28/17 23:03 37.1 103 18 119/77 (91) 94 Room Air 09/28/17 20:00 89 Nasal Cannula 1.0 09/28/17 18:28 37.3 105 22 133/87 (102) 89 Nasal Cannula 1.0 09/28/17 16:14 Room Air 09/28/17 16:13 114 135/96 94 Physical Exam General Appearance: no apparent distress, + thin Eyes: normal inspection, EOMI, sclerae normal Neck: supple, no adenopathy, no JVD, trachea midline Respiratory/Chest: chest non-tender, lungs clear, normal breath sounds, no respiratory distress, no accessory muscle use Cardiovascular: no edema, no gallop, no JVD, no murmur, + tachycardia Abdomen: normal bowel sounds, non tender, soft, no organomegaly Extremities: + pertinent finding (spastic extremities, contractures, uncontrolled violent movements, tremors at times) Neurologic/Psychiatric: alert, normal mood/affect Skin: normal color, warm/dry, no rash Laboratory Results Last 24 Hours Test 09/28/17 17:44 09/28/17 21:57 09/29/17 02:03 09/29/17 11:43 Total Creatine Kinase 5321 U/L 4363 U/L 3200 U/L Sodium Level 146 mmol/L 145 mmol/L Potassium Level 3.4 mmol/L 3.4 mmol/L Chloride Level 114 mmol/L 114 mmol/L Carbon Dioxide Level 26 mmol/L 25 mmol/L Anion Gap 7.0 mmol/L 6.0 mmol/L Blood Urea Nitrogen 14 mg/dl 12 mg/dl Creatinine 0.78 mg/dl 0.70 mg/dl Estimated GFR () 122.8 128.4 Estimated GFR (Non- 106.0 110.8 BUN/Creatinine Ratio 17.5 17.6 Random Glucose 117 mg/dl 101 mg/dl Calcium Level 7.3 mg/dl 7.1 mg/dl Phosphorus Level 2.9 mg/dl White Blood Count 6.18 K/uL Red Blood Count 4.27 M/uL Hemoglobin 11.7 g/dL Hematocrit 36.8 % Mean Corpuscular Volume 86.2 fL Mean Corpuscular Hemoglobin 27.4 pg Mean Corpuscular Hemoglobin Concent 31.8 g/dl RDW Standard Deviation 61.7 fL RDW Coefficient of Variation 19.6 % Platelet Count 110 K/uL Mean Platelet Volume 9.6 fL Magnesium Level 1.9 mg/dl Assessment and Plan 47 y/o M Hx severe cerebral palsy, cachexia and alcoholism. 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 He mobilizes with a scooter normally. The pt apparently fell out of his scooter and remained on the floor of his apt for several hours yelling for help. He was eventually found face down on the floor by the police after someone - a good anglican no doubt - alerted them. It is estimated that he was on the floor for a total of 6-7 hours. The pt has difficulty vocalizing and is unable to meaningfully contribute to the HPI. He has multiple bruises and excoriations which may have resulted from contact with the floor. Initial labs are consistent with acute rhabdomyolysis. A complete skeletal survey did not support any acute fractures or significant trauma. A UA is (+). - Rhabdomyolysis: CK trending down on fluids at 200cc/hr, will decrease fluids to 100cc/hr, follow Cr which is stable and CK in the morning mejia to monitor UO Dilaudid for pain from wounds - Possible EtOH withdrawal: continue Valium TID scheduled, Ativan PRN q4, has needed a few doses thiamine and folate - UTI: culture shows pinpoint growth, continue Rocephin for now, WBC resolved - Cerebral palsy: continue Baclofen unsure of home situation, reportedly has care takers 12 hours a day need to determine if he can be at home safely since he fell at home on was on the floor for several hours ask case management to contact his social media manager keep on tele
[2017-09-29] MEDS: SODIUM CHLORIDE 0.9% 1000ML 1,000 ML IV SCH (17:22)
[2017-09-29] MEDS: CEFTRIAXONE SOD INJ 1 GM in DEXTROSE 5% ADD-VANTAGE 50ML 50 ML IV SCH (22:26)
[2017-09-30] VITALS (9 sets, daily range): BP systolic 117–134; BP diastolic 72–87; PULSE 61–103; TEMP 36.4–37.2; O2SAT 92–97
[2017-09-30] MEDS: OXYCODONE/ACETAMINOPHEN 5-325 TAB PO PRN (00:50)
[2017-09-30] MEDS: SODIUM CHLORIDE 0.9% 1000ML 1,000 ML IV SCH ×3 (02:34→22:44)
[2017-09-30] MEDS: LORAZEPAM 2 MG/ML 1 ML VIAL IV PRN ×2 (04:16→08:20)
[2017-09-30 06:47] LABS: BASO % 0.5 %; BASO ABS # 0.03 K/uL (0-0.2); EOS % 1.4 %; EOS ABS # 0.08 K/uL (0-0.5); HEMATOCRIT 36.2 % (42-52); HEMOGLOBIN 11.9 g/dL (14.0-18.0); IG# 0.01 K/uL (0.00-0.02); LYMPH % 14.1 %; LYMPH ABS # 0.78 K/uL (1.2-3.4); MEAN CORPUSCULAR HEMOGLOBIN 27.9 pg (25-34); MEAN CORPUSCULAR HGB CONC 32.9 g/dl (32-36); MEAN PLATELET VOLUME 9.7 fL (7.4-10.4); MONO % 11.2 %; MONO ABS # 0.62 K/uL (0.11-0.59); NEUT % 72.6 %; NEUT ABS # 4.01 K/uL (1.4-6.5); PLATELET COUNT 107 K/uL (130-400); RED CELL DISTRIBUTION WIDTH CV 18.6 % (11.5-14.5); RED CELL DISTRIBUTION WIDTH SD 57.6 fL (36.4-46.3); WHITE BLOOD COUNT 5.53 K/uL (4.8-10.8)
[2017-09-30 07:25] LABS: CALCIUM 7.4 mg/dl (8.5-10.1); CREATININE 0.55 mg/dl (0.60-1.40); POTASSIUM 3.1 mmol/L (3.5-5.1)
[2017-09-30] MEDS ORDERED: GLUCOSE 40% GEL 15 GM TUBE ONE (07:47)
[2017-09-30] MEDS ORDERED: DEXTROSE 50% 50 ML SYR ONE (08:04)
[2017-09-30] MEDS: RANITIDINE HCL 150 MG TAB PO SCH ×2 (08:19→20:54)
[2017-09-30] MEDS: ESCITALOPRAM OXALATE 10 MG TAB PO SCH (08:19)
[2017-09-30] MEDS: DIAZEPAM 5MG TAB PO SCH ×3 (08:19→20:55)
[2017-09-30] MEDS: FoLIC ACID INJ 1 MG in SYRINGE 9.8 ML IV SCH (08:20)
[2017-09-30] MEDS: THIAMINE HCL INJ 100 MG in SYRINGE 9 ML IV SCH (08:20)
[2017-09-30] MEDS: CYANOCOBALAMIN 500 MCG TAB (VIT B-12) PO SCH (08:21)
[2017-09-30] MEDS: DOCUSATE SODIUM 100 MG CAP PO SCH ×2 (08:21→20:54)
[2017-09-30] MEDS ORDERED: POTASSIUM CHLORIDE 20 MEQ TABCR PO ONE (09:00)
[2017-09-30] MEDS: BACLOFEN 10 MG TAB PO SCH ×3 (10:30→20:55)
--- NOTE | 2017-09-30 14:57 | Hospitalist Progress Note ---
Hospitalist Progress Note Date of Service Sep 30, 2017. (Elva Castellon ., JESUS) Subjective Pt evaluation today including: conversation w/ patient, physical exam, lab review, review of studies, review of inpatient medication list Voiding: mejia catheter in place Patient resting in bed. Shakes head "no" when asked if in any pain/has complaints. ROS cannot be obtained. (Elva Castellon ., CYNTHIAC) Medications Current Inpatient Medications Medications (Trade) Dose Ordered Sig/Ina Route Start Time Stop Time Status Last Admin Dose Admin Baclofen (Lioresal Tab) 7.5 mg TID PO 09/28/17 21:00 10/28/17 20:59 09/30/17 10:30 7.5 MG Cyanocobalamin (Vitamin B-12 Tab) 1,000 mcg QAM PO 09/29/17 09:00 10/29/17 08:59 09/30/17 08:21 1,000 MCG Docusate Sodium (coLACE CAP) 100 mg BID PO 09/28/17 21:00 10/28/17 20:59 09/29/17 21:07 100 MG Escitalopram Oxalate (Lexapro Tab) 10 mg QAM PO 09/29/17 09:00 10/29/17 08:59 09/30/17 08:19 10 MG Ranitidine HCl (zANTac TAB) 150 mg BID PO 09/28/17 21:00 10/28/17 20:59 09/30/17 08:19 150 MG Lorazepam (Ativan Inj) 1 mg Q4H PRN IV 09/28/17 14:30 10/28/17 14:29 09/30/17 08:20 1 MG Acetaminophen (Tylenol Tab) 650 mg Q4H PRN PO 09/28/17 14:30 10/28/17 14:29 Al Hydrox/Mg Hydrox/Simethicone (Maalox Max Susp) 15 ml Q4H PRN PO 09/28/17 14:30 10/28/17 14:29 Magnesium Hydroxide (Milk Of Magnesia Susp) 30 ml Q12H PRN PO 09/28/17 14:30 10/28/17 14:29 Ondansetron HCl (Zofran Inj) 4 mg Q6H PRN IV 09/28/17 14:30 10/28/17 14:29 Polyethylene (Miralax Powder Packet) 17 gm DAILY PRN PO 09/28/17 14:30 10/28/17 14:29 Diazepam (Valium Tab) 5 mg TID PO 09/28/17 14:45 10/28/17 14:29 09/30/17 08:19 5 MG Ceftriaxone Sodium 1 gm/ Dextrose 50 ml @ 100 mls/hr Q24H IV 09/28/17 22:00 10/08/17 21:59 09/29/17 22:26 100 MLS/HR Hydromorphone HCl (Dilaudid Inj) 0.5 mg Q6H PRN IV 09/28/17 16:45 10/12/17 16:44 09/29/17 16:19 0.5 MG Oxycodone/ Acetaminophen (Percocet 5-325mg Tab) 1 tab Q4H PRN PO 09/28/17 16:45 10/12/17 16:44 09/30/17 00:50 1 TAB Thiamine HCl 100 mg/Syringe 10 ml @ 2 mls/min QAM IV 09/29/17 09:00 10/29/17 08:59 09/30/17 08:20 2 MLS/MIN Folic Acid 1 mg/ Syringe 10 ml @ 5 mls/min QAM IV 09/29/17 09:00 10/29/17 08:59 09/30/17 08:20 5 MLS/MIN Sodium Chloride 1,000 ml @ 100 mls/hr Q10H IV 09/29/17 12:45 10/29/17 12:44 09/30/17 12:24 100 MLS/HR (Elva Castellon, CYNTHIAC) Objective Vital Signs Date Time Temp Pulse Resp B/P (MAP) Pulse Ox O2 Delivery O2 Flow Rate FiO2 09/30/17 12:00 36.9 88 24 118/72 (87) 95 Room Air 09/30/17 12:00 Room Air 2.0 Nasal Cannula 09/30/17 10:26 36.7 79 20 127/73 (91) 95 Room Air 09/30/17 08:00 Room Air 2.0 Nasal Cannula 09/30/17 04:00 36.8 103 125/79 (94) 92 Room Air 09/30/17 04:00 93 Room Air 09/30/17 00:00 94 Room Air 09/30/17 00:00 37.2 83 20 117/73 (88) 94 Room Air 09/29/17 20:00 92 Room Air 09/29/17 19:35 36.7 91 20 122/75 (91) 92 Room Air 09/29/17 16:00 Room Air 2.0 Nasal Cannula 09/29/17 15:33 36.8 81 20 116/68 (84) 93 Room Air (Elva Castellon PA-C) Physical Exam General Appearance: no apparent distress Eyes: normal inspection, PERRL ENT: hearing grossly normal Neck: supple Respiratory/Chest: lungs clear, no respiratory distress, no accessory muscle use Cardiovascular: regular rate, rhythm Abdomen: normal bowel sounds, non tender, soft Extremities: no pedal edema, no calf tenderness Neurologic/Psychiatric: alert, normal mood/affect Skin: normal color, warm/dry, no rash (Elva Castellon, CYNTHIAC) Laboratory Results Last 24 Hours Test 09/30/17 06:13 09/30/17 07:44 09/30/17 08:02 09/30/17 08:35 White Blood Count 5.53 K/uL Red Blood Count 4.26 M/uL Hemoglobin 11.9 g/dL Hematocrit 36.2 % Mean Corpuscular Volume 85.0 fL Mean Corpuscular Hemoglobin 27.9 pg Mean Corpuscular Hemoglobin Concent 32.9 g/dl Platelet Count 107 K/uL Mean Platelet Volume 9.7 fL Neutrophils (%) (Auto) 72.6 % Lymphocytes (%) (Auto) 14.1 % Monocytes (%) (Auto) 11.2 % Eosinophils (%) (Auto) 1.4 % Basophils (%) (Auto) 0.5 % Neutrophils # (Auto) 4.01 K/uL Lymphocytes # (Auto) 0.78 K/uL Monocytes # (Auto) 0.62 K/uL Eosinophils # (Auto) 0.08 K/uL Basophils # (Auto) 0.03 K/uL RDW Standard Deviation 57.6 fL RDW Coefficient of Variation 18.6 % Immature Granulocyte % (Auto) 0.2 % Immature Granulocyte # (Auto) 0.01 K/uL Sodium Level 140 mmol/L Potassium Level 3.1 mmol/L Chloride Level 107 mmol/L Carbon Dioxide Level 26 mmol/L Anion Gap 7.0 mmol/L Blood Urea Nitrogen 5 mg/dl Creatinine 0.55 mg/dl Est Creatinine Clear Calc Drug Dose 113.5 ml/min Estimated GFR () 141.8 Estimated GFR (Non- 122.4 BUN/Creatinine Ratio 8.6 Random Glucose 63 mg/dl Calcium Level 7.4 mg/dl Magnesium Level 1.8 mg/dl Total Creatine Kinase 1711 U/L Bedside Glucose 61 mg/dl 61 mg/dl 198 mg/dl Test 09/30/17 11:28 Bedside Glucose 78 mg/dl (Elva Castellon, CYNTHIAC) Assessment and Plan 47 y/o M Hx severe cerebral palsy, cachexia and alcoholism. 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 He mobilizes with a scooter normally. The pt apparently fell out of his scooter and remained on the floor of his apt for several hours yelling for help. He was eventually found face down on the floor by the police after someone - a good zoroastrian no doubt - alerted them. It is estimated that he was on the floor for a total of 6-7 hours. The pt has difficulty vocalizing and is unable to meaningfully contribute to the HPI. He has multiple bruises and excoriations which may have resulted from contact with the floor. Initial labs are consistent with acute rhabdomyolysis. A complete skeletal survey did not support any acute fractures or significant trauma. A UA is (+). Rhabdomyolysis secondary to fall: - Admit to tele for cardiac monitoring - Treating w/ IVF- now at 100 ml/hr - CK trending down - IV Dilaudid PRN for pain management Hypokalemia: Replace w/ PO KCL supplement and follow PRP Possible EtOH withdrawal: - Continue Valium TID scheduled, Ativan PRN q4 hrs - Thiamine and Folate UTI: culture shows pinpoint growth, continue Rocephin for now Anxiety: Continue Lexapro Cerebral palsy: Continue Baclofen Speech therapy- recommend purred/nectar thick diet GERD: Zantac 150 mg BID Code status: LEVEL I, FULL Dispo: Discharge uncertain- CM following (Elva Castellon, PAGracielaC) Supervising Note Dr. Jamison I performed a history and physical examination on the patient. I reviewed above note and agree with it. I discussed plan with APC and patient. During my face to face encounter with the patient, I answered all of the patient's questions. (Av Jamison M.D.)
[2017-09-30] MEDS: POTASSIUM CITRATE 10 MEQ TAB PO SCH (20:55)
[2017-09-30] MEDS: CEFTRIAXONE SOD INJ 1 GM in DEXTROSE 5% ADD-VANTAGE 50ML 50 ML IV SCH (22:44)
[2017-10-01 00:05] VITALS: BP 128/77; PULSE 61; TEMP 36.9; O2SAT 97
[2017-10-01] MEDS ORDERED: LORAZEPAM INJ 1 MG in SYRINGE 0.5 ML IV PRN (00:30)
[2017-10-01] MEDS: HYDROmorphone INJ 0.5 MG/0.5 ML SYR IV PRN (02:20)
[2017-10-01 06:41] LABS: HEMATOCRIT 39.5 % (42-52); MEAN CELL VOLUME 85.1 fL (80-100); MEAN CORPUSCULAR HGB CONC 32.9 g/dl (32-36); MEAN PLATELET VOLUME 9.9 fL (7.4-10.4); PLATELET COUNT 127 K/uL (130-400); RED CELL DISTRIBUTION WIDTH CV 18.2 % (11.5-14.5); RED CELL DISTRIBUTION WIDTH SD 56.7 fL (36.4-46.3)
[2017-10-01 07:10] LABS: CALCIUM 7.7 mg/dl (8.5-10.1); CREATININE 0.63 mg/dl (0.60-1.40)
[2017-10-01 07:21] VITALS: BP 107/76; PULSE 75; TEMP 36.4; O2SAT 94
[2017-10-01] MEDS: RANITIDINE HCL 150 MG TAB PO SCH (07:33)
[2017-10-01] MEDS: POTASSIUM CITRATE 10 MEQ TAB PO SCH (07:33)
[2017-10-01] MEDS: CYANOCOBALAMIN 500 MCG TAB (VIT B-12) PO SCH (07:33)
[2017-10-01] MEDS: DOCUSATE SODIUM 100 MG CAP PO SCH (07:33)
[2017-10-01] MEDS: BACLOFEN 10 MG TAB PO SCH (07:33)
[2017-10-01] MEDS: DIAZEPAM 5MG TAB PO SCH ×2 (07:33→13:36)
[2017-10-01] MEDS: ESCITALOPRAM OXALATE 10 MG TAB PO SCH (07:33)
[2017-10-01] MEDS: FoLIC ACID INJ 1 MG in SYRINGE 9.8 ML IV SCH (08:57)
[2017-10-01] MEDS: THIAMINE HCL INJ 100 MG in SYRINGE 9 ML IV SCH (08:57)
[2017-10-01] MEDS ORDERED: CEPH-571 PO (09:03)
--- NOTE | 2017-10-01 09:07 | Discharge Instructions ---
Discharge Instructions Date of Service Oct 01, 2017. Admission Reason for Admission: Alcohol Withdrawal,Rhabdomyolysis Discharge Discharge Diagnosis / Problem: Rhabdomyolysis Discharge Goals Goal(s): Decrease discomfort, Improve function, Improve disease control, Learn about illness, Diagnostic testing, Therapeutic intervention, Prevent Disease Progression Activity Recommendations Activity Limitations: resume your previous activity . Instructions / Follow-Up Instructions / Follow-Up Urinary tract infection: Keflex 500 mg twice daily until prescription is completed Resume all other regular home medications as prescribed AVOID alcohol use Speech Therapy Discharge Instructions 1. Moist mechanical soft diet, THIN liquids 2. Aspiration and GERD precautions, NO straws. Fully upright for meals and for 30 minutes after meals. Head of bed to be elevated to at least 30 degrees at all times to include while sleeping. 3. Will need assistance with feeding. Small bites, slow rate, small single sips. 4. Would benefit from continued FLOOR SURFACER services in the home for carryover of diet and safe swallow strategies. FOLLOW-UPS: Please follow-up with your PCP within 5-7 days Please follow-up/keep all of your subspecialty appointments Current Hospital Diet Patient's current hospital diet: Regular Diet Discharge Diet Recommended Diet: Regular Diet Diet Texture: Mechanical Soft (ground) Pending Studies Studies pending at discharge: no Medical Emergencies . Who to Call and When: Medical Emergencies: If at any time you feel your situation is an emergency, please call 911 immediately. . Non-Emergent Contact Non-Emergency issues call your: Primary Care Provider Call Non-Emergent contact if: you have a fever, your pain is not controlled, your pain is worsening, your pain is unusual for you, your pain is concerning you, wound has increased drainage, wound has increased redness, wound has increased pain, you have any medication questions . . "Provider Documentation" section prepared by Elva Castellon. . VTE Core Measure Inpt VTE Proph given/why not?: SCD's
[2017-10-01] MEDS: SODIUM CHLORIDE 0.9% 1000ML 1,000 ML IV SCH (10:39)
--- NOTE | 2017-10-01 13:43 | Discharge Summary ---
Discharge Summary Date of Service Oct 01, 2017. Discharge Summary Admission Date: Sep 28, 2017 at 14:26 Discharge Date: Oct 01, 2017 Discharge Disposition: Home with services Principal Diagnosis: Rhabdomyolysis Problems/Secondary Diagnoses: Rhabdomyolysis secondary to fall Hypokalemia Possible EtOH withdrawal/alcohol abuse UTI Anxiety Cerebral palsy GERD Immunizations: Have You Had Influenza Vaccine: Unknown History of Tetanus Vaccine?: Unknown History of Pneumococcal: Unknown History of Hepatitis B Vaccine: Unknown Procedures: HEAD WITHOUT CONTRAST (CT) CLINICAL HISTORY: 47 years-old Male presenting with trauma, found down, EtOH. TECHNIQUE: Multidetector CT imaging of the head was performed without the use of intravenous contrast. IV contrast: None. A dose lowering technique was used consistent with the principles of ALARA (as low as reasonably achievable). COMPARISON: 07/16/2017. CT DOSE (mGy.cm): The estimated cumulative dose is 3494.31 inclusive of multiple additional CT scans. FINDINGS: Recruitment And Outreach Assistant topogram: Unremarkable. Ventricles and sulci normal in size. Subtle hypodensity in the anterior left thalamus and posterior limb of the left internal capsule as well as the left subinsular region (series 2 image 18). No mass effect or midline shift. No hemorrhage or acute territorial infarct. No extra-axial fluid collection. Paranasal sinuses and mastoid air cells clear. Calvarium intact. IMPRESSION: 1. Subtle hypodensity suggested in the left thalamus and left subinsular region. These raise concern for focal infarcts. Further evaluation with noncontrast MR brain recommended. No hemorrhage or evidence of contusion. The report will be called/faxed according to standard departmental protocol. Electronically signed by: Huy Hanna M.D. 09/28/2017 10:27 AM Dictated Date/Time: 09/28/2017 10:23 AM The status of this report is Signed. Draft = Not yet reviewed or approved by Radiologist. Signed = Reviewed and approved by Radiologist. CHEST ONE VIEW PORTABLE CLINICAL HISTORY: 47 years-old Male presenting with trauma. TECHNIQUE: Portable supine AP view of the chest was obtained. COMPARISON: 09/13/2017. FINDINGS: Cardiomediastinal silhouette normal. Pulmonary vascular prominence likely related to supine positioning. Lungs and pleural spaces clear. Osseous structures normal. Hiatal hernia present. IMPRESSION: 1. No acute cardiopulmonary disease. Electronically signed by: Huy Hanna M.D. 09/28/2017 9:45 AM Dictated Date/Time: 09/28/2017 9:43 AM The status of this report is Signed. Draft = Not yet reviewed or approved by Radiologist. Signed = Reviewed and approved by Radiologist. (CHEST) THORAX WITH CLINICAL HISTORY: 47 years-old Male presenting with trauma, found down by police, EtOH, history of cerebral palsy. TECHNIQUE: Multidetector CT imaging of the chest was performed without the use of intravenous contrast. IV contrast: 94 mL of Optiray 320. A dose lowering technique was used consistent with the principles of ALARA (as low as reasonably achievable). COMPARISON: Chest x-ray performed earlier the same day. CT DOSE (mGy.cm): The estimated cumulative dose is 3494.31 inclusive of multiple additional CT scans. FINDINGS: Recruitment And Outreach Assistant topogram: Cachexia. Motion artifact grades image quality limiting diagnostic sensitivity the exam. On soft tissue windows, bilateral gynecomastia. Normal thyroid. No axillary, supraclavicular, hilar, or mediastinal lymphadenopathy. Normal aorta. Normal heart size. No pericardial or pleural effusion. Large hiatal hernia. Hepatic steatosis. On lung windows, minimal dependent changes likely atelectasis. No other focal nodule or infiltrate. Airways patent. On bone windows, normal osseous structures. IMPRESSION: 1. No acute intrathoracic injury. 2. Minimal atelectasis. 3. Hepatic steatosis. 4. Large hilar hernia. Electronically signed by: Huy Hanna M.D. 09/28/2017 10:51 AM Dictated Date/Time: 09/28/2017 10:47 AM The status of this report is Signed. Draft = Not yet reviewed or approved by Radiologist. Signed = Reviewed and approved by Radiologist. CERVICAL SPINE W/O CLINICAL HISTORY: 47 years-old Male presenting with trauma, found down. TECHNIQUE: Multidetector CT of the cervical spine was performed without the use of intravenous contrast. IV contrast: None. A dose lowering technique was used consistent with the principles of ALARA (as low as reasonably achievable). COMPARISON: 07/16/2017. CT DOSE (mGy.cm): The estimated cumulative dose is 3494.31 mGy.cm. FINDINGS: Recruitment And Outreach Assistant topogram: Unremarkable. Normal cervical lordosis. Vertebral bodies demonstrate mild height loss at C2-C5 likely secondary to degenerative change. Intervertebral disc height loss noted at nearly every level with disc osteophyte complexes. Osteophytosis and endplate changes also evident as on prior exam. No acute fracture or subluxation. Only minimal posterior bony spurring noted. No significant osseous spinal canal narrowing. Positional related rotatory subluxation of C1 on C2. Osseous neural foraminal narrowing noted at C3-4 and C4-5. Skull base intact. IMPRESSION: 1. No acute osseous injury. 2. Multilevel degenerative changes as on prior exam. Electronically signed by: Huy Hanna M.D. 09/28/2017 10:30 AM Dictated Date/Time: 09/28/2017 10:27 AM The status of this report is Signed. Draft = Not yet reviewed or approved by Radiologist. Signed = Reviewed and approved by Radiologist. ABD/PELVIS IV CONTRAST ONLY CLINICAL HISTORY: 47 years-old Male presenting with trauma, found down, EtOH, history of cerebral palsy. TECHNIQUE: Multidetector CT of the abdomen and pelvis was performed after the administration of intravenous contrast. IV contrast: 94 mL of Optiray 320. A dose lowering technique was used consistent with the principles of ALARA (as low as reasonably achievable). COMPARISON: 06/12/2017. CT DOSE (mGy.cm): The estimated cumulative dose is 3494.31 inclusive of multiple additional CT scans. FINDINGS: Recruitment And Outreach Assistant topogram: Cachexia. Lung bases: Minimal basilar opacities, likely atelectasis. Normal heart size. No pericardial or pleural effusion. Liver: Normal morphology. Density consistent with hepatic steatosis. No focal lesion. Patent hepatic vasculature. Biliary: No intrahepatic or extrahepatic biliary ductal dilatation. Normal gallbladder. Pancreas: Normal. Spleen: Normal. Adrenal glands: Normal. Kidneys and ureters: Normal renal parenchyma. Excretion of contrast from the bilateral kidneys. This limits evaluation for nephrolithiasis. No hydronephrosis. The distal ureters are poorly visualized secondary to motion artifact. Bladder: Decompressed with a Hernandez catheter.. Pelvic organs: Prostate enlargement likely secondary to benign prostatic hyperplasia. Bowel: Moderate stool burden in the rectum. Degraded evaluation of the bowel secondary to motion artifact. No bowel obstruction. Large hiatal hernia. Peritoneal cavity: No free fluid or intraperitoneal gas. Lymph nodes: No enlarged lymph nodes in the abdomen or pelvis. Vasculature: Aorta and IVC patent and normal in caliber. Abdominal wall: Possibly of abdominal wall fat suggesting cachexia. Musculoskeletal: No gross abnormality allowing for extensive motion related artifact. IMPRESSION: 1. No acute intra-abdominal injury allowing for motion artifact and rotation of image quality, which limits diagnostic since activity of the exam. 2. Hepatic steatosis. 3. Cachexia. Electronically signed by: Huy Hanna M.D. 09/28/2017 10:39 AM Dictated Date/Time: 09/28/2017 10:33 AM The status of this report is Signed. Draft = Not yet reviewed or approved by Radiologist. Signed = Reviewed and approved by Radiologist. BRAIN WITHOUT CONTRAST CLINICAL HISTORY: 47 years-old Male presenting with L thalamic bleed. TECHNIQUE: Multisequence, multiplanar MR imaging of the brain was performed without the use of intravenous contrast. IV contrast: None. COMPARISON: CT head performed earlier the same day. FINDINGS: Examination limited by motion artifact. This negatively affects diagnostic sensitivity the exam. Ventricles and sulci normal in size. Brain parenchyma grossly normal. No mass effect or midline shift. No restricted diffusion to suggest acute ischemia. No gross evidence of hemorrhage. No extra-axial fluid collection. Bone marrow signal intensity within the calvarium within normal limits. IMPRESSION: 1. No acute ischemia or gross evidence of acute intracranial pathology. The abnormality seen on CT may be artifactual or represent developing lacunar infarcts. No hemorrhage evident on CT or MR. Electronically signed by: Huy Hanna M.D. 09/28/2017 1:36 PM Dictated Date/Time: 09/28/2017 1:32 PM The status of this report is Signed. Draft = Not yet reviewed or approved by Radiologist. Signed = Reviewed and approved by Radiologist. Medication Reconciliation New Medications: Cephalexin (Keflex) 500 Mg Cap 1 CAP PO BID for 4 Days, #8 CAP Continued Medications: Baclofen (Lioresal) 10 Mg Tab 7.5 MG PO TID, TAB Cyanocobalamin (Vitamin B-12) 1,000 Mcg Tab 1000 MCG PO QAM, TAB Diazepam (Valium) 5 Mg Tab 5 MG PO BID PRN for Muscle Spasm, TAB Docusate Sodium (Docusate Sodium) 100 Mg Cap 100 MG PO BID, CAP Escitalopram (Lexapro) 10 Mg Tab 10 MG PO QAM, TAB Lorazepam (Ativan) 1 Mg Tab 1 MG PO Q6-8H PRN for Tremors and Cerebral Palsy Ranitidine (Zantac) 150 Mg Tab 150 MG PO BID, TAB Thiamine Hcl (Vitamin B-1) 100 Mg Tab 100 MG PO DAILY, TAB Referrals At Discharge Follow up Referrals: Family Practice Referral - Within 1-2 Weeks with [facility] Discharge Exam ROS no completed, patient is nonverbal. Shakes head "no" to any complaints/pain/ needs. Physical Exam: General Appearance: no apparent distress Eyes: normal inspection, PERRL ENT: hearing grossly normal Neck: supple Respiratory/Chest: lungs clear, no respiratory distress, no accessory muscle use Cardiovascular: regular rate, rhythm Abdomen / GI: normal bowel sounds, non tender, soft Extremities: no calf tenderness, no pedal edema Neurologic/Psychiatric: alert, normal mood/affect, oriented x 3 Skin: normal color, warm/dry, no rash Hospital Course 47 y/o M Hx severe cerebral palsy, cachexia and alcoholism. 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 He mobilizes with a scooter normally. The pt apparently fell out of his scooter and remained on the floor of his apt for several hours yelling for help. He was eventually found face down on the floor by the police after someone - a good voodoo no doubt - alerted them. It is estimated that he was on the floor for a total of 6-7 hours. The pt has difficulty vocalizing and is unable to meaningfully contribute to the HPI. He has multiple bruises and excoriations which may have resulted from contact with the floor. Initial labs are consistent with acute rhabdomyolysis. A complete skeletal survey did not support any acute fractures or significant trauma. A UA is (+). Rhabdomyolysis secondary to fall: - Admit to tele for cardiac monitoring- no acute events, transferred to med/surg - Treated w/ IVF - CK trending down - IV Dilaudid PRN for pain management Hypokalemia- RESOLVED: Replace w/ PO KCL supplement and follow PRP Possible EtOH withdrawal: - Continue Valium TID scheduled, Ativan PRN q4 hrs - Thiamine and Folate UTI: - Culture shows pinpoint growth - IV Rocephin while inpatient- transitioned to PO Keflex BID x4 more days at discharge Anxiety: Continue Lexapro Cerebral palsy: Continue Baclofen Speech therapy recommendations: 1. Moist mechanical soft diet, THIN liquids 2. Aspiration and GERD precautions, NO straws. Fully upright for meals and for 30 minutes after meals. Head of bed to be elevated to at least 30 degrees at all times to include while sleeping. 3. Will need assistance with feeding. Small bites, slow rate, small single sips.4. Would benefit from continued EXPANSION JOINT BUILDER services in the home for carryover of diet and safe swallow strategies. GERD: Zantac 150 mg BID Code status: LEVEL I, FULL Dispo: Discharge to home w/ [facility] Total Time Spent: Greater than 30 minutes This includes examination of the patient, discharge planning, medication reconciliation, and communication with other providers. Discharge Instructions Please refer to the electronic Patient Visit Report (Discharge Instructions) for additional information. Follow-Up Please follow-up with your PCP within 5-7 days Please follow-up/keep all of your subspecialty appointments Additional Copies To [facility]
[2017-10-01 13:46] VITALS: BP 107/76; PULSE 75; TEMP 36.4; O2SAT 94
== END 2017-10-01 15:35 | disposition home health service (06) | DRG 558 ==
LOC: EDBD 08:45 → C.EDB 08:51 → C.2T 14:26 → ENRESERV 15:27 → C.MS4W 09-30 23:22
PROVIDERS: ADMIT Internal Medicine; ATTEND Internal Medicine Sports Medicine
DX: M62.82 Rhabdomyolysis (principal); F10.239 Alcohol dependence with withdrawal, unspecified; R64 Cachexia; N39.0 Urinary tract infection, site not specified; T14.8XXA Other injury of unspecified body region, initial encounter; R62.7 Adult failure to thrive; G80.9 Cerebral palsy, unspecified; F12.11 Cannabis abuse, in remission; F41.9 Anxiety disorder, unspecified; Z82.49 Family history of ischemic heart disease and other diseases of the circulatory system; W05.2XXA Fall from non-moving motorized mobility scooter, initial encounter